=== PATIENT | male | born 1945 | race Two or more races ===

== ENCOUNTER 2016-08-27 08:35 | Observation (INO) | payer MEDICARE, MEDICAID ==
[~2016-08-27] VITALS: Ht 167.6 cm; Wt 93.4 kg
[~2016-08-27 08:35] MED LIST: ASPI1TAB PO; BACT800T5 PO; CALC25TA PO; CALCTAB7 PO; COLA100C PO; CRAN500C2 PO; DIPH25CA PO; DULC10SU2 PR; FERR325T3 PO; FOSA70TA PO; HCTZ PO; LIPI20TA PO; MIRA3350 PO; MOM30SS PO; PREPOI PR; PREPOI TOP; PROT1TAB2 PO; SUCR1TA PO; TRIA1CR EXT; TYLE325T5 PO; VITATAB54 PO; ZEST1TAB PO; ZEST1TAB6 PO; ZINC60OI TOP; dulcolax PR; zinc TOP
[2016-08-27] MEDS: ZINC OXIDE TOP SCH ×2 (09:00→21:39)
[2016-08-27 09:44] LABS: BASO # 0.1 K/mm3 (0.0-0.2); BASO % 0.9 % (0.0-1.0); EOS # 0.4 K/mm3 (0.0-0.50); EOS % 4.9 % (0.0-3.0); LARGE UNSTAINED CELL # 0.2 K/mm3 (0.0-0.4); LARGE UNSTAINED CELL % 2.7 % (0.0-4.0); LYMPH # 1.4 K/mm3 (1.5-4.5); LYMPH % 19.3 % (24.0-44.0); MEAN CORPUSCULAR HEMOGLOBIN 30.7 pg (27.0-33.0); MEAN CORPUSCULAR VOLUME 90.1 fl (80.0-96.0); MONO # 0.5 K/mm3 (0.0-0.8); MONO % 6.6 % (0.0-5.0); NEUTROPHILS # 4.7 K/mm3 (1.8-7.7); NEUTROPHILS % 65.5 % (36.0-66.0); PLATELET COUNT, AUTOMATED 201 k/mm3 (150-450); RED CELL DISTRIBUTION WIDTH 12.6 % (11.5-14.5); WHITE BLOOD COUNT 7.1 K/mm3 (4.0-10.0)
[2016-08-27 10:07] LABS: ANION GAP 7 MEQ/L (8-16); BLOOD UREA NITROGEN 12 MG/DL (7-18); CALCIUM LEVEL 8.5 MG/DL (8.8-10.2); CARBON DIOXIDE LEVEL 28 MEQ/L (21-32); CHLORIDE LEVEL 101 MEQ/L (98-107); CREATININE FOR GFR 0.74 MG/DL (0.70-1.30); GLOMERULAR FILTRATION RATE > 60.0 (>42); GLUCOSE, FASTING 124 MG/DL (83-110); POTASSIUM SERUM 4.6 MEQ/L (3.5-5.1); SODIUM LEVEL 136 MEQ/L (136-145)
[2016-08-27] MEDS ORDERED: ATOR40TA PO (11:20)
[2016-08-27] MEDS ORDERED: MELA5TAB14 PO (11:25)
[2016-08-27] MEDS ORDERED: CALCTAB75 PO (11:25)
[2016-08-27] MEDS ORDERED: hydroCHLOROthiazide 12.5 MG CAPSULE PO ONE (11:45)
[2016-08-27] MEDS ORDERED: BISACODYL 10 MG SUPP PR PRN (11:45)
[2016-08-27] MEDS ORDERED: TRIAMCINOLONE ACET 0.1% CREAM 15 GM EXT PRN (11:45)
[2016-08-27] MEDS ORDERED: MOM 30ML SUSPENSION UDC PO PRN (11:45)
[2016-08-27] MEDS ORDERED: LISINOPRIL 10 MG TAB PO ONE (11:45)
[2016-08-27] MEDS ORDERED: SUCRALFATE 1 GM TAB As Ordered ONE (12:57)
[2016-08-27] MEDS: SUCRALFATE 1 GM TAB PO SCH ×3 (13:00→21:39)
--- NOTE | 2016-08-27 13:25 | EDDOCDS ---
Physician Documentation [facility] Name: Calvin Joaquin Age: 71 yrs Sex: Male : 1945 Arrival Date: 08/27/2016 Time: 08:35 Bed 14 Private MD: Aldo Modi D Disposition: 08/27/16 11:02 Hospitalization ordered by Aldo Modi for Inpatient Admission. Preliminary diagnosis is Open wound of scrotum and testes. - Bed requested for 5 Qu[place]ñone[place]. - Status is Inpatient Admission. hs1 - Condition is Stable. - Problem is an ongoing problem. - Symptoms have worsened. Historical: - Allergies: Codeine Sulfate; - Home Meds: 1. Carafate 1 gram Oral tab 1 tab 4 times per day (Last dose: 08/27/2016) 2. Protonix 40 mg Oral TbEC 1 tab 2 times per day (Last dose: 08/27/2016) 3. Miralax 17 gram Oral pwpk 1 packet once daily (Last dose: 08/27/2016) 4. zinc oxide Topical crea twice a day (Last dose: 08/27/2016) 5. Calcium + Vitamin D sumanth 600 mg/ Vit D 400 iu Oral tab daily 6. Colace 100 mg oral cap 1 cap 2 times per day 7. ferrous sulfate 325 mg (65 mg iron) Oral tab twice a day 8. cranberry 500 mg oral cap twice a day 9. Zestoretic 10-12.5 mg Oral tab 1 tab once daily 10. Lipitor 40 mg Oral tab 1 tab once daily 11. melatonin 5 mg Oral tab daily - PMHx: borderline intellectual functioning; neuropathy; Cerebral Palsy; - PSHx: Knee surgery; Colonoscopy (2002); - Social history: Smoking status: Patient states was never smoker of tobacco. No barriers to communication noted, The patient speaks fluent Yi. - Family history: Not pertinent. - : The pt / caregiver states he / she is not on anticoagulants. Home medication list is obtained from the facility AUG. - Exposure Risk Screening:: None identified. Vital Signs: 08/27 08:37 BP 111 / 66; Pulse 69; Resp 18; Temp 97.4(O); Pulse Ox 99% ; Weight 93.44 kg / 206 lbs; cmb Height 5 ft. 6 in. (167.64 cm); Pain 0/10; 12:36 BP 135 / 73; Pulse 66; Resp 18; Temp 97.6; Pulse Ox 98% ; Pain 0/10; hs1 13:22 BP 125 / 69; Pulse 59; Resp 18; Temp 97.8(TE); Pulse Ox 98% on R/A; Pain 0/10; rn1 08:37 Body Mass Index 33.25 (93.44 kg, 167.64 cm) cmb MDM: 09:24 IV Saline Lock ordered. br1 09:25 CBC with Diff Ordered. EDMS 09:25 BMP Ordered. EDMS 09:25 Wound Culture & GS - All Other Sources Ordered. EDMS 09:47 CBC with Diff Reviewed. br1 10:19 Financial registration complete. mm15 10:20 [facility] Payment Agreement was scanned into [employer] and attached to record. mm15 10:42 BMP Reviewed. br1 11:01 BED REQUEST+ADM ordered. EDMS 11:49 Admission / Observation Status ordered. EDMS 12:56 Sucralfate 1 grams PO once ordered. jjr Administered Medications: 13:00 Drug: Sucralfate 1 grams [sucralfate 1 gram tablet (1 tabs)] Route: PO; jjr Signatures: Dispatcher [employer] EDMS Esmer Jaquez, Assistant Director Unit deg Robbi Cox RN RN mlb1 Ronan Merino MD MD br1 Donita Wolf RN RN jjr Angeli Dubon RN RN hs1 Jass Garcia mm15 The chart was reviewed and I authenticate all verbal orders and agree with the evaluation and treatment provided.Attachments: 10:20 [facility] Payment Agreement mm15 MTDD
--- NOTE | 2016-08-27 13:26 | EDDOCDS ---
Nurse's Notes [facility] Name: Calvin Joaquin Age: 71 yrs Sex: Male : 1945 Arrival Date: 08/27/2016 Time: 08:35 Bed 14 Private MD: Aldo Modi D Diagnosis: Open wound of scrotum and testes Presentation: 08/27 08:40 Presenting complaint: Open wound to scrotum not healing now with drainage began two mlb1 months ago. Adult Sepsis Screening: The patient does not have new or worsening altered mentation. Patient's respiratory rate is less than 22. Systolic blood pressure is greater than 100. Patient has a qSOFA score of 0- Negative Sepsis Screen. Suicide/Homicide risk assessment- the patient denies having any suicidal and/or homicidal ideations and does not present with any other emotional, behavioral or mental health complaints. 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 Transition of care: patient was received from [facility]. 08:40 Acuity: ALON Level 3 mlb1 08:40 Method Of Arrival: Wheelchair mlb1 Triage Assessment: 08:49 General: Appears in no apparent distress, Behavior is appropriate for age, cooperative. mlb1 Pain: Denies pain. Historical: - Allergies: Codeine Sulfate; - Home Meds: 1. Carafate 1 gram Oral tab 1 tab 4 times per day (Last dose: 08/27/2016) 2. Protonix 40 mg Oral TbEC 1 tab 2 times per day (Last dose: 08/27/2016) 3. Miralax 17 gram Oral pwpk 1 packet once daily (Last dose: 08/27/2016) 4. zinc oxide Topical crea twice a day (Last dose: 08/27/2016) 5. Calcium + Vitamin D sumanth 600 mg/ Vit D 400 iu Oral tab daily 6. Colace 100 mg oral cap 1 cap 2 times per day 7. ferrous sulfate 325 mg (65 mg iron) Oral tab twice a day 8. cranberry 500 mg oral cap twice a day 9. Zestoretic 10-12.5 mg Oral tab 1 tab once daily 10. Lipitor 40 mg Oral tab 1 tab once daily 11. melatonin 5 mg Oral tab daily - PMHx: borderline intellectual functioning; neuropathy; Cerebral Palsy; - PSHx: Knee surgery; Colonoscopy (2002); - Social history: Smoking status: Patient states was never smoker of tobacco. No barriers to communication noted, The patient speaks fluent Lithuanian. - Family history: Not pertinent. - : The pt / caregiver states he / she is not on anticoagulants. Home medication list is obtained from the facility AUG. - Exposure Risk Screening:: None identified. Screenin:48 Advance Directives: Currently, there is a health care proxy, Kamila Joaquin. mlb1 12:45 Screening information is obtained from the caregiver. Fall risk: At risk due to gait hs1 disturbance, immobility, The following interventions are performed due to a positive Fall Risk Screen: Fall Risk is added to Special Handling on the patient Summary Screen. A Fall Risk Bracelet was applied to the patient. Side Rails are placed in the up position. A Call Zamarripa is given with instruction to call for help when getting out of bed. Fall Alert bracelet is placed on the patient. Assistance ADL's: Requires assistance with meal preparation, this assistance is provided by Home Health Aides, bathing, assistance is provided by Home Health Aides, dressing, assistance is provided by Home Health Aides, toileting, assistance is provided by Home Health Aides, ambulation, assistance is provided by Home Health Aides. Abuse/DV Screen: The patient / caregiver reports he/she is: not in a situation that causes fear, pain or injury. Nutritional screening: On thickened liquids. home support is adequate. Assessment: 09:48 General: Appears in no apparent distress, comfortable, Behavior is appropriate for age, hs1 cooperative. Pain: Denies pain. Derm: Skin is pink, warm & dry. 10:35 General: Appears in no apparent distress, comfortable, Behavior is appropriate for age, hs1 cooperative. : excoriated area between right thigh and perineum. Blisters broken skin and white area noted. Caregiver states has been using zinc creams and antibacterial ointment. 11:25 General: Appears in no apparent distress, comfortable, Behavior is appropriate for age, hs1 cooperative, Patient and palliative care physician aware of admission. No needs noted. Attending MD in to see excoriated areas. Dressing plan discussed and patient aware of needing dressings. . 12:38 General: Appears in no apparent distress, comfortable, Behavior is appropriate for age, hs1 cooperative, caregiver asking for Carafate for patient to have before lunch. Aware of admission to floor. No other needs known. . Vital Signs: 08:37 BP 111 / 66; Pulse 69; Resp 18; Temp 97.4(O); Pulse Ox 99% ; Weight 93.44 kg; Height 5 cmb ft. 6 in. (167.64 cm); Pain 0/10; 12:36 BP 135 / 73; Pulse 66; Resp 18; Temp 97.6; Pulse Ox 98% ; Pain 0/10; hs1 13:22 BP 125 / 69; Pulse 59; Resp 18; Temp 97.8(TE); Pulse Ox 98% on R/A; Pain 0/10; rn1 08:37 Body Mass Index 33.25 (93.44 kg, 167.64 cm) cmb Vitals: 08:37 Log In Time: August 27, 2016 at 08:35. cmb ED Course: 08:37 Patient visited by Cindy Rosales. cmb 08:37 Aldo Modi is Private Physician. cmb 08:37 Patient moved to Waiting cmb 08:39 Patient moved to Pre RCE cmb 08:40 Patient visited by Robbi Cox RN. mlb1 08:41 Triage Initiated mlb1 08:49 Patient visited by Robbi Cox, JV. mlb1 08:49 Patient moved to Triage 1 mlb1 09:08 Patient moved to 14 dls 09:09 Ronan Merino MD is Attending Physician. br1 09:23 Patient visited by Ronan Merino MD. br1 09:44 Wound Culture & GS - All Other Sources Sent. hs1 10:04 Patient visited by Angeli Dubon RN. hs1 10:20 [facility] Payment Agreement was scanned into [employer] and attached to record. mm15 10:48 Patient visited by Angeli Dubon RN. hs1 11:01 Aldo Modi is Hospitalizing Provider. br1 12:36 Inserted saline lock: 22 gauge in right hand The patient tolerated the procedure well. hs1 12:38 Wound care located on perineum and scrotum was dressed with ABD pads, barrier ointment, hs1 mesh underwear to secure dressing in place without using tape Patient tolerated well. 12:46 The patient / caregiver is instructed regarding the plan of care and ED course. hs1 13:20 No procedures done that require assistance. hs1 Administered Medications: 13:00 Drug: Sucralfate 1 grams [sucralfate 1 gram tablet (1 tabs)] Route: PO; jjr Order Results: Lab Order: CBC with Diff; SPEC'M 08/27/16 09:30 Test: WHITE BLOOD COUNT; Value: 7.1; Range: 4.0-10.0; Units: K/mm3; Status: F Test: RED BLOOD COUNT; Value: 4.84; Range: 4.30-6.10; Units: M/mm3; Status: F Test: HEMOGLOBIN; Value: 14.8; Range: 14.0-18.0; Units: g/dl; Status: F Test: HEMATOCRIT; Value: 43.6; Range: 42.0-52.0; Units: %; Status: F Test: MEAN CORPUSCULAR VOLUME; Value: 90.1; Range: 80.0-96.0; Units: fl; Status: F Test: MEAN CORPUSCULAR HEMOGLOBIN; Value: 30.7; Range: 27.0-33.0; Units: pg; Status: F Test: MEAN CORPUSCULAR HGB CONC; Value: 34.0; Range: 32.0-36.5; Units: g/dl; Status: F Test: RED CELL DISTRIBUTION WIDTH; Value: 12.6; Range: 11.5-14.5; Units: %; Status: F Test: PLATELET COUNT, AUTOMATED; Value: 201; Range: 150-450; Units: k/mm3; Status: F Test: NEUTROPHILS %; Value: 65.5; Range: 36.0-66.0; Units: %; Status: F Test: LYMPH %; Value: 19.3; Range: 24.0-44.0; Abnormal: Below low normal; Units: %; Status: F Test: MONO %; Value: 6.6; Range: 0.0-5.0; Abnormal: Above high normal; Units: %; Status: F Test: EOS %; Value: 4.9; Range: 0.0-3.0; Abnormal: Above high normal; Units: %; Status: F Test: BASO %; Value: 0.9; Range: 0.0-1.0; Units: %; Status: F Test: LARGE UNSTAINED CELL %; Value: 2.7; Range: 0.0-4.0; Units: %; Status: F Test: NEUTROPHILS #; Value: 4.7; Range: 1.8-7.7; Units: K/mm3; Status: F Test: LYMPH #; Value: 1.4; Range: 1.5-4.5; Abnormal: Below low normal; Units: K/mm3; Status: F Test: MONO #; Value: 0.5; Range: 0.0-0.8; Units: K/mm3; Status: F Test: EOS #; Value: 0.4; Range: 0.0-0.50; Units: K/mm3; Status: F Test: BASO #; Value: 0.1; Range: 0.0-0.2; Units: K/mm3; Status: F Test: LARGE UNSTAINED CELL #; Value: 0.2; Range: 0.0-0.4; Units: K/mm3; Status: F Lab Order: [facility] 08/27/16 09:30 Test: GLUCOSE, FASTING; Value: 124; Range: 83-110; Abnormal: Above high normal; Units: MG/DL; Status: F Test: BLOOD UREA NITROGEN; Value: 12; Range: 7-18; Units: MG/DL; Status: F Test: CREATININE FOR GFR; Value: 0.74; Range: 0.70-1.30; Units: MG/DL; Status: F Test: GLOMERULAR FILTRATION RATE; Value: > 60.0; Range: >42; Status: F Test: SODIUM LEVEL; Value: 136; Range: 136-145; Units: MEQ/L; Status: F Test: POTASSIUM SERUM; Value: 4.6; Range: 3.5-5.1; Units: MEQ/L; Status: F Test: CHLORIDE LEVEL; Value: 101; Range: 98-107; Units: MEQ/L; Status: F Test: CARBON DIOXIDE LEVEL; Value: 28; Range: 21-32; Units: MEQ/L; Status: F Test: ANION GAP; Value: 7; Range: 8-16; Abnormal: Below low normal; Units: MEQ/L; Status: F Test: CALCIUM LEVEL; Value: 8.5; Range: 8.8-10.2; Abnormal: Below low normal; Units: MG/DL; Status: F Test Note: ; Units are mL/min/1.73 m2 Chronic Kidney Disease Staging per NKF: Stage I & II GFR >=60 Normal to Mildly Decreased Stage III GFR 30-59 Moderately Decreased Stage IV GFR 15-29 Severely Decreased Stage V GFR <15 Very Little GFR Left ESRD GFR <15 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 br1 13:20 Condition: stable. No special radiology studies were completed. Admission hand-off: [facility] Report called to 5 Khang CARIAS. Property :Personal belongings accompany Pt. 13:21 Discharge Assessment: Patient awake, alert and oriented x 3. No cognitive and/or hs1 functional deficits noted. Patient verbalized understanding of disposition instructions. patient administered narcotics - no. The following High Risk Discharge criteria are identified: None. Admitted to Med/Surg accompanied by nurse, accompanied by tech, via stretcher, on monitor. 13:25 Patient left the ED. [facility] Signatures: Shea Evans RN RN Robbi Yoon RN RN mlb1 Ronan Merino MD MD br1 Donita Wolf RN RN Angeli Yepez RN RN hs1 Cindy Rosales cmb Jass Garcia mm15 Paul Owusu rn1 Corrections: (The following items were deleted from the chart) 12:37 09:48 Pain: Location: pelvis Pain currently is 5 out of 10 on a pain scale. [place] [id number] 13:22 13:20 Discharge Assessment: Patient awake, alert and oriented x 3. No cognitive and/or 1 functional deficits noted. Patient verbalized understanding of disposition instructions. patient administered narcotics - no [facility] 13:22 13:20 The following High Risk Discharge criteria are identified: None. Discharged to 1 home ambulatory, [facility] MTDD
[2016-08-27 13:45] VITALS: BP 150/85
[2016-08-27] MEDS: MIRALAX *UNIT DOSE* 17GM PACKET PO SCH (15:46)
[2016-08-27 15:47] VITALS: BP 150/85
[2016-08-27] MEDS ORDERED: CRANBERRY EXTRACT PO SCH (21:00)
[2016-08-27] MEDS ORDERED: MELATONIN 5mg (PATIENT'S OWN MED) PO SCH (21:00)
[2016-08-27] MEDS: PANTOPRAZOLE 40MG TAB (PROTONIX) PO SCH (21:39)
[2016-08-27] MEDS: DOCUSATE SODIUM 100 MG CAP PO SCH (21:39)
[2016-08-27] MEDS: FERROUS SULFATE 325MG TAB PO SCH (21:39)
[2016-08-27] MEDS: ATORVASTATIN 20 MG TAB PO SCH (21:39)
[2016-08-27 22:00] VITALS: BP 129/67
[2016-08-28 05:53] LABS: BASO % 0.7 % (0.0-1.0); EOS # 0.5 K/mm3 (0.0-0.50); EOS % 6.5 % (0.0-3.0); LARGE UNSTAINED CELL # 0.2 K/mm3 (0.0-0.4); LARGE UNSTAINED CELL % 2.6 % (0.0-4.0); LYMPH # 1.7 K/mm3 (1.5-4.5); LYMPH % 18.7 % (24.0-44.0); MEAN CORPUSCULAR HEMOGLOBIN 30.5 pg (27.0-33.0); MEAN CORPUSCULAR HGB CONC 33.9 g/dl (32.0-36.5); MEAN CORPUSCULAR VOLUME 89.9 fl (80.0-96.0); MONO # 0.8 K/mm3 (0.0-0.8); MONO % 9.8 % (0.0-5.0); NEUTROPHILS # 4.8 K/mm3 (1.8-7.7); NEUTROPHILS % 61.8 % (36.0-66.0); PLATELET COUNT, AUTOMATED 213 k/mm3 (150-450); RED CELL DISTRIBUTION WIDTH 12.8 % (11.5-14.5); WHITE BLOOD COUNT 7.8 K/mm3 (4.0-10.0)
[2016-08-28 05:55] LABS: ANION GAP 8 MEQ/L (8-16); BLOOD UREA NITROGEN 11 MG/DL (7-18); CALCIUM LEVEL 8.6 MG/DL (8.8-10.2); CARBON DIOXIDE LEVEL 30 MEQ/L (21-32); CHLORIDE LEVEL 101 MEQ/L (98-107); CREATININE FOR GFR 0.72 MG/DL (0.70-1.30); GLOMERULAR FILTRATION RATE > 60.0 (>42); GLUCOSE, FASTING 116 MG/DL (83-110); POTASSIUM SERUM 3.9 MEQ/L (3.5-5.1); SODIUM LEVEL 139 MEQ/L (136-145)
[2016-08-28 06:00] VITALS: BP 130/67
[2016-08-28] MEDS: MIRALAX *UNIT DOSE* 17GM PACKET PO SCH (09:15)
[2016-08-28] MEDS: FERROUS SULFATE 325MG TAB PO SCH ×2 (09:16→20:36)
[2016-08-28] MEDS: DOCUSATE SODIUM 100 MG CAP PO SCH ×2 (09:16→20:36)
[2016-08-28] MEDS: ZINC OXIDE TOP SCH ×2 (09:16→20:37)
[2016-08-28] MEDS: PANTOPRAZOLE 40MG TAB (PROTONIX) PO SCH ×2 (09:16→20:36)
[2016-08-28] MEDS: SUCRALFATE 1 GM TAB PO SCH ×4 (09:16→20:36)
--- NOTE | 2016-08-28 09:28 | HPE ---
DATE OF ADMISSION: 08/27/2016 CHIEF COMPLAINT: Perineal redness and drainage. HISTORY OF PRESENT ILLNESS: Calvin is a 71-year-old [facility] ([facility]) patient with a history of cerebral palsy, incomplete sensory at the level of T10, as well as a 5-6-month history of perineal erythema and recurrent pressure ulcerations, who presents today for evaluation of draining perineal wounds first noticed on the night prior to admission. The history has been obtained from his [facility] advocate. As previously noted, he has been having chronic issues with recurrent pressure ulcerations in his perineum for the past 1/2 year or so, but they have been most severe over the past 4-6 weeks. He has chronic erythema of his perineum and scrotal area, and on the night prior to admission, he was noted to have an open wound draining clear to bloody fluid. No pus was reported. He has had no fevers, and has been at his baseline functioning. No other associated wounds are reported. Family medicine service was consulted for further workup and evaluation in the emergency department. PAST MEDICAL HISTORY: 1. Cerebral palsy with spastic quadriplegia. 2. Macular degeneration with legal blindness. 3. Hypertension. 4. Hyperlipidemia. 5. 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 6. Raynaud's phenomenon. 7. Nummular eczema. 8. Osteoporosis. 9. Hemorrhoids. 10. Hiatal hernia. 11. Incontinence status post suprapubic catheter. 12. Esophagitis. 13. Iron deficiency. PAST SURGICAL HISTORY: 1. Suprapubic catheter placement 1984. 2. Left patella repair age 17. 3. Tooth extractions 2006, 2011. 4. Cystoscopy 2012. 5. Esophagogastroduodenoscopy (EGD). FAMILY HISTORY: Noncontributory. SOCIAL HISTORY: He is a nonsmoker, [facility] resident, does not consume alcohol. He is unemployed. ALLERGIES: No dietary allergies noted; however, CODEINE has been reported to result in altered mental status. HOME MEDICATION: - Colace 100 mg one capsule orally twice a day - milk of magnesia 30 mg orally on days three and four without bowel movement - Dulcolax 10 mg suppository one suppository as needed for constipation RI - calcium with vitamin D 600-400 mg - Melatonin 5 mg at bedtime - cranberry 500 mg twice a day - zinc oxide 25% ointment to the affected scrotal and perineal area every day - Carafate one gram on empty stomach before meals and bedtime - MiraLax one packet daily orally - Zestoretic 10-12.5 orally once a day - ferrous sulfate 325 one tablet orally twice a day - Lipitor over 40 mg at bedtime - Protonix 40 mg twice daily REVIEW OF SYSTEMS: Unobtainable. PHYSICAL EXAMINATION: He is lying comfortably in the ER bed. He is alert, responsive and cooperative, in no acute distress. HEENT: Normocephalic, atraumatic. Pupils equal, round and react to light accommodation. Mucous membranes are moist. Poor dentition noted. NECK: No masses or adenopathy. CARDIOVASCULAR SYSTEM: Regular rate and rhythm. No rubs, murmurs, or gallops. LUNGS: Clear bilaterally. ABDOMEN: Soft. He does not appear to have tenderness, nondistended. No hepatosplenomegaly. Bowel sounds are normoactive. There is a suprapubic catheter in place with no surrounding erythema. EXTREMITIES: No notable edema. SKIN: Chronic erythematous changes of the perineal and scrotal area with a 2 cm non-draining, stage II ulceration of the perineum just posterior to the scrotum. LABORATORY FINDINGS: CBC white blood cell count 7.1, hemoglobin 14.8, hematocrit 43.6, platelets 201, 4.7 neutrophils and 1.14 lymphocytes. Basic metabolic profile: Sodium 136, potassium 4.6, chloride 101, bicarb 24, BUN 12, creatinine 0.74, glucose 124, calcium 8.6. Gram stain and wound culture are pending. No imaging studies to report. ASSESSMENT: Calvin is a 71-year-old gentleman with a history of cerebral palsy, spastic quadriplegia and recurrent pressure ulcerations with chronic stasis changes secondary to immobility who presents today with a 1-day history of an apparent draining ulcer. However, on exam he is does not appear to be infectious, which is supported by his laboratory findings. He is hemodynamically stable. PLAN: 1. General. He will be admitted to the medical-surgical floor under Dr. Modi as the attending. Vitals per floor protocol. Will remain on bedrest. He is being admitted for observation. 2. Skin breakdown and draining ulcer, perennial. This does not appear to be infectious as he has been having significant problems with this over the past 4- 6 weeks. Most likely etiology is immobility and chronic pressure and skin breakdown. For this reason, therefore, we will be administering every 2 hours position changes as well as daily and as needed dressing changes with zinc oxide and cloth barrier. He will also need to be under a wedge to offload pressure from this area. Ultimately, the treatment for this condition is offloading of pressure from this particular area. Gram stain and culture were obtained in the emergency department and will be followed. Should anything suspicious for infection appear on results, antibiotics will be initiated. However, for now we will hold off. I have also ordered serial CRPs to evaluate his current inflammatory status. 3. Hypertension. Blood pressures are acceptable in the emergency department. Zestoretic is not formulary, therefore, lisinopril and hydrochlorothiazide have been ordered separately. He will be placed on a low sodium diet. 4. Cerebral palsy and spastic quadriplegia. This is complicating the care of his current acute problem. He does have a suprapubic catheter that does have some surrounding drainage, but there is no genitalia drainage making that an unlikely etiology for skin breakdown. 5. Osteoporosis. He is taking a vitamin D and calcium supplement. 6. Hemorrhoids. Bowel regimen has been continued here. 7. Hyperlipidemia. His home statin has been continued. 8. Esophagitis and esophageal ulcerations. His home GI medications have been continued. CODE STATUS: He is full code. My preceptor for this patient encounter was Dr. Aldo Modi. The preceptor was physically present in the building during the encounter and was fully available as needed. All aspects of the patient interview, examination, medical decision making process, and medical care plan development were reviewed and approved by the preceptor. The preceptor is aware and concurs with the plan as stated in the body of this note and will attest to such by his co-signature. JES
--- NOTE | 2016-08-28 13:27 | IPNPDOC ---
Subjective Date Seen The patient was seen on 08/28/16. Subjective Chief Complaint/HPI Pt in bed, [facility] staff at bedside. No new concerns. Pt is discouraged that he cant get up into his WC. ENT: Denies: Head Aches Pulmonary: Denies: Cough, Dyspnea Gastrointestinal: Denies: Diarrhea, Nausea, Vomiting Objective Physical Examination General Exam: Positive: Alert, No Acute Distress ENT Exam: Positive: Mucous membr. moist/pink Chest Exam: Positive: Clear to auscultation, Normal air movement Heart Exam: Positive: Normal S1, Normal S2, Rate Normal Abdomen Exam: Positive: Normal bowel sounds, Soft, Negative: Tenderness Extremity Exam: Negative: Edema Assessment /Plan Assessment Family Medicine Attending Note: I saw and examined Mr. Joaquin, discussed with OMAR Etienne. Agree with their note as documented. Was seems to be doing fine today. He would like to get up to his wheelchair, but seems reasonably understanding that he needs to heal. I did start him on low-dose fluconazole because his least yeastlike organism that grew from the skin culture done in the ER. We'll monitor. 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 He may need a different seat in his W/C. He may also benefit from a hospital bed at his residence. The culture did show yeast-like organisms on his skin. I will start him on low- dose fluconazole for 5 days. This is very likely a colonization, but is difficult to tell due to the circumstances and I would rather treat him then let fungal infection get worse at this time. 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 Really the only way to do this is to keep him in bed for a few days with frequent position changes. (2) CP (cerebral palsy), spastic Status: Chronic Response to Treatment: Stable Problem Specific Plan: Monitor Clinically Problem Text: He lives at and is cared for by [facility] staff. Plan/VTE VTE Prophylaxis Ordered?: No (activity close to baseline, he is W/C bound) VS, I&O, 24H, Fishbone Vital Signs/I&O Vital Signs Date Time Temp Pulse Resp B/P Pulse Ox O2 Delivery O2 Flow Rate FiO2 08/28/16 06:00 96.7 72 20 130/67 94 Room Air I&O- Last 24 Hours up to 6 AM 08/28/16 06:00 Intake Total 540 ml Output Total 1750 ml Balance -1210 ml Laboratory Data 24H LABS Laboratory Tests 2 08/28/16 05:16: Anion Gap 8, White Blood Count 7.8, Red Blood Count 4.84, Hemoglobin 14.8, Hematocrit 43.5, Mean Corpuscular Volume 89.9, Mean Corpuscular Hemoglobin 30.5 , Mean Corpuscular Hemoglobin Concent 33.9, Red Cell Distribution Width 12.8, Platelet Count 213, Neutrophils (%) (Auto) 61.8, Lymphocytes (%) (Auto) 18.7L, Monocytes (%) (Auto) 9.8H, Eosinophils (%) (Auto) 6.5H, Basophils (%) (Auto) 0.7 , Neutrophils # (Auto) 4.8, Lymphocytes # (Auto) 1.7, Monocytes # (Auto) 0.8, Eosinophils # (Auto) 0.5, Basophils # (Auto) 0.0, C-Reactive Protein, Quantitative 0.85H, Blood Urea Nitrogen 11, Creatinine 0.72, Sodium Level 139, Potassium Level 3.9, Chloride Level 101, Carbon Dioxide Level 30, Calcium Level 8.6L, Glomerular Filtration Rate > 60.0, Large Unclassified Cells # 0.2, Large Unclassified Cells % 2.6 CBC/BMP Laboratory Tests 08/28/16 05:16 Calcium Level 8.6 L, Red Blood Count 4.84, Mean Corpuscular Volume 89.9, Mean Corpuscular Hemoglobin 30.5, Mean Corpuscular Hemoglobin Concent 33.9, Red Cell Distribution Width 12.8, Neutrophils (%) (Auto) 61.8, Lymphocytes (%) (Auto) 18.7 L, Monocytes (%) (Auto) 9.8 H, Eosinophils (%) (Auto) 6.5 H, Basophils (%) (Auto) 0.7, Neutrophils # (Auto) 4.8, Lymphocytes # (Auto) 1.7, Monocytes # ( Auto) 0.8, Eosinophils # (Auto) 0.5, Basophils # (Auto) 0.0 Microbiology Microbiology 08/27/16 Gram Stain - Final, Resulted 08/27/16 Wound Culture - Preliminary, Resulted Yeast Like Organism ETHAN ARROYO PA-C Aug 28, 2016 13:27 Aldo Modi MD Aug 28, 2016 20:44
[2016-08-28 14:00] VITALS: BP 151/61
[2016-08-28] MEDS: FLUCONAZOLE 50MG TABLET PO SCH (20:35)
[2016-08-28] MEDS: ATORVASTATIN 20 MG TAB PO SCH (20:36)
[2016-08-29 06:00] VITALS: BP 177/86
[2016-08-29 06:58] LABS: BASO % 0.6 % (0.0-1.0); EOS # 0.5 K/mm3 (0.0-0.50); EOS % 5.3 % (0.0-3.0); LARGE UNSTAINED CELL # 0.1 K/mm3 (0.0-0.4); LARGE UNSTAINED CELL % 1.2 % (0.0-4.0); LYMPH # 1.4 K/mm3 (1.5-4.5); LYMPH % 13.4 % (24.0-44.0); MEAN CORPUSCULAR HEMOGLOBIN 30.3 pg (27.0-33.0); MEAN CORPUSCULAR HGB CONC 33.6 g/dl (32.0-36.5); MEAN CORPUSCULAR VOLUME 90.1 fl (80.0-96.0); MONO # 0.7 K/mm3 (0.0-0.8); MONO % 7.6 % (0.0-5.0); NEUTROPHILS # 6.7 K/mm3 (1.8-7.7); PLATELET COUNT, AUTOMATED 190 k/mm3 (150-450); RED CELL DISTRIBUTION WIDTH 12.8 % (11.5-14.5); WHITE BLOOD COUNT 9.3 K/mm3 (4.0-10.0)
[2016-08-29 07:13] LABS: ANION GAP 8 MEQ/L (8-16); BLOOD UREA NITROGEN 14 MG/DL (7-18); CALCIUM LEVEL 8.6 MG/DL (8.8-10.2); CARBON DIOXIDE LEVEL 28 MEQ/L (21-32); CHLORIDE LEVEL 101 MEQ/L (98-107); CREATININE FOR GFR 0.71 MG/DL (0.70-1.30); GLOMERULAR FILTRATION RATE > 60.0 (>42); GLUCOSE, FASTING 107 MG/DL (83-110); POTASSIUM SERUM 3.7 MEQ/L (3.5-5.1); SODIUM LEVEL 137 MEQ/L (136-145)
[2016-08-29] MEDS ORDERED: NYSTATIN 100,000 UNITS/GM TOPICAL PWD 15 GM TOP SCH (09:00)
[2016-08-29] MEDS: MIRALAX *UNIT DOSE* 17GM PACKET PO SCH (09:09)
[2016-08-29] MEDS: FLUCONAZOLE 50MG TABLET PO SCH (09:09)
[2016-08-29] MEDS: DOCUSATE SODIUM 100 MG CAP PO SCH (09:10)
[2016-08-29] MEDS: FERROUS SULFATE 325MG TAB PO SCH (09:10)
[2016-08-29] MEDS: PANTOPRAZOLE 40MG TAB (PROTONIX) PO SCH (09:10)
[2016-08-29] MEDS: SUCRALFATE 1 GM TAB PO SCH ×3 (09:11→16:54)
[2016-08-29] MEDS: ZINC OXIDE TOP SCH (09:12)
[2016-08-29 14:00] VITALS: BP 134/64
--- NOTE | 2016-08-29 14:25 | EDDOCDS ---
Physician Documentation [facility] Name: Calvin Joaquin Age: 71 yrs Sex: Male : 1945 Arrival Date: 08/27/2016 Time: 08:35 Bed 14 Private MD: Aldo Modi D Disposition: 08/27/16 11:02 Hospitalization ordered by Aldo Modi for Inpatient Admission. Preliminary diagnosis is Open wound of scrotum and testes. - Bed requested for 5 Quiñonez. - Status is Inpatient Admission. hs1 - Condition is Stable. - Problem is an ongoing problem. - Symptoms have worsened. Historical: - Allergies: Codeine Sulfate; - Home Meds: 1. Carafate 1 gram Oral tab 1 tab 4 times per day (Last dose: 08/27/2016) 2. Protonix 40 mg Oral TbEC 1 tab 2 times per day (Last dose: 08/27/2016) 3. Miralax 17 gram Oral pwpk 1 packet once daily (Last dose: 08/27/2016) 4. zinc oxide Topical crea twice a day (Last dose: 08/27/2016) 5. Calcium + Vitamin D sumanth 600 mg/ Vit D 400 iu Oral tab daily 6. Colace 100 mg oral cap 1 cap 2 times per day 7. ferrous sulfate 325 mg (65 mg iron) Oral tab twice a day 8. cranberry 500 mg oral cap twice a day 9. Zestoretic 10-12.5 mg Oral tab 1 tab once daily 10. Lipitor 40 mg Oral tab 1 tab once daily 11. melatonin 5 mg Oral tab daily - PMHx: borderline intellectual functioning; neuropathy; Cerebral Palsy; - PSHx: Knee surgery; Colonoscopy (2002); - Social history: Smoking status: Patient states was never smoker of tobacco. No barriers to communication noted, The patient speaks fluent Kiswahili. - Family history: Not pertinent. - : The pt / caregiver states he / she is not on anticoagulants. Home medication list is obtained from the facility AUG. - Exposure Risk Screening:: None identified. Vital Signs: 08/27 08:37 BP 111 / 66; Pulse 69; Resp 18; Temp 97.4(O); Pulse Ox 99% ; Weight 93.44 kg / 206 lbs; cmb Height 5 ft. 6 in. (167.64 cm); Pain 0/10; 12:36 BP 135 / 73; Pulse 66; Resp 18; Temp 97.6; Pulse Ox 98% ; Pain 0/10; hs1 13:22 BP 125 / 69; Pulse 59; Resp 18; Temp 97.8(TE); Pulse Ox 98% on R/A; Pain 0/10; rn1 08:37 Body Mass Index 33.25 (93.44 kg, 167.64 cm) cmb MDM: 09:24 IV Saline Lock ordered. br1 09:25 CBC with Diff Ordered. EDMS 09:25 BMP Ordered. EDMS 09:25 Wound Culture & GS - All Other Sources Ordered. EDMS 09:47 CBC with Diff Reviewed. br1 10:19 Financial registration complete. mm15 10:20 [facility] Payment Agreement was scanned into [employer] and attached to record. mm15 10:42 BMP Reviewed. br1 11:01 BED REQUEST+ADM ordered. EDMS 11:49 Admission / Observation Status ordered. EDMS 12:56 Sucralfate 1 grams PO once ordered. jjr 16:55 T-Sheet-- Draft Copy was scanned into [employer] and attached to record. klr Administered Medications: 13:00 Drug: Sucralfate 1 grams [sucralfate 1 gram tablet (1 tabs)] Route: PO; jjr Signatures: Dispatcher [employer] EDMS Esmer Jaquez, Dye Reel Operator Helper Unit deg Robbi Cox RN RN mlb1 Ronan Merino MD MD br1 Donita Wolf RN RN jjr Angeli Dubon RN RN hs1 Jass Garcia mm15 Mariaa Batista klr The chart was reviewed and I authenticate all verbal orders and agree with the evaluation and treatment provided.Attachments: 10:20 [facility] Payment Agreement mm15 16:55 T-Sheet-- Draft Copy klr Chart Complete MTDD
--- NOTE | 2016-08-29 14:25 | EDDOCDS ---
Nurse's Notes [facility] Name: Calvin Joaquin Age: 71 yrs Sex: Male : 1945 Arrival Date: 08/27/2016 Time: 08:35 Bed 14 Private MD: Aldo Modi D Diagnosis: Open wound of scrotum and testes Presentation: 08/27 08:40 Presenting complaint: Open wound to scrotum not healing now with drainage began two mlb1 months ago. Adult Sepsis Screening: The patient does not have new or worsening altered mentation. Patient's respiratory rate is less than 22. Systolic blood pressure is greater than 100. Patient has a qSOFA score of 0- Negative Sepsis Screen. Suicide/Homicide risk assessment- the patient denies having any suicidal and/or homicidal ideations and does not present with any other emotional, behavioral or mental health complaints. Status: Patient is not a mobile home servicer or dependent. Transition of care: patient was received from [facility]. 08:40 Acuity: ALON Level 3 mlb1 08:40 Method Of Arrival: Wheelchair mlb1 Triage Assessment: 08:49 General: Appears in no apparent distress, Behavior is appropriate for age, cooperative. mlb1 Pain: Denies pain. Historical: - Allergies: Codeine Sulfate; - Home Meds: 1. Carafate 1 gram Oral tab 1 tab 4 times per day (Last dose: 08/27/2016) 2. Protonix 40 mg Oral TbEC 1 tab 2 times per day (Last dose: 08/27/2016) 3. Miralax 17 gram Oral pwpk 1 packet once daily (Last dose: 08/27/2016) 4. zinc oxide Topical crea twice a day (Last dose: 08/27/2016) 5. Calcium + Vitamin D sumanth 600 mg/ Vit D 400 iu Oral tab daily 6. Colace 100 mg oral cap 1 cap 2 times per day 7. ferrous sulfate 325 mg (65 mg iron) Oral tab twice a day 8. cranberry 500 mg oral cap twice a day 9. Zestoretic 10-12.5 mg Oral tab 1 tab once daily 10. Lipitor 40 mg Oral tab 1 tab once daily 11. melatonin 5 mg Oral tab daily - PMHx: borderline intellectual functioning; neuropathy; Cerebral Palsy; - PSHx: Knee surgery; Colonoscopy (2002); - Social history: Smoking status: Patient states was never smoker of tobacco. No barriers to communication noted, The patient speaks fluent Cypriot. - Family history: Not pertinent. - : The pt / caregiver states he / she is not on anticoagulants. Home medication list is obtained from the facility AUG. - Exposure Risk Screening:: None identified. Screenin:48 Advance Directives: Currently, there is a health care proxy, Kamila Joaquin. mlb1 12:45 Screening information is obtained from the caregiver. Fall risk: At risk due to gait hs1 disturbance, immobility, The following interventions are performed due to a positive Fall Risk Screen: Fall Risk is added to Special Handling on the patient Summary Screen. A Fall Risk Bracelet was applied to the patient. Side Rails are placed in the up position. A Call Zamarripa is given with instruction to call for help when getting out of bed. Fall Alert bracelet is placed on the patient. Assistance ADL's: Requires assistance with meal preparation, this assistance is provided by Home Health Aides, bathing, assistance is provided by Home Health Aides, dressing, assistance is provided by Home Health Aides, toileting, assistance is provided by Home Health Aides, ambulation, assistance is provided by Home Health Aides. Abuse/DV Screen: The patient / caregiver reports he/she is: not in a situation that causes fear, pain or injury. Nutritional screening: On thickened liquids. home support is adequate. Assessment: 09:48 General: Appears in no apparent distress, comfortable, Behavior is appropriate for age, hs1 cooperative. Pain: Denies pain. Derm: Skin is pink, warm & dry. 10:35 General: Appears in no apparent distress, comfortable, Behavior is appropriate for age, hs1 cooperative. : excoriated area between right thigh and perineum. Blisters broken skin and white area noted. Caregiver states has been using zinc creams and antibacterial ointment. 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 No needs noted. Attending MD in to see excoriated areas. Dressing plan discussed and patient aware of needing dressings. . 12:38 General: Appears in no apparent distress, comfortable, Behavior is appropriate for age, hs1 cooperative, caregiver asking for Carafate for patient to have before lunch. Aware of admission to floor. No other needs known. . Vital Signs: 08:37 BP 111 / 66; Pulse 69; Resp 18; Temp 97.4(O); Pulse Ox 99% ; Weight 93.44 kg; Height 5 cmb ft. 6 in. (167.64 cm); Pain 0/10; 12:36 BP 135 / 73; Pulse 66; Resp 18; Temp 97.6; Pulse Ox 98% ; Pain 0/10; hs1 13:22 BP 125 / 69; Pulse 59; Resp 18; Temp 97.8(TE); Pulse Ox 98% on R/A; Pain 0/10; rn1 08:37 Body Mass Index 33.25 (93.44 kg, 167.64 cm) cmb Vitals: 08:37 Log In Time: August 27, 2016 at 08:35. cmb ED Course: 08:37 Patient visited by Cindy Rosales. cmb 08:37 Aldo Modi is Private Physician. cmb 08:37 Patient moved to Waiting cmb 08:39 Patient moved to Pre RCE cmb 08:40 Patient visited by Robbi Cox RN. mlb1 08:41 Triage Initiated mlb1 08:49 Patient visited by Robbi Cox, JV. mlb1 08:49 Patient moved to Triage 1 mlb1 09:08 Patient moved to 14 dls 09:09 Ronan Merino MD is Attending Physician. br1 09:23 Patient visited by Ronan Merino MD. br1 09:44 Wound Culture & GS - All Other Sources Sent. hs1 10:04 Patient visited by Angeli Dubon RN. hs1 10:20 [facility] Payment Agreement was scanned into [employer] and attached to record. mm15 10:48 Patient visited by Angeli Dubon RN. hs1 11:01 Adlo Modi is Hospitalizing Provider. br1 12:36 Inserted saline lock: 22 gauge in right hand The patient tolerated the procedure well. hs1 12:38 Wound care located on perineum and scrotum was dressed with ABD pads, barrier ointment, hs1 mesh underwear to secure dressing in place without using tape Patient tolerated well. 12:46 The patient / caregiver is instructed regarding the plan of care and ED course. hs1 13:20 No procedures done that require assistance. hs1 16:55 T-Sheet-- Draft Copy was scanned into [employer] and attached to record. klr Administered Medications: 13:00 Drug: Sucralfate 1 grams [sucralfate 1 gram tablet (1 tabs)] Route: PO; jjr Order Results: Lab Order: CBC with Diff; SPEC'M 08/27/16 09:30 Test: WHITE BLOOD COUNT; Value: 7.1; Range: 4.0-10.0; Units: K/mm3; Status: F Test: RED BLOOD COUNT; Value: 4.84; Range: 4.30-6.10; Units: M/mm3; Status: F Test: HEMOGLOBIN; Value: 14.8; Range: 14.0-18.0; Units: g/dl; Status: F Test: HEMATOCRIT; Value: 43.6; Range: 42.0-52.0; Units: %; Status: F Test: MEAN CORPUSCULAR VOLUME; Value: 90.1; Range: 80.0-96.0; Units: fl; Status: F Test: MEAN CORPUSCULAR HEMOGLOBIN; Value: 30.7; Range: 27.0-33.0; Units: pg; Status: F Test: MEAN CORPUSCULAR HGB CONC; Value: 34.0; Range: 32.0-36.5; Units: g/dl; Status: F Test: RED CELL DISTRIBUTION WIDTH; Value: 12.6; Range: 11.5-14.5; Units: %; Status: F Test: PLATELET COUNT, AUTOMATED; Value: 201; Range: 150-450; Units: k/mm3; Status: F Test: NEUTROPHILS %; Value: 65.5; Range: 36.0-66.0; Units: %; Status: F Test: LYMPH %; Value: 19.3; Range: 24.0-44.0; Abnormal: Below low normal; Units: %; Status: F Test: MONO %; Value: 6.6; Range: 0.0-5.0; Abnormal: Above high normal; Units: %; Status: F Test: EOS %; Value: 4.9; Range: 0.0-3.0; Abnormal: Above high normal; Units: %; Status: F Test: BASO %; Value: 0.9; Range: 0.0-1.0; Units: %; Status: F Test: LARGE UNSTAINED CELL %; Value: 2.7; Range: 0.0-4.0; Units: %; Status: F Test: NEUTROPHILS #; Value: 4.7; Range: 1.8-7.7; Units: K/mm3; Status: F Test: LYMPH #; Value: 1.4; Range: 1.5-4.5; Abnormal: Below low normal; Units: K/mm3; Status: F Test: MONO #; Value: 0.5; Range: 0.0-0.8; Units: K/mm3; Status: F Test: EOS #; Value: 0.4; Range: 0.0-0.50; Units: K/mm3; Status: F Test: BASO #; Value: 0.1; Range: 0.0-0.2; Units: K/mm3; Status: F Test: LARGE UNSTAINED CELL #; Value: 0.2; Range: 0.0-0.4; Units: K/mm3; Status: F [facility]: [facility] 08/27/16 09:30 Test: GLUCOSE, FASTING; Value: 124; Range: 83-110; Abnormal: Above high normal; Units: MG/DL; Status: F Test: BLOOD UREA NITROGEN; Value: 12; Range: 7-18; Units: MG/DL; Status: F Test: CREATININE FOR GFR; Value: 0.74; Range: 0.70-1.30; Units: MG/DL; Status: F Test: GLOMERULAR FILTRATION RATE; Value: > 60.0; Range: >42; Status: F Test: SODIUM LEVEL; Value: 136; Range: 136-145; Units: MEQ/L; Status: F Test: POTASSIUM SERUM; Value: 4.6; Range: 3.5-5.1; Units: MEQ/L; Status: F Test: CHLORIDE LEVEL; Value: 101; Range: 98-107; Units: MEQ/L; Status: F Test: CARBON DIOXIDE LEVEL; Value: 28; Range: 21-32; Units: MEQ/L; Status: F Test: ANION GAP; Value: 7; Range: 8-16; Abnormal: Below low normal; Units: MEQ/L; Status: F Test: CALCIUM LEVEL; Value: 8.5; Range: 8.8-10.2; Abnormal: Below low normal; Units: MG/DL; Status: F Test Note: ; Units are mL/min/1.73 m2 Chronic Kidney Disease Staging per NKF: Stage I & II GFR >=60 Normal to Mildly Decreased Stage III GFR 30-59 Moderately Decreased Stage IV GFR 15-29 Severely Decreased Stage V GFR <15 Very Little GFR Left ESRD GFR <15 on ROUSTABOUT CREW PUSHER Outcome: 11:02 Decision to Hospitalize by Provider. [facility] 13:20 Condition: stable. No special radiology studies were completed. Admission hand-off: [facility] Report called to 5 Khang CARIAS. Property :Personal belongings accompany Pt. 13:21 Discharge Assessment: Patient awake, alert and oriented x 3. No cognitive and/or hs1 functional deficits noted. Patient verbalized understanding of disposition instructions. patient administered narcotics - no. The following High Risk Discharge criteria are identified: None. Admitted to Med/Surg accompanied by nurse, accompanied by tech, via stretcher, on monitor. 13:25 Patient left the ED. [facility] Signatures: Shea Evans, RN RN dls Robbi Cox RN RN mlb1 Ronan Merino MD MD br1 Donita Wolf RN RN Angeli Yepez RN RN hs1 Cindy Rosales Marlynn mm15 Paul Owusu rn1 Mariaa Batista Corrections: (The following items were deleted from the chart) 12:37 09:48 Pain: Location: pelvis Pain currently is 5 out of 10 on a pain scale. [place] [id number] 13:22 13:20 Discharge Assessment: Patient awake, alert and oriented x 3. No cognitive and/or hs1 functional deficits noted. Patient verbalized understanding of disposition instructions. patient administered narcotics - no [facility] 13:22 13:20 The following High Risk Discharge criteria are identified: None. Discharged to [facility] home ambulatory, [facility] Chart Complete MTDD
--- NOTE | 2016-08-29 14:25 | EDDOCDS ---
Physician Documentation [facility] Name: Calvin Joaquin Age: 71 yrs Sex: Male : 1945 Arrival Date: 08/27/2016 Time: 08:35 Bed 14 Private MD: Aldo Modi D Disposition: 08/27/16 11:02 Hospitalization ordered by Aldo Modi for Inpatient Admission. Preliminary diagnosis is Open wound of scrotum and testes. - Bed requested for 5 Quiñonez. - Status is Inpatient Admission. hs1 - Condition is Stable. - Problem is an ongoing problem. - Symptoms have worsened. Historical: - Allergies: Codeine Sulfate; - Home Meds: 1. Carafate 1 gram Oral tab 1 tab 4 times per day (Last dose: 08/27/2016) 2. Protonix 40 mg Oral TbEC 1 tab 2 times per day (Last dose: 08/27/2016) 3. Miralax 17 gram Oral pwpk 1 packet once daily (Last dose: 08/27/2016) 4. zinc oxide Topical crea twice a day (Last dose: 08/27/2016) 5. Calcium + Vitamin D sumanth 600 mg/ Vit D 400 iu Oral tab daily 6. Colace 100 mg oral cap 1 cap 2 times per day 7. ferrous sulfate 325 mg (65 mg iron) Oral tab twice a day 8. cranberry 500 mg oral cap twice a day 9. Zestoretic 10-12.5 mg Oral tab 1 tab once daily 10. Lipitor 40 mg Oral tab 1 tab once daily 11. melatonin 5 mg Oral tab daily - PMHx: borderline intellectual functioning; neuropathy; Cerebral Palsy; - PSHx: Knee surgery; Colonoscopy (2002); - Social history: Smoking status: Patient states was never smoker of tobacco. No barriers to communication noted, The patient speaks fluent Yi. - Family history: Not pertinent. - : The pt / caregiver states he / she is not on anticoagulants. Home medication list is obtained from the facility AUG. - Exposure Risk Screening:: None identified. Vital Signs: 08/27 08:37 BP 111 / 66; Pulse 69; Resp 18; Temp 97.4(O); Pulse Ox 99% ; Weight 93.44 kg / 206 lbs; cmb Height 5 ft. 6 in. (167.64 cm); Pain 0/10; 12:36 BP 135 / 73; Pulse 66; Resp 18; Temp 97.6; Pulse Ox 98% ; Pain 0/10; hs1 13:22 BP 125 / 69; Pulse 59; Resp 18; Temp 97.8(TE); Pulse Ox 98% on R/A; Pain 0/10; rn1 08:37 Body Mass Index 33.25 (93.44 kg, 167.64 cm) cmb MDM: 09:24 IV Saline Lock ordered. br1 09:25 CBC with Diff Ordered. EDMS 09:25 BMP Ordered. EDMS 09:25 Wound Culture & GS - All Other Sources Ordered. EDMS 09:47 CBC with Diff Reviewed. br1 10:19 Financial registration complete. mm15 10:20 [facility] Payment Agreement was scanned into [employer] and attached to record. mm15 10:42 BMP Reviewed. br1 11:01 BED REQUEST+ADM ordered. EDMS 11:49 Admission / Observation Status ordered. EDMS 12:56 Sucralfate 1 grams PO once ordered. jjr 16:55 T-Sheet-- Draft Copy was scanned into [employer] and attached to record. klr Administered Medications: 13:00 Drug: Sucralfate 1 grams [sucralfate 1 gram tablet (1 tabs)] Route: PO; jjr Signatures: Dispatcher [employer] EDMS Esmer Jaquez, Licensed Staff Mft Unit deg Robbi Cox RN RN mlb1 Ronan Merino MD MD br1 Donita Wolf RN RN jjr Angeli Dubon RN RN hs1 Jass Garcia mm15 Mariaa Batista klr The chart was reviewed and I authenticate all verbal orders and agree with the evaluation and treatment provided.Attachments: 10:20 [facility] Payment Agreement mm15 16:55 T-Sheet-- Draft Copy klr Chart Complete MTDD
[2016-08-29] MEDS ORDERED: NYST100024 TOP (14:47)
--- NOTE | 2016-08-29 14:51 | DS.PDOC ---
Discharge Summary General Date of Admission Aug 27, 2016 at 11:37 Date of Discharge 08/29/16 Primary Care Physician: Aldo Modi MD Attending Physician: AYAAN EDWARDS MD Discharge Summary PROCEDURES PERFORMED DURING STAY: None. COMPLICATIONS/CHIEF COMPLAINT: Cerebral Palsy Spastic Hemorrhoids Hyperlipidemia DISCHARGE DIAGNOSES: 1. Stage II pressure ulcer on coccyx 2. intertriginous candidiasis 3. Varicoceles COOKIE scrotum HISTORY OF PRESENT ILLNESS/HOSPITAL COURSE: Patient is 71-year-old male with a history of cerebral palsy, lower extremity numbness, and severely decreased mobility, who presented every 2016 for decubitus ulcer and scrotal rash. He was admitted for evaluation and wound care. Physical therapy evaluated the patient, and felt that his wound was a stage III pressure ulcer on the coccyx. However, on my evaluation of the wound, it does not appear to be in the subcuticular fat, and this would be a stage II pressure ulcer. His scrotal rash appears to be intertriginous candidiasis, and is likely exacerbated by the fact that his suprapubic catheter is leaking urine. At the time of discharge, the patient denied any symptoms such as pain, fever, chills, or sweats. [facility] staff felt comfortable except in the patient back for wound care. I recommended that they used an ABD pad around his suprapubic catheter to catch leakage. Additionally, he was discharged with nystatin powder to be applied to the perineum twice daily for 1 week. He was also instructed to wear supportive briefs, as he has bilateral variceals, which contributed to scrotal fullness and accidentally sitting on the scrotum. It was recommended that they stop treatment with his previous antibiotic, and skin creams. It was recommended that he follow up Dr. Modi in 1-2 days. DISCHARGE MEDICATIONS: Please see below. ALLERGIES: Please see below. PHYSICAL EXAMINATION ON DISCHARGE: VITAL SIGNS: Please see below. GENERAL: Lying comfortably in bed, no acute distress HEENT: Sclerae clear, moist mucous membranes NECK: Supple, no thyromegaly CARDIOVASCULAR EXAMINATION: Regular rate and rhythm, S1, S2, no murmurs, no rubs , no gallops, no heave RESPIRATORY EXAMINATION: Clear bilaterally to auscultation, no wheezes, no rales , rhonchi, normal work of breathing ABDOMINAL EXAMINATION: Soft, nontender, nondistended, suprapubic catheter leaking some urine EXTREMITIES: No edema SKIN: Beefy red rash on scrotum and perineum NEUROLOGICAL EXAMINATION: Alert and oriented 3 PSYCHIATRIC EXAMINATION: Normal mood and affect LABORATORY DATA: Please see below. IMAGING: None VTE Prophylaxis ordered?: No, unclear why this was not started on admission DISCHARGE CONDITION: Stable. DISPOSITION: Discharged to [facility] ACTIVITY: As tolerated, although recommended staff be a mindful of placing him on his coccyx for any length of time. DIET: Regular. ITEMS TO FOLLOWUP ON OUTPATIENT: 1. Wound care: leaking suprapubic cath 2. compression for varicoceles - ensure pt has supportive briefs 3. Decubitus ulcer: Patient may need wound care consult; may need to ensure that he has proper gel fixtures on his wheelchair DISCHARGE PLAN AND INSTRUCTIONS: 1. Discharge to [facility] staff with instructions on perineal nystatin powder, discontinuation of zinc oxide cream, and antibiotic cream 2. Recommended staying off of coccyx 3. Recommended briefs for support of his variceals and enlarged scrotum TIME SPENT ON DISCHARGE: Greater than 30 minutes. Ayaan Edwards MD Vital Signs/I&Os Vital Signs Date Time Temp Pulse Resp B/P Pulse Ox O2 Delivery O2 Flow Rate FiO2 08/29/16 06:00 97.4 65 20 177/86 93 Room Air I&O- Last 24 Hours up to 6 AM 08/29/16 06:00 Intake Total 1200 ml Output Total 850 ml Balance 350 ml Laboratory Data Labs 24H Laboratory Tests 2 08/29/16 06:25: Anion Gap 8, White Blood Count 9.3, Red Blood Count 5.10, Hemoglobin 15.4, Hematocrit 45.9, Mean Corpuscular Volume 90.1, Mean Corpuscular Hemoglobin 30.3 , Mean Corpuscular Hemoglobin Concent 33.6, Red Cell Distribution Width 12.8, Platelet Count 190, Neutrophils (%) (Auto) 72.0H, Lymphocytes (%) (Auto) 13.4L, Monocytes (%) (Auto) 7.6H, Eosinophils (%) (Auto) 5.3H, Basophils (%) (Auto) 0.6 , Neutrophils # (Auto) 6.7, Lymphocytes # (Auto) 1.4L, Monocytes # (Auto) 0.7, Eosinophils # (Auto) 0.5, Basophils # (Auto) 0.0, C-Reactive Protein, Quantitative 0.99H, Blood Urea Nitrogen 14, Creatinine 0.71, Sodium Level 137, Potassium Level 3.7, Chloride Level 101, Carbon Dioxide Level 28, Calcium Level 8.6L, Glomerular Filtration Rate > 60.0, Large Unclassified Cells # 0.1, Large Unclassified Cells % 1.2 CBC/BMP Laboratory Tests 08/29/16 06:25 Calcium Level 8.6 L, Red Blood Count 5.10, Mean Corpuscular Volume 90.1, Mean Corpuscular Hemoglobin 30.3, Mean Corpuscular Hemoglobin Concent 33.6, Red Cell Distribution Width 12.8, Neutrophils (%) (Auto) 72.0 H, Lymphocytes (%) (Auto) 13.4 L, Monocytes (%) (Auto) 7.6 H, Eosinophils (%) (Auto) 5.3 H, Basophils (%) (Auto) 0.6, Neutrophils # (Auto) 6.7, Lymphocytes # (Auto) 1.4 L, Monocytes # ( Auto) 0.7, Eosinophils # (Auto) 0.5, Basophils # (Auto) 0.0 Microbiology Microbiology 08/27/16 Gram Stain - Final, Resulted 08/27/16 Wound Culture - Preliminary, Resulted Yeast Like Organism Medications Scheduled (Zestoretic 10-12.5 mg) 1 Tab Tab 1 TAB PO QHS (Reported) Atorvastatin Calcium (Atorvastatin Calcium) 40 Mg Tab 40 MG PO QHS (Reported) Calcium/Vitamin D (Calcium 500 +D 500-400 mg-Unit) 1 Tab Tab 1 TAB PO DAILY ( Reported) Cranberry Extract (Cranberry) 500 Mg Cap 500 MG PO BID (Reported) Docusate Sodium (Colace) 100 Mg Cap 100 MG PO BID (Reported) Ferrous Sulfate (Ferrous Sulfate) 325 Mg Tab 325 MG PO BID (Reported) Melatonin (Melatonin) 5 Mg Tab 5 MG PO QHS (Reported) Nystatin (Nystatin Powder) 100,000 Unit/Gm Pow 5 GM TOP BID RASH Pantoprazole Sodium Sesquihydr (Protonix) 40 Mg Tab 40 MG PO BID (Reported) Polyethylene Glycol (Miralax) 1 Pow Pow 17 GM PO DAILY (Reported) Sucralfate (Carafate) 1 Gm Tab 1 GM PO QID (Reported) Scheduled PRN Bisacodyl (Dulcolax) 10 Mg Sup 10 MG VA PRN PRN PRN BOWEL CARE (Reported) TO BE USED ON DAY 5 WITHOUT A BM Milk Of Magnesia (Milk of Magnesia Concentr) 30 Ml Conc 30 ML PO PRN PRN PRN BOWEL CARE/CONSTIPATION (Reported) DAYS 3 AND 4 OF NO BM Allergies Coded Allergies: Codeine (Unverified Allergy, Unknown, 08/27/16) [facility] AYAAN EDWARDS MD Aug 29, 2016 14:51
[2016-08-31] MEDS ORDERED: TRIA25CR TOP (13:11)
[2016-08-31] MEDS ORDERED: PREPPAD EX (13:11)
== END 2016-08-29 17:10 | disposition home or self-care (01) ==
LOC: M ED 08:35 → M ED INP 11:37 → M MS5PR 13:33
PROVIDERS: ADMIT Family Medicine; ATTEND Family Medicine
DX: L89.152 Pressure ulcer of sacral region, stage 2 (principal); B37.2 Candidiasis of skin and nail; G80.0 Spastic quadriplegic cerebral palsy; I86.1 Scrotal varices; I10 Essential (primary) hypertension; E78.5 Hyperlipidemia, unspecified; Z79.899 Other long term (current) drug therapy
CPT/HCPCS: 36415; 80048; 85025; 86140; 87070; 87077; 87186; 87205; 97162; 99285; G0378; G8990; G8991; G8992

== ENCOUNTER → 2016-09-07 | Day surgery (SDC) | payer MEDICARE, MEDICAID ==
[~2016-09-07] VITALS: Ht 167.6 cm; Wt 93.4 kg
[~2016-09-07] MED LIST changes: +ATOR40TA PO; +CALCTAB75 PO; +LIDOCAINE 2% INJ 100 MG/5 ML SDV (FOR ANES.) As Ordered ONE; +LIDOCAINE 2% W/ EPINEPHRINE 1.7 ML DENTAL INJ As Ordered ONE; +LR 1,000 ML IV SCH; +MELA5TAB14 PO; +METOCLOPRAMIDE INJ 10MG/2ML VIAL (J2765) As Ordered ONE; +MIDAZOLAM INJ 2 MG/2 ML VIAL (J2250) As Ordered ONE; +NYST100024 TOP; +ONDANSETRON 4MG/2ML VIAL (J2405) IV PRN; +PREPPAD EX; +PROPOFOL 200 MG/20 ML VIAL As Ordered ONE; +ROCURONIUM BROMIDE 50 MG/5 ML VIAL As Ordered ONE; +TRIA25CR TOP; +dexameTHASONE 4 MG/ML 1ML VIAL (J1100) As Ordered ONE; +fentaNYL 100 MCG/2 ML INJECTION (J3010) IV PRN; +fentaNYL 250 MCG/5 ML INJECTION (J3010) As Ordered ONE
[2016-09-07 15:40] VITALS: BP 137/83
--- NOTE | 2016-09-08 11:41 | RO ---
DATE OF SURGERY: 09/07/2016 PREOPERATIVE DIAGNOSIS: Periodontitis. POSTOPERATIVE DIAGNOSIS: PROCEDURE: SURGEON: Cooper Ernandez DDS RANCH RIDER: ANESTHESIA: DESCRIPTION OF PROCEDURE: The patient, Calvin Joaquin, was brought to the operating room and placed onto the operating table in the supine position. After all monitoring equipment was attached to the patient, vital signs were checked, and general anesthetic medicaments were delivered via inhalation. Nasal intubation proceeded, and tube extension was secured into position after breathing was monitored. The patient was then prepped and draped for dental surgical procedures. The intraoral cavity was inspected and suctioned free of gross secretions. One large moist throat pack was placed. Mouth prop was placed. Comprehensive examination completed. Eight periapical radiographs taken. Full debridement of dentition completed. Three carpules of 2% lidocaine with 1:100,000 epinephrine was administered via infiltration. Extraction of teeth 5, 16, and 17 was completed with a straight elevator and both #150 and #151 forceps. Gelfoam and 3.0 chromic gut sutures applied to newly-edentulous areas. Hemostasis obtained prior to dismissal. Fluoride application completed on remaining dentition. Final removal of all gross fluids from intraoral and extraoral structures. Bite block removed. The patient then left by dental team in the care of presiding anesthesiologist. Note, there was continuous removal of all gross fluids throughout the duration of all performed dental procedures.
== END | disposition home or self-care (01) ==
LOC: M SDC 08:17
PROVIDERS: ATTEND Dentist General Practice
DX: K05.30 Chronic periodontitis, unspecified (principal); K02.9 Dental caries, unspecified; I10 Essential (primary) hypertension; E78.5 Hyperlipidemia, unspecified; G80.0 Spastic quadriplegic cerebral palsy; L40.8 Other psoriasis; Z79.899 Other long term (current) drug therapy
CPT/HCPCS: 41899; 70310; 88300; J1100; J2250; J2765; J3010

== ENCOUNTER → 2017-01-28 | Outpatient (CLI) | payer MEDICARE, MEDICAID ==
[~2017-01-28] MED LIST changes: -ATOR40TA PO; +ATOR40TA75 PO; -COLA100C PO; +COLA100C5 PO; -LIDOCAINE 2% INJ 100 MG/5 ML SDV (FOR ANES.) As Ordered ONE; -LIDOCAINE 2% W/ EPINEPHRINE 1.7 ML DENTAL INJ As Ordered ONE; -LR 1,000 ML IV SCH; -MELA5TAB14 PO; +MELA5TAB17 PO; -METOCLOPRAMIDE INJ 10MG/2ML VIAL (J2765) As Ordered ONE; -MIDAZOLAM INJ 2 MG/2 ML VIAL (J2250) As Ordered ONE; -NYST100024 TOP; +NYST1POW9 TOP; -ONDANSETRON 4MG/2ML VIAL (J2405) IV PRN; -PROPOFOL 200 MG/20 ML VIAL As Ordered ONE; -ROCURONIUM BROMIDE 50 MG/5 ML VIAL As Ordered ONE; -dexameTHASONE 4 MG/ML 1ML VIAL (J1100) As Ordered ONE; -fentaNYL 100 MCG/2 ML INJECTION (J3010) IV PRN; -fentaNYL 250 MCG/5 ML INJECTION (J3010) As Ordered ONE
[2017-01-28 17:49] LABS: ALBUMIN 3.1 GM/DL (3.2-5.2); ALBUMIN/GLOBULIN RATIO 0.97 (1.00-1.93); ALKALINE PHOSPHATASE 109 U/L (45-117); ALT/SGPT 22 U/L (12-78); ANION GAP 9 MEQ/L (8-16); AST/SGOT 14 U/L (15-37); BILIRUBIN,TOTAL 0.4 MG/DL (0.2-1.0); BLOOD UREA NITROGEN 11 MG/DL (7-18); CALCIUM LEVEL 9.2 MG/DL (8.8-10.2); CARBON DIOXIDE LEVEL 27 MEQ/L (21-32); CHLORIDE LEVEL 103 MEQ/L (98-107); CHOLESTEROL LEVEL 73 MG/DL (<200); CREATININE FOR GFR 0.72 MG/DL (0.70-1.30); GLOMERULAR FILTRATION RATE > 60.0 (>42); GLUCOSE, FASTING 96 MG/DL (83-110); POTASSIUM SERUM 4.5 MEQ/L (3.5-5.1); SODIUM LEVEL 139 MEQ/L (136-145); TOTAL PROTEIN 6.3 GM/DL (6.4-8.2); TRIGLYCERIDES LEVEL 116 MG/DL (<150)
[2017-01-28 17:52] LABS: BASO # 0.1 K/mm3 (0.0-0.2); BASO % 0.7 % (0.0-1.0); EOS # 0.4 K/mm3 (0.0-0.50); EOS % 4.7 % (0.0-3.0); LARGE UNSTAINED CELL # 0.2 K/mm3 (0.0-0.4); LARGE UNSTAINED CELL % 2.2 % (0.0-4.0); LYMPH # 1.3 K/mm3 (1.5-4.5); LYMPH % 15.5 % (24.0-44.0); MEAN CORPUSCULAR HEMOGLOBIN 30.7 pg (27.0-33.0); MEAN CORPUSCULAR HGB CONC 33.6 g/dl (32.0-36.5); MEAN CORPUSCULAR VOLUME 91.1 fl (80.0-96.0); MONO # 0.7 K/mm3 (0.0-0.8); MONO % 8.4 % (0.0-5.0); NEUTROPHILS # 5.9 K/mm3 (1.8-7.7); NEUTROPHILS % 68.5 % (36.0-66.0); PLATELET COUNT, AUTOMATED 199 k/mm3 (150-450); RED CELL DISTRIBUTION WIDTH 13.3 % (11.5-14.5); WHITE BLOOD COUNT 8.5 K/mm3 (4.0-10.0)
== END ==
LOC: M WUC 08:53
PROVIDERS: ATTEND Nurse Practitioner Family
DX: Z13.1 Encounter for screening for diabetes mellitus (principal); L89.892 Pressure ulcer of other site, stage 2; I10 Essential (primary) hypertension

== ENCOUNTER → 2017-02-08 | Outpatient (REF) | payer MEDICARE, MEDICAID | LOC: M LAB REF 19:50 | PROVIDERS: ATTEND Nurse Practitioner Family | DX: I10 Essential (primary) hypertension (principal) ==

== ENCOUNTER → 2017-02-27 | Outpatient (REF) | payer MEDICARE, MEDICAID | LOC: M LAB REF 09:41 | PROVIDERS: ATTEND Internal Medicine Nephrology | DX: R80.9 Proteinuria, unspecified (principal) ==

== ENCOUNTER 2017-09-14 09:09 | Outpatient (CLI) | payer MEDICARE, MEDICAID ==
[2017-09-14] MEDS: ZOLEDRONIC ACID 5 MG in APPROPRIATE DILUENT 1 EA IV (09:34)
== END 2017-09-14 10:20 | disposition home or self-care (01) ==
LOC: M INFU 09:09
DX: M81.0 Age-related osteoporosis without current pathological fracture (principal); M12.9 Arthropathy, unspecified; Z79.899 Other long term (current) drug therapy; Z88.8 Allergy status to other drugs, medicaments and biological substances
CPT/HCPCS: J3489

== ENCOUNTER → 2017-09-20 | Outpatient (CLI) | payer MEDICARE, MEDICAID ==
[2017-09-20 11:45] LABS: BASO % 0.2 % (0.0-1.0); EOS % 0.4 % (0.0-3.0); HEMATOCRIT 39.8 % (42.0-52.0); HEMOGLOBIN 13.4 g/dl (14.0-18.0); IMMATURE GRANULOCYTE % 0.2 % (0-3.0); LYMPH # 0.9 10^3/uL (1.5-4.5); LYMPH % 20.6 % (24.0-44.0); MEAN CORPUSCULAR HGB CONC 33.7 g/dl (32.0-36.5); MONO # 0.4 10^3/uL (0.0-0.8); MONO % 9.7 % (0.0-5.0); NEUTROPHILS # 3.1 10^3/uL (1.8-7.7); NEUTROPHILS % 68.9 % (36.0-66.0); PLATELET COUNT, AUTOMATED 112 10^3/uL (150-450); RED BLOOD COUNT 4.47 10^6/uL (4.30-6.10); RED CELL DISTRIBUTION WIDTH 13.6 % (11.5-14.5); WHITE BLOOD COUNT 4.5 10^3/uL (4.0-10.0)
== END ==
LOC: M WUC 09:55
DX: J20.9 Acute bronchitis, unspecified (principal)
CPT/HCPCS: 85025

== ENCOUNTER → 2017-10-02 | Outpatient (REF) | payer MEDICARE, MEDICAID ==
[2017-10-02 15:58] LABS: LACTIC ACID SEPSIS PROTOCOL 1.8 MMOL/L (0.4-2.0)
[2017-10-02 15:59] LABS: ALBUMIN 2.6 GM/DL (3.2-5.2); ALBUMIN/GLOBULIN RATIO 0.76 (1.00-1.93); ALKALINE PHOSPHATASE 95 U/L (45-117); ALT/SGPT 21 U/L (12-78); ANION GAP 6 MEQ/L (8-16); AST/SGOT 12 U/L (7-37); BILIRUBIN,TOTAL 0.3 MG/DL (0.2-1.0); BLOOD UREA NITROGEN 11 MG/DL (7-18); C REACTIVE PROTEIN QUANTITATIV 0.65 MG/DL (0.00-0.30); CALCIUM LEVEL 8.1 MG/DL (8.8-10.2); CARBON DIOXIDE LEVEL 29 MEQ/L (21-32); CHLORIDE LEVEL 103 MEQ/L (98-107); CREATININE FOR GFR 0.75 MG/DL (0.70-1.30); GLOMERULAR FILTRATION RATE > 60.0 (>42); GLUCOSE, FASTING 114 MG/DL (70-100); POTASSIUM SERUM 4.2 MEQ/L (3.5-5.1); SODIUM LEVEL 138 MEQ/L (136-145)
[2017-10-02 16:08] LABS: BASO % 0.4 % (0.0-1.0); EOS # 0.2 10^3/uL (0.0-0.50); EOS % 2.3 % (0.0-3.0); HEMOGLOBIN 14.7 g/dl (13.5-17.5); IMMATURE GRANULOCYTE % 0.8 % (0-3.0); LYMPH # 1.7 10^3/uL (1.5-4.5); LYMPH % 17.1 % (24.0-44.0); MEAN CORPUSCULAR HEMOGLOBIN 29.5 pg (27.0-33.0); MEAN CORPUSCULAR HGB CONC 32.7 g/dl (32.0-36.5); MEAN CORPUSCULAR VOLUME 90.4 fl (80.0-96.0); MONO # 1.4 10^3/uL (0.0-0.8); MONO % 13.9 % (0.0-5.0); NEUTROPHILS # 6.4 10^3/uL (1.8-7.7); NEUTROPHILS % 65.5 % (36.0-66.0); PLATELET COUNT, AUTOMATED 275 10^3/uL (150-450); RED BLOOD COUNT 4.98 10^6/uL (4.30-6.10); RED CELL DISTRIBUTION WIDTH 13.6 % (11.5-14.5); WHITE BLOOD COUNT 9.8 10^3/uL (4.0-10.0)
[2017-10-02 17:09] LABS: APPEARANCE, URINE CLOUDY (CLEAR); BACTERIA, URINE AUTO 3+ (NEGATIVE); BILIRUBIN, URINE AUTO NEGATIVE (NEGATIVE); BLOOD, URINE BLOOD 1+ (NEGATIVE); COLOR, URINE YELLOW (YELLOW); GLUCOSE, URINE (UA) AUTO NEGATIVE (NEGATIVE); KETONE, URINE AUTO NEGATIVE (NEGATIVE); LEUKOCYTE ESTERASE, URINE AUTO 3+ (NEGATIVE); MUCUS, URINE SMALL (NEGATIVE); NITRITE, URINE AUTO NEGATIVE (NEGATIVE); PROTEIN, URINE AUTO NEGATIVE (NEGATIVE); RBC, URINE AUTO 29 /HPF (0-3); SPECIFIC GRAVITY URINE AUTO 1.016 (1.002-1.035); SQUAMOUS EPITHELIAL CELL UR AU 0 /HPF (0-6); WBC, URINE AUTO TNTC /HPF (0-3)
== END ==
LOC: M SFHCPLAZ 13:55
DX: R53.83 Other fatigue (principal); R41.0 Disorientation, unspecified
CPT/HCPCS: 80053

== ENCOUNTER → 2017-10-02 | Outpatient (CLI) | payer MEDICARE, MEDICAID | LOC: M WUC 14:40 | DX: R53.83 Other fatigue (principal) | CPT/HCPCS: 71045; 80053 ==

== ENCOUNTER → 2017-11-09 | Outpatient (CLI) | payer MEDICARE, MEDICAID | LOC: M WHC 12:49 | DX: M81.8 Other osteoporosis without current pathological fracture (principal) | CPT/HCPCS: 77080 ==

== ENCOUNTER 2017-11-22 09:20 | Inpatient (IN) | payer MEDICARE, MEDICAID ==
[2017-11-22] MEDS: LISINOPRIL 10 MG TAB PO (09:00)
[2017-11-22 10:49] LABS: BASO % 0.5 % (0.0-1.0); EOS # 0.3 10^3/uL (0.0-0.50); EOS % 4.3 % (0.0-3.0); HEMATOCRIT 41.5 % (42.0-52.0); HEMOGLOBIN 13.7 g/dl (13.5-17.5); IMMATURE GRANULOCYTE % 0.5 % (0-3.0); LYMPH # 1.1 10^3/uL (1.5-4.5); MEAN CORPUSCULAR HEMOGLOBIN 29.9 pg (27.0-33.0); MEAN CORPUSCULAR VOLUME 90.6 fl (80.0-96.0); MONO # 1.1 10^3/uL (0.0-0.8); MONO % 14.1 % (0.0-5.0); NEUTROPHILS % 66.6 % (36.0-66.0); PLATELET COUNT, AUTOMATED 229 10^3/uL (150-450); RED BLOOD COUNT 4.58 10^6/uL (4.30-6.10); RED CELL DISTRIBUTION WIDTH 18.1 % (11.5-14.5); WHITE BLOOD COUNT 7.5 10^3/uL (4.0-10.0)
[2017-11-22 11:07] LABS: AMMONIA < 10 uMOL/L (<32)
[2017-11-22 11:11] LABS: ALBUMIN 2.5 GM/DL (3.2-5.2); ALBUMIN/GLOBULIN RATIO 0.68 (1.00-1.93); ALKALINE PHOSPHATASE 454 U/L (45-117); ALT/SGPT 94 U/L (12-78); AMYLASE 44 U/L (25-115); ANION GAP 4 MEQ/L (8-16); AST/SGOT 61 U/L (7-37); BILIRUBIN,DIRECT 6.8 MG/DL (0.0-0.2); BILIRUBIN,TOTAL 7.8 MG/DL (0.2-1.0); BLOOD UREA NITROGEN 9 MG/DL (7-18); CALCIUM LEVEL 7.9 MG/DL (8.8-10.2); CARBON DIOXIDE LEVEL 30 MEQ/L (21-32); CHLORIDE LEVEL 101 MEQ/L (98-107); CREATININE FOR GFR 0.71 MG/DL (0.70-1.30); GLOMERULAR FILTRATION RATE > 60.0 (>42); GLUCOSE, FASTING 130 MG/DL (70-100); LIPASE 177 U/L (73-393); POTASSIUM SERUM 3.7 MEQ/L (3.5-5.1); SODIUM LEVEL 135 MEQ/L (136-145); TOTAL PROTEIN 6.2 GM/DL (6.4-8.2)
[2017-11-22 11:57] LABS: INR 1.26
[2017-11-22 11:58] LABS: PARTIAL THROMBOPLASTIN TIME 32.6 SECONDS (26.8-37.9)
[2017-11-22] MEDS: NS 1,000 ML IV (12:13)
[2017-11-22] MEDS ORDERED: ISOVUE-370 76% 100ML VIAL (Q9967) As Ordered (14:21)
[2017-11-22 15:18] LABS: APPEARANCE, URINE CLEAR (CLEAR); BACTERIA, URINE AUTO 1+ (NEGATIVE); BILIRUBIN, URINE AUTO NEGATIVE (NEGATIVE); BLOOD, URINE BLOOD NEGATIVE (NEGATIVE); COLOR, URINE YELLOW (YELLOW); GLUCOSE, URINE (UA) AUTO NEGATIVE (NEGATIVE); KETONE, URINE AUTO NEGATIVE (NEGATIVE); LEUKOCYTE ESTERASE, URINE AUTO 1+ (NEGATIVE); MUCUS, URINE SMALL (NEGATIVE); NITRITE, URINE AUTO NEGATIVE (NEGATIVE); PROTEIN, URINE AUTO NEGATIVE (NEGATIVE); RBC, URINE AUTO 3 /HPF (0-3); SPECIFIC GRAVITY URINE AUTO 1.026 (1.002-1.035); SQUAMOUS EPITHELIAL CELL UR AU 0 /HPF (0-6); UROBILINOGEN, URINE AUTO 0.2 mg/dL (0.0-2.0); WBC, URINE AUTO 7 /HPF (0-3)
[2017-11-22] MEDS ORDERED: SUCRALFATE SUSP 1GM/10ML UD PO (17:15)
[2017-11-22] MEDS ORDERED: TRIAMCINOLONE ACETONIDE 0.025 % 80 GM CREAM TOP (17:30)
[2017-11-22] MEDS ORDERED: MORPHINE 4 MG/ML 1ML VIAL/SYRINGE (J2270) IV (17:30)
[2017-11-22] MEDS ORDERED: ONDANSETRON 4MG/2ML VIAL (J2405) IV (17:30)
[2017-11-22] MEDS: KCL 20MEQ in NS 1000ML 1,000 ML IV (17:47)
[2017-11-22] MEDS: IMIPENEM/CILASTATIN 250 MG in D5W MINI-BAG PLUS 100 ML IV (20:00)
[2017-11-22] MEDS: SUCRALFATE 1 GM TAB PO (21:00)
[2017-11-22] MEDS: oxyBUTYnin *DITROPAN XL* 5 MG TABCR PO (21:00)
[2017-11-22] MEDS: DOCUSATE SODIUM 100 MG CAP PO (21:00)
[2017-11-22] MEDS: PANTOPRAZOLE 40MG INJ (PROTONIX) (C9113) IV (22:12)
[2017-11-23] MEDS: KCL 20MEQ in NS 1000ML 1,000 ML IV ×4 (01:45→22:26)
[2017-11-23] MEDS: IMIPENEM/CILASTATIN 250 MG in D5W MINI-BAG PLUS 100 ML IV ×5 (06:09→23:57)
[2017-11-23 07:31] LABS: HEMOGLOBIN 13.4 g/dl (13.5-17.5); MEAN CORPUSCULAR HEMOGLOBIN 30.1 pg (27.0-33.0); MEAN CORPUSCULAR HGB CONC 33.5 g/dl (32.0-36.5); MEAN CORPUSCULAR VOLUME 89.9 fl (80.0-96.0); PLATELET COUNT, AUTOMATED 202 10^3/uL (150-450); RED BLOOD COUNT 4.45 10^6/uL (4.30-6.10); RED CELL DISTRIBUTION WIDTH 18.2 % (11.5-14.5); WHITE BLOOD COUNT 6.3 10^3/uL (4.0-10.0)
[2017-11-23 07:47] LABS: INR 1.33; PROTHROMBIN TIME 16.8 SECONDS (12.4-14.5)
[2017-11-23 08:02] LABS: ALBUMIN 2.3 GM/DL (3.2-5.2); ALBUMIN/GLOBULIN RATIO 0.68 (1.00-1.93); ALKALINE PHOSPHATASE 401 U/L (45-117); ALT/SGPT 80 U/L (12-78); ANION GAP 6 MEQ/L (8-16); AST/SGOT 54 U/L (7-37); BILIRUBIN,TOTAL 6.9 MG/DL (0.2-1.0); BLOOD UREA NITROGEN 8 MG/DL (7-18); CALCIUM LEVEL 7.9 MG/DL (8.8-10.2); CARBON DIOXIDE LEVEL 24 MEQ/L (21-32); CHLORIDE LEVEL 109 MEQ/L (98-107); CREATININE FOR GFR 0.56 MG/DL (0.70-1.30); GLOMERULAR FILTRATION RATE > 60.0 (>42); GLUCOSE, FASTING 112 MG/DL (70-100); POTASSIUM SERUM 3.9 MEQ/L (3.5-5.1); SODIUM LEVEL 139 MEQ/L (136-145); TOTAL PROTEIN 5.7 GM/DL (6.4-8.2)
[2017-11-23] MEDS: SUCRALFATE 1 GM TAB PO ×4 (10:21→23:57)
[2017-11-23] MEDS: oxyBUTYnin *DITROPAN XL* 5 MG TABCR PO ×2 (10:22→22:26)
[2017-11-23] MEDS: DOCUSATE SODIUM 100 MG CAP PO ×2 (10:22→22:26)
[2017-11-23] MEDS: LISINOPRIL 10 MG TAB PO (10:22)
[2017-11-23] MEDS: MIRALAX *UNIT DOSE* 17GM PACKET PO (10:27)
[2017-11-23] MEDS: PANTOPRAZOLE 40MG INJ (PROTONIX) (C9113) IV ×2 (10:27→22:25)
[2017-11-23] MEDS ORDERED: dexameTHASONE 4 MG/ML 1ML VIAL (J1100) As Ordered (19:06)
[2017-11-23] MEDS ORDERED: NEOSTIGMINE 10 MG/10 ML VIAL (J2710) As Ordered (19:06)
[2017-11-23] MEDS ORDERED: LIDOCAINE 2% INJ 100 MG/5 ML SDV (FOR ANES.) As Ordered (19:06)
[2017-11-23] MEDS ORDERED: fentaNYL 100 MCG/2 ML INJECTION (J3010) As Ordered (19:06)
[2017-11-23] MEDS ORDERED: ONDANSETRON 4MG/2ML VIAL (J2405) As Ordered (19:06)
[2017-11-23] MEDS ORDERED: GLYCOPYRROLATE INJ 0.2 MG/ML 2 ML VIAL As Ordered (19:06)
[2017-11-23] MEDS ORDERED: ROCURONIUM BROMIDE 50 MG/5 ML VIAL As Ordered (19:06)
[2017-11-23] MEDS ORDERED: PROPOFOL 200 MG/20 ML VIAL As Ordered (19:06)
[2017-11-23] MEDS: ISOVUE-300 61% 50ML VIAL (Q9967) As Ordered (19:30)
[2017-11-23] MEDS ORDERED: ONDANSETRON 4MG/2ML VIAL (J2405) IV (20:45)
[2017-11-23] MEDS: LR 1,000 ML IV (20:45)
[2017-11-24 05:57] LABS: HEMATOCRIT 40.9 % (42.0-52.0); HEMOGLOBIN 13.6 g/dl (13.5-17.5); MEAN CORPUSCULAR HEMOGLOBIN 29.8 pg (27.0-33.0); MEAN CORPUSCULAR HGB CONC 33.3 g/dl (32.0-36.5); MEAN CORPUSCULAR VOLUME 89.7 fl (80.0-96.0); PLATELET COUNT, AUTOMATED 203 10^3/uL (150-450); RED BLOOD COUNT 4.56 10^6/uL (4.30-6.10); RED CELL DISTRIBUTION WIDTH 18.9 % (11.5-14.5); WHITE BLOOD COUNT 6.3 10^3/uL (4.0-10.0)
[2017-11-24 06:21] LABS: ALBUMIN 2.3 GM/DL (3.2-5.2); ALBUMIN/GLOBULIN RATIO 0.66 (1.00-1.93); ALKALINE PHOSPHATASE 398 U/L (45-117); ALT/SGPT 77 U/L (12-78); ANION GAP 7 MEQ/L (8-16); AST/SGOT 52 U/L (7-37); BILIRUBIN,TOTAL 6.8 MG/DL (0.2-1.0); BLOOD UREA NITROGEN 10 MG/DL (7-18); CALCIUM LEVEL 7.7 MG/DL (8.8-10.2); CARBON DIOXIDE LEVEL 22 MEQ/L (21-32); CHLORIDE LEVEL 110 MEQ/L (98-107); CREATININE FOR GFR 0.59 MG/DL (0.70-1.30); GLOMERULAR FILTRATION RATE > 60.0 (>42); GLUCOSE, FASTING 176 MG/DL (70-100); POTASSIUM SERUM 4.4 MEQ/L (3.5-5.1); SODIUM LEVEL 139 MEQ/L (136-145); TOTAL PROTEIN 5.8 GM/DL (6.4-8.2)
[2017-11-24] MEDS: IMIPENEM/CILASTATIN 250 MG in D5W MINI-BAG PLUS 100 ML IV (06:37)
[2017-11-24] MEDS: DOCUSATE SODIUM 100 MG CAP PO ×2 (08:50→20:26)
[2017-11-24] MEDS: oxyBUTYnin *DITROPAN XL* 5 MG TABCR PO ×2 (08:50→20:26)
[2017-11-24] MEDS: SUCRALFATE 1 GM TAB PO ×4 (08:51→20:26)
[2017-11-24] MEDS: PANTOPRAZOLE 40MG INJ (PROTONIX) (C9113) IV ×2 (08:51→20:26)
[2017-11-24] MEDS: LISINOPRIL 10 MG TAB PO (08:51)
[2017-11-24] MEDS: MIRALAX *UNIT DOSE* 17GM PACKET PO (08:51)
[2017-11-24] MEDS: KCL 20MEQ in NS 1000ML 1,000 ML IV (09:15)
[2017-11-24 10:04] LABS: ALPHA FETOPROTEIN TUMOR QUANT 3.7 NG/ML (<8.1); CARCINOEMBRYONIC ANTIGEN 3.1 NG/ML (<2.5)
[2017-11-24 10:33] LABS: CA19-9 TUMOR MARKER,CARBOHYDRA 224.9 U/ML (<35.0)
[2017-11-25 06:14] LABS: HEMATOCRIT 38.2 % (42.0-52.0); HEMOGLOBIN 12.7 g/dl (13.5-17.5); MEAN CORPUSCULAR HGB CONC 33.2 g/dl (32.0-36.5); MEAN CORPUSCULAR VOLUME 90.1 fl (80.0-96.0); PLATELET COUNT, AUTOMATED 188 10^3/uL (150-450); RED BLOOD COUNT 4.24 10^6/uL (4.30-6.10); RED CELL DISTRIBUTION WIDTH 18.5 % (11.5-14.5); WHITE BLOOD COUNT 10.2 10^3/uL (4.0-10.0)
[2017-11-25 06:30] LABS: ALBUMIN 2.2 GM/DL (3.2-5.2); ALBUMIN/GLOBULIN RATIO 0.69 (1.00-1.93); ALKALINE PHOSPHATASE 327 U/L (45-117); ALT/SGPT 58 U/L (12-78); ANION GAP 7 MEQ/L (8-16); AST/SGOT 44 U/L (7-37); BILIRUBIN,TOTAL 5.3 MG/DL (0.2-1.0); BLOOD UREA NITROGEN 13 MG/DL (7-18); CALCIUM LEVEL 7.6 MG/DL (8.8-10.2); CARBON DIOXIDE LEVEL 23 MEQ/L (21-32); CHLORIDE LEVEL 110 MEQ/L (98-107); CREATININE FOR GFR 0.53 MG/DL (0.70-1.30); GLOMERULAR FILTRATION RATE > 60.0 (>42); GLUCOSE, FASTING 102 MG/DL (70-100); POTASSIUM SERUM 3.9 MEQ/L (3.5-5.1); SODIUM LEVEL 140 MEQ/L (136-145); TOTAL PROTEIN 5.4 GM/DL (6.4-8.2)
[2017-11-25] MEDS: MIRALAX *UNIT DOSE* 17GM PACKET PO (08:58)
[2017-11-25] MEDS: SUCRALFATE 1 GM TAB PO ×4 (08:59→20:41)
[2017-11-25] MEDS: PANTOPRAZOLE 40MG INJ (PROTONIX) (C9113) IV ×2 (08:59→20:41)
[2017-11-25] MEDS: DOCUSATE SODIUM 100 MG CAP PO ×2 (08:59→20:41)
[2017-11-25] MEDS: LISINOPRIL 10 MG TAB PO (08:59)
[2017-11-25] MEDS: oxyBUTYnin *DITROPAN XL* 5 MG TABCR PO ×2 (08:59→20:41)
[2017-11-26 06:40] LABS: HEMATOCRIT 36.6 % (42.0-52.0); HEMOGLOBIN 12.3 g/dl (13.5-17.5); MEAN CORPUSCULAR HEMOGLOBIN 30.4 pg (27.0-33.0); MEAN CORPUSCULAR HGB CONC 33.6 g/dl (32.0-36.5); MEAN CORPUSCULAR VOLUME 90.6 fl (80.0-96.0); PLATELET COUNT, AUTOMATED 178 10^3/uL (150-450); RED BLOOD COUNT 4.04 10^6/uL (4.30-6.10); RED CELL DISTRIBUTION WIDTH 18.4 % (11.5-14.5); WHITE BLOOD COUNT 11.5 10^3/uL (4.0-10.0)
[2017-11-26 07:04] LABS: ALBUMIN/GLOBULIN RATIO 0.61 (1.00-1.93); ALKALINE PHOSPHATASE 274 U/L (45-117); ALT/SGPT 48 U/L (12-78); ANION GAP 8 MEQ/L (8-16); AST/SGOT 37 U/L (7-37); BILIRUBIN,TOTAL 4.9 MG/DL (0.2-1.0); BLOOD UREA NITROGEN 13 MG/DL (7-18); CALCIUM LEVEL 7.5 MG/DL (8.8-10.2); CARBON DIOXIDE LEVEL 21 MEQ/L (21-32); CHLORIDE LEVEL 109 MEQ/L (98-107); CREATININE FOR GFR 0.52 MG/DL (0.70-1.30); GLOMERULAR FILTRATION RATE > 60.0 (>42); GLUCOSE, FASTING 103 MG/DL (70-100); POTASSIUM SERUM 3.7 MEQ/L (3.5-5.1); SODIUM LEVEL 138 MEQ/L (136-145); TOTAL PROTEIN 5.3 GM/DL (6.4-8.2)
[2017-11-26] MEDS: LISINOPRIL 10 MG TAB PO (09:01)
[2017-11-26] MEDS: PANTOPRAZOLE 40MG INJ (PROTONIX) (C9113) IV ×2 (09:01→20:53)
[2017-11-26] MEDS: MIRALAX *UNIT DOSE* 17GM PACKET PO (09:01)
[2017-11-26] MEDS: SUCRALFATE 1 GM TAB PO ×4 (09:01→20:53)
[2017-11-26] MEDS: DOCUSATE SODIUM 100 MG CAP PO ×2 (09:01→20:53)
[2017-11-26] MEDS: oxyBUTYnin *DITROPAN XL* 5 MG TABCR PO ×2 (09:01→20:53)
[2017-11-27 06:23] LABS: HEMATOCRIT 35.5 % (42.0-52.0); HEMOGLOBIN 12.1 g/dl (13.5-17.5); MEAN CORPUSCULAR HEMOGLOBIN 30.7 pg (27.0-33.0); MEAN CORPUSCULAR HGB CONC 34.1 g/dl (32.0-36.5); MEAN CORPUSCULAR VOLUME 90.1 fl (80.0-96.0); PLATELET COUNT, AUTOMATED 173 10^3/uL (150-450); RED BLOOD COUNT 3.94 10^6/uL (4.30-6.10); WHITE BLOOD COUNT 11.1 10^3/uL (4.0-10.0)
[2017-11-27 06:56] LABS: ALBUMIN/GLOBULIN RATIO 0.57 (1.00-1.93); ALKALINE PHOSPHATASE 235 U/L (45-117); ALT/SGPT 48 U/L (12-78); ANION GAP 6 MEQ/L (8-16); AST/SGOT 34 U/L (7-37); BILIRUBIN,TOTAL 4.7 MG/DL (0.2-1.0); BLOOD UREA NITROGEN 11 MG/DL (7-18); CALCIUM LEVEL 7.1 MG/DL (8.8-10.2); CARBON DIOXIDE LEVEL 23 MEQ/L (21-32); CHLORIDE LEVEL 109 MEQ/L (98-107); CREATININE FOR GFR 0.53 MG/DL (0.70-1.30); GLOMERULAR FILTRATION RATE > 60.0 (>42); GLUCOSE, FASTING 108 MG/DL (70-100); POTASSIUM SERUM 3.6 MEQ/L (3.5-5.1); SODIUM LEVEL 138 MEQ/L (136-145); TOTAL PROTEIN 5.5 GM/DL (6.4-8.2)
[2017-11-27] MEDS: DOCUSATE SODIUM 100 MG CAP PO (09:40)
[2017-11-27] MEDS: MIRALAX *UNIT DOSE* 17GM PACKET PO (09:40)
[2017-11-27] MEDS: SUCRALFATE 1 GM TAB PO ×2 (09:40→12:00)
[2017-11-27] MEDS: PANTOPRAZOLE 40MG INJ (PROTONIX) (C9113) IV (09:40)
[2017-11-27] MEDS: LISINOPRIL 10 MG TAB PO (09:40)
[2017-11-27] MEDS: oxyBUTYnin *DITROPAN XL* 5 MG TABCR PO (09:42)
== END 2017-11-27 14:50 | disposition home or self-care (01) | DRG 444 ==
LOC: M MSPAV 11-24 13:35 → M ED 09:20 → M PCU 11-23 21:37 → M ED INP 17:20
PROC: 0F798DZ Dilation of Common Bile Duct with Intraluminal Device, Via Natural or Artificial Opening Endoscopic (ICD-10-PCS; principal; 2017-11-23 16:00)
DX: K83.1 Obstruction of bile duct (principal); G80.0 Spastic quadriplegic cerebral palsy; K82.8 Other specified diseases of gallbladder; H54.8 Legal blindness, as defined in USA; R33.9 Retention of urine, unspecified; I10 Essential (primary) hypertension; G62.9 Polyneuropathy, unspecified; K44.9 Diaphragmatic hernia without obstruction or gangrene; Z88.5 Allergy status to narcotic agent; Z91.040 Latex allergy status; K20.9 Esophagitis, unspecified; Z79.899 Other long term (current) drug therapy; K59.00 Constipation, unspecified; E78.5 Hyperlipidemia, unspecified

== ENCOUNTER → 2017-12-02 | Outpatient (CLI) | payer MEDICARE, MEDICAID ==
[2017-12-02 17:18] LABS: BASO % 0.7 % (0.0-1.0); EOS # 0.4 10^3/uL (0.0-0.50); EOS % 6.3 % (0.0-3.0); HEMATOCRIT 39.9 % (42.0-52.0); HEMOGLOBIN 12.7 g/dl (13.5-17.5); IMMATURE GRANULOCYTE % 0.8 % (0-3.0); LYMPH # 1.1 10^3/uL (1.5-4.5); LYMPH % 18.5 % (24.0-44.0); MEAN CORPUSCULAR HEMOGLOBIN 30.1 pg (27.0-33.0); MEAN CORPUSCULAR HGB CONC 31.8 g/dl (32.0-36.5); MEAN CORPUSCULAR VOLUME 94.5 fl (80.0-96.0); MONO # 0.8 10^3/uL (0.0-0.8); MONO % 13.2 % (0.0-5.0); NEUTROPHILS # 3.7 10^3/uL (1.8-7.7); NEUTROPHILS % 60.5 % (36.0-66.0); PLATELET COUNT, AUTOMATED 265 10^3/uL (150-450); RED BLOOD COUNT 4.22 10^6/uL (4.30-6.10); WHITE BLOOD COUNT 6.1 10^3/uL (4.0-10.0)
[2017-12-02 17:55] LABS: ALBUMIN 2.3 GM/DL (3.2-5.2); ALKALINE PHOSPHATASE 201 U/L (45-117); ALT/SGPT 59 U/L (12-78); ANION GAP 8 MEQ/L (8-16); AST/SGOT 29 U/L (7-37); BILIRUBIN,DIRECT 1.4 MG/DL (0.0-0.2); BILIRUBIN,TOTAL 1.6 MG/DL (0.2-1.0); BLOOD UREA NITROGEN 7 MG/DL (7-18); CALCIUM LEVEL 8.1 MG/DL (8.8-10.2); CARBON DIOXIDE LEVEL 26 MEQ/L (21-32); CHLORIDE LEVEL 109 MEQ/L (98-107); CREATININE FOR GFR 0.52 MG/DL (0.70-1.30); GLOMERULAR FILTRATION RATE > 60.0 (>42); GLUCOSE, FASTING 131 MG/DL (70-100); POTASSIUM SERUM 4.3 MEQ/L (3.5-5.1); SODIUM LEVEL 143 MEQ/L (136-145); TOTAL PROTEIN 5.6 GM/DL (6.4-8.2)
== END ==
LOC: M WUC 12:37
DX: K83.1 Obstruction of bile duct (principal)
CPT/HCPCS: 82248

== ENCOUNTER → 2018-02-01 | Outpatient (CLI) | payer MEDICARE, MEDICAID ==
[2018-02-01 08:43] LABS: BASO % 0.5 % (0.0-1.0); EOS # 0.3 10^3/uL (0.0-0.50); EOS % 5.3 % (0.0-3.0); HEMATOCRIT 45.7 % (42.0-52.0); HEMOGLOBIN 15.5 g/dl (13.5-17.5); IMMATURE GRANULOCYTE % 0.3 % (0-3.0); LYMPH # 1.5 10^3/uL (1.5-4.5); LYMPH % 23.7 % (24.0-44.0); MEAN CORPUSCULAR HEMOGLOBIN 30.3 pg (27.0-33.0); MEAN CORPUSCULAR HGB CONC 33.9 g/dl (32.0-36.5); MEAN CORPUSCULAR VOLUME 89.4 fl (80.0-96.0); MONO # 0.8 10^3/uL (0.0-0.8); MONO % 12.7 % (0.0-5.0); NEUTROPHILS # 3.6 10^3/uL (1.8-7.7); NEUTROPHILS % 57.5 % (36.0-66.0); PLATELET COUNT, AUTOMATED 206 10^3/uL (150-450); RED BLOOD COUNT 5.11 10^6/uL (4.30-6.10); RED CELL DISTRIBUTION WIDTH 13.1 % (11.5-14.5); WHITE BLOOD COUNT 6.2 10^3/uL (4.0-10.0)
[2018-02-01 09:12] LABS: CHOLESTEROL LEVEL 103 MG/DL (<200); CHOLESTEROL RISK RATIO 2.288 (<5); HDL CHOLESTEROL 45 MG/DL (>40); LDL CHOLESTEROL 29.2 MG/DL (<100); NON-HDL-C 58 MG/DL; TRIGLYCERIDES LEVEL 144 MG/DL (<150)
[2018-02-02 08:29] LABS: CARCINOEMBRYONIC ANTIGEN 0.8 NG/ML (<2.5)
[2018-02-02 08:58] LABS: CA 125 18.1 U/ML (<30.2)
== END ==
LOC: M WUC 08:10
DX: K83.1 Obstruction of bile duct (principal)
CPT/HCPCS: 82378

== ENCOUNTER → 2018-02-22 | Outpatient (REF) | payer MEDICARE, MEDICAID ==
[2018-02-22 14:31] LABS: TOTAL PROTEIN,RANDOM URINE 56.3 MG/DL (0.0-12.0)
== END ==
LOC: M LAB REF 13:18
DX: R80.9 Proteinuria, unspecified (principal)
CPT/HCPCS: 84156

== ENCOUNTER → 2018-04-02 | Outpatient (CLI) | payer MEDICARE, MEDICAID ==
[2018-04-02 19:36] LABS: ALBUMIN/GLOBULIN RATIO 0.94 (1.00-1.93); ALKALINE PHOSPHATASE 129 U/L (45-117); ALT/SGPT 48 U/L (12-78); AST/SGOT 22 U/L (7-37); BILIRUBIN,DIRECT 0.1 MG/DL (0.0-0.2); BILIRUBIN,TOTAL 0.3 MG/DL (0.2-1.0); TOTAL PROTEIN 6.2 GM/DL (6.4-8.2)
== END ==
LOC: M WUC 16:04
DX: K83.1 Obstruction of bile duct (principal)
CPT/HCPCS: 80076

== ENCOUNTER → 2018-08-01 | Outpatient (REF) | payer MEDICARE, MEDICAID ==
[~2018-08-01] MED LIST changes: +CALC1TAB64 PO; +DESI40PS2 TOP; +DITR5TAB PO; +LISI10TA2 PO; +LISI10TA4 PO; +OXYB5TAB10
[2018-08-01 12:30] LABS: APPEARANCE, URINE MANUAL TURBID (CLEAR); COLOR, URINE MANUAL LT YELLOW (YELLOW)
[2018-08-01 12:31] LABS: BILIRUBIN, URINE MANUAL NEGATIVE (NEGATIVE); BLOOD URINE MANUAL POSITIVE (NEGATIVE); GLUCOSE, URINE (UA) MANUAL NEGATIVE (NEGATIVE); KETONE, URINE MANUAL NEGATIVE (NEGATIVE); LEUKOCYTE ESTERASE, URINE MAN POSITIVE (NEGATIVE); NITRITE, URINE MANUAL TRACE (NEGATIVE); PROTEIN, URINE MANUAL NEGATIVE (NEGATIVE); UROBILINOGEN, URINE MANUAL NORMAL (NORMAL); WBC, URINE 30-40 /hpf (0-3)
[2018-08-01 12:32] LABS: AMORPHOUS SEDIMENT, URINE MOD AMOUNT (NEGATIVE); BACTERIA, URINE LARGE AMOUNT; HYALINE CAST, URINE NONE SEEN /lpf (0-1); SQUAMOUS EPITHELIAL CELL URINE NONE SEEN /hpf (SMALL AMT)
== END ==
LOC: M SMT 12:13
PROVIDERS: ATTEND Nurse Practitioner Family
DX: R82.998 Other abnormal findings in urine (principal)

== ENCOUNTER → 2018-08-06 | Outpatient (CLI) | payer MEDICARE, MEDICAID ==
[2018-08-06 10:10] LABS: HEMOGLOBIN 14.1 g/dl (13.5-17.5); MEAN CORPUSCULAR HEMOGLOBIN 29.8 pg (27.0-33.0); MEAN CORPUSCULAR HGB CONC 32.8 g/dl (32.0-36.5); MEAN CORPUSCULAR VOLUME 90.9 fl (80.0-96.0); PLATELET COUNT, AUTOMATED 167 10^3/uL (150-450); RED BLOOD COUNT 4.73 10^6/uL (4.30-6.10); WHITE BLOOD COUNT 8.3 10^3/uL (4.0-10.0)
[2018-08-06 10:33] LABS: ALBUMIN 2.9 GM/DL (3.2-5.2); ALT/SGPT 16 U/L (12-78); BILIRUBIN,TOTAL 0.3 MG/DL (0.2-1.0); BLOOD UREA NITROGEN 15 MG/DL (7-18); CALCIUM LEVEL 8.7 MG/DL (8.8-10.2); CARBON DIOXIDE LEVEL 26 MEQ/L (21-32); CHLORIDE LEVEL 103 MEQ/L (98-107); CREATININE FOR GFR 0.89 MG/DL (0.70-1.30); GLOMERULAR FILTRATION RATE > 60.0 (>42); GLUCOSE, FASTING 98 MG/DL (70-100); POTASSIUM SERUM 4.7 MEQ/L (3.5-5.1); SODIUM LEVEL 137 MEQ/L (136-145); TOTAL PROTEIN 6.1 GM/DL (6.4-8.2)
== END ==
LOC: M WUC 08:26
PROVIDERS: ATTEND Family Medicine
DX: K83.1 Obstruction of bile duct (principal)

== ENCOUNTER 2018-08-10 16:22 | Emergency (ER) | payer MEDICARE, MEDICAID ==
[~2018-08-10] VITALS: Ht 167.6 cm; Wt 90.9 kg
[2018-08-10 18:45] LABS: HEMATOCRIT 43.1 % (42.0-52.0); HEMOGLOBIN 14.5 g/dl (13.5-17.5); MEAN CORPUSCULAR HEMOGLOBIN 30.2 pg (27.0-33.0); MEAN CORPUSCULAR HGB CONC 33.6 g/dl (32.0-36.5); MEAN CORPUSCULAR VOLUME 89.8 fl (80.0-96.0); PLATELET COUNT, AUTOMATED 225 10^3/uL (150-450); WHITE BLOOD COUNT 11.1 10^3/uL (4.0-10.0)
[2018-08-10 18:59] LABS: INR 1.12; PROTHROMBIN TIME 14.6 SECONDS (12.1-14.4)
[2018-08-10 19:00] LABS: PARTIAL THROMBOPLASTIN TIME 33.8 SECONDS (25.4-37.6)
[2018-08-10 19:11] VITALS: BP 131/77
[2018-08-10 19:12] LABS: BLOOD UREA NITROGEN 14 MG/DL (7-18); CALCIUM LEVEL 8.2 MG/DL (8.8-10.2); CARBON DIOXIDE LEVEL 26 MEQ/L (21-32); CHLORIDE LEVEL 101 MEQ/L (98-107); CREATININE FOR GFR 0.76 MG/DL (0.70-1.30); GLOMERULAR FILTRATION RATE > 60.0 (>42); GLUCOSE, FASTING 122 MG/DL (70-100); POTASSIUM SERUM 4.2 MEQ/L (3.5-5.1); SODIUM LEVEL 133 MEQ/L (136-145)
[2018-08-10] MEDS ORDERED: LIDOCAINE 2% 5ML JELLY UROJET TOP ONE (19:30)
--- NOTE | 2018-08-10 19:35 | REPVR ---
EXAM: CT Abdomen and Pelvis Without Contrast EXAM DATE/TIME: 08/10/2018 6:22 PM CLINICAL HISTORY: 73 years old, male; Signs and symptoms; Other: Bladder issue; Additional info: Bladder problem TECHNIQUE: Axial computed tomography images of the abdomen and pelvis without contrast. All CT scans at this facility use at least one of these dose optimization techniques: automated exposure control; mA and/or kV adjustment per patient size (includes targeted exams where dose is matched to clinical indication); or iterative reconstruction. Coronal and sagittal reformatted images were created and reviewed. COMPARISON: CT ABD/PEL W/IV CONTRAST ONLY 11/22/2017 2:29 PM FINDINGS: Lower thorax: Atelectasis left lower lobe. Thickened myers lower lobe airways may represent focal bronchitis. ABDOMEN: Liver: Normal. No mass. Gallbladder and bile ducts: Cholelithiasis. Pneumobilia which may be related to prior sphincterotomy. Clinical correlation to exclude infection suggested. Pancreas: Normal. No ductal dilation. Spleen: Normal. No splenomegaly. Adrenals: Normal. No mass. Kidneys and ureters: Moderate to severe left hydroureteronephrosis. No obstructing mass or calculus demonstrated. Findings may be related to recent passage of a calculus. Clinical correlation to exclude bladder neoplasm suggested. Stomach and bowel: There is increased feces throughout the colon consistent with constipation. Diffuse colonic dilatation marked dilatation of the rectosigmoid containing feces likely impacted, which may be resulting in distal colonic obstruction. Appendix: No evidence of appendicitis. PELVIS: Bladder: Diffuse thickening of the bladder wall not well evaluated as the bladder is contracted. Neoplasm not excluded. Reproductive: Unremarkable as visualized. ABDOMEN and PELVIS: Intraperitoneal space: Normal. No free air. No significant fluid collection. Bones/joints: The spine demonstrates mild degenerative changes. Levoconvex scoliosis. Sclerotic focus, likely benign, in the left sixth rib. Soft tissues: Unremarkable. Vasculature: Normal. No abdominal aortic aneurysm. Lymph nodes: Normal. No enlarged lymph nodes. IMPRESSION: 1. Cholelithiasis. 2. Pneumobilia which may be related to prior sphincterotomy. Clinical correlation to exclude infection suggested. 3. Moderate to severe left hydroureteronephrosis. No obstructing mass or calculus demonstrated. Findings may be related to recent passage of a calculus. Clinical correlation to exclude bladder neoplasm suggested. 4. Diffuse thickening of the bladder wall not well evaluated as the bladder is contracted. Neoplasm not excluded. 5. There is increased feces throughout the colon consistent with constipation. Diffuse colonic dilatation marked dilatation of the rectosigmoid containing feces likely impacted, which may be resulting in distal colonic obstruction. Electronically signed by: Mike Pinon On 08/10/2018 19:35:09 PM
[2018-08-11] MEDS ORDERED: CIPR500T39 PO (09:16)
[2018-08-11] MEDS ORDERED: BENEPOW7 PO (09:16)
[2018-08-11] MEDS ORDERED: AMMO12CR4 TOP (09:16)
[2018-08-11] MEDS ORDERED: AMMO12LO TOP (11:08)
[2018-08-11] MEDS ORDERED: LISI10TA4 PO (11:08)
[2018-08-11] MEDS ORDERED: MILK120011 PO (11:10)
[2018-08-11] MEDS ORDERED: IBUPOTC PO (11:10)
[2018-08-11] MEDS ORDERED: TYLE500T78 PO (12:53)
== END 2018-08-10 21:55 | disposition home or self-care (01) ==
LOC: EDBD 16:22 → M ED 16:22
DX: T83.098A Other mechanical complication of other urinary catheter, initial encounter (principal); Y92.9 Unspecified place or not applicable; Y93.9 Activity, unspecified; I10 Essential (primary) hypertension; G80.9 Cerebral palsy, unspecified; G62.9 Polyneuropathy, unspecified; I73.00 Raynaud's syndrome without gangrene; K44.9 Diaphragmatic hernia without obstruction or gangrene; G82.50 Quadriplegia, unspecified; K80.20 Calculus of gallbladder without cholecystitis without obstruction; N13.30 Unspecified hydronephrosis; Z79.899 Other long term (current) drug therapy; Z88.5 Allergy status to narcotic agent

== ENCOUNTER 2018-08-11 08:57 | Day surgery (SDC) | payer MEDICARE, MEDICAID ==
[~2018-08-11] VITALS: Ht 167.6 cm; Wt 88.6 kg
[2018-08-11] MEDS ORDERED: AMMO12CR4 TOP (09:16)
[2018-08-11] MEDS ORDERED: CIPR500T39 PO (09:16)
[2018-08-11] MEDS ORDERED: BENEPOW7 PO (09:16)
[2018-08-11] MEDS ORDERED: PROPOFOL 200 MG/20 ML VIAL As Ordered ONE (09:57)
[2018-08-11] MEDS ORDERED: MIDAZOLAM INJ 2 MG/2 ML VIAL (J2250) As Ordered ONE (09:57)
[2018-08-11] MEDS ORDERED: LIDOCAINE 2% INJ 100 MG/5 ML SDV (FOR ANES.) As Ordered ONE (09:57)
[2018-08-11] MEDS ORDERED: fentaNYL 100 MCG/2 ML INJECTION (J3010) As Ordered ONE (09:58)
[2018-08-11] MEDS ORDERED: LIDOCAINE 2% 5ML JELLY UROJET As Ordered ONE (10:20)
[2018-08-11] MEDS ORDERED: CONRAY-60 60% 50ML VIAL (Q9961) As Ordered ONE ×2 (10:20→11:40)
[2018-08-11] MEDS ORDERED: ZOSYN 3.375 GM VIAL (J2543) As Ordered ONE (11:04)
[2018-08-11] MEDS ORDERED: LISI10TA4 PO (11:08)
[2018-08-11] MEDS ORDERED: AMMO12LO TOP (11:08)
[2018-08-11] MEDS ORDERED: MILK120011 PO (11:10)
[2018-08-11] MEDS ORDERED: IBUPOTC PO (11:10)
[2018-08-11] MEDS ORDERED: METHYLENE BLUE 0.5% (5MG/ML) 10 ML AMP (PROVAYBLUE)(Q9968 PER 1MG) As Ordered ONE (11:40)
[2018-08-11] MEDS ORDERED: CYSTO-CONRAY II 17.2% 250ML VIAL (Q9958) As Ordered ONE (11:43)
[2018-08-11] MEDS ORDERED: fentaNYL 100 MCG/2 ML INJECTION (J3010) IV PRN (12:45)
[2018-08-11] MEDS ORDERED: ONDANSETRON 4MG/2ML VIAL (J2405) IV PRN (12:45)
[2018-08-11] MEDS ORDERED: LR 1,000 ML IV SCH (12:45)
[2018-08-11 12:50] VITALS: BP 109/57
[2018-08-11] MEDS ORDERED: TYLE500T78 PO (12:53)
--- NOTE | 2018-08-11 12:57 | ROOPDOC ---
[facility] Report Of Operation Report of Operation DATE OF PROCEDURE: 08/11/18 PREPROCEDURE DIAGNOSES: DISLODGED SUPRAPUBIC TUBE. POSTPROCEDURE DIAGNOSES: SAME. PROCEDURE: SUPRAPUBIC TUBE PLACEMENT; CYSTOURETHROSCOPY; CYSTOGRAM. SURGEON: GABRIELLA DIAZ MD [facility] ANESTHESIA: SEDATION. ESTIMATED BLOOD LOSS: Approximately , <5 mL. COMPLICATIONS: NONE. REMARKS/FINDINGS: ENLARGED PROSTATE;EXTREME ANGLE FOR THE BLADDER ENTRY; INCONTINENT OF URINE; WIDE MOUTH BLADDER NECK; TRABECULATED BLADDER; URETERAL ORIFICES WERE NOT VISUALIZED. DESCRIPTION OF PROCEDURE: AFTER INFORMED CONSENT WITH HIS SISTER, PT WAS TAKEN TO THE OPERATING ROOM PLACED IN A SUPINE POSITION ON THE TABLE AND ROUTINE TIME OUT WAS CONDUCTED WITH ALL STAKEHOLDERS. THE 21F CYSTOSCOPE WAS INTRODUCED INTO THE BLADDER AFTER REMOVING HIS PATRICK. URETHRA, PROSTATE FOSSA AND BLADDER WERE OBSERVED. THERE WAS AN EXTREME ANGLE TO THE ENTRY INTO THE BLADDER. BLUE DILATORS WERE PLACED INTO THE BLADDER THROUGH THE EXISTING SP SITE, OVER A MOTION HYBRID WIRE (0.035) AND DILATED TO 28F. A 24 F CATHETER WAS MADE INTO A KOI CATHETER AND PLACED OVER THE WIRE AND BALLOON WAS DILATED UNDER DIRECT VISUALIZATION TO 10ML. A CYSTOGRAM WAS PERFORMED USING CONRAY 250ML BOTTLE. PT BEGAN LEAKING WITH ABOUT 150ML IN THE BLADDER. CYSTOGRAM REVEALED OPEN BLADDER NECK. WHEN SPT WAS TO DRAINAGE THE LEAKAGE STOPPED. THE PATIENT WAS NOTED AFTER CLEANING AND DRESSING THE SP TUBE SITE WITH DUODERM TO HAVE EXCORIATION AT SCROTUM (NOTED BY STAFF PRIOR TO SURGERY) AND STOOL AT HIS ANUS, WHICH WAS CLEANED (GREEN AND SOFTLY EMANATING). Gabriella Diaz MD Aug 11, 2018 12:46
[2018-08-11] MEDS ORDERED: PIPERACILLIN/TAZOBACTAM SOD 3.375 GM in D5W MINI-BAG PLUS 50 ML IV ONE (13:00)
--- NOTE | 2018-08-11 13:36 | REP ---
URINARY BLADDER ULTRASOUND: Urinary bladder ultrasound attempted. Bladder is not well distended and not well visualized. There is a tract from a suprapubic catheter communicating with the skin surface. A Wright balloon is seen in the region of the bladder. However, its exact position cannot be confirmed due to nondistended bladder and body habitus. Electronically Signed by Dewayne Zambrano MD 08/11/2018 07:31 P
--- NOTE | 2018-08-11 14:50 | REP ---
C-ARM VIEWS OF PELVIS: Three C-arm views of the pelvis are performed. There is contrast in a round structure in the pelvis presumably the bladder. 5 seconds of fluoroscopy time utilized. Electronically Signed by Dewayne Zambrano MD 08/11/2018 07:36 P
== END 2018-08-11 15:40 | disposition other institution (70) ==
LOC: EDBD 08:57 → M ED 08:57 → M SDC 09:56 → M ED 10:47 → M MS5PR 13:15 → M SDC 15:40
PROVIDERS: ATTEND Urology Pediatric Urology
DX: T83.028A Displacement of other urinary catheter, initial encounter (principal); N40.0 Benign prostatic hyperplasia without lower urinary tract symptoms; I10 Essential (primary) hypertension; G47.30 Sleep apnea, unspecified; Z91.040 Latex allergy status; Z79.899 Other long term (current) drug therapy
CPT/HCPCS: 51040; 74430; 76857; 87088; 87186; 88108; 99284; C1769; G0378; J2250; J2543; J3010; Q9958; Q9961; Q9968

== ENCOUNTER 2018-08-15 14:51 | Inpatient (IN) | payer MEDICARE, MEDICAID ==
[~2018-08-15] VITALS: Ht 167.6 cm; Wt 91.7 kg
[~2018-08-15 14:51] MED LIST changes: +AMMO12CR4 TOP; +AMMO12LO TOP; +BENEPOW7 PO; +CIPR500T39 PO; +IBUPOTC PO; +MILK120011 PO; +TYLE500T78 PO
[2018-08-15 16:41] LABS: BASO % 0.2 % (0.0-1.0); EOS # 0.1 10^3/uL (0.0-0.50); EOS % 0.6 % (0.0-3.0); HEMATOCRIT 41.6 % (42.0-52.0); HEMOGLOBIN 13.7 g/dl (13.5-17.5); LYMPH # 1.6 10^3/uL (1.5-4.5); LYMPH % 12.5 % (24.0-44.0); MEAN CORPUSCULAR HEMOGLOBIN 30.1 pg (27.0-33.0); MEAN CORPUSCULAR HGB CONC 32.9 g/dl (32.0-36.5); MEAN CORPUSCULAR VOLUME 91.4 fl (80.0-96.0); MONO % 8.1 % (0.0-5.0); NEUTROPHILS # 9.9 10^3/uL (1.8-7.7); PLATELET COUNT, AUTOMATED 234 10^3/uL (150-450); RED BLOOD COUNT 4.55 10^6/uL (4.30-6.10); WHITE BLOOD COUNT 12.6 10^3/uL (4.0-10.0)
[2018-08-15 16:57] LABS: INR 1.21; PROTHROMBIN TIME 15.5 SECONDS (12.1-14.4)
[2018-08-15 17:08] LABS: ALBUMIN 2.8 GM/DL (3.2-5.2); ALT/SGPT 18 U/L (12-78); BILIRUBIN,DIRECT 0.1 MG/DL (0.0-0.2); BILIRUBIN,TOTAL 0.3 MG/DL (0.2-1.0); BLOOD UREA NITROGEN 10 MG/DL (7-18); CALCIUM LEVEL 8.6 MG/DL (8.8-10.2); CARBON DIOXIDE LEVEL 28 MEQ/L (21-32); CHLORIDE LEVEL 103 MEQ/L (98-107); CREATININE FOR GFR 0.78 MG/DL (0.70-1.30); GLOMERULAR FILTRATION RATE > 60.0 (>42); GLUCOSE, FASTING 124 MG/DL (70-100); LIPASE 34 U/L (73-393); POTASSIUM SERUM 4.1 MEQ/L (3.5-5.1); SODIUM LEVEL 139 MEQ/L (136-145); TOTAL PROTEIN 5.9 GM/DL (6.4-8.2)
[2018-08-15] MEDS ORDERED: ISOVUE-370 76% 100ML VIAL (Q9967) As Ordered ONE (17:42)
[2018-08-15] MEDS ORDERED: TYLE325T5 PO (18:37)
[2018-08-15] MEDS ORDERED: MACR100C43 PO (18:37)
[2018-08-15] MEDS ORDERED: DESI40PS2 TOP (18:37)
--- NOTE | 2018-08-15 18:52 | REPVR ---
EXAM: CT Abdomen and Pelvis With Contrast EXAM DATE/TIME: 08/15/2018 6:01 PM CLINICAL HISTORY: 73 years old, male; Pain; Abdominal pain; Prior surgery; Additional info: Distention/vomiting TECHNIQUE: Axial computed tomography images of the abdomen and pelvis with intravenous contrast. All CT scans at this facility use at least one of these dose optimization techniques: automated exposure control; mA and/or kV adjustment per patient size (includes targeted exams where dose is matched to clinical indication); or iterative reconstruction. Coronal and sagittal reformatted images were created and reviewed. CONTRAST: 100 ml of ISOVUE 370 administered intravenously. COMPARISON: CT ABD PELVIS W/O CONTRAST 08/10/2018 6:34 PM FINDINGS: Tubes, catheters and devices: There is a suprapubic catheter within the bladder which was not present on the prior scan. The bladder is contracted and cannot be further evaluated. Lower thorax: There is increased airspace disease at the left lung base compared to the prior scan. This could represent increased atelectasis or developing pneumonia. ABDOMEN: Liver: The liver is normal. Gallbladder and bile ducts: There are 2 large calcified gallstones within the gallbladder. This is unchanged from prior scan. There is pneumobilia present without dilation of the bile ducts. This was also present on the prior scan. Pancreas: The pancreas is normal. Spleen: The spleen is normal. Adrenals: The adrenal glands are normal. Kidneys and ureters: There is no renal lesion. There is persistent moderate to severe left hydronephrosis and hydroureter. No obstructing calculus or lesion is identified. There is no change from prior scan. There is no hydronephrosis on the right. Stomach and bowel: There is stool and gas throughout the colon which is distended. This includes the rectum. The sigmoid reaches 9.5 cm in diameter. The more proximal colon is more moderately distended. No obstructive mass or lesion is seen. The colon had a similar distended appearance on the prior scan. The appearance is has not significantly changed from prior scan. No wall thickening or adjacent inflammation. Small bowel is not distended. Appendix: The appendix is normal. PELVIS: Bladder: The bladder is contracted and cannot be further evaluated. Reproductive: Unremarkable as visualized. ABDOMEN and PELVIS: Intraperitoneal space: No free fluid or fluid collection. No free air.. Bones/joints: There is a lumbar scoliosis. No fracture. Soft tissues: Unremarkable. Vasculature: Normal. No abdominal aortic aneurysm. Lymph nodes: Normal. No enlarged lymph nodes. IMPRESSION: 1. Persistent fecal stasis with colonic distention up to 10 cm in diameter unchanged from prior scan. 2. Cholelithiasis with persistent pneumobilia. 3. Persistent left hydronephrosis and hydroureter without evidence of obstructive calculus or lesion unchanged from prior scan. A suprapubic catheter has been placed in the bladder since the previous scan. 4. No acute inflammatory findings in the abdomen or pelvis. 5. Increasing airspace disease at the left lung base could represent increasing atelectasis or developing pneumonia. Electronically signed by: Suhas Escalera On 08/15/2018 18:52:07 PM
--- NOTE | 2018-08-15 19:52 | REP ---
CHEST, TWO VIEWS: Two views of the chest are performed and compared to prior study of 10/02/2017. Left lower lobe atelectasis/infiltrate is present, new since prior study. Cardiac silhouette is magnified. Mediastinal silhouette appears grossly unremarkable. IMPRESSION: Patchy infiltrate/atelectasis left lower lobe. Electronically Signed by Dewayne Zambrano MD 08/16/2018 09:12 A
[2018-08-15] MEDS ORDERED: cefTRIAXone SOD 1 GM in D5W MINI-BAG PLUS 50 ML IV ONE (22:45)
[2018-08-16] MEDS: LACTIC ACID 12% LOTION 225 GM BTL TOP SCH ×2 (01:06→23:19)
[2018-08-16] MEDS: DOCUSATE SODIUM 100 MG CAP PO SCH ×3 (01:07→21:46)
[2018-08-16] MEDS: FERROUS SULFATE 325MG TAB PO SCH ×3 (01:07→21:46)
[2018-08-16] MEDS: oxyBUTYnin *DITROPAN XL* 5 MG TABCR PO SCH ×3 (01:08→21:45)
[2018-08-16] MEDS: PANTOPRAZOLE 40MG TAB (PROTONIX) PO SCH ×3 (01:08→21:45)
[2018-08-16] MEDS: LISINOPRIL 10 MG TAB PO SCH ×2 (01:08→21:46)
[2018-08-16] MEDS ORDERED: ONDANSETRON 4MG/2ML VIAL (J2405) IV PRN (01:15)
[2018-08-16] MEDS ORDERED: ACETAMINOPHEN TAB 650MG DOSE (2X325MG) PO PRN (01:15)
[2018-08-16] MEDS ORDERED: FLEET OIL RETENTION ENEMA PR PRN (01:15)
[2018-08-16] MEDS ORDERED: BISACODYL 10 MG SUPP PR PRN (01:15)
[2018-08-16] MEDS ORDERED: AZITHROMYCIN INJ 500 MG, VIAL MATE ADAPTER 1 EACH in D5W 250 ML IV SCH (02:00)
[2018-08-16] MEDS: HEPARIN SOD (PORCINE) 5000 UNITS/ML VIAL SC SCH ×3 (06:00→21:47)
[2018-08-16 08:00] VITALS: BP 142/67
[2018-08-16 09:31] LABS: BASO % 0.5 % (0.0-1.0); EOS # 0.2 10^3/uL (0.0-0.50); EOS % 2.6 % (0.0-3.0); HEMATOCRIT 39.4 % (42.0-52.0); HEMOGLOBIN 13.4 g/dl (13.5-17.5); LYMPH # 1.4 10^3/uL (1.5-4.5); MEAN CORPUSCULAR HEMOGLOBIN 30.7 pg (27.0-33.0); MEAN CORPUSCULAR VOLUME 90.4 fl (80.0-96.0); MONO # 0.7 10^3/uL (0.0-0.8); MONO % 8.7 % (0.0-5.0); NEUTROPHILS # 5.3 10^3/uL (1.8-7.7); NEUTROPHILS % 69.7 % (36.0-66.0); PLATELET COUNT, AUTOMATED 206 10^3/uL (150-450); RED BLOOD COUNT 4.36 10^6/uL (4.30-6.10); WHITE BLOOD COUNT 7.7 10^3/uL (4.0-10.0)
[2018-08-16 09:43] LABS: ALBUMIN 2.7 GM/DL (3.2-5.2); ALT/SGPT 19 U/L (12-78); BILIRUBIN,TOTAL 0.3 MG/DL (0.2-1.0); BLOOD UREA NITROGEN 10 MG/DL (7-18); CALCIUM LEVEL 8.4 MG/DL (8.8-10.2); CARBON DIOXIDE LEVEL 30 MEQ/L (21-32); CHLORIDE LEVEL 103 MEQ/L (98-107); CREATININE FOR GFR 0.65 MG/DL (0.70-1.30); GLOMERULAR FILTRATION RATE > 60.0 (>42); GLUCOSE, FASTING 103 MG/DL (70-100); POTASSIUM SERUM 3.6 MEQ/L (3.5-5.1); SODIUM LEVEL 138 MEQ/L (136-145)
--- NOTE | 2018-08-16 10:16 | IPNPDOC ---
Subjective Date Seen The patient was seen on 08/16/18. Subjective Chief Complaint/HPI Pt was seen in his room on Minor [facility]. His nurse was without concerns. He denies pain, shortness of breath, cough, fever, abdominal pain. General: Reports: ROS Unobtainable (see above.) Objective Physical Examination General Exam: Positive: Alert, Cooperative, No Acute Distress ENT Exam: Positive: Mucous membr. moist/pink Neck Exam: Positive: Supple Chest Exam: Positive: Clear to auscultation, Rales (L basilar rales) Heart Exam: Positive: Rate Normal, Normal S1, Normal S2 Abdomen Exam: Positive: Normal bowel sounds, Soft, Other (+ indwelling suprapubic catheter); Negative: Tenderness Extremity Exam: Negative: Edema Assessment /Plan Problems (1) UTI (urinary tract infection) due to urinary indwelling catheter Status: Acute Response to Treatment: Stable Problem Specific Plan: Monitor Clinically, Repeat Labs Problem Text: Pt with h/o recurrent UTI with E coli, Morganella and E Faecalis - Will cover with Ceftazidime 2 mg IV q8h, await repeat cultures. (2) Left lower lobe pneumonia Status: Acute Response to Treatment: Stable Problem Specific Plan: Monitor Clinically, Repeat Labs Problem Text: High risk patient, will adjust treatment to treat nosocomial infection, IV ceftazidime, IV linezolid. Monitor status clinically, unlikely to obtain sputum culture (3) Constipation Status: Chronic Response to Treatment: Stable Problem Specific Plan: Monitor Clinically Problem Text: Cont routine bowel care. (4) Congenital quadriplegia Status: Chronic Response to Treatment: Stable Problem Text: This complicates much of his care. (5) Hypertension Status: Chronic Problem Specific Plan: Monitor Clinically Problem Text: Pressures stable, cont lisinopril. (6) Macular degeneration Status: Chronic Problem Specific Plan: Monitor Clinically Problem Text: Legally blind. Plan/VTE VTE Prophylaxis Ordered?: Yes Plan Family Medicine Attending Note: I saw and examined Mr. Joaquin, discussed with OMAR Vilchis. Agree with her note as documented. Right now or waiting on culture results for Butch. We know that the organisms were resistant the Cipro he was prescribed empirically at the time of his suprapubic catheter change 5 days ago. I like to switch him back to MiraLAX as well, because is bowel regimented fairy well when he was on this for years. He's had increasing problems with constipation since he was changed from MiraLAX to Benefiber last month because of insurance considerations. 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) VS, I&O, 24H, [facility] Vital Signs/I&O Vital Signs Date Time Temp Pulse Resp B/P (MAP) Pulse Ox O2 Delivery O2 Flow Rate FiO2 08/16/18 02:12 96.2 58 18 117/61 (79) 96 Room Air Laboratory Data 24H LABS Laboratory Tests 2 08/15/18 16:25: Immature Granulocyte % (Auto) 0.6, White Blood Count 12.6H, Red Blood Count 4.55, Hemoglobin 13.7, Hematocrit 41.6L, Mean Corpuscular Volume 91.4, Mean Corpuscular Hemoglobin 30.1, Mean Corpuscular Hemoglobin Concent 32.9, Red Cell Distribution Width 13.3, Platelet Count 234, Neutrophils (%) (Auto) 78.0H, Lymphocytes (%) (Auto) 12.5L, Monocytes (%) (Auto) 8.1H, Eosinophils (%) (Auto) 0.6, Basophils (%) (Auto) 0.2, Neutrophils # (Auto) 9.9H, Lymphocytes # (Auto) 1.6, Monocytes # (Auto) 1.0H, Eosinophils # (Auto) 0.1, Basophils # (Auto) 0.0, Nucleated Red Blood Cells % (auto) 0.0, Prothrombin Time 15.5H, Prothromb Time International Ratio 1.21, Urine Color ANTONETTE, Urine Appearance CLOUDYH, Urine pH 5.0, Urine Specific Powell 1.027, Urine Protein 2+H, Urine Glucose (UA) NEGATIVE, Urine Ketones NEGATIVE, Urine Blood 1+H, Urine Nitrite NEGATIVE, Urine Bilirubin NEGATIVE, Urine Urobilinogen 0.2, Urine Leukocyte Esterase 3+H, Urine WBC (Auto) TNTCH, Urine RBC (Auto) 113H, Urine Hyaline Casts (Auto) 0, Urine Bacteria (Auto) 3+H, Urine Squamous Epithelial Cells 2, Urine Mucus (Auto) SMALL, Urine Sperm (Auto) , Anion Gap 8, Glomerular Filtration Rate > 60.0, Lactic Acid Level 1.8, Calcium Level 8.6L, Aspartate Amino Transf (AST/SGOT) 14, Alanine Aminotransferase (ALT/SGPT) 18, Alkaline Phosphatase 81, Total Bilirubin 0.3, Direct Bilirubin 0.1, Total Protein 5.9L, Albumin 2.8L, Albumin/Globulin Ratio 0.90L, Lipase 34L 08/16/18 09:03: Immature Granulocyte % (Auto) 0.5, White Blood Count 7.7, Red Blood Count 4.36, Hemoglobin 13.4L, Hematocrit 39.4L, Mean Corpuscular Volume 90.4, Mean Corpuscular Hemoglobin 30.7, Mean Corpuscular Hemoglobin Concent 34.0, Red Cell Distribution Width 13.2, Platelet Count 206, Neutrophils (%) (Auto) 69.7H, L ymphocytes (%) (Auto) 18.0L, Monocytes (%) (Auto) 8.7H, Eosinophils (%) (Auto) 2.6, Basophils (%) (Auto) 0.5, Neutrophils # (Auto) 5.3, Lymphocytes # (Auto) 1.4L, Monocytes # (Auto) 0.7, Eosinophils # (Auto) 0.2, Basophils # (Auto) 0.0, Nucleated Red Blood Cells % (auto) 0.0, Anion Gap 5L, Glomerular Filtration Rate > 60.0, Calcium Level 8.4L, Aspartate Amino Transf (AST/SGOT) 16, Alanine Aminotransferase (ALT/SGPT) 19, Alkaline Phosphatase 70, Total Bilirubin 0.3, Total Protein 6.0L, Albumin 2.7L, Albumin/Globulin Ratio 0.82L, Blood Urea Nitrogen 10, Creatinine 0.65L, Sodium Level 138, Potassium Level 3.6, Chloride Level 103, Carbon Dioxide Level 30 CBC/BMP Laboratory Tests 08/15/18 16:25 Red Blood Count 4.55, Mean Corpuscular Volume 91.4, Mean Corpuscular Hemoglobin 30.1, Mean Corpuscular Hemoglobin Concent 32.9, Red Cell Distribution Width 13.3, Neutrophils (%) (Auto) 78.0 H, Lymphocytes (%) (Auto) 12.5 L, Monocytes (%) (Auto) 8.1 H, Eosinophils (%) (Auto) 0.6, Basophils (%) (Auto) 0.2, Neutrophils # (Auto) 9.9 H, Lymphocytes # (Auto) 1.6, Monocytes # (Auto) 1.0 H, Eosinophils # (Auto) 0.1, Basophils # (Auto) 0.0 08/16/18 09:03 Red Blood Count 4.36, Mean Corpuscular Volume 90.4, Mean Corpuscular Hemoglobin 30.7, Mean Corpuscular Hemoglobin Concent 34.0, Red Cell Distribution Width 13.2, Neutrophils (%) (Auto) 69.7 H, Lymphocytes (%) (Auto) 18.0 L, Monocytes (%) (Auto) 8.7 H, Eosinophils (%) (Auto) 2.6, Basophils (%) (Auto) 0.5, Neutrophils # (Auto) 5.3, Lymphocytes # (Auto) 1.4 L, Monocytes # (Auto) 0.7, Eosinophils # (Auto) 0.2, Basophils # (Auto) 0.0, Calcium Level 8.4 L, Aspartate Amino Transf (AST/SGOT) 16, Alanine Aminotransferase (ALT/SGPT) 19, Alkaline Phosphatase 70, Total Bilirubin 0.3, Total Protein 6.0 L, Albumin 2.7 L Microbiology Microbiology 08/15/18 Blood Culture, Received Pending 08/15/18 Blood Culture, Received Pending 08/15/18 Urine Culture, Received Pending ETHAN ARROYO PA-C Aug 16, 2018 10:15 am Aldo Modi MD Aug 18, 2018 9:58 pm
--- NOTE | 2018-08-16 11:31 | HPE ---
DATE OF ADMISSION: 08/16/2018 CHIEF COMPLAINT: The patient was brought in from [facility] for nausea and vomiting and decreased drainage from suprapubic urinary catheter. HISTORY OF PRESENT ILLNESS: The patient is a 73-year-old male with cognitive impairment secondary to cerebral palsy. He has spastic quadriplegia, urinary retention with suprapubic catheter, legally blind, hypertension, Raynaud's phenomenon, esophagitis, history of gastroesophageal (GI) bleed. He was brought to the emergency room from the [facility] where he was noted to have episode of nausea, vomiting, non-bloody, non-bilious. He was also noted to have decreased drainage of his suprapubic catheter which was recently changed on 08/13/2018. His procedure actually done on 08/11/2018. A urinalysis which grew E. Coli but was not sensitive to fluoroquinolones but sensitive to Rocephin. He was discharged on Cipro. He was brought in because of decreased drainage of suprapubic catheter and nausea and vomiting. Upon admission to the emergency room with positive urinalysis, possible left lower lobe pneumonia and severe fecal stasis constipation. When I examined the patient at bedside, he was asleep, groggy provided very limited history . History was severely limited due to an underlying mentation as well, and no staff members available at the bedside. Most of the history was obtained from emergency room provider. PAST MEDICAL HISTORY: See history of present illness. PAST SURGICAL HISTORY: Suprapubic catheter. ALLERGIES: CODEINE and LATEX. HOME MEDICATIONS: - Cipro - Dulcolax - Colace - ferrous sulfate - lisinopril - oxybutynin - Protonix - Macrobid - melatonin - ibuprofen as needed SOCIAL HISTORY: He resides at the [facility]. FAMILY HISTORY: Unknown. REVIEW OF SYSTEMS: Unable to complete fully because of patient's underlying mentation. VITALS ON ADMISSION: Temperature 98, pulse 75, respiration 16, sating at 95% on room air. Blood pressure 127/61. PHYSICAL EXAMINATION: He appears in no apparent distress. Head is normocephalic, atraumatic. Extraocular movements appear intact. Lungs: Good air entry in the anterior chest. No crackles or wheezing. Abdomen is distended. Positive bowel sounds. No rebound. No guarding. Extremities: No edema. Multiple lacerations. No calf tenderness. Skin appears to be intact. Neurological: He is arousable. He is alert. No apparent focal deficits. LABORATORY AND IMAGING DONE IN THE EMERGENCY ROOM: White count of 12, hemoglobin and hematocrit of 13/41, platelet count of 234. Coags within normal limits. Chemistries: BUN and creatinine 10/0.78, lactate within normal limits. Urinalysis is positive with too numerous to count WBCs as well as RBCs. IMAGING: CT of the abdomen and pelvis shows persistent fecal stasis with colonic distention up to 10 cm unchanged from prior, cholelithiasis without persistent pneumobilia, persistent left hydronephrosis and hydroureter without evidence of obstructive calculus, suprapubic catheter has been placed into the bladder since the previous scan. Increased air space opacity in the left lung base. Chest x-ray shows patchy infiltrate, atelectasis left lower lobe. ASSESSMENT AND PLAN: Urinary stasis from severe constipation as well as possible urinary tract infection, it grew E. Coli which is not sensitive to Cipro, will change to ceftriaxone. Urinalysis sent. Urine cultures to follow. Tylenol as needed. Urology was spoken to. Suprapubic catheter is draining appropriately. If there are any issues with drainage, urology requests to be consulted. Fecal stasis constipation, received enema in the emergency room. Will continue bowel prep. Will repeat abdominal x-ray in the a.m. Enema as needed. Pneumonia. Ceftriaxone and azithromycin. The ceftriaxone also covers the urine. Oxygen as needed. Sputum culture if patient is able to give one. Cerebral palsy with spastic quadriplegia, this is stable. Assistance with activities of daily living (ADLs) per nursing staff. Hypertension, continue lisinopril. Esophagitis, continue PPI. Supportive deep venous thrombosis (DVT) prophylaxis, heparin subcutaneous. Gastrointestinal (GI) prophylaxis, on Protonix twice daily. Diet: Cardiac. MTDD
[2018-08-16] MEDS: LINEZOLID 600 MG in APPROPRIATE DILUENT 1 EA IV SCH ×2 (12:26→23:19)
[2018-08-16] MEDS: cefTAZidime 2 GM in D5W MINI-BAG PLUS 50 ML IV SCH ×2 (13:30→20:00)
--- NOTE | 2018-08-16 15:50 | REP ---
ABDOMINAL SERIES: Cross-stable lateral view of the abdomen demonstrates no evidence of free air. Supine film of the abdomen and pelvis is performed and compared to prior slate handler CT image 08/15/2018. There appears to be decreased in caliber of the distended colon compared to that prior study. Moderate fecal material is seen in the rectum. A small amount of air and fecal material is seen throughout the remainder of the colon. Air is seen throughout multiple small bowel loops throughout the abdomen, and the small bowel loops also appeared diminished in caliber. There are degenerative changes of the spine and hips. An accompanying view of the chest demonstrates mild patchy infiltrate or atelectasis in the left lung base. Electronically Signed by Dewayne Zambrano MD 08/17/2018 03:54 P
[2018-08-16 16:00] VITALS: BP 133/73
[2018-08-16 16:45] VITALS: BP 154/81
[2018-08-16] MEDS ORDERED: SENOKOT S TAB PO ONE (21:00)
[2018-08-16 22:00] VITALS: BP 148/82
[2018-08-16] MEDS ORDERED: cefTRIAXone SOD 1 GM in D5W MINI-BAG PLUS 50 ML IV SCH (22:00)
[2018-08-17] MEDS: cefTAZidime 2 GM in D5W MINI-BAG PLUS 50 ML IV SCH ×3 (04:17→21:40)
[2018-08-17 05:45] LABS: HEMATOCRIT 37.3 % (42.0-52.0); HEMOGLOBIN 12.4 g/dl (13.5-17.5); MEAN CORPUSCULAR HGB CONC 33.2 g/dl (32.0-36.5); MEAN CORPUSCULAR VOLUME 90.1 fl (80.0-96.0); PLATELET COUNT, AUTOMATED 208 10^3/uL (150-450); RED BLOOD COUNT 4.14 10^6/uL (4.30-6.10); WHITE BLOOD COUNT 5.8 10^3/uL (4.0-10.0)
[2018-08-17 06:00] VITALS: BP 146/84
[2018-08-17 06:00] LABS: BLOOD UREA NITROGEN 11 MG/DL (7-18); CALCIUM LEVEL 8.1 MG/DL (8.8-10.2); CARBON DIOXIDE LEVEL 28 MEQ/L (21-32); CHLORIDE LEVEL 104 MEQ/L (98-107); CREATININE FOR GFR 0.73 MG/DL (0.70-1.30); GLOMERULAR FILTRATION RATE > 60.0 (>42); GLUCOSE, FASTING 113 MG/DL (70-100); POTASSIUM SERUM 3.8 MEQ/L (3.5-5.1); SODIUM LEVEL 139 MEQ/L (136-145)
[2018-08-17] MEDS: HEPARIN SOD (PORCINE) 5000 UNITS/ML VIAL SC SCH ×3 (06:13→21:39)
[2018-08-17] MEDS: PANTOPRAZOLE 40MG TAB (PROTONIX) PO SCH ×2 (09:00→21:39)
[2018-08-17] MEDS: oxyBUTYnin *DITROPAN XL* 5 MG TABCR PO SCH ×2 (09:00→21:39)
[2018-08-17] MEDS: DOCUSATE SODIUM 100 MG CAP PO SCH ×2 (09:00→21:39)
[2018-08-17] MEDS: FERROUS SULFATE 325MG TAB PO SCH ×2 (09:00→21:39)
[2018-08-17] MEDS: MIRALAX *UNIT DOSE* 17GM PACKET PO SCH (09:00)
--- NOTE | 2018-08-17 09:12 | IPNPDOC ---
Subjective Date Seen The patient was seen on 08/17/18. Subjective Chief Complaint/HPI Pt this morning denies pain, belly pain. He states that is is not hard for him to breath and he has not been coughing. General: Reports: ROS Unobtainable (ROS limited d/t MRJakob) Objective Physical Examination General Exam: Positive: Alert, Cooperative, No Acute Distress ENT Exam: Positive: Mucous membr. moist/pink Neck Exam: Positive: Supple Chest Exam: Positive: Rales (L basilar rales) Heart Exam: Positive: Rate Normal, Normal S1, Normal S2 Abdomen Exam: Positive: Normal bowel sounds, Soft, Tenderness (pt groans when palpated, but cont to deniy discomfort), Other (+ indwelling suprapubic catheter) Extremity Exam: Negative: Edema Neuro Exam: Negative: Normal Tone Psych Exam: Negative: Mental status NL Assessment /Plan Problems (1) UTI (urinary tract infection) due to urinary indwelling catheter Status: Acute Response to Treatment: Stable Problem Specific Plan: Monitor Clinically, Repeat Labs Problem Text: 08/17 Urine culture + E coli, sensitive to Ceftazidime. (could be narrowed for UTI, but pt also with nosocomial PN) Pt also likely colonized. 08/16 Pt with h/o recurrent UTI with E coli, Morganella and E Faecalis - Will cover with Ceftazidime 2 mg IV q8h, await repeat cultures. (2) Left lower lobe pneumonia Status: Acute Response to Treatment: Stable Problem Specific Plan: Monitor Clinically, Repeat Labs Problem Text: 08/17 Resp status stable, afebrile, WBC has normalized. IV Ceftazidime, linezolid D2 08/16 High risk patient, will adjust treatment to treat nosocomial infection, IV ceftazidime, IV linezolid. Monitor status clinically, unlikely to obtain sputum culture (3) Constipation Status: Chronic Response to Treatment: Stable Problem Specific Plan: Monitor Clinically Problem Text: Abd films suggest small amount of fecal matter thru colon and in rectum, has colace, Dulcolax GA, and fleets ordered, will add Miralax as pt has responded well to this in the past. (4) Congenital quadriplegia Status: Chronic Response to Treatment: Stable Problem Text: This complicates many aspects of his treatment. (5) Hypertension Status: Chronic Problem Specific Plan: Monitor Clinically Problem Text: Pressures stable, cont lisinopril. (6) Macular degeneration Status: Chronic Problem Specific Plan: Monitor Clinically Problem Text: Legally blind. Plan/VTE VTE Prophylaxis Ordered?: Yes Plan Family Medicine Attending Note: I saw and examined Mr. Joaquin, discussed with OMAR Vilchis. Agree with her note as documented. By the time I saw him later in the day he had 3 large bowel movements. I think this will help clear out his colon and decrease pressure on both his urinary bladder and the base of his lungs. 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) VS, I&O, 24H, Fishbone Vital Signs/I&O Vital Signs Date Time Temp Pulse Resp B/P (MAP) Pulse Ox O2 Delivery O2 Flow Rate FiO2 08/17/18 06:00 97.7 52 19 146/84 (104) 95 08/16/18 14:42 Room Air I&O- Last 24 Hours up to 6 AM 08/17/18 06:00 Intake Total 1890 ml Output Total 1300 ml Balance 590 ml Laboratory Data 24H LABS Laboratory Tests 2 08/17/18 05:23: Nucleated Red Blood Cells % (auto) 0.0, Anion Gap 7L, Glomerular Filtration Rate > 60.0, Blood Urea Nitrogen 11, Creatinine 0.73, Sodium Level 139, Potassium Level 3.8, Chloride Level 104, Carbon Dioxide Level 28, Calcium Level 8.1L CBC/BMP Laboratory Tests 08/17/18 05:23 Red Blood Count 4.14 L, Mean Corpuscular Volume 90.1, Mean Corpuscular Hemoglobin 30.0, Mean Corpuscular Hemoglobin Concent 33.2, Red Cell Distribution Width 13.2, Calcium Level 8.1 L Microbiology Microbiology 08/15/18 Blood Culture - Preliminary, Resulted 08/15/18 Blood Culture - Preliminary, Resulted No growth after 24 hours . All specim... 08/15/18 Urine Culture - Final, Complete Escherichia Coli ETHAN ARROYO PA-C Aug 17, 2018 9:12 am Aldo Modi MD Aug 18, 2018 9:59 pm
[2018-08-17] MEDS: LINEZOLID 600 MG in APPROPRIATE DILUENT 1 EA IV SCH ×2 (11:25→23:20)
[2018-08-17 14:00] VITALS: BP 138/94
[2018-08-17 20:00] VITALS: BP 151/69
[2018-08-17] MEDS: LISINOPRIL 10 MG TAB PO SCH (21:39)
[2018-08-17] MEDS: LACTIC ACID 12% LOTION 225 GM BTL TOP SCH (21:41)
[2018-08-18] MEDS: HEPARIN SOD (PORCINE) 5000 UNITS/ML VIAL SC SCH ×3 (05:08→21:10)
[2018-08-18] MEDS: cefTAZidime 2 GM in D5W MINI-BAG PLUS 50 ML IV SCH ×3 (05:08→21:09)
[2018-08-18 06:00] VITALS: BP 126/71
[2018-08-18 06:26] LABS: HEMATOCRIT 38.9 % (42.0-52.0); HEMOGLOBIN 12.9 g/dl (13.5-17.5); MEAN CORPUSCULAR HEMOGLOBIN 30.3 pg (27.0-33.0); MEAN CORPUSCULAR HGB CONC 33.2 g/dl (32.0-36.5); MEAN CORPUSCULAR VOLUME 91.3 fl (80.0-96.0); PLATELET COUNT, AUTOMATED 222 10^3/uL (150-450); RED BLOOD COUNT 4.26 10^6/uL (4.30-6.10); WHITE BLOOD COUNT 5.7 10^3/uL (4.0-10.0)
[2018-08-18 06:48] LABS: BLOOD UREA NITROGEN 10 MG/DL (7-18); CALCIUM LEVEL 8.3 MG/DL (8.8-10.2); CARBON DIOXIDE LEVEL 28 MEQ/L (21-32); CHLORIDE LEVEL 105 MEQ/L (98-107); CREATININE FOR GFR 0.71 MG/DL (0.70-1.30); GLOMERULAR FILTRATION RATE > 60.0 (>42); GLUCOSE, FASTING 95 MG/DL (70-100); POTASSIUM SERUM 4.1 MEQ/L (3.5-5.1); SODIUM LEVEL 139 MEQ/L (136-145)
[2018-08-18] MEDS: PANTOPRAZOLE 40MG TAB (PROTONIX) PO SCH ×2 (09:05→21:09)
[2018-08-18] MEDS: oxyBUTYnin *DITROPAN XL* 5 MG TABCR PO SCH ×2 (09:05→21:24)
[2018-08-18] MEDS: DOCUSATE SODIUM 100 MG CAP PO SCH ×2 (09:05→21:09)
[2018-08-18] MEDS: MIRALAX *UNIT DOSE* 17GM PACKET PO SCH (09:05)
[2018-08-18] MEDS: FERROUS SULFATE 325MG TAB PO SCH ×2 (09:05→21:09)
[2018-08-18] MEDS: LINEZOLID 600 MG in APPROPRIATE DILUENT 1 EA IV SCH ×2 (11:28→23:26)
[2018-08-18 14:00] VITALS: BP 152/60
[2018-08-18] MEDS: LISINOPRIL 10 MG TAB PO SCH (21:09)
[2018-08-18] MEDS: LACTIC ACID 12% LOTION 225 GM BTL TOP SCH (21:10)
[2018-08-18 22:00] VITALS: BP 133/72
[2018-08-19] MEDS: HEPARIN SOD (PORCINE) 5000 UNITS/ML VIAL SC SCH ×3 (05:15→23:39)
[2018-08-19] MEDS: cefTAZidime 2 GM in D5W MINI-BAG PLUS 50 ML IV SCH ×2 (05:15→12:00)
[2018-08-19 06:00] VITALS: BP 129/65
[2018-08-19 06:56] LABS: HEMATOCRIT 38.7 % (42.0-52.0); HEMOGLOBIN 12.6 g/dl (13.5-17.5); MEAN CORPUSCULAR HGB CONC 32.6 g/dl (32.0-36.5); MEAN CORPUSCULAR VOLUME 92.1 fl (80.0-96.0); PLATELET COUNT, AUTOMATED 218 10^3/uL (150-450)
[2018-08-19 07:25] LABS: BLOOD UREA NITROGEN 9 MG/DL (7-18); CALCIUM LEVEL 7.9 MG/DL (8.8-10.2); CARBON DIOXIDE LEVEL 26 MEQ/L (21-32); CHLORIDE LEVEL 109 MEQ/L (98-107); CREATININE FOR GFR 0.84 MG/DL (0.70-1.30); GLOMERULAR FILTRATION RATE > 60.0 (>42); GLUCOSE, FASTING 114 MG/DL (70-100); POTASSIUM SERUM 4.2 MEQ/L (3.5-5.1); SODIUM LEVEL 141 MEQ/L (136-145)
--- NOTE | 2018-08-19 08:51 | IPN ---
DATE: 08/18/2018 Patient is seen today on [address] [facility]. He is a 73-year-old developmentally disabled and blind gentleman has been treated for a urinary tract infection (UTI) and pneumonia. There are some issues with his bowels, but he seems to be moving well with MiraLAX. He still on ceftazidime and Zyvox. He is getting p.o. iron, docusate, pantoprazole, oxybutynin and lisinopril. He has as needed medications for nausea and vomiting, for constipation, and for pain. He is getting subcu heparin. He has a Wright catheter in place. On examination his temperature is 98.5, blood pressure 152/60, pulse 62 and regular, respirations 17, oxygen saturation 96% on room air. He is alert and cooperative, not in any distress. No facial weakness. His lungs are clear. Heart has a regular rhythm without any murmur, click or gallop. Abdomen is soft and nontender without any masses or organomegaly. Bowel sounds are active. There is no edema or calf tenderness. He has a Wright catheter in place. Labs today show hemoglobin of 12.9, WBC is 5700, had been 12,600 earlier in the week. BUN is 10, creatinine 0.71, sodium 139, potassium 4.1. ASSESSMENT: 1. Urinary tract infection. He is still on antibiotics. 2. Left lower lobe pneumonia. Seems to be doing well. 3. History of congenital quadriplegia. 4. Constipation, improved on MiraLAX. 5. Hypertension stable. 6. Macular degeneration, stable. PLAN: The patient's urine grew E. Coli. His blood culture grew Staphylococcus capitis, although he had another culture done at the same time that was negative. I suspect that Staphylococcus capitis is a contaminant. Nonetheless, will keep him on both antibiotics for the next 24 hours and then reassess where we want to go with this. I suspect that what we will be doing is switching him over to oral antibiotics tomorrow, possible discharge following day, but that remains to be seen. JES
[2018-08-19] MEDS: oxyBUTYnin *DITROPAN XL* 5 MG TABCR PO SCH ×2 (10:00→21:04)
[2018-08-19] MEDS: PANTOPRAZOLE 40MG TAB (PROTONIX) PO SCH ×2 (10:00→21:04)
[2018-08-19] MEDS: FERROUS SULFATE 325MG TAB PO SCH ×2 (10:00→21:04)
[2018-08-19] MEDS: DOCUSATE SODIUM 100 MG CAP PO SCH ×2 (10:00→21:05)
[2018-08-19] MEDS: MIRALAX *UNIT DOSE* 17GM PACKET PO SCH (10:01)
[2018-08-19] MEDS: LINEZOLID 600 MG in APPROPRIATE DILUENT 1 EA IV SCH (10:01)
[2018-08-19 14:00] VITALS: BP 141/79
[2018-08-19] MEDS: CEFDINIR 300 MG CAP (OMNICEF) PO SCH (21:04)
[2018-08-19 21:05] VITALS: BP 121/61
[2018-08-19] MEDS: LISINOPRIL 10 MG TAB PO SCH (21:05)
[2018-08-19] MEDS: LACTIC ACID 12% LOTION 225 GM BTL TOP SCH (21:06)
[2018-08-19 22:00] VITALS: BP 120/65
[2018-08-20 06:00] VITALS: BP 131/60
[2018-08-20] MEDS: HEPARIN SOD (PORCINE) 5000 UNITS/ML VIAL SC SCH (06:13)
[2018-08-20 06:19] LABS: HEMATOCRIT 38.6 % (42.0-52.0); HEMOGLOBIN 12.8 g/dl (13.5-17.5); MEAN CORPUSCULAR HEMOGLOBIN 30.3 pg (27.0-33.0); MEAN CORPUSCULAR HGB CONC 33.2 g/dl (32.0-36.5); MEAN CORPUSCULAR VOLUME 91.3 fl (80.0-96.0); PLATELET COUNT, AUTOMATED 206 10^3/uL (150-450); RED BLOOD COUNT 4.23 10^6/uL (4.30-6.10); WHITE BLOOD COUNT 6.9 10^3/uL (4.0-10.0)
[2018-08-20 06:41] LABS: BLOOD UREA NITROGEN 8 MG/DL (7-18); CARBON DIOXIDE LEVEL 26 MEQ/L (21-32); CHLORIDE LEVEL 107 MEQ/L (98-107); CREATININE FOR GFR 0.74 MG/DL (0.70-1.30); GLOMERULAR FILTRATION RATE > 60.0 (>42); GLUCOSE, FASTING 101 MG/DL (70-100); POTASSIUM SERUM 3.9 MEQ/L (3.5-5.1); SODIUM LEVEL 139 MEQ/L (136-145)
[2018-08-20 06:42] LABS: CALCIUM LEVEL 8.1 MG/DL (8.8-10.2)
[2018-08-20] MEDS: FERROUS SULFATE 325MG TAB PO SCH (09:00)
[2018-08-20] MEDS: MIRALAX *UNIT DOSE* 17GM PACKET PO SCH (09:00)
[2018-08-20] MEDS: CEFDINIR 300 MG CAP (OMNICEF) PO SCH (09:00)
[2018-08-20] MEDS: DOCUSATE SODIUM 100 MG CAP PO SCH (09:00)
[2018-08-20] MEDS ORDERED: CEFD300CAP PO (10:04)
[2018-08-20] MEDS ORDERED: PEG1POW PO (10:04)
[2018-08-20] MEDS: oxyBUTYnin *DITROPAN XL* 5 MG TABCR PO SCH (10:34)
[2018-08-20] MEDS: PANTOPRAZOLE 40MG TAB (PROTONIX) PO SCH (10:35)
--- NOTE | 2018-08-20 21:29 | IPN ---
DATE: 08/19/2018 The patient has been here since 08/16/2017, is being treated for a urinary tract infection (UTI) with Escherichia (E) coli, possible pneumonia, and he did have one blood culture positive for Staphylococcus capitis, which I feel is a contaminant. He is still on ceftazidime and Zyvox. He and his family feel that he is back to his normal self there, and he himself says that he is anxious to be discharged. Offers no complaints of cough, shortness of breath, abdominal pain. Remains on MiraLAX, which is working well for his bowels, ceftazidime 2 grams every 8 hours, Zyvox 600 mg every 12 hours. He is on subcu heparin. He has as needed medications for nausea and vomiting. He is on lisinopril, Ditropan, which can certainly interfere with his bowel function, Protonix, Colace, iron, which can also make one constipated. On examination, his temperature is 97.4, pulse is 70, respirations 20, blood pressure 129/65, oxygen (O2) saturation 92% on room air. He is alert, pleasant, cooperative, dysarthric, not in any distress. He has spasticity in all his extremities. His lungs are clear. His heart has a regular rhythm without any murmur, click or gallop. Abdomen: Soft and nontender without any masses or organomegaly. Bowel sounds are active. There is no edema. Feet are warm. Labs today show a white count 6000, hemoglobin of 12.6, platelets of 218,000. His BUN is 9, creatinine 0.84. Sodium 141, potassium 4.2, glucose 114. Again, his E-coli was sensitive to gentamicin, tobramycin, ceftriaxone, ceftazidime, Zosyn, meropenem, cefepime; resistant to ampicillin and trimethoprim sulfa, as well as quinolones. The Staphylococcus capitis resistant to penicillin; sensitive to oxacillin, vancomycin, linezolid, tetracycline. ASSESSMENT: 1. Urinary tract infection. He remains on parenteral antibiotics. 2. Left lower lobe pneumonia. Seems to be doing well. 3. History of congenital quadriplegia. 4. Constipation, improved on MiraLAX. 5. Hypertension, stable. 6. Macular degeneration, stable. 7. Blood culture positive for Staphylococcus capitis; I think this is a contaminant. PLAN: The patient will continue on his IV ceftazidime. I am going to discontinue the linezolid. Continue his other medications. I think tomorrow, assuming that he is doing well, we could have the IV antibiotic for his urine and lungs discontinued and hopefully discharge the following day. .
--- NOTE | 2018-08-21 16:19 | DSES ---
DATE OF ADMISSION: 08/16/2018 DATE OF DISCHARGE: 08/20/2018 PRIMARY CARE PROVIDER: Dr. Aldo Modi ATTENDING PHYSICIAN: Dr. Sangeeta Lopez HISTORY: This is a 73-year-old male resident of [facility] ([facility]) who presented to [facility] Emergency Room with nausea, vomiting, and decreased urinary output from his suprapubic catheter. He was admitted to the hospital with urinary stasis from severe constipation as well as possible urinary tract infection and pneumonia. He was started on azithromycin and Rocephin. During his hospitalization, he has remained medically stable. Due to his high-risk living situation and the risk for a nosocomial infection, his IV antibiotics were adjusted to ceftazidime and Zyvox. His blood culture times one was negative, times one with Staphylococcus capitis which is suspected to be a contaminant. Urine culture grew out Escherichia (E) coli which was sensitive to ceftazidime. He was resumed on MiraLAX during his hospitalization which he had been on in the past, although recently discontinued secondary to changes with [facility]. His IV antibiotics have been changed to oral cefdinir. He seems to be tolerating this well. He has been moving his bowels daily. DISCHARGE DIAGNOSES: Include: 1. Urinary tract infection due to chronic indwelling urinary catheter secondary to Escherichia (E) coli. 2. Left lower lobe pneumonia. 3. Chronic constipation. 4. Congenital quadriplegia. 5. Hypertension. 6. Macular degeneration. DISCHARGE MEDICATIONS: Include: - cefdinir 300 mg pain twice a day - MiraLAX one packet daily - acetaminophen 650 mg by mouth twice daily as needed for pain - ammonium lactate topically before bed - Dulcolax 10 mg per rectum daily as needed for constipation - calcium with D 600/400 one tablet daily - cranberry 500 mg by mouth twice a day - Colace 100 mg by mouth twice a day - ferrous sulfate 325 mg by mouth twice a day - ibuprofen 400 mg four times daily as needed for pain - lisinopril 10 mg by mouth daily - melatonin 5 mg by mouth daily - milk of magnesia 30 mL by mouth daily as needed for constipation - Ditropan XL 5 mg by mouth twice a day - Protonix 40 mg by mouth twice a day - Benefiber by mouth at bedtime - zinc oxide topically at bedtime and as needed DISCHARGE PLAN: Will be to followup with Dr. Modi in five days. Activity should be as tolerated. Diet should be nectar thickened liquids with mechanical soft.
== END 2018-08-20 12:30 | disposition home or self-care (01) | DRG 698 ==
LOC: EDBD 14:51 → M ED 14:51 → M ED INP 08-16 01:03 → M MSPAV 08-16 16:43
PROVIDERS: ADMIT Internal Medicine; ATTEND Family Medicine
DX: T83.511A Infection and inflammatory reaction due to indwelling urethral catheter, initial encounter (principal); J18.9 Pneumonia, unspecified organism; G80.0 Spastic quadriplegic cerebral palsy; B96.29 Other Escherichia coli [E. coli] as the cause of diseases classified elsewhere; K59.00 Constipation, unspecified; I10 Essential (primary) hypertension; H35.30 Unspecified macular degeneration; Z79.899 Other long term (current) drug therapy; Z88.5 Allergy status to narcotic agent; Z91.040 Latex allergy status; H54.8 Legal blindness, as defined in USA; K20.9 Esophagitis, unspecified; Y84.6 Urinary catheterization as the cause of abnormal reaction of the patient, or of later complication, without mention of misadventure at the time of the procedure

== ENCOUNTER → 2018-10-10 | Outpatient (CLI) | payer MEDICARE, MEDICAID ==
[~2018-10-10] MED LIST changes: -AMMO12CR4 TOP; +AMMO12CR7 TOP; -ASPI1TAB PO; +ASPI81TA26 PO; -CALC1TAB64 PO; +CALC600T52 PO; +CEFD300CAP PO; +MACR100C43 PO; +PEG1POW PO; +TRIA0.1C60 EXT; -TRIA1CR EXT
--- NOTE | 2018-10-10 11:19 | REP ---
NUCLEAR RENAL SCINTIGRAPHY WITH A DIFFERENTIAL FLOW AND FUNCTION ANALYSIS INCLUDING GFR ASSESSMENT: HISTORY: Spastic quadriplegic cerebral palsy. Comparison CT study August 15, 2018. CT shows a suprapubic cystostomy tube. TECHNIQUE: 3.1 mCi technetium 99m DTPA is administered intravenously and sequential 15-second images are acquired. Time activity curves are plotted for GFR calculation. This is followed by a 0.4 mCi dose of technetium 99m Mag 3. Posterior flow and excretory phase images are acquired. Renal cortical regions of interest are drawn and time activity curves are plotted for renal function analysis. FINDINGS: The time-to-max renal parenchymal uptake on the DTPA portion of the study is 5.7 minutes on the left and 5.7 minutes on the right. The calculated GFR for the left kidney is 31.7 mL/m and for the right 25.9 mL/m. The overall calculated GFR is 57.6 cm/s which, normalized to patient body surface area is 49.8 cm/s. Posterior flow images show symmetric perfusion of the renal beds. Excretory phase images show symmetric excretion. No evidence of obstructive uropathy. Xooq-[id number] activity with the Mag 3 portion of the study is 3.0 minutes on the left and 2.0 minutes on the right. [id number]-[id number] max activity is delayed bilaterally, 28 minutes on the left and 19 minutes on the right. IMPRESSION: Somewhat impaired excretion bilaterally. Low calculated GFR. No evidence of obstructive uropathy. Symmetric perfusion. Electronically Signed by Shilo Sánchez MD 10/10/2018 01:20 P
== END ==
LOC: M RAD 08:16
PROVIDERS: ATTEND Specialist
DX: G80.0 Spastic quadriplegic cerebral palsy (principal)
CPT/HCPCS: 78707; A9539; A9562

== ENCOUNTER → 2018-12-04 | Outpatient (REF) | payer MEDICARE, MEDICAID | LOC: M SMT 19:28 | PROVIDERS: ATTEND Specialist | DX: N39.0 Urinary tract infection, site not specified (principal) ==

== ENCOUNTER 2018-12-14 10:13 | Emergency (ER) | payer MEDICARE, MEDICAID ==
[2018-12-14] MEDS ORDERED: NS 1,000 ML IV SCH (10:45)
[2018-12-14] MEDS ORDERED: METOCLOPRAMIDE INJ 10MG/2ML VIAL (J2765) IV ONE (10:45)
[2018-12-14] MEDS ORDERED: OXYB5TAB10 PO (11:09)
[2018-12-14] MEDS ORDERED: MACR100C43 PO (11:09)
[2018-12-14] MEDS ORDERED: MIRA1POW3 PO (11:09)
[2018-12-14] MEDS ORDERED: CVS500CA5 PO (11:09)
[2018-12-14] MEDS ORDERED: DESI13CR2 TOP ×2 (11:09)
[2018-12-14] MEDS ORDERED: NYST10CR TOP (11:09)
[2018-12-14] MEDS ORDERED: BACT800T5 PO (11:09)
[2018-12-14] MEDS ORDERED: MOM30SS2 PO (11:09)
[2018-12-14] MEDS ORDERED: ASPI81TA85 PO (11:09)
[2018-12-14 11:10] LABS: BASO # 0.1 10^3/uL (0.0-0.2); BASO % 0.5 % (0.0-1.0); EOS # 0.2 10^3/uL (0.0-0.50); EOS % 1.6 % (0.0-3.0); HEMATOCRIT 46.9 % (42.0-52.0); HEMOGLOBIN 15.4 g/dl (13.5-17.5); LYMPH % 10.4 % (24.0-44.0); MEAN CORPUSCULAR HEMOGLOBIN 31.2 pg (27.0-33.0); MEAN CORPUSCULAR HGB CONC 32.8 g/dl (32.0-36.5); MEAN CORPUSCULAR VOLUME 95.1 fl (80.0-96.0); MONO % 11.2 % (0.0-5.0); NEUTROPHILS # 6.9 10^3/uL (1.8-7.7); NEUTROPHILS % 75.9 % (36.0-66.0); PLATELET COUNT, AUTOMATED 197 10^3/uL (150-450); RED BLOOD COUNT 4.93 10^6/uL (4.30-6.10); WHITE BLOOD COUNT 9.2 10^3/uL (4.0-10.0)
[2018-12-14 11:40] LABS: BLOOD UREA NITROGEN 12 MG/DL (7-18); CALCIUM LEVEL 8.3 MG/DL (8.8-10.2); CARBON DIOXIDE LEVEL 25 MEQ/L (21-32); CHLORIDE LEVEL 104 MEQ/L (98-107); CREATININE FOR GFR 0.85 MG/DL (0.70-1.30); GLOMERULAR FILTRATION RATE > 60.0 (>42); GLUCOSE, FASTING 98 MG/DL (70-100); POTASSIUM SERUM 4.9 MEQ/L (3.5-5.1); SODIUM LEVEL 133 MEQ/L (136-145)
[2018-12-14] MEDS ORDERED: ISOVUE-370 76% 100ML VIAL (Q9967) As Ordered ONE (11:44)
--- NOTE | 2018-12-14 13:34 | REP ---
CT ABDOMEN/PELVIS WITH IV CONTRAST: TECHNIQUE: Axial contrast enhanced images from the lung bases to the pubic symphysis using 100 mL Isovue 370 intravenous contrast material with multiplanar reformations. Visualized lung bases demonstrate fibroatelectatic change. There is biliary air noted. This is seen on prior studies. There is a small cyst in the right lobe of the liver. There are two large gallstones in the gallbladder measuring up to 3 cm. Spleen, adrenals, pancreas, and kidneys are unremarkable and unchanged. There is mild to moderate left renal atrophy. There is no hydroureteronephrosis. There is no abdominal aortic aneurysm. There is no adenopathy. There is no free air or free fluid. There is diffuse dilatation of the colon, particularly of the rectosigmoid colon, as seen on prior study of 08/15/2018. There is no evidence of volvulus. Cystostomy catheter is again noted in a relatively collapsed urinary bladder. There are degenerative changes of the spine. There is a small hiatal hernia. IMPRESSION: Significant colonic distention which appears to be chronic and unchanged. In particular, there is severe distention of the rectosigmoid colon without evidence of volvulus. No evidence of bowel inflammation. Two large gallstones are seen in the gallbladder without gallbladder wall thickening. Biliary air is again noted, as seen on prior studies. There is a cystostomy tube again noted. No free air or free fluid or other acute finding. Electronically Signed by Dewayne Zambrano MD 12/14/2018 07:29 P
[2018-12-14 14:31] VITALS: BP 132/84
[2018-12-14] MEDS ORDERED: REGL10TA6 PO (15:00)
--- NOTE | 2018-12-17 12:42 | ED PDOC ---
Post-Departure Follow-Up dr bassett faxed formal report of ct abd/p for fu Keo Lopes MD Dec 17, 2018 12:42
== END 2018-12-14 16:30 | disposition home or self-care (01) ==
LOC: EDBD 10:13 → M ED 10:13
DX: K59.00 Constipation, unspecified (principal); T83.098A Other mechanical complication of other urinary catheter, initial encounter; E78.5 Hyperlipidemia, unspecified; I10 Essential (primary) hypertension; K44.9 Diaphragmatic hernia without obstruction or gangrene; K80.20 Calculus of gallbladder without cholecystitis without obstruction; F32.89 Other specified depressive episodes; Z79.82 Long term (current) use of aspirin; Z79.899 Other long term (current) drug therapy; Z88.5 Allergy status to narcotic agent; Z93.50 Unspecified cystostomy status
CPT/HCPCS: 74177; 80048; 85025; 96374; 99285; J2765; Q9967

== ENCOUNTER → 2019-01-10 | Outpatient (REF) | payer MEDICARE, MEDICAID ==
[~2019-01-10] MED LIST changes: +ASPI81TA85 PO; +CVS500CA5 PO; +DESI13CR2 TOP; -MELA5TAB17 PO; +MELA5TAB31 PO; +MIRA1POW3 PO; +MOM30SS2 PO; +NYST10CR TOP; +OXYB5TAB10 PO; +REGL10TA6 PO
== END ==
LOC: M SMT 12:59
PROVIDERS: ATTEND Urology
DX: N39.0 Urinary tract infection, site not specified (principal)

== ENCOUNTER → 2019-03-02 | Outpatient (REF) | payer MEDICARE, MEDICAID ==
[~2019-03-02] MED LIST changes: -DIPH25CA PO; +DIPH25CA32 PO; +LISI10TA15 PO; -LISI10TA2 PO
[2019-03-02 19:20] LABS: HEMATOCRIT 46.4 % (42.0-52.0); HEMOGLOBIN 15.4 g/dl (13.5-17.5); MEAN CORPUSCULAR HGB CONC 33.2 g/dl (32.0-36.5); MEAN CORPUSCULAR VOLUME 93.4 fl (80.0-96.0); PLATELET COUNT, AUTOMATED 230 10^3/uL (150-450); RED BLOOD COUNT 4.97 10^6/uL (4.30-6.10); WHITE BLOOD COUNT 8.1 10^3/uL (4.0-10.0)
[2019-03-02 19:43] LABS: ALBUMIN 3.5 GM/DL (3.2-5.2); ALT/SGPT 31 U/L (12-78); BILIRUBIN,TOTAL 0.7 MG/DL (0.2-1.0); BLOOD UREA NITROGEN 15 MG/DL (7-18); CALCIUM LEVEL 8.9 MG/DL (8.8-10.2); CARBON DIOXIDE LEVEL 31 MEQ/L (21-32); CHLORIDE LEVEL 102 MEQ/L (98-107); CHOLESTEROL LEVEL 120 MG/DL (<200); CHOLESTEROL RISK RATIO 2.727 (<5); CREATININE FOR GFR 0.78 MG/DL (0.70-1.30); GLOMERULAR FILTRATION RATE > 60.0 (>42); GLUCOSE, FASTING 103 MG/DL (70-100); HDL CHOLESTEROL 44 MG/DL (>40); LDL CHOLESTEROL 42 MG/DL (<100); NON-HDL-C 76 MG/DL; POTASSIUM SERUM 5.1 MEQ/L (3.5-5.1); SODIUM LEVEL 138 MEQ/L (136-145); TOTAL PROTEIN 6.7 GM/DL (6.4-8.2); TRIGLYCERIDES LEVEL 171 MG/DL (<150)
[2019-03-05 09:12] LABS: TOTAL 25(OH) VITAMIN D 23.4 NG/ML (30.0-100.0)
== END ==
LOC: M LABDRWAD 15:02
PROVIDERS: ATTEND Family Medicine
DX: D50.9 Iron deficiency anemia, unspecified (principal); K59.01 Slow transit constipation; I10 Essential (primary) hypertension; M81.8 Other osteoporosis without current pathological fracture; Z13.220 Encounter for screening for lipoid disorders

== ENCOUNTER 2019-07-10 12:53 | Inpatient (IN) | payer MEDICARE, MEDICAID ==
[~2019-07-10] VITALS: Ht 167.6 cm; Wt 94.6 kg
[~2019-07-10 12:53] MED LIST changes: -DOXY100C37 PO
[2019-07-10] MEDS ORDERED: IPRATROPIUM 0.5MG/ALBUTEROL 2.5MG INH SOL UD 3ML (DUONEB)(J7620) NEB ONE (14:00)
[2019-07-10 14:05] LABS: BASO # 0.1 10^3/uL (0.0-0.2); BASO % 0.4 % (0.0-1.0); EOS # 0.1 10^3/uL (0.0-0.5); EOS % 0.3 % (0.0-3.0); HEMATOCRIT 45.1 % (42.0-52.0); HEMOGLOBIN 14.4 g/dl (13.5-17.5); LYMPH # 0.8 10^3/uL (1.5-5.0); LYMPH % 4.5 % (24.0-44.0); MEAN CORPUSCULAR HEMOGLOBIN 29.9 pg (27.0-33.0); MEAN CORPUSCULAR HGB CONC 31.9 g/dl (32.0-36.5); MEAN CORPUSCULAR VOLUME 93.6 fl (80.0-96.0); MONO # 0.8 10^3/uL (0.0-0.8); MONO % 4.7 % (0.0-5.0); PLATELET COUNT, AUTOMATED 302 10^3/uL (150-450); RED BLOOD COUNT 4.82 10^6/uL (4.30-6.10); WHITE BLOOD COUNT 17.9 10^3/uL (4.0-10.0)
[2019-07-10 14:32] LABS: ALBUMIN 2.8 GM/DL (3.2-5.2); ALT/SGPT 29 U/L (12-78); BILIRUBIN,DIRECT 0.2 MG/DL (0.0-0.2); BILIRUBIN,TOTAL 0.4 MG/DL (0.2-1.0); BLOOD UREA NITROGEN 17 MG/DL (7-18); CALCIUM LEVEL 8.9 MG/DL (8.8-10.2); CARBON DIOXIDE LEVEL 26 MEQ/L (21-32); CHLORIDE LEVEL 105 MEQ/L (98-107); CK-MB VALUE MASS 2.9 NG/ML (<3.6); CPK CREATINE PHOSPHOKINASE 48 U/L (39-308); CREATININE FOR GFR 0.78 MG/DL (0.70-1.30); GLOMERULAR FILTRATION RATE > 60.0 (>42); GLUCOSE, FASTING 111 MG/DL (70-100); MB/CK RELATIVE INDEX 6.04 (< OR =4); NT-PRO BNP 434 PG/ML (<125); POTASSIUM SERUM 4.5 MEQ/L (3.5-5.1); SODIUM LEVEL 139 MEQ/L (136-145); TROPONIN I < 0.02 NG/ML (< 0.10)
[2019-07-10 14:39] LABS: INFLUENZA A AMPLIFICATION NEGATIVE (NEGATIVE); INFLUENZA B AMPLIFICATION NEGATIVE (NEGATIVE)
[2019-07-10] MEDS ORDERED: ISOVUE-370 76% 100ML VIAL (Q9967) As Ordered ONE (14:51)
[2019-07-10] MEDS ORDERED: DOXY100C37 PO (15:00)
--- NOTE | 2019-07-10 15:04 | REP ---
Chest x-ray: Two views. History: Fever. Shortness of breath. Comparison study: August 16, 2018. Findings: The lateral view is of extremely limited value due to the poor level of inspiration and the patient's arm overlying the chest. The frontal view shows low lung volumes. There are is a linear pattern of increased parenchymal density behind the heart consistent with linear fibrosis. This is visible on the August 16, 2018 study and is unchanged. There are some increased lung markings over the heart lateral to this band of increased density and I cannot exclude a new area of atelectasis or infiltrate in the left base. The right lung remains clear. Heart appears mildly enlarged. Impression: Less than optimal radiographs. Poor level of inspiration. There is old linear fibrosis behind the heart. Adjacent to this, there is a questionable new infiltrate in the left lower lobe. Electronically Signed by Shilo Sánchez MD 07/10/2019 04:43 P
--- NOTE | 2019-07-10 15:23 | REP ---
INDICATION: Stridor, fever, rule out deep abscess. PROCEDURE: CT neck without contrast COMPARISON STUDIES: No prior similar studies. FINDINGS: No significant lymphadenopathy, no evidence of abscess. Oropharynx, nasopharynx, hypopharynx and larynx appear unremarkable. There is advanced degenerative disc disease with cervical kyphosis. There is loss of disc height and disc degeneration at C4-5, C5-6 and C6-7 levels. The canal appears narrowed as a result of the kyphosis however no definitely limiting canal or foraminal stenosis. Paranasal sinuses and mastoid air cells are clear. Dentition is sparse but otherwise unremarkable. Visualized lung apices are clear. IMPRESSION: No evidence of abscess, or lymphadenopathy. Degenerative changes, otherwise unremarkable noncontrast CT neck. Electronically Signed by Marty Schwartz MD 07/10/2019 03:15 P
[2019-07-10] MEDS ORDERED: AZITHROMYCIN INJ 500 MG, VIAL MATE ADAPTER 1 EACH in D5W 250 ML IV ONE (15:45)
[2019-07-10] MEDS ORDERED: cefTRIAXone SOD 1 GM in D5W MINI-BAG PLUS 50 ML IV ONE (15:45)
[2019-07-10] MEDS ORDERED: MOM 30ML SUSPENSION UDC PO PRN (16:15)
[2019-07-10] MEDS ORDERED: ACETAMINOPHEN TAB 650MG DOSE (2X325MG) PO PRN (16:15)
[2019-07-10] MEDS ORDERED: IPRATROPIUM 0.5MG/ALBUTEROL 2.5MG INH SOL UD 3ML (DUONEB)(J7620) INH PRN (16:15)
[2019-07-10] MEDS ORDERED: MAALOX 30 ML SUSP *UDC PO PRN (16:15)
--- NOTE | 2019-07-10 16:28 | HPEPDOC ---
General Date of Admission 07/10/19 Date of Service: Jul 10, 2019 Chief Complaint The patient is a 74-year-old male admitted with a reason for visit of Resp. Distress. Source: [facility] Caregiver/Aid Exam Limitations: Other (cerebral palsy) Timing/Duration: Other (unknown) Severity: Other (, not applicable) Associated Symptoms: Other (not applicable) History of Present Illness This is 73 years old white male who was sent from his PCPs office with respiratory distress. Patient is a [facility]. Client and secondary to cerebral palsy is unable to communicate has the history was obtained from [facility] caregiver. No history of fever, nausea, vomiting, abdominal pain or chest pain was given to me by the [facility] caregiver. Patient was found to have a left lower lobe pneumonia on chest x-ray and hence was called by the ER physician for admission Home Medications Scheduled Ammonium Lactate (Ammonium Lactate) 12 % Lot, 1 APLCT TOP QHS, (Reported) APPLIES TO FEET Aspirin (Aspir 81) 81 Mg Tablet.dr, 81 MG PO QHS, (Reported) Calcium Carbonate/Vitamin D3 (Calcium 600-Vit D3 400 Tablet) 1 Tab Tab, 1 TAB PO DAILY, (Reported) Cranberry Fruit Extract (Cranberry) 500 Mg Capsule, 500 MG PO BID, (Reported) Docusate Sodium (Colace) 100 Mg Cap, 100 MG PO BID, (Reported) Doxycycline Monohydrate (Doxycycline Monohydrate) 100 Mg Capsule, 100 MG PO BID, (Reported) FOR 10 DAYS, STARTED 07/06/19 Lisinopril (Lisinopril) 10 Mg Tab, 10 MG PO QHS, (Reported) Melatonin (Melatonin) 5 Mg Tab, 5 MG PO QHS, (Reported) Oxybutynin Chloride (Oxybutynin Chloride) 5 Mg Tablet, 5 MG PO BID, (Reported) Pantoprazole Sodium (Protonix) 40 Mg Tab, 40 MG PO BID, (Reported) Polyethylene Glycol 3350 (Miralax) 17 Gm Powd.pack, 17 GM PO DAILY, (Reported) MIXES IN NECTAR THICK Zinc Oxide (Desitin) 454 Gm Cream..g., 1 APLCT TOP QHS, (Reported) APPLY TO AREAS OF RASH/ITCHING Scheduled PRN Bisacodyl (Dulcolax) 10 Mg Sup, 10 MG OH for CONSTIPATION, (Reported) TO BE USED ON DAY 5 WITHOUT A BM Magnesium Hydroxide (Milk of Magnesia) 400 Mg/5 Ml Oral.susp, 2,400 MG PO DAILY PRN for CONSTIPATION, (Reported) TAKES ON DAYS 3 AND 4 OF NO BM Nystatin (Nystatin) 15 Gm Cream..g., 1 APLCT TOP BID PRN for RASH/ITCHING, (Reported) APPLY TO GROIN/PUBIC CATH Zinc Oxide (Desitin) 454 Gm Cream..g., 1 APLCT TOP DAILY PRN for RASH/ITCHING, (Reported) Allergies Coded Allergies: codeine (Verified Allergy, Unknown, [facility], 12/14/18) Past Medical History Medical History Cognitive impairment secondary to cerebral palsy, quadriplegia, urinary retention with suprapubic catheter, legally blind, hypertension, Raynaud's phenomena, esophagitis, history of GI bleed Surgical History None available Family History Significant Family History: Unable to assess Social History * Smoker: other (. Unable to assess) Alcohol: other Drugs: other (unable to assess) A-FIB/CHADSVASC A-FIB History Current/History of A-Fib/PAF?: No Review of Systems Constitutional: Reports: Other (unable to obtained review of system) Physical Examination ENT Exam: Positive: Mucous membr. moist/pink Neck Exam: Positive: Supple Chest Exam: Positive: Other (stridor on and off audible. No wheezing, no rales, no rhonchi) Heart Exam: Positive: Rate Normal, Normal S1, Normal S2 Abdomen Exam: Positive: Normal bowel sounds, Soft Extremity Exam: Positive: Normal pulses Skin Exam: Positive: Nl turgor and temperature Neuro Exam: Positive: Strength at 5/5 X4 ext, Sensation Intact, Cranial Nerves 3-12 NL Vital Signs Vital Signs Date Time Temp Pulse Resp B/P (MAP) Pulse Ox O2 Delivery O2 Flow Rate FiO2 07/10/19 15:19 86 96 07/10/19 15:15 153/91 (111) 07/10/19 14:00 99.6 07/10/19 14:00 Nasal Cannula 2.0 07/10/19 12:53 18 Laboratory Data Labs 24H Laboratory Tests 2 07/10/19 13:49: Immature Granulocyte % (Auto) 1.1, Neutrophils (%) (Auto) 89.0H, Lymphocytes (%) (Auto) 4.5L, Monocytes (%) (Auto) 4.7, Eosinophils (%) (Auto) 0.3, Basophils (%) (Auto) 0.4, Neutrophils # (Auto) 16.0H, Lymphocytes # (Auto) 0.8L, Monocytes # (Auto) 0.8, Eosinophils # (Auto) 0.1, Basophils # (Auto) 0.1, Nucleated Red Blood Cells % (auto) 0.0, Anion Gap 8, Glomerular Filtration Rate > 60.0, Calcium Level 8.9, Total Bilirubin 0.4, Direct Bilirubin 0.2, Aspartate Amino Transf (AST/SGOT) 10, Alanine Aminotransferase (ALT/SGPT) 29, Alkaline Phosphatase 75, Total Creatine Kinase 48, Creatine Kinase MB 2.9, Creatine Kinase MB Relative Index 6.04H, Troponin I < 0.02, SS-Dpu-N-Type Natriuretic Peptide 434H, Total Protein 6.0L, Albumin 2.8L, Albumin/Globulin Ratio 0.88L 07/10/19 14:03: Influenza Type A (RT-PCR) NEGATIVE, Influenza Type B (RT-PCR) NEGATIVE 07/10/19 15:17: Urine Color YELLOW, Urine Appearance CLOUDYH, Urine pH 8.0, Urine Specific [place] 1.018, Urine Protein 2+H, Urine Glucose (UA) NEGATIVE, Urine Ketones NEGATIVE, Urine Blood 2+H, Urine Nitrite NEGATIVE, Urine Bilirubin NEGATIVE, Urine Urobilinogen 0.2, Urine Leukocyte Esterase 3+H, Urine WBC (Auto) TNTCH, Urine RBC (Auto) TNTCH, Urine Hyaline Casts (Auto) 0, Urine Bacteria (Auto) 1+H, Urine Squamous Epithelial Cells 0, Urine Triple Phosphate Cryst (Auto) LARGE, Urine Mucus (Auto) SMALL, Urine Sperm (Auto) CBC/BMP Laboratory Tests 07/10/19 13:49 Microbiology Microbiology 07/10/19 Blood Culture, Received Pending 07/10/19 Urine Culture, Received Pending 07/10/19 Group A Streptococcus Screen (LACHO), Received Pending 07/10/19 Blood Culture, Received Pending Problems (1) Left lower lobe pneumonia Status: Acute Problem Text: [facility] Patient received 1 dose of Rocephin and Zithromax in ED and will continue the same Patient's WBC count was 17.9, within normal. Hemoglobin and hematocrit and chest x-ray consistent with left lower lobe pneumonia Oxygen support DuoNeb every 4 hours and every [address] of the neck was obtained due to presence of stridor but is essentially negative. DVT prophylaxis with Lovenox Diet 2 g sodium Activity as per correction (2) Suprapubic catheter dysfunction Status: Acute Problem Text: Patient urine shows too numerous WBCs with positive leukocytes Will request urine cultures Patient is already on Rocephin (3) Congenital quadriplegia Status: Chronic Problem Text: Continue home meds (4) CP (cerebral palsy), spastic Status: Chronic Problem Text: Continue home meds Plan / VTE VTE Prophylaxis Ordered?: Yes ABE SHI MD Jul 10, 2019 16:28
--- NOTE | 2019-07-10 18:22 | ECGEPIP ---
[facility] - ED Test Date: 2019-07-10 Pat Name: KP WOOTEN Department: Room: - Gender: Male Rn Medical Surgical: elsie : 1945 Requested By: Loco Man Order Number: [id number] Reading MD: Dominga Davis Measurements Intervals [place] Rate: 84 P: 35 TX: 140 QRS: 15 QRSD: 81 T: 55 QT: 359 QTc: 426 Interpretive Statements SINUS RHYTHM LOW VOLTAGE LIMB NSTTW abnormalities INCREASED RATE 11/23/17 Electronically Signed on 07-10-2019 18:21:41 EST by Dominga Davis
[2019-07-10 18:30] VITALS: BP 116/73
[2019-07-10] MEDS: IPRATROPIUM 0.5MG/ALBUTEROL 2.5MG INH SOL UD 3ML (DUONEB)(J7620) INH SCH ×2 (18:38→23:38)
[2019-07-10] MEDS: DOCUSATE SODIUM 100 MG CAP PO SCH (20:29)
[2019-07-10 22:00] VITALS: BP 121/71
[2019-07-11] MEDS: IPRATROPIUM 0.5MG/ALBUTEROL 2.5MG INH SOL UD 3ML (DUONEB)(J7620) INH SCH ×5 (05:20→19:38)
[2019-07-11 06:00] VITALS: BP 132/61
[2019-07-11 06:52] LABS: HEMATOCRIT 40.4 % (42.0-52.0); HEMOGLOBIN 13.3 g/dl (13.5-17.5); MEAN CORPUSCULAR HEMOGLOBIN 30.6 pg (27.0-33.0); MEAN CORPUSCULAR HGB CONC 32.9 g/dl (32.0-36.5); MEAN CORPUSCULAR VOLUME 92.9 fl (80.0-96.0); PLATELET COUNT, AUTOMATED 281 10^3/uL (150-450); RED BLOOD COUNT 4.35 10^6/uL (4.30-6.10); WHITE BLOOD COUNT 12.5 10^3/uL (4.0-10.0)
[2019-07-11 07:19] LABS: ALBUMIN 2.6 GM/DL (3.2-5.2); ALT/SGPT 24 U/L (12-78); BILIRUBIN,TOTAL 0.5 MG/DL (0.2-1.0); BLOOD UREA NITROGEN 18 MG/DL (7-18); CALCIUM LEVEL 8.5 MG/DL (8.8-10.2); CARBON DIOXIDE LEVEL 24 MEQ/L (21-32); CHLORIDE LEVEL 106 MEQ/L (98-107); CREATININE FOR GFR 0.77 MG/DL (0.70-1.30); GLOMERULAR FILTRATION RATE > 60.0 (>42); GLUCOSE, FASTING 107 MG/DL (70-100); MAGNESIUM LEVEL 1.8 MG/DL (1.8-2.4); POTASSIUM SERUM 4.1 MEQ/L (3.5-5.1); SODIUM LEVEL 140 MEQ/L (136-145); TOTAL PROTEIN 6.2 GM/DL (6.4-8.2)
[2019-07-11] MEDS: ENOXAPARIN 40 MG/0.4 ML SYRINGE (J1650) SC SCH (08:03)
[2019-07-11] MEDS: DOCUSATE SODIUM 100 MG CAP PO SCH ×2 (08:03→20:58)
--- NOTE | 2019-07-11 11:44 | IPNPDOC ---
Text Note Date of Service The patient was seen on 07/11/19. NOTE SUBJECTIVE: Patient seen at bedside this morning in the presence of his brother who was able to add some additional history. Exam limited due to pt's baseline cerebral palsy. Pt's brother stated that pt is at his baseline mental status. Pt's nurse was also present. Pt is known to her per previous employment at [facility]. Pt's brother and nurse report that pt's swallow status is at baseline with his regular nectar-thick liquids and mechanical soft diet. Pt's nurse also reported that pt has baseline asymptomatic bacteriuria. Urinary symptoms have not been evident since pt's admission. Pt has no further complaints at this time. Pt's brother has no other concerns at this time. OBJECTIVE: VITALS: Please see below. GENERAL: Pt appears stated age and is lying in bed in no acute distress. HEENT: Normocephalic, atraumatic. CARDIOVASCULAR: Regular rate and rhythm with mild tachycardia. No murmurs, rubs, or gallops. PULMONARY: Pt has a wet-sounding cough and does not appear dyspneic. Left lower and middle lobe rhonchi appreciable. No rhonchi present in right lung. No wheezes or rales b/l. ABDOMEN: No rashes, bumps, or bruises. Suprapubic catheter present and site showed no redness, swelling, or purulence. EXTREMITIES: No peripheral edema. Pulses 2+ b/l in upper and lower extremities. PSYCHIATRIC: Pt is calm and cooperative. Affect baseline per brother. Pt unable to answer most questions. Pt able to answer some yes/no questions. IMAGIN. Chest x-rays, PA and lateral, per report: "Less than optimal radiographs. Poor level of inspiration. There is old linear fibrosis behind the heart. Adjacent to this, there is a questionable new infiltrate in the left lower lobe ." 2. Neck CT, per report: "No evidence of abscess, or lymphadenopathy. Degenerative changes, otherwise unremarkable noncontrast CT neck." ASSESSMENT: Pt is a 74-year-old male [facility] resident with a significant past medical history of cerebral palsy who presented to the [facility] emergency department per [facility] staff noticing apparent respiratory distress and has been admitted for evaluation and treatment of pneumonia. PLAN: 1. Left lower lobe pneumonia, community-acquired vs. aspiration - PA and lateral chest x-rays were of poor quality, but indicated possible new left lower lobe infiltrate. Pt's CBC showed leukocytosis at 17.9 on admission. Clinical findings correlate with left lower lobe pneumonia. Since starting azithromycin 500mg IV qd and ceftriaxone 1g IV qd yesterday, pt's white blood cell count has decreased to 12.5. - Influenzas A & B RT-PCR testing were both negative. - Sputum culture ordered - Ordered a swallow study to consider aspiration cause. Continue pt's soft mechanical diet with nectar-thick liquids. At this time, community-acquired pneumonia most likely. - Group a streptococcus throat culture screen from emergency department was negative. Blood and urine cultures pending. - Continue empiric treatment with azithromycin and ceftriaxone. Today is antib iotics day 08/07. - Continue to monitor for clinical improvement and resolution of leukocytosis. 2. Asymptomatic bacteriuria, UTI unlikely, suprapubic catheter dysfunction unlikely - Pt's urinalysis was positive for protein, blood, WBCs, bacteria, and leukocyte esterase on admission. Urinary symptoms have not been observed; physical exam was negative for UTI- or suprapubic catheter dysfunction-associated findings. UTI unlikely. Urine culture pending. - Continue to monitor pt in case of urinary symptoms. 3. Hypertension, chronic - Pt is normotensive this morning, but was hypertensive in the emergency department yesterday. Restart home lisinopril 10mg qhs with hold parameters for systolic BP <120. - Monitor telemetry. 4. Cerebral palsy, chronic - Continue home regimen of acetaminophen PRN, docusate BID, albuterol/ipratropium PRN, Milk of Magnesia PRN, and Mylanta PRN. 5. DVT prophylaxis: Subcutaneous enoxaparin. DISPOSITION: Discharge back to [facility] pending completion of workup and clinical improvement. VS,Fishbone, I+O VS, Fishbone, I+O Laboratory Tests 07/10/19 13:49 07/11/19 06:09 Vital Signs Date Time Temp Pulse Resp B/P (MAP) Pulse Ox O2 Delivery O2 Flow Rate FiO2 07/11/19 06:00 99.1 78 20 132/61 (84) 95 Nasal Cannula 2.0 I&O- Last 24 Hours up to 6 AM 07/11/19 06:00 Intake Total 180 ml Output Total 350 ml Balance -170 ml GME ATTESTATION GME ATTESTATION My faculty preceptor for this patient encounter was physically present during the encounter and was fully available. All aspects of the patient interview, examination, medical decision making process, and medical care plan development were reviewed and approved by the faculty preceptor. The faculty preceptor is aware and concurs with the plan as stated in the body of this note and will att est to such by his/her cosignature. ATTENDING NOTE I have independently interviewed and examined the patient at the bedside, and agree with the physical findings and management plan as documented above by my Resident Physician. All of the patient's questions and concerns have been addressed. ART MERCHANT OMS-III Jul 11, 2019 11:44 JESSICA BARTON MD Jul 11, 2019 11:49 ALFONSO RINALDI MD Jul 11, 2019 14:44
[2019-07-11 14:00] VITALS: BP 128/77
[2019-07-11] MEDS: cefTRIAXone SOD 1 GM in D5W MINI-BAG PLUS 50 ML IV SCH (16:28)
[2019-07-11] MEDS: AZITHROMYCIN INJ 500 MG, VIAL MATE ADAPTER 1 EACH in D5W 250 ML IV SCH (17:12)
[2019-07-11] MEDS: lisinopriL 10 MG TAB PO SCH (20:58)
[2019-07-11 22:00] VITALS: BP 129/79
[2019-07-12] MEDS: IPRATROPIUM 0.5MG/ALBUTEROL 2.5MG INH SOL UD 3ML (DUONEB)(J7620) INH SCH ×6 (00:17→20:16)
[2019-07-12 06:00] VITALS: BP 137/78
[2019-07-12 08:00] LABS: BASO # 0.1 10^3/uL (0.0-0.2); BASO % 0.6 % (0.0-1.0); EOS # 0.3 10^3/uL (0.0-0.5); EOS % 2.5 % (0.0-3.0); HEMATOCRIT 43.5 % (42.0-52.0); HEMOGLOBIN 13.7 g/dl (13.5-17.5); LYMPH # 1.2 10^3/uL (1.5-5.0); LYMPH % 10.6 % (24.0-44.0); MEAN CORPUSCULAR HGB CONC 31.5 g/dl (32.0-36.5); MEAN CORPUSCULAR VOLUME 95.2 fl (80.0-96.0); MONO # 0.7 10^3/uL (0.0-0.8); MONO % 6.4 % (0.0-5.0); NEUTROPHILS # 8.5 10^3/uL (1.5-8.5); PLATELET COUNT, AUTOMATED 259 10^3/uL (150-450); RED BLOOD COUNT 4.57 10^6/uL (4.30-6.10); WHITE BLOOD COUNT 10.9 10^3/uL (4.0-10.0)
[2019-07-12 08:22] LABS: ALBUMIN 2.8 GM/DL (3.2-5.2); ALT/SGPT 21 U/L (12-78); BILIRUBIN,TOTAL 0.4 MG/DL (0.2-1.0); BLOOD UREA NITROGEN 13 MG/DL (7-18); CALCIUM LEVEL 8.7 MG/DL (8.8-10.2); CARBON DIOXIDE LEVEL 23 MEQ/L (21-32); CHLORIDE LEVEL 107 MEQ/L (98-107); GLOMERULAR FILTRATION RATE > 60.0 (>42); GLUCOSE, FASTING 131 MG/DL (70-100); POTASSIUM SERUM 4.3 MEQ/L (3.5-5.1); SODIUM LEVEL 137 MEQ/L (136-145); TOTAL PROTEIN 6.5 GM/DL (6.4-8.2)
[2019-07-12] MEDS: DOCUSATE SODIUM 100 MG CAP PO SCH ×2 (09:59→20:42)
[2019-07-12] MEDS: ENOXAPARIN 40 MG/0.4 ML SYRINGE (J1650) SC SCH (09:59)
--- NOTE | 2019-07-12 10:25 | IPNPDOC ---
Text Note Date of Service The patient was seen on 07/12/19. NOTE SUBJECTIVE: Patient seen at bedside this morning in the presence of his brother. Exam limited due to pt's baseline cerebral palsy. Pt's brother stated that pt is at his baseline mental status. Urinary symptoms still not reported by anyone involved in care. Pt's brother states that pt was able to eat more yesterday, which is improved from the course of his present illness. Pt has no further complaints at this time. Pt's brother has no other concerns at this time. OBJECTIVE: VITALS: Please see below. GENERAL: Pt appears stated age and is lying in bed in no acute distress. HEENT: Normocephalic, atraumatic. CARDIOVASCULAR: Regular rate and rhythm with mild tachycardia. No murmurs, rubs, or gallops. PULMONARY: Pt is not coughing and does not appear dyspneic. Lower lobe rales appreciable b/l. No wheezes or rales b/l. EXTREMITIES: No peripheral edema. Pulses 2+ b/l in upper and lower extremities. PSYCHIATRIC: Pt is calm and cooperative. Affect baseline per brother. Pt unable to answer most questions. Pt able to answer some yes/no questions. Brother states that pt would not likely give accurate answers for these questions. ASSESSMENT: Pt is a 74-year-old male [facility] resident with a significant past medical history of cerebral palsy who presented to the [facility] emergency department per [facility] staff noticing apparent respiratory distress and has been admitted for evaluation and treatment of pneumonia. PLAN: 1. Left lower lobe pneumonia, community-acquired vs. aspiration - PA and lateral chest x-rays were of poor quality, but indicated possible new left lower lobe infiltrate. Pt's CBC showed leukocytosis at 17.9 on admission. Clinical findings correlate with left lower lobe pneumonia. Pt's white blood cell count continues to trend down (10.9 today), but is not yet within normal limits. - Sputum culture ordered - Swallow study showed excellent tolerance to pt's normal soft mechanical diet with nectar-thick liquids. Will continue. At this time, community-acquired pneumonia most likely. - Blood culture showed no growth after 24 hours. - Continue empiric treatment with IV azithromycin and ceftriaxone. Today is antibiotics day 3/5. Will transition to oral antibiotics tomorrow in preparation for discharge. - Continue to monitor for clinical improvement and resolution of leukocytosis. 2. Asymptomatic bacteriuria, colonization: - Pt's urinalysis was positive for protein, blood, WBCs, bacteria, and leukocyte esterase on admission. Urinary signs and symptoms have not been observed. UTI unlikely. Urine culture grew proteus mirabilis, likely due to chronic colonization. Will not treat at this time. - Continue to monitor pt in case of urinary symptoms. 3. Hypertension, chronic - Pt is normotensive today. Continue home lisinopril 10mg qhs with hold parameters for systolic BP <120. - Monitor telemetry. 4. Cerebral palsy with spastic quadriplegia, chronic - Continue home regimen of acetaminophen PRN, docusate BID, albuterol/iprat ropium PRN, Milk of Magnesia PRN, and Mylanta PRN. 5. DVT prophylaxis: Subcutaneous enoxaparin. DISPOSITION: Discharge back to [facility] pending completion of workup and clinical improvement. Likely discharge in 1-2 days. VS,Fishbone, I+O VS, Fishbone, I+O Laboratory Tests 07/12/19 07:42 Vital Signs Date Time Temp Pulse Resp B/P (MAP) Pulse Ox O2 Delivery O2 Flow Rate FiO2 07/12/19 06:00 97.4 80 19 137/78 (97) 92 Nasal Cannula 2.0 I&O- Last 24 Hours up to 6 AM 07/12/19 06:00 Intake Total 770 ml Output Total 925 ml Balance -155 ml GME ATTESTATION GME ATTESTATION My faculty preceptor for this patient encounter was physically present during the encounter and was fully available. All aspects of the patient interview, examination, medical decision making process, and medical care plan development were reviewed and approved by the faculty preceptor. The faculty preceptor is aware and concurs with the plan as stated in the body of this note and will attest to such by his/her cosignature. ATTENDING NOTE I have independently interviewed and examined the patient, and agree with the physical findings and management plan as documented above by my resident physicians. All of the patient's questions and concerns have been addressed. ART MERCHANT OMS-III Jul 12, 2019 10:25 JESSICA BARTON MD Jul 12, 2019 11:20 ALFONSO RINALDI MD Jul 12, 2019 11:35
[2019-07-12 14:00] VITALS: BP 124/77
[2019-07-12] MEDS: cefTRIAXone SOD 1 GM in D5W MINI-BAG PLUS 50 ML IV SCH (16:24)
[2019-07-12] MEDS: AZITHROMYCIN INJ 500 MG, VIAL MATE ADAPTER 1 EACH in D5W 250 ML IV SCH (17:38)
[2019-07-12 20:42] VITALS: BP 104/45
[2019-07-12] MEDS: lisinopriL 10 MG TAB PO SCH (20:42)
[2019-07-12 22:00] VITALS: BP 104/45
[2019-07-13] MEDS: IPRATROPIUM 0.5MG/ALBUTEROL 2.5MG INH SOL UD 3ML (DUONEB)(J7620) INH SCH ×3 (00:51→07:25)
[2019-07-13 06:00] VITALS: BP 141/77
[2019-07-13] MEDS ORDERED: CEFD300CAP PO (07:51)
[2019-07-13 08:04] LABS: BASO # 0.1 10^3/uL (0.0-0.2); BASO % 0.6 % (0.0-1.0); EOS # 0.2 10^3/uL (0.0-0.5); EOS % 2.8 % (0.0-3.0); HEMOGLOBIN 14.1 g/dl (13.5-17.5); LYMPH # 1.5 10^3/uL (1.5-5.0); LYMPH % 17.8 % (24.0-44.0); MEAN CORPUSCULAR HEMOGLOBIN 30.1 pg (27.0-33.0); MEAN CORPUSCULAR VOLUME 93.8 fl (80.0-96.0); MONO # 0.7 10^3/uL (0.0-0.8); NEUTROPHILS # 5.9 10^3/uL (1.5-8.5); NEUTROPHILS % 68.5 % (36.0-66.0); PLATELET COUNT, AUTOMATED 254 10^3/uL (150-450); RED BLOOD COUNT 4.69 10^6/uL (4.30-6.10); WHITE BLOOD COUNT 8.6 10^3/uL (4.0-10.0)
[2019-07-13 08:21] LABS: BLOOD UREA NITROGEN 13 MG/DL (7-18); CALCIUM LEVEL 8.7 MG/DL (8.8-10.2); CARBON DIOXIDE LEVEL 23 MEQ/L (21-32); CHLORIDE LEVEL 103 MEQ/L (98-107); GLOMERULAR FILTRATION RATE > 60.0 (>42); GLUCOSE, FASTING 113 MG/DL (70-100); POTASSIUM SERUM 4.3 MEQ/L (3.5-5.1); SODIUM LEVEL 135 MEQ/L (136-145)
[2019-07-13] MEDS: ENOXAPARIN 40 MG/0.4 ML SYRINGE (J1650) SC SCH (08:44)
[2019-07-13] MEDS: DOCUSATE SODIUM 100 MG CAP PO SCH (08:44)
[2019-07-13] MEDS ORDERED: CEFDINIR 300 MG CAP (OMNICEF) PO SCH (09:00)
--- NOTE | 2019-07-13 10:35 | DS.PDOC ---
Discharge Summary General Date of Admission Jul 10, 2019 at 16:11 Date of Discharge July 13, 2019 Primary Care Physician: Aldo Modi MD Attending Physician: ALFONSO RINALDI MD Discharge Summary PROCEDURES PERFORMED DURING STAY: [None]. ADMITTING DIAGNOSES: 1. left lower lobe PNA DISCHARGE DIAGNOSES: 1. left lower lobe PNA COMPLICATIONS/CHIEF COMPLAINT: Left Lower Lobe Pneumonia. HISTORY OF PRESENT ILLNESS: This is 73 years old white male who was sent from his PCPs office with respiratory distress. Patient is a [facility]. Client and secondary to cerebral palsy is unable to communicate has the history was obtained from [facility] caregiver. No history of fever, nausea, vomiting, abdominal pain or chest pain was given to me by the [facility] caregiver. Patient was found to have a left lower lobe pneumonia on chest x-ray and hence was called by the ER physician for admission HOSPITAL COURSE: Patient was admitted as imaging was concerning for left lower lobe pneumonia. He was started on IV azithromycin and ceftriaxone as well as inhaled steroids. The patient's white blood cell count trended down throughout his hospitalization and clinically he appeared to improve. Patient's family member was at the bedside and reported he was back to his normal state. Urine was tested for infection and did grow Proteus mirabilis, which is chronic colonization. He was discharged back to [facility] with plan to return to day rehabilitation and physical therapy. DISCHARGE MEDICATIONS: Please see below. ALLERGIES: Please see below. PHYSICAL EXAMINATION ON DISCHARGE: VITALS: Please see below. GENERAL: Pt appears stated age and is lying in bed in no acute distress. HEENT: Normocephalic, atraumatic. CARDIOVASCULAR: Regular rate and rhythm with mild tachycardia. No murmurs, rubs, or gallops. PULMONARY: Pt is not coughing and does not appear dyspneic. Lower lobe rales appreciable b/l. No wheezes or rales b/l. EXTREMITIES: No peripheral edema. Pulses 2+ b/l in upper and lower extremities. PSYCHIATRIC: Pt is calm and cooperative. Affect baseline per brother. Pt unable to answer most questions. Pt able to answer some yes/no questions. Brother states that pt would not likely give accurate answers for these questions. LABORATORY DATA: Please see below. IMAGING: CXR (07/10/2019): Findings: The lateral view is of extremely limited value due to the poor level of inspiration and the patient's arm overlying the chest. The frontal view shows low lung volumes. There are is a linear pattern of increased parenchymal density behind the heart consistent with linear fibrosis. This is visible on the August 16, 2018 study and is unchanged. There are some increased lung markings over the heart lateral to this band of increased density and I cannot exclude a new area of atelectasis or infiltrate in the left base. The right lung remains clear. Heart appears mildly enlarged. Impression: Less than optimal radiographs. Poor level of inspiration. There is old linear fibrosis behind the heart. Adjacent to this, there is a questionable new infiltrate in the left lower lobe. CT NECK (07/10/2019): FINDINGS: No significant lymphadenopathy, no evidence of abscess. Oropharynx, nasopharynx, hypopharynx and larynx appear unremarkable. There is advanced degenerative disc disease with cervical kyphosis. There is loss of disc height and disc degeneration at C4-5, C5-6 and C6-7 levels. The canal appears narrowed as a result of the kyphosis however no definitely limiting canal or foraminal stenosis. Paranasal sinuses and mastoid air cells are clear. Dentition is sparse but otherwise unremarkable. Visualized lung apices are clear. IMPRESSION: No evidence of abscess, or lymphadenopathy. Degenerative changes, otherwise unremarkable noncontrast CT neck. PROGNOSIS: fair ACTIVITY: [As tolerated]. DIET: Recommend continue level 3 mechanical soft (NDD) solids and nectar t hickened liquids. The patient should be positioned upright, OOB as tolerated, and requires assistance for feeding small bites and sips. F/u tolerance for level 3 solid & nectar liquid meal, and for carryover of safe feeding recommendations. DISCHARGE PLAN: Return to [facility] DISPOSITION: . DISCHARGE INSTRUCTIONS: 1. Return to [facility] and follow up with PCP within 7-14 days. May continue dayhab and PT ITEMS TO FOLLOWUP ON ON OUTPATIENT: 1. none DISCHARGE CONDITION: [Stable]. TIME SPENT ON DISCHARGE: Greater than 30 minutes. Vital Signs/I&Os Vital Signs Date Time Temp Pulse Resp B/P (MAP) Pulse Ox O2 Delivery O2 Flow Rate FiO2 07/13/19 06:00 97.4 93 21 141/77 (98) 92 Room Air 07/12/19 21:00 1.0 I&O- Last 24 Hours up to 6 AM 07/13/19 06:00 Intake Total 1225 ml Output Total 2125 ml Balance -900 ml Laboratory Data Labs 24H Laboratory Tests 2 07/13/19 07:50: Immature Granulocyte % (Auto) 2.3, Neutrophils (%) (Auto) 68.5H, Lymphocytes (%) (Auto) 17.8L, Monocytes (%) (Auto) 8.0H, Eosinophils (%) (Auto) 2.8, Basophils (%) (Auto) 0.6, Neutrophils # (Auto) 5.9, Lymphocytes # (Auto) 1.5, Monocytes # (Auto) 0.7, Eosinophils # (Auto) 0.2, Basophils # (Auto) 0.1, Nucleated Red Blood Cells % (auto) 0.0, Anion Gap 9, Glomerular Filtration Rate > 60.0, Calcium Level 8.7L CBC/BMP Laboratory Tests 07/13/19 07:50 Microbiology Microbiology 07/10/19 Blood Culture - Preliminary, Resulted No Growth after 48 hours. All Specime... 07/10/19 Urine Culture - Final, Complete Proteus Mirabilis 07/10/19 Group A Streptococcus Screen (LACHO) - Final, Complete 07/10/19 Blood Culture - Preliminary, Resulted No Growth after 48 hours. All Specime... Discharge Medications Scheduled Ammonium Lactate (Ammonium Lactate) 12 % Lot, 1 APLCT TOP QHS, (Reported) APPLIES TO FEET Aspirin (Aspir 81) 81 Mg Tablet.dr, 81 MG PO QHS, (Reported) Calcium Carbonate/Vitamin D3 (Calcium 600-Vit D3 400 Tablet) 1 Tab Tab, 1 TAB PO DAILY, (Reported) Cefdinir (Cefdinir) 300 Mg Capsule, 300 MG PO BID Cranberry Fruit Extract (Cranberry) 500 Mg Capsule, 500 MG PO BID, (Reported) Docusate Sodium (Colace) 100 Mg Cap, 100 MG PO BID, (Reported) Lisinopril (Lisinopril) 10 Mg Tab, 10 MG PO QHS, (Reported) Melatonin (Melatonin) 5 Mg Tab, 5 MG PO QHS, (Reported) Oxybutynin Chloride (Oxybutynin Chloride) 5 Mg Tablet, 5 MG PO BID, (Reported) Pantoprazole Sodium (Protonix) 40 Mg Tab, 40 MG PO BID, (Reported) Polyethylene Glycol 3350 (Miralax) 17 Gm Powd.pack, 17 GM PO DAILY, (Reported) MIXES IN NECTAR THICK Zinc Oxide (Desitin) 454 Gm Cream..g., 1 APLCT TOP QHS, (Reported) APPLY TO AREAS OF RASH/ITCHING Scheduled PRN Bisacodyl (Dulcolax) 10 Mg Sup, 10 MG RI for CONSTIPATION, (Reported) TO BE USED ON DAY 5 WITHOUT A BM Magnesium Hydroxide (Milk of Magnesia) 400 Mg/5 Ml Oral.susp, 2,400 MG PO DAILY PRN for CONSTIPATION, (Reported) TAKES ON DAYS 3 AND 4 OF NO BM Nystatin (Nystatin) 15 Gm Cream..g., 1 APLCT TOP BID PRN for RASH/ITCHING, (Reported) APPLY TO GROIN/PUBIC CATH Zinc Oxide (Desitin) 454 Gm Cream..g., 1 APLCT TOP DAILY PRN for RASH/ITCHING, (Reported) Allergies Coded Allergies: codeine (Verified Allergy, Unknown, [facility]S [facility]IOR, 12/14/18) GME ATTESTATION GME ATTESTATION My faculty preceptor for this patient encounter was physically present during the encounter and was fully available. All aspects of the patient interview, examination, medical decision making process, and medical care plan development were reviewed and approved by the faculty preceptor. The faculty preceptor is aware and concurs with the plan as stated in the body of this note and will attest to such by his/her cosignature. ATTENDING NOTE ATTENDING PHYSICIAN ADDENDUM: I have independently interviewed and examined this patient at the bedside , and agree with the physical findings and management plan as documented above by my resident physician. All of the patient's questions and concerns have been addressed. JESSICA BARTON MD Jul 13, 2019 10:35 ALFONSO RINALDI MD Jul 13, 2019 15:59
== END 2019-07-13 11:10 | disposition home or self-care (01) | DRG 193 ==
LOC: M ED 12:53 → M ED INP 16:11 → ENRESERV 16:32 → M MSPAV 18:10
PROVIDERS: ADMIT Internal Medicine; ATTEND General Practice
DX: J18.9 Pneumonia, unspecified organism (principal); G80.0 Spastic quadriplegic cerebral palsy; Z79.82 Long term (current) use of aspirin; Z79.899 Other long term (current) drug therapy; Z88.5 Allergy status to narcotic agent; R33.9 Retention of urine, unspecified; H54.8 Legal blindness, as defined in USA; I10 Essential (primary) hypertension; D72.829 Elevated white blood cell count, unspecified

== ENCOUNTER → 2019-07-10 | Outpatient (REF) | payer MEDICARE, MEDICAID ==
[~2019-07-10] MED LIST changes: +DOXY100C37 PO
== END ==
LOC: M SFHCPLAZ 15:37
PROVIDERS: ATTEND Physician Assistant Medical
DX: R50.9 Fever, unspecified (principal)

== ENCOUNTER 2019-08-05 10:09 | Emergency (ER) | payer MEDICARE, MEDICAID ==
[~2019-08-05] VITALS: Ht 167.6 cm; Wt 93.2 kg
[~2019-08-05 10:09] MED LIST changes: +DOXY100C37 PO
--- NOTE | 2019-08-05 11:10 | REP ---
All chest, single AP view with the patient sitting, 10:42 a.m.: Comparison is 07/10/2019. The study is underpenetrated. There is focal increased density inferiorly in the left lung, similar to the prior study. This could represent fibrosis or infiltrate. The cardiac size is normal. The shonda, mediastinum, skeletal structures are unremarkable for portable positioning and radiographic penetration. Impression: Increased density inferiorly in the left lung. Electronically Signed by Dewayne Castillo MD 08/05/2019 11:01 A
[2019-08-05 12:04] LABS: INFLUENZA A AMPLIFICATION NEGATIVE (NEGATIVE); INFLUENZA B AMPLIFICATION NEGATIVE (NEGATIVE)
[2019-08-05 12:45] LABS: BASO % 0.4 % (0.0-1.0); EOS # 0.3 10^3/uL (0.0-0.5); EOS % 3.6 % (0.0-3.0); HEMATOCRIT 44.2 % (42.0-52.0); LYMPH # 1.6 10^3/uL (1.5-5.0); LYMPH % 19.1 % (24.0-44.0); MEAN CORPUSCULAR HEMOGLOBIN 30.4 pg (27.0-33.0); MEAN CORPUSCULAR HGB CONC 31.7 g/dl (32.0-36.5); MEAN CORPUSCULAR VOLUME 95.9 fl (80.0-96.0); MONO # 0.8 10^3/uL (0.0-0.8); NEUTROPHILS # 5.4 10^3/uL (1.5-8.5); NEUTROPHILS % 66.2 % (36.0-66.0); PLATELET COUNT, AUTOMATED 185 10^3/uL (150-450); RED BLOOD COUNT 4.61 10^6/uL (4.30-6.10); WHITE BLOOD COUNT 8.1 10^3/uL (4.0-10.0)
[2019-08-05 14:51] VITALS: BP 124/86
== END 2019-08-05 14:54 | disposition home or self-care (01) ==
LOC: M ED 10:09
DX: J98.4 Other disorders of lung (principal); R05 Cough; I10 Essential (primary) hypertension; G80.0 Spastic quadriplegic cerebral palsy; N31.9 Neuromuscular dysfunction of bladder, unspecified; K44.9 Diaphragmatic hernia without obstruction or gangrene; G90.09 Other idiopathic peripheral autonomic neuropathy; I73.00 Raynaud's syndrome without gangrene; Z96.0 Presence of urogenital implants; Z79.82 Long term (current) use of aspirin; Z79.899 Other long term (current) drug therapy; Z88.5 Allergy status to narcotic agent

== ENCOUNTER 2019-08-10 19:41 | Emergency (ER) | payer MEDICARE, MEDICAID ==
[~2019-08-10] VITALS: Ht 172.7 cm; Wt 95.5 kg
[2019-08-10] MEDS ORDERED: LIDOCAINE 2% 5ML JELLY UROJET TOP ONE (20:15)
[2019-08-10 23:14] VITALS: BP 148/71
== END 2019-08-10 23:14 | disposition home or self-care (01) ==
LOC: M ED 19:41 → EDBD 19:41 → M ED 23:14
DX: T83.028A Displacement of other urinary catheter, initial encounter (principal); Y92.9 Unspecified place or not applicable; Y93.9 Activity, unspecified; I10 Essential (primary) hypertension; H54.8 Legal blindness, as defined in USA; G82.50 Quadriplegia, unspecified; Z79.82 Long term (current) use of aspirin; Z79.899 Other long term (current) drug therapy; Z88.5 Allergy status to narcotic agent

== ENCOUNTER → 2019-08-13 | Outpatient (CLI) | payer MEDICARE, MEDICAID ==
[~2019-08-13] MED LIST changes: +LEVA750T7 PO
[2019-08-13 13:33] LABS: ALBUMIN 3.2 GM/DL (3.2-5.2); ALT/SGPT 23 U/L (12-78); BILIRUBIN,TOTAL 0.4 MG/DL (0.2-1.0); BLOOD UREA NITROGEN 11 MG/DL (7-18); CARBON DIOXIDE LEVEL 31 MEQ/L (21-32); CHLORIDE LEVEL 103 MEQ/L (98-107); CREATININE FOR GFR 0.63 MG/DL (0.70-1.30); GLOMERULAR FILTRATION RATE > 60.0 (>42); GLUCOSE, FASTING 106 MG/DL (70-100); LDH LACTATE DEHYDROGENASE 176 U/L (87-241); POTASSIUM SERUM 4.8 MEQ/L (3.5-5.1); SODIUM LEVEL 137 MEQ/L (136-145); TOTAL PROTEIN 6.3 GM/DL (6.4-8.2)
[2019-08-13 13:34] LABS: BASO % 0.4 % (0.0-1.0); EOS # 0.2 10^3/uL (0.0-0.5); EOS % 2.8 % (0.0-3.0); HEMOGLOBIN 14.1 g/dl (13.5-17.5); LYMPH # 1.5 10^3/uL (1.5-5.0); LYMPH % 21.3 % (24.0-44.0); MEAN CORPUSCULAR HEMOGLOBIN 31.1 pg (27.0-33.0); MEAN CORPUSCULAR HGB CONC 32.8 g/dl (32.0-36.5); MEAN CORPUSCULAR VOLUME 94.9 fl (80.0-96.0); MONO # 0.7 10^3/uL (0.0-0.8); MONO % 10.3 % (0.0-5.0); NEUTROPHILS # 4.4 10^3/uL (1.5-8.5); NEUTROPHILS % 64.8 % (36.0-66.0); PLATELET COUNT, AUTOMATED 226 10^3/uL (150-450); RED BLOOD COUNT 4.53 10^6/uL (4.30-6.10); WHITE BLOOD COUNT 6.8 10^3/uL (4.0-10.0)
== END ==
LOC: M PLALAB 11:00
PROVIDERS: ATTEND Physician Assistant Medical
DX: J18.9 Pneumonia, unspecified organism (principal)
CPT/HCPCS: 36415; 80053; 83605; 83615; 85025; G0463

== ENCOUNTER 2019-08-27 14:33 | Emergency (ER) | payer MEDICARE, MEDICAID ==
[~2019-08-27] VITALS: Ht 167.6 cm; Wt 94.7 kg
[~2019-08-27 14:33] MED LIST changes: -LEVA750T7 PO
[2019-08-27] MEDS ORDERED: NYST1POW9 TOP (15:18)
--- NOTE | 2019-08-27 16:01 | REP ---
CHEST, SINGLE VIEW: Single view of the chest is performed and compared to a prior studies, most recently 08/05/2019. There is left retrocardiac opacity which is stable compared to prior exams. This could represent chronic fibroatelectasis versus stable infiltrate. Cardiac silhouette is prominent. Mediastinal silhouette is unchanged. Right lung remains clear. Electronically Signed by Dewayne Zambrano MD 08/27/2019 08:22 P
--- NOTE | 2019-08-27 16:36 | REP ---
CT of the chest without IV contrast: Comparisons are the portable chest performed earlier today and a prior chest CT dated 01/06/2014. There is an infiltrate in the lower lobe of the left lung. Additionally there is an infiltrate posteriorly in the lingular segment of the right upper lobe. The right lung is clear. There are no pleural effusions. There is no mediastinal or axillary adenopathy. The study is insensitive for hilar adenopathy in the absence of IV contrast. The unenhanced thoracic aorta is unremarkable. Cardiac size is normal. The upper abdomen I suspect pneumobilia within the liver. This is unchanged from an abdomen/pelvis CT dated 12/14/2018. Impression: Right lower lobe infiltrate. Infiltrate posteriorly in the lingula. Pneumobilia, unchanged from an abdomen CT of 12/14/2018. Electronically Signed by Dewayne Castillo MD 08/27/2019 04:27 P
[2019-08-27 17:01] VITALS: BP 129/69
[2019-08-27 17:30] LABS: BASO # 0.1 10^3/uL (0.0-0.2); BASO % 0.9 % (0.0-1.0); EOS # 0.3 10^3/uL (0.0-0.5); EOS % 3.9 % (0.0-3.0); HEMATOCRIT 41.4 % (42.0-52.0); HEMOGLOBIN 13.7 g/dl (13.5-17.5); LYMPH # 1.4 10^3/uL (1.5-5.0); LYMPH % 19.8 % (24.0-44.0); MEAN CORPUSCULAR HEMOGLOBIN 30.6 pg (27.0-33.0); MEAN CORPUSCULAR HGB CONC 33.1 g/dl (32.0-36.5); MEAN CORPUSCULAR VOLUME 92.6 fl (80.0-96.0); MONO # 0.9 10^3/uL (0.0-0.8); NEUTROPHILS # 4.3 10^3/uL (1.5-8.5); NEUTROPHILS % 62.1 % (36.0-66.0); PLATELET COUNT, AUTOMATED 180 10^3/uL (150-450); RED BLOOD COUNT 4.47 10^6/uL (4.30-6.10); WHITE BLOOD COUNT 6.9 10^3/uL (4.0-10.0)
[2019-08-27 17:51] LABS: BLOOD UREA NITROGEN 9 MG/DL (7-18); CARBON DIOXIDE LEVEL 31 MEQ/L (21-32); CHLORIDE LEVEL 101 MEQ/L (98-107); CREATININE FOR GFR 0.66 MG/DL (0.70-1.30); GLOMERULAR FILTRATION RATE > 60.0 (>42); GLUCOSE, FASTING 119 MG/DL (70-100); POTASSIUM SERUM 4.3 MEQ/L (3.5-5.1); SODIUM LEVEL 134 MEQ/L (136-145)
[2019-08-27] MEDS ORDERED: LEVA750T7 PO (18:08)
== END 2019-08-27 20:15 | disposition home or self-care (01) ==
LOC: M ED 14:33 → EDBD 14:33 → M ED 20:15
DX: J18.1 Lobar pneumonia, unspecified organism (principal); Z87.19 Personal history of other diseases of the digestive system; I10 Essential (primary) hypertension; G80.0 Spastic quadriplegic cerebral palsy; Z99.3 Dependence on wheelchair; Z79.82 Long term (current) use of aspirin; Z79.899 Other long term (current) drug therapy; Z88.5 Allergy status to narcotic agent

== ENCOUNTER 2019-09-28 19:53 | Inpatient (IN) | payer MEDICARE, MEDICAID ==
[~2019-09-28] VITALS: Ht 182.9 cm; Wt 93.9 kg
[~2019-09-28 19:53] MED LIST changes: +LEVA750T7 PO
[2019-09-28 20:41] LABS: ABG BASE EXCESS -1.9 (-2.0-2.0); ABG HCO3 24.3 MEQ/L (22.0-26.0); ABG O2 SATURATION 85.7 % (95.0-99.0); ABG PARTIAL PRESSURE CO2 46.5 mmHg (35.0-45.0); ABG PARTIAL PRESSURE O2 51.2 mmHg (75.0-100.0); ABG STANDARD HCO3 22.6 MEQ/L (22.0-26.0); ABG TOTAL CO2 25.7 MEQ/L (23.0-31.0); ABG pH (ARTERIAL) 7.336 UNITS (7.350-7.450)
[2019-09-28 20:45] LABS: BASO % 0.5 % (0.0-1.0); EOS # 0.2 10^3/uL (0.0-0.5); EOS % 1.8 % (0.0-3.0); HEMATOCRIT 43.7 % (42.0-52.0); HEMOGLOBIN 14.2 g/dl (13.5-17.5); LYMPH % 11.5 % (24.0-44.0); MEAN CORPUSCULAR HEMOGLOBIN 30.4 pg (27.0-33.0); MEAN CORPUSCULAR HGB CONC 32.5 g/dl (32.0-36.5); MEAN CORPUSCULAR VOLUME 93.6 fl (80.0-96.0); MONO % 11.6 % (0.0-5.0); NEUTROPHILS # 6.5 10^3/uL (1.5-8.5); NEUTROPHILS % 74.1 % (36.0-66.0); PLATELET COUNT, AUTOMATED 232 10^3/uL (150-450); RED BLOOD COUNT 4.67 10^6/uL (4.30-6.10); WHITE BLOOD COUNT 8.8 10^3/uL (4.0-10.0)
[2019-09-28] MEDS ORDERED: DOCUSATE SODIUM 100 MG CAP PO SCH (21:00)
[2019-09-28 21:10] LABS: BLOOD UREA NITROGEN 13 MG/DL (7-18); CALCIUM LEVEL 8.4 MG/DL (8.8-10.2); CARBON DIOXIDE LEVEL 27 MEQ/L (21-32); CHLORIDE LEVEL 100 MEQ/L (98-107); CREATININE FOR GFR 0.75 MG/DL (0.70-1.30); GLOMERULAR FILTRATION RATE > 60.0 (>42); GLUCOSE, FASTING 132 MG/DL (70-100); INFLUENZA A AMPLIFICATION NEGATIVE (NEGATIVE); INFLUENZA B AMPLIFICATION NEGATIVE (NEGATIVE); POTASSIUM SERUM 4.7 MEQ/L (3.5-5.1); SODIUM LEVEL 134 MEQ/L (136-145)
[2019-09-28] MEDS ORDERED: cefTRIAXone SOD 1 GM in D5W MINI-BAG PLUS 50 ML IV ONE (21:30)
[2019-09-28] MEDS ORDERED: AZITHROMYCIN INJ 500 MG, VIAL MATE ADAPTER 1 EACH in D5W 250 ML IV ONE (21:30)
[2019-09-28] MEDS ORDERED: OXYB-54 PO (22:00)
[2019-09-28] MEDS ORDERED: ALBUTEROL 90 MCG/ACT 8GM HFA INHALER INH PRN (22:15)
[2019-09-28] MEDS ORDERED: MOM 30ML SUSPENSION UDC PO PRN (22:15)
[2019-09-28] MEDS ORDERED: MAALOX 30 ML SUSP *UDC PO PRN (22:15)
[2019-09-28] MEDS ORDERED: ACETAMINOPHEN TAB 650MG DOSE (2X325MG) PO PRN (22:15)
--- NOTE | 2019-09-28 22:42 | HPEPDOC ---
General Date of Admission Date of Service: Sep 28, 2019 Chief Complaint The patient is a 74-year-old male admitted with a reason for visit of FEVER. Source: Old records, [facility] Caregiver/Aid Exam Limitations: Clinical conditions, Other (cerebral palsy) Timing/Duration: 4-6 hours Severity: Mild Associated Symptoms: Unobtainable History of Present Illness 74-year-old male from [facility] with past medical history of cerebral palsy, indwelling suprapubic catheter, dementia presents with fevers and difficult to breathing from [facility] Center. History was obtained by caregiver given patient's cerebral palsy. As per caregiver, patient was doing well this morning and had been doing well previous to this. Later this afternoon, they noted that patient was having some difficult to breathing. Patient was having some shortness of breath wall speaking in 5-6 word sentences. Temperature during afternoon/early suppertime was noted to be elevated and due to his worsening fever and breathing, was brought to the ER for further evaluation. Patient has had recent admit for similar complaints approximately 2 months prior in July. As per caregiver, patient has been noted because thing when feeding and has had difficulty swallowing pills as of late. He does not have any behavioral disturbances and has not had any complaints of feeling ill. There have been several detention residents there who have been sick with acute bronchitis and patient has had minimal contact with that. Patient is chronically wheelchair bound and is unable to ambulate by himself due to his quadriplegia. He should himself denies any complaints. He has the verbal ability of a 5-year-old as per caregiver. Upon ER evaluation, patient noted to have no white count but ABG did reveal some hypoxia. Chest x-ray does show possible new right lower lobe infiltrate with official read pending. Hospitalist called for admission and further management. Home Medications Scheduled Ammonium Lactate (Ammonium Lactate) 12 % Lot, 1 APLCT TOP QHS, (Reported) APPLIES TO FEET Aspirin (Aspir 81) 81 Mg Tablet.dr, 81 MG PO QHS, (Reported) Calcium Carbonate/Vitamin D3 (Calcium 600-Vit D3 400 Tablet) 1 Tab Tab, 1 TAB PO DAILY, (Reported) Cranberry Fruit Extract (Cranberry) 500 Mg Capsule, 500 MG PO BID, (Reported) Docusate Sodium (Colace) 100 Mg Cap, 100 MG PO BID, (Reported) Lisinopril (Lisinopril) 10 Mg Tab, 10 MG PO QHS, (Reported) Melatonin (Melatonin) 5 Mg Tab, 5 MG PO QHS, (Reported) Oxybutynin Chloride (Oxybutynin Chloride ER) 5 Mg Tab.er.24, 5 MG PO BID, (Reported) Pantoprazole Sodium (Protonix) 40 Mg Tab, 40 MG PO BID, (Reported) Polyethylene Glycol 3350 (Miralax) 17 Gm Powd.pack, 17 GM PO DAILY, (Reported) MIXES IN NECTAR THICK Zinc Oxide (Desitin) 454 Gm Cream..g., 1 APLCT TOP QHS, (Reported) APPLY TO AREAS OF RASH/ITCHING Scheduled PRN Bisacodyl (Dulcolax) 10 Mg Sup, [address] for CONSTIPATION, (Reported) TO BE USED ON DAY 5 WITHOUT A BM Magnesium Hydroxide (Milk of Magnesia) 400 Mg/5 Ml Oral.susp, 2,400 MG PO DAILY PRN for CONSTIPATION, (Reported) TAKES ON DAYS 3 AND 4 OF NO BM Nystatin (Nystatin Powder) 15 Gm Powder, 1 APLCT TOP BID PRN for RASH, (Reported) APPLY TO GROIN AND ABDOMEN AREA Zinc Oxide (Desitin) 454 Gm Cream..g., 1 APLCT TOP DAILY PRN for RASH/ITCHING, (Reported) Allergies Coded Allergies: codeine (Verified Adverse Reaction, Intermediate, [facility]S [facility], 08/27/19) Past Medical History Medical History Cerebral palsy, suprapubic catheter, dementia Surgical History Caregiver does not recall Family History Significant Family History: No pertinent family hx Unable to obtain at this time Social History * Smoker: Denies Alcohol: Denies Drugs: denies Recent Travel/Sick Contacts: Reports: Recent sick contacts; Denies: Recent travel Psychosocial History: Dementia, Mental handicap Currently wheelchair bound. Lives at [facility] A-FIB/[facility] A-FIB History Current/History of A-Fib/PAF?: No Review of Systems Other systems Unable to obtain due to clinical condition Physical Examination General Exam: Positive: Alert, Cooperative, No Acute Distress, Other (pleasant white male, able to answer yes or no questions. Mild increased work of breathing noted. Able to speak in 5-6 word bursts) Eye Exam: Positive: PERRLA, Conjunctiva & lids normal, EOMI ENT Exam: Positive: Atraumatic, Mucous membr. moist/pink; Negative: Pharyngeal Edema Neck Exam: Positive: Supple; Negative: JVD, thyromegaly Chest Exam: Positive: Other (patient has bronchial breath sounds and increased works of breathing noted. Mild expiratory wheezing appreciated. No audible crackles. Air entry seems good bilaterally) Heart Exam: Positive: Rate Normal, Regular Rhythm, Normal S1, Normal S2; Negative: Murmurs Abdomen Exam: Positive: Normal bowel sounds, Soft, Other (patient has no feeling below T10 due to his congenital condition); Negative: Tenderness, Hepatospenomegaly Extremity Exam: Positive: Other (atrophy noted of his bilateral lower extremities with decreased muscle tone and spasticity which is baseline); Negative: Clubbing, Edema Skin Exam: Positive: Nl turgor and temperature, Rash Neuro Exam: Positive: Other (patient has no sensation below T10 on exam.); Negative: Normal Gait, Normal Tone, Sensation Intact Psych Exam: Positive: Mood NL (patient alert and oriented only to self. As per baseline), Other Vital Signs Vital Signs Date Time Temp Pulse Resp B/P (MAP) Pulse Ox O2 Delivery O2 Flow Rate FiO2 09/28/19 21:42 Room Air 09/28/19 21:38 87 95 09/28/19 21:32 99.1 133/84 (100) 09/28/19 20:07 22 Laboratory Data Labs 24H Laboratory Tests 2 09/28/19 20:28: Immature Granulocyte % (Auto) 0.5, Neutrophils (%) (Auto) 74.1H, Lymphocytes (%) (Auto) 11.5L, Monocytes (%) (Auto) 11.6H, Eosinophils (%) (Auto) 1.8, Basophils (%) (Auto) 0.5, Neutrophils # (Auto) 6.5, Lymphocytes # (Auto) 1.0L, Monocytes # (Auto) 1.0H, Eosinophils # (Auto) 0.2, Basophils # (Auto) 0.0, Nucleated Red Blood Cells % (auto) 0.0, Urine Color ANTONETTE, Urine Appearance TURBIDH, Urine pH 5.0, Urine Specific [place] 1.023, Urine Protein 2+H, Urine Glucose (UA) NEGATIVE, Urine Ketones TRACEH, Urine Blood 1+H, Urine Nitrite NEGATIVE, Urine Bilirubin NEGATIVE, Urine Urobilinogen 0.2, Urine Leukocyte Esterase 3+H, Urine WBC (Auto) TNTCH, Urine RBC (Auto) 164H, Urine Hyaline Casts (Auto) 0, Urine Bacteria (Auto) 2+H, Urine Squamous Epithelial Cells 5, Urine Calcium Oxalate Cryst (Auto) SMALL, Urine Amorphous Sediment SMALLH, Urine Granular Casts (Auto) 9, Urine Mucus (Auto) LARGE, Urine Sperm (Auto) , Blood Gas Bicarbonate Standard 22.6, Arterial Blood pH 7.336L, Arterial Blood Partial Pressure CO2 46.5H, Arterial Blood Partial Pressure O2 51.2L, Arterial Blood Total CO2 25.7, Arterial Blood HCO3 24.3, Arterial Blood Base Excess -1.9, Arterial Blood Oxygen Saturation 85.7L, Anion Gap 7L, Glomerular Filtration Rate > 60.0, Lactic Acid Level 1.1, Calcium Level 8.4L, Influenza Type A (RT-PCR) NEGATIVE, Influenza Type B (RT-PCR) NEGATIVE CBC/BMP Laboratory Tests 09/28/19 20:28 Microbiology Microbiology 09/28/19 Urine Culture, Received Pending 09/28/19 Blood Culture, Received Pending RAD Interpretation STUDY: CXR Rad Actions: Films Reviewed RAD Interpretation: Other Result Comments: (platelike atelectasis seen. The right lower lobe with possible new infiltrate compared to the previous CXR, official read pending) Assessment/Plan 74-year-old male from [facility] with known cerebral palsy presents with shortness of breath and fevers. Concern for likely aspiration pneumonia versus pneumonitis At this time. Labs appear to be within normal limits , but breathing does appear mildly labored. Patient will likely need speech and swallow eval given episodes of choking noted by caregiver. We'll initiate antibiotics and monitor. Plan / VTE VTE Prophylaxis Ordered?: Yes Plan / Urinary Catheter Urinary Catheter: Other Catheter: (suprapubic catheter which is chronic) Plan Plan Shortness of breath and fevers concerning for possible aspiration pneumonia versus pneumonitis Patient has had multiple admissions for similar issues in the past. As per caregiver, patient has been trouble swallowing and has been noted to choke when eating. No elevated white count, but he is hypoxic and ABG that shows some CO2 retention. CXR does appear to have new infiltrate noted with official read pending. Status post ceftriaxone and azithromycin in the ER. - Switched to Levaquin 750 mg IV every 24 - Speech and swallow eval - Aspiration precautions - head of bed should be elevated - Stowell thick liquids and pured diet for now - Tylenol for fevers when necessary - Albuterol MDI for shortness of breath every 4 hours when necessary - Continue with supplemental O2 to maintain saturation greater than 92% as needed - Follow up pro-calcitonin levels- if negative, can consider discontinuation of antibiotics Suprapubic catheter Chronic issue for patient. Given his functional quadriplegia. UA does appear to be dirty, which may be responsible for fever as well. - Follow up urine culture - Continue with suprapubic catheter care Congenital quadriplegia Chronic issue. - Continue with frequent turning and repositioning to avoid pressure ulcers as per nursing staff CP (cerebral palsy), spastic Chronic issue. Currently at baseline mental status as per caregiver Hypertension Currently normotensive at this time. - Continue lisinopril as per home dose Diet: Continue Current Activity: Bedrest Medications: Bowel Regimen, Start Antibiotics Respiratory: Increase Oxygen Diagnostics: Check Labs Anticipated Discharge: Other Anticipated D/C LAKSHMI STAPLES MD Sep 28, 2019 22:42
[2019-09-28] MEDS ORDERED: BISACODYL 10 MG SUPP PR PRN (22:45)
[2019-09-28] MEDS ORDERED: NYSTATIN 100,000 UNITS/GM TOPICAL PWD 15 GM TOP PRN (22:45)
[2019-09-28 23:15] VITALS: BP 98/67
[2019-09-29] MEDS: PANTOPRAZOLE 40MG TAB (PROTONIX) PO SCH ×3 (00:26→21:31)
[2019-09-29] MEDS: DOCUSATE SODIUM 100 MG CAP PO SCH ×3 (00:26→21:32)
[2019-09-29 01:40] VITALS: BP 104/62
[2019-09-29 06:00] VITALS: BP 130/64
[2019-09-29] MEDS: HEPARIN SOD (PORCINE) 5000 UNITS/ML VIAL (J1644 PER 1000UNITS) SC SCH ×3 (06:01→21:31)
[2019-09-29 06:13] LABS: HEMATOCRIT 42.1 % (42.0-52.0); HEMOGLOBIN 13.4 g/dl (13.5-17.5); MEAN CORPUSCULAR HEMOGLOBIN 29.8 pg (27.0-33.0); MEAN CORPUSCULAR HGB CONC 31.8 g/dl (32.0-36.5); MEAN CORPUSCULAR VOLUME 93.8 fl (80.0-96.0); PLATELET COUNT, AUTOMATED 186 10^3/uL (150-450); RED BLOOD COUNT 4.49 10^6/uL (4.30-6.10); WHITE BLOOD COUNT 8.4 10^3/uL (4.0-10.0)
[2019-09-29 06:37] LABS: ALBUMIN 2.6 GM/DL (3.2-5.2); ALT/SGPT 17 U/L (12-78); BILIRUBIN,TOTAL 0.5 MG/DL (0.2-1.0); BLOOD UREA NITROGEN 13 MG/DL (7-18); CALCIUM LEVEL 8.3 MG/DL (8.8-10.2); CARBON DIOXIDE LEVEL 26 MEQ/L (21-32); CHLORIDE LEVEL 103 MEQ/L (98-107); CREATININE FOR GFR 0.69 MG/DL (0.70-1.30); GLOMERULAR FILTRATION RATE > 60.0 (>42); GLUCOSE, FASTING 95 MG/DL (70-100); POTASSIUM SERUM 4.2 MEQ/L (3.5-5.1); SODIUM LEVEL 135 MEQ/L (136-145); TOTAL PROTEIN 5.9 GM/DL (6.4-8.2)
--- NOTE | 2019-09-29 07:58 | REP ---
Clinical: Fever. Comparison: 08/27/2019. Findings: Examination is limited by portable technique. Mediastinum and cardiac silhouette are stable with suspected hiatal hernia again noted. Chronic pleuroparenchymal changes noted without acute consolidation, obvious effusion or pneumothorax. Skeletal structures intact. Impression: Chronic stable changes. No obvious acute consolidation or effusion. Electronically Signed by Abdiel Anderson MD 09/29/2019 07:49 A
[2019-09-29] MEDS: MIRALAX *UNIT DOSE* 17GM PACKET PO SCH (09:32)
[2019-09-29] MEDS: LevoFLOXacin IV 750 MG in IV 1 EA IV SCH (09:32)
--- NOTE | 2019-09-29 13:16 | IPNPDOC ---
Subjective Date Seen The patient was seen on 09/29/19. Subjective Chief Complaint/HPI BrotherDada at bedside. Afebrile this am, no respiratory distress, Butch is resting comfortably in bed. Objective Physical Examination General Exam: Positive: Alert, No Acute Distress Eye Exam: Positive: Conjunctiva & lids normal; Negative: Sclera icteric ENT Exam: Positive: Atraumatic, Mucous membr. moist/pink; Negative: Pharyngeal Edema Neck Exam: Positive: Supple; Negative: JVD, thyromegaly Chest Exam: Positive: Clear to auscultation; Negative: Rales, Rhonchi Heart Exam: Positive: Rate Normal, Regular Rhythm, Normal S1, Normal S2; Negative: Murmurs Abdomen Exam: Positive: Normal bowel sounds, Soft, Other (patient has no feeling below T10 due to his congenital condition); Negative: Tenderness, Hepatospenomegaly Male Exam: Positive: Normal Genital Exam (suprapubic cath insertsion site c/d/i) Extremity Exam: Positive: Other (atrophy noted of his bilateral lower extremities with decreased muscle tone and spasticity which is baseline); Negative: Clubbing, Edema Skin Exam: Positive: Nl turgor and temperature, Rash Neuro Exam: Positive: Normal Gait, Normal Tone, Sensation Intact, Other Psych Exam: Positive: Other (oriented to self only) Assessment /Plan Assessment # possible aspiration pneumonia versus pneumonitis causing sob - continue Levaquin 750 mg IV every 24 - Speech and swallow eval - Aspiration precautions - head of bed should be elevated - Meyer thick liquids and pured diet for now - nebs - procalcitonin pending # Possible UTi due to indwelling Suprapubic catheter - continue levaquin - awaiting u.cx # Congenital quadriplegia - Continue with frequent turning and repositioning to avoid pressure ulcers as per nursing staff # CP Chronic incurable problem # Hypertension - continue lisinopril t Dispo: back to [facility] once cultures resulted and afebrile, likely next 1-2 days Plan/VTE VTE Prophylaxis Ordered?: Yes (hep sq) VTE Exclusion Mechanical Proph: N/A:VTE Prophy Ordered VTE Exclusion Pharmacological: N/A:VTE Prophy Ordered VS, I&O, 24H, Fishbone Vital Signs/I&O Vital Signs Date Time Temp Pulse Resp B/P (MAP) Pulse Ox O2 Delivery O2 Flow Rate FiO2 09/29/19 06:00 97.0 62 20 130/64 (86) 95 Room Air I&O- Last 24 Hours up to 6 AM 09/29/19 05:59 Intake Total 305 ml Balance 305 ml Laboratory Data 24H LABS Laboratory Tests 2 09/28/19 20:28: Immature Granulocyte % (Auto) 0.5, Neutrophils (%) (Auto) 74.1H, Lymphocytes (%) (Auto) 11.5L, Monocytes (%) (Auto) 11.6H, Eosinophils (%) (Auto) 1.8, Basophils (%) (Auto) 0.5, Neutrophils # (Auto) 6.5, Lymphocytes # (Auto) 1.0L, Monocytes # (Auto) 1.0H, Eosinophils # (Auto) 0.2, Basophils # (Auto) 0.0, Nucleated Red Blood Cells % (auto) 0.0, Urine Color ANTONETTE, Urine Appearance TURBIDH, Urine pH 5.0, Urine Specific Jackson 1.023, Urine Protein 2+H, Urine Glucose (UA) NEGATIVE, Urine Ketones TRACEH, Urine Blood 1+H, Urine Nitrite NEGATIVE, Urine Bilirubin NEGATIVE, Urine Urobilinogen 0.2, Urine Leukocyte Esterase 3+H, Urine WBC (Auto) TNTCH, Urine RBC (Auto) 164H, Urine Hyaline Casts (Auto) 0, Urine Bacteria (Auto) 2+H, Urine Squamous Epithelial Cells 5, Urine Calcium Oxalate Cryst (Auto) SMALL, Urine Amorphous Sediment SMALLH, Urine Granular Casts (Auto) 9, Urine Mucus (Auto) LARGE, Urine Sperm (Auto) , Blood Gas Bicarbonate Standard 22.6, Arterial Blood pH 7.336L, Arterial Blood Partial Pressure CO2 46.5H, Arterial Blood Partial Pressure O2 51.2L, Arterial Blood Total CO2 25.7, Arterial Blood HCO3 24.3, Arterial Blood Base Excess -1.9, Arterial Blood Oxygen Saturation 85.7L, Anion Gap 7L, Glomerular Filtration Rate > 60.0, Lactic Acid Level 1.1, Calcium Level 8.4L, Influenza Type A (RT-PCR) NEGATIVE, Influenza Type B (RT-PCR) NEGATIVE 09/29/19 05:32: Nucleated Red Blood Cells % (auto) 0.0, Anion Gap 6L, Glomerular Filtration Rate > 60.0, Calcium Level 8.3L, Total Bilirubin 0.5, Aspartate Amino Transf (AST/SGOT) 10, Alanine Aminotransferase (ALT/SGPT) 17, Alkaline Phosphatase 70, Total Protein 5.9L, Albumin 2.6L, Albumin/Globulin Ratio 0.79L CBC/BMP Laboratory Tests 09/28/19 20:28 09/29/19 05:32 Microbiology Microbiology 09/28/19 Urine Culture, Received Pending 09/28/19 Blood Culture, Received Pending SUMMER WELSH MD Sep 29, 2019 13:16
[2019-09-29 14:00] VITALS: BP 132/69
--- NOTE | 2019-09-29 14:14 | PHACANCOPD ---
PHARMACY VANCOMYCIN DOSING Pt Demographics Demographics Patient Age:74 , Weight:93.900 , Gender: male Adjusted Body Weight Date: 09/29/19, Adjusted Body Weight: [84.12] Kg Events Past 24 Hours Events Past 24 Hours: NO: Dialysis, Diuretic Therapy, Change in CrCl, Fever, Elevation in WBC, Pending Diagnostics, Pending Procedures, Other Vancomycin Vancomycin indication: GPC BACTEREMIA Vancomycin Target Ranges: 10-20 mcg/ml Vancomycin Load Y/N: Yes Load Dose Date Time Vancomycin Load Dose:2G Date:09/29/19 Time: 15:00 Vancomycin Dose Date: 09/29/19. Current Vancomycin Dose: [1G IV Q12H] Intermittent Dosing?: No Labs Labs Item Value Date Time White Blood Count 8.8 10^3/uL 09/28/192027 White Blood Count 8.4 10^3/uL 09/29/19 0532 Creatinine 0.75 MG/DL 09/28/192027 Creatinine 0.69 MG/DL L 09/29/19 0532 Micro Microbiology 09/28/19 Urine Culture, Received Pending 09/28/19 Blood Culture - Preliminary, Resulted Creatinine Clearance Date:09/29/19. Creatinine Clearance: [~71ML/MIN ESTIMATED]. Pending Labs VANCOMYCIN TROUGH 09/29/29 @14:00 Assessment and Plan Maintaining Current Dose?: Yes Reason for dose change: No Dose Change Pharmacist Note Pharmacist Note Date: 09/29/19. Pharmacist note: Pt is a 74 year old male being treated for GPC bacteremia goal trough 10-20mcg/ml. The patient was last treated with vancomycin here at [facility] in 2013. To achieve goal the pt will receive a 2g loading dose 09/29/19 @15:00. Maintenance therapy will consist of 1g IV every 12 hours. A trough is scheduled 09/30/19 @14:00 prior to the third dose. We will continue to monitor and adjust the dose as needed. ROBERT HASSAN PHARMACY Sep 29, 2019 14:14
[2019-09-29] MEDS: VANCOMYCIN HCL 1,000 MG, VIAL MATE ADAPTER 1 EACH in D5W 250 ML IV SCH (15:13)
[2019-09-29] MEDS ORDERED: VANCOMYCIN HCL 1,000 MG, VIAL MATE ADAPTER 1 EACH in D5W 250 ML IV ONE (16:00)
[2019-09-29] MEDS: ASPIRIN 81 MG ENTERIC TAB PO SCH (21:31)
[2019-09-29] MEDS: lisinopriL 10 MG TAB PO SCH (21:31)
[2019-09-29 22:00] VITALS: BP 121/72
[2019-09-30] MEDS: VANCOMYCIN HCL 1,000 MG, VIAL MATE ADAPTER 1 EACH in D5W 250 ML IV SCH ×2 (03:14→14:57)
[2019-09-30 06:00] VITALS: BP 129/64
[2019-09-30] MEDS: HEPARIN SOD (PORCINE) 5000 UNITS/ML VIAL (J1644 PER 1000UNITS) SC SCH ×3 (06:12→21:51)
[2019-09-30 06:20] LABS: HEMATOCRIT 39.9 % (42.0-52.0); HEMOGLOBIN 13.1 g/dl (13.5-17.5); MEAN CORPUSCULAR HEMOGLOBIN 30.7 pg (27.0-33.0); MEAN CORPUSCULAR HGB CONC 32.8 g/dl (32.0-36.5); MEAN CORPUSCULAR VOLUME 93.4 fl (80.0-96.0); PLATELET COUNT, AUTOMATED 177 10^3/uL (150-450); RED BLOOD COUNT 4.27 10^6/uL (4.30-6.10); WHITE BLOOD COUNT 6.1 10^3/uL (4.0-10.0)
[2019-09-30 06:55] LABS: ALBUMIN 2.6 GM/DL (3.2-5.2); ALT/SGPT 17 U/L (12-78); BILIRUBIN,TOTAL 0.5 MG/DL (0.2-1.0); BLOOD UREA NITROGEN 11 MG/DL (7-18); CALCIUM LEVEL 8.4 MG/DL (8.8-10.2); CARBON DIOXIDE LEVEL 27 MEQ/L (21-32); CHLORIDE LEVEL 105 MEQ/L (98-107); CREATININE FOR GFR 0.72 MG/DL (0.70-1.30); GLOMERULAR FILTRATION RATE > 60.0 (>42); GLUCOSE, FASTING 106 MG/DL (70-100); POTASSIUM SERUM 3.9 MEQ/L (3.5-5.1); SODIUM LEVEL 137 MEQ/L (136-145); TOTAL PROTEIN 5.8 GM/DL (6.4-8.2)
[2019-09-30] MEDS: LevoFLOXacin IV 750 MG in IV 1 EA IV SCH (08:31)
[2019-09-30] MEDS: DOCUSATE SODIUM 100 MG CAP PO SCH ×2 (08:31→21:50)
[2019-09-30] MEDS: PANTOPRAZOLE 40MG TAB (PROTONIX) PO SCH ×2 (08:31→21:50)
[2019-09-30] MEDS: MIRALAX *UNIT DOSE* 17GM PACKET PO SCH (08:31)
--- NOTE | 2019-09-30 12:49 | IPNPDOC ---
Subjective Date Seen The patient was seen on 09/30/19. Subjective Chief Complaint/HPI Dada updated at bedside about possible bacteremia. Butch is afebrile and breathing room air w/o labored breaths Objective Physical Examination General Exam: Positive: Alert, No Acute Distress Eye Exam: Positive: Conjunctiva & lids normal; Negative: Sclera icteric ENT Exam: Positive: Atraumatic, Mucous membr. moist/pink; Negative: Pharyngeal Edema Neck Exam: Positive: Supple; Negative: JVD, thyromegaly Chest Exam: Positive: Clear to auscultation; Negative: Rales, Rhonchi Heart Exam: Positive: Rate Normal, Regular Rhythm, Normal S1, Normal S2; Negative: Murmurs Abdomen Exam: Positive: Normal bowel sounds, Soft, Other (patient has no feeling below T10 due to his congenital condition); Negative: Tenderness, Hepatospenomegaly Male Exam: Positive: Normal Genital Exam (suprapubic cath insertsion site c/d/i) Extremity Exam: Positive: Other (atrophy noted of his bilateral lower extremities with decreased muscle tone and spasticity which is baseline); Negative: Clubbing, Edema Skin Exam: Positive: Nl turgor and temperature, Rash Neuro Exam: Positive: Normal Gait, Normal Tone, Sensation Intact, Other Psych Exam: Positive: Other (oriented to self only) Assessment /Plan Assessment # Possible aspiration pneumonitis - less likely aspiration pneumonia with normal procalcitonin, unless it was drawn early in course of infection. Clinically stable so no need to repeat procalcitonin - continue Levaquin 750 mg IV every 24 - Speech consult reviewed recommend mech soft NTL diet - Aspiration precautions - nebs - procalcitonin normal # Fever with polymicrobial bacteremia (GPC + GPR) - await results to see if contaminant or true infection - repeat b.cx today - continue day # 2 vancomycin (pharm dosing) # Possible UTI vs. colonization due to indwelling Suprapubic catheter - continue levaquin - awaiting u.cx # Congenital quadriplegia - Continue with frequent turning and repositioning to avoid pressure ulcers as per nursing staff # CP - Chronic incurable problem # Hypertension - continue lisinopril Plan/VTE VTE Prophylaxis Ordered?: Yes (hep sq) VTE Exclusion Mechanical Proph: N/A:VTE Prophy Ordered VTE Exclusion Pharmacological: N/A:VTE Prophy Ordered VS, I&O, 24H, Fishbone Vital Signs/I&O Vital Signs Date Time Temp Pulse Resp B/P (MAP) Pulse Ox O2 Delivery O2 Flow Rate FiO2 09/30/19 06:00 98.0 71 18 129/64 (85) 96 09/29/19 14:00 Room Air I&O- Last 24 Hours up to 6 AM 09/30/19 06:00 Intake Total 1500 ml Output Total 1650 ml Balance -150 ml Laboratory Data 24H LABS Laboratory Tests 2 09/30/19 06:02: Nucleated Red Blood Cells % (auto) 0.0, Anion Gap 5L, Glomerular Filtration Rate > 60.0, Calcium Level 8.4L, Total Bilirubin 0.5, Aspartate Amino Transf (AST/SGOT) 9, Alanine Aminotransferase (ALT/SGPT) 17, Alkaline Phosphatase 72, Total Protein 5.8L, Albumin 2.6L, Albumin/Globulin Ratio 0.81L 09/30/19 07:43: Lab Scanned Report LAB OTHER CBC/BMP Laboratory Tests 09/30/19 06:02 Microbiology Microbiology 09/30/19 Blood Culture, Received Pending 09/28/19 Urine Culture, Received Pending 09/28/19 Blood Culture - Preliminary, Resulted SUMMER WELSH MD Sep 30, 2019 12:49
[2019-09-30 14:00] VITALS: BP 123/72
--- NOTE | 2019-09-30 14:51 | PHACANCOPD ---
PHARMACY VANCOMYCIN DOSING Pt Demographics Demographics Patient Age:74 , Weight:93.900 , Gender: male Adjusted Body Weight Date: 09/29/19, Adjusted Body Weight: [84.12] Kg Events Past 24 Hours Events Past 24 Hours: NO: Dialysis, Diuretic Therapy, Change in CrCl, Fever, Elevation in WBC, Pending Diagnostics, Pending Procedures, Other Vancomycin Vancomycin indication: GPC BACTEREMIA Vancomycin Target Ranges: 10-20 mcg/ml Vancomycin Load Y/N: Yes Load Dose Date Time Vancomycin Load Dose:2G Date:09/29/19 Time: 15:00 Vancomycin Dose Date: 09/29/19. Current Vancomycin Dose: [1G IV Q12H] Intermittent Dosing?: No Labs Labs Item Value Date Time Vancomycin Level Trough 15.6 UG/ML 09/30/19 1356 Creatinine 0.75 MG/DL 09/28/192027 Creatinine 0.69 MG/DL L 09/29/19 0532 Creatinine 0.72 MG/DL 09/30/19 0602 White Blood Count 8.8 10^3/uL 09/28/192027 White Blood Count 8.4 10^3/uL 09/29/19 0532 White Blood Count 6.1 10^3/uL 09/30/19 0602 Vital Signs Label Value Date Time Patient Temperature 99.6 degrees F 09/30/19 1400 Temperature Source Temporal 09/30/19 1400 Patient Temperature 98.0 degrees F 09/30/19 0600 Temperature Source Temporal 09/30/19 0600 Patient Temperature 97.6 degrees F 09/29/19 2200 Temperature Source Temporal 09/29/19 2200 Micro Microbiology 09/30/19 Blood Culture, Received Pending 09/28/19 Urine Culture, Received Pending 09/28/19 Blood Culture - Preliminary, Resulted Creatinine Clearance Date:09/29/19. Creatinine Clearance: [~71ML/MIN ESTIMATED]. Pending Labs VANCOMYCIN TROUGH 09/29/29 @14:00 Assessment and Plan Maintaining Current Dose?: Yes Reason for dose change: No Dose Change Pharmacist Note Pharmacist Note 09/30/19: Trough today resulted at 15.6mcg/ml. This is within our goal. We will continue the current dose of Vanco 1G IV Q12H @1500. Lab cultures still pending. Will continue to monitor and adjust dose as needed. Date: 09/29/19. Pharmacist note: Pt is a 74 year old male being treated for GPC bacteremia goal trough 10-20mcg/ml. The patient was last treated with vancomycin here at [facility] in 2013. To achieve goal the pt will receive a 2g loading dose 09/29/19 @15:00. Maintenance therapy will consist of 1g IV every 12 hours. A trough is scheduled 09/30/19 @14:00 prior to the third dose. We will continue to monitor and adjust the dose as needed. EDWARD LEMUS PHARMACY Sep 30, 2019 14:51
[2019-09-30 21:50] VITALS: BP 136/77
[2019-09-30] MEDS: ASPIRIN 81 MG ENTERIC TAB PO SCH (21:50)
[2019-09-30] MEDS: lisinopriL 10 MG TAB PO SCH (21:50)
[2019-09-30 22:00] VITALS: BP 134/74
[2019-10-01] MEDS: VANCOMYCIN HCL 1,000 MG, VIAL MATE ADAPTER 1 EACH in D5W 250 ML IV SCH (02:55)
[2019-10-01] MEDS: HEPARIN SOD (PORCINE) 5000 UNITS/ML VIAL (J1644 PER 1000UNITS) SC SCH (05:16)
[2019-10-01 06:00] VITALS: BP 149/87
[2019-10-01] MEDS: DOCUSATE SODIUM 100 MG CAP PO SCH (09:00)
[2019-10-01] MEDS: MIRALAX *UNIT DOSE* 17GM PACKET PO SCH (09:00)
[2019-10-01] MEDS: PANTOPRAZOLE 40MG TAB (PROTONIX) PO SCH (09:35)
[2019-10-01] MEDS ORDERED: LEVA750T7 PO (10:01)
[2019-10-01] MEDS ORDERED: AUGM875T28 PO (10:01)
[2019-10-01] MEDS ORDERED: LevoFLOXacin 750 MG TABLET PO ONE (11:00)
--- NOTE | 2019-10-01 17:56 | DS.PDOC ---
Discharge Summary General Date of Admission Sep 30, 2019 at 07:43 Date of Discharge 10/01/19 Discharge Summary DISCHARGE DIAGNOSES: aspiration pneumonitis UTI due to indwelling Suprapubic catheter History of chronic indwelling catheter Congenital quadriplegia Cerebral Palsy Hypertension Contaminated blood culture DISCHARGE MEDICATIONS: pls see below HOSPITAL COURSE: 74-year-old [facility] resident with past medical history of cerebral palsy, indwelling suprapubic catheter, dementia presents with fever, respiratory distre ss with conversational dyspnea, and dysphagia to solids when taking his medications. Pt was admitted for possible aspiration pneumonitis, UTI due to chronic catheter, and was found to have pseudomonas and enteroccus in urine culture and contaminated blood culture. aspiration pneumonitis -evaluated by swallow therapist who recommended mechanical soft diet. -kept on aspiration precautions UTI due to indwelling Suprapubic catheter - initially on vancomycin and levaquin - cx: pseudomonas and enterococcus -to complete full course of augmentin for enteroccocus and levaquin for pseudomonas as outpt. Congenital quadriplegia - Continue with frequent turning and repositioning to avoid pressure ulcers as per nursing staff CP - Chronic incurable problem Hypertension - continue lisinopril Contaminated blood culture -monitor for recurrent fevers at home. -immediate fu w pcp for review of systems after discharge and de-escalation of abx. DISCHARGE MEDICATIONS: Please see below. ALLERGIES: Please see below. PHYSICAL EXAMINATION ON DISCHARGE: VITAL SIGNS: Please see below. General Exam: Positive: Alert, Cooperative, No Acute Distress, Eye Exam: Positive: PERRLA, Conjunctiva & lids normal, EOMI ENT Exam: Positive: Atraumatic, Mucous membr. moist/pink; Negative: Pharyngeal Edema Neck Exam: Positive: Supple; Negative: JVD, thyromegaly Chest Exam: Positive: diminished. faint crackles at the bases Heart Exam: Positive: Rate Normal, Regular Rhythm, Normal S1, Normal S2; Negative: Murmurs Abdomen Exam: Positive: Normal bowel sounds, Soft nondistended Negative: Tenderness, Hepatospenomegaly Extremity Exam: Positive: Other (atrophy noted of his bilateral lower extremities with decreased muscle tone and spasticity which is baseline); Negative: Clubbing, Edema LABORATORY DATA: Please see below. IMAGING: Clinical: Fever. Comparison: 08/27/2019. Findings: Examination is limited by portable technique. Mediastinum and cardiac silhouette are stable with suspected hiatal hernia again noted. Chronic pleuroparenchymal changes noted without acute consolidation, obvious effusion or pneumothorax. Skeletal structures intact. Impression: Chronic stable changes. No obvious acute consolidation or effusion. Electronically Signed by Abdiel Anderson MD 09/29/2019 07:49 A DD: Abdiel Anderson MD 09/29/19 0748 DT: Canelo 09/29/1949 DS: FITO 09/29/19 0749 09/29/1949 TIME SPENT ON DISCHARGE: 30 min Vital Signs/I&Os Vital Signs Date Time Temp Pulse Resp B/P (MAP) Pulse Ox O2 Delivery O2 Flow Rate FiO2 10/01/19 06:00 98.4 61 20 149/87 (107) 94 09/30/19 14:00 Room Air I&O- Last 24 Hours up to 6 AM 10/01/19 06:00 Intake Total 600 ml Output Total 1500 ml Balance -900 ml Microbiology Microbiology 09/30/19 Blood Culture - Preliminary, Resulted No growth after 24 hours . All specim... 09/28/19 Urine Culture - Preliminary, Resulted Pseudomonas Aeruginosa Enterococcus Faecalis 09/28/19 Blood Culture - Preliminary, Resulted Staphylococcus Warneri Discharge Medications Scheduled Ammonium Lactate (Ammonium Lactate) 12 % Lot, 1 APLCT TOP QHS, (Reported) APPLIES TO FEET Amoxicillin/Potassium Clav (Augmentin 875-125 Tablet) 1 Each Tablet, 1 TAB PO BID Aspirin (Aspir 81) 81 Mg Tablet.dr, 81 MG PO QHS, (Reported) Calcium Carbonate/Vitamin D3 (Calcium 600-Vit D3 400 Tablet) 1 Tab Tab, 1 TAB PO DAILY, (Reported) Cranberry Fruit Extract (Cranberry) 500 Mg Capsule, 500 MG PO BID, (Reported) Docusate Sodium (Colace) 100 Mg Cap, 100 MG PO BID, (Reported) Levofloxacin (Levaquin) 750 Mg Tablet, 750 MG PO DAILY Lisinopril (Lisinopril) 10 Mg Tab, 10 MG PO QHS, (Reported) Melatonin (Melatonin) 5 Mg Tab, 5 MG PO QHS, (Reported) Oxybutynin Chloride (Oxybutynin Chloride ER) 5 Mg Tab.er.24, 5 MG PO BID, (Reported) Pantoprazole Sodium (Protonix) 40 Mg Tab, 40 MG PO BID, (Reported) Polyethylene Glycol 3350 (Miralax) 17 Gm Powd.pack, 17 GM PO DAILY, (Reported) MIXES IN NECTAR THICK Zinc Oxide (Desitin) 454 Gm Cream..g., 1 APLCT TOP QHS, (Reported) APPLY TO AREAS OF RASH/ITCHING Scheduled PRN Bisacodyl (Dulcolax) 10 Mg Sup, 10 MG LA for CONSTIPATION, (Reported) TO BE USED ON DAY 5 WITHOUT A BM Magnesium Hydroxide (Milk of Magnesia) 400 Mg/5 Ml Oral.susp, 2,400 MG PO DAILY PRN for CONSTIPATION, (Reported) TAKES ON DAYS 3 AND 4 OF NO BM Nystatin (Nystatin Powder) 15 Gm Powder, 1 APLCT TOP BID PRN for RASH, (Reported) APPLY TO GROIN AND ABDOMEN AREA Zinc Oxide (Desitin) 454 Gm Cream..g., 1 APLCT TOP DAILY PRN for RASH/ITCHING, (Reported) Allergies Coded Allergies: codeine (Verified Adverse Reaction, Intermediate, [facility], 08/27/19) ALFONSO RINALDI MD Oct 01, 2019 17:44
== END 2019-10-01 11:44 | DRG 698 ==
LOC: M ED 19:53 → M ED INP 19:54 → ENRESERVDT 22:43 → ENRESERVTM 22:43 → M MSPAV 23:15 → OBSVTOIN 09-30 07:43
PROVIDERS: ADMIT Internal Medicine; ATTEND General Practice
DX: T83.511A Infection and inflammatory reaction due to indwelling urethral catheter, initial encounter (principal); J69.0 Pneumonitis due to inhalation of food and vomit; G80.0 Spastic quadriplegic cerebral palsy; I10 Essential (primary) hypertension; F03.90 Unspecified dementia, unspecified severity, without behavioral disturbance, psychotic disturbance, mood disturbance, and anxiety; N39.0 Urinary tract infection, site not specified; B96.5 Pseudomonas (aeruginosa) (mallei) (pseudomallei) as the cause of diseases classified elsewhere; Z79.82 Long term (current) use of aspirin; Z79.899 Other long term (current) drug therapy; Z88.5 Allergy status to narcotic agent; Y84.6 Urinary catheterization as the cause of abnormal reaction of the patient, or of later complication, without mention of misadventure at the time of the procedure

== ENCOUNTER 2019-10-24 18:20 | Inpatient (IN) | payer MEDICARE, MEDICAID ==
[~2019-10-24] VITALS: Ht 167.6 cm; Wt 97.9 kg
[~2019-10-24 18:20] MED LIST changes: +AUGM875T28 PO; +OXYB-54 PO
--- NOTE | 2019-10-24 19:11 | REP ---
Clinical: Cough and dyspnea. Comparison: 09/28/2019. Findings: Examination is limited by portable technique, underpenetration, and rotation. Ill-defined infiltrate in the left lung base with possible small layering left effusion. Remainder of the lung arambula are clear. No pneumothorax. Mediastinum and cardiac silhouette stable. Skeletal structures intact. Impression: Left lower lobe consolidation along with suspected small pleural reaction/effusion. Electronically Signed by Abdiel Anderson MD 10/24/2019 07:02 P
[2019-10-24 19:17] LABS: BASO % 0.4 % (0.0-1.0); EOS # 0.4 10^3/uL (0.0-0.5); EOS % 4.4 % (0.0-3.0); HEMATOCRIT 41.9 % (42.0-52.0); HEMOGLOBIN 13.7 g/dl (13.5-17.5); LYMPH % 11.7 % (24.0-44.0); MEAN CORPUSCULAR HEMOGLOBIN 30.4 pg (27.0-33.0); MEAN CORPUSCULAR HGB CONC 32.7 g/dl (32.0-36.5); MEAN CORPUSCULAR VOLUME 92.9 fl (80.0-96.0); MONO # 0.9 10^3/uL (0.0-0.8); MONO % 11.1 % (0.0-5.0); NEUTROPHILS # 5.9 10^3/uL (1.5-8.5); NEUTROPHILS % 71.8 % (36.0-66.0); PLATELET COUNT, AUTOMATED 217 10^3/uL (150-450); RED BLOOD COUNT 4.51 10^6/uL (4.30-6.10); WHITE BLOOD COUNT 8.1 10^3/uL (4.0-10.0)
[2019-10-24 19:49] LABS: ALBUMIN 2.8 GM/DL (3.2-5.2); ALT/SGPT 15 U/L (12-78); BILIRUBIN,DIRECT 0.1 MG/DL (0.0-0.2); BILIRUBIN,TOTAL 0.3 MG/DL (0.2-1.0); BLOOD UREA NITROGEN 11 MG/DL (7-18); CALCIUM LEVEL 8.4 MG/DL (8.8-10.2); CARBON DIOXIDE LEVEL 25 MEQ/L (21-32); CHLORIDE LEVEL 106 MEQ/L (98-107); CPK CREATINE PHOSPHOKINASE 74 U/L (39-308); CREATININE FOR GFR 0.74 MG/DL (0.70-1.30); GLOMERULAR FILTRATION RATE > 60.0 (>42); GLUCOSE, FASTING 123 MG/DL (70-100); MB/CK RELATIVE INDEX 4.05 (< OR =4); NT-PRO BNP 337 PG/ML (<125); POTASSIUM SERUM 4.4 MEQ/L (3.5-5.1); SODIUM LEVEL 136 MEQ/L (136-145); THYROID STIMULATING HORMONE 0.688 uIU/ML (0.358-3.740); TOTAL PROTEIN 5.9 GM/DL (6.4-8.2); TROPONIN I < 0.02 NG/ML (< 0.10)
[2019-10-24] MEDS ORDERED: PIPERACILLIN/TAZOBACTAM SOD 4.5 GM in D5W MINI-BAG PLUS 50 ML IV ONE (20:00)
[2019-10-24] MEDS ORDERED: OXYB5TAB10 PO (20:34)
[2019-10-24] MEDS ORDERED: oxyBUTYnin 5 MG TAB PO SCH (21:00)
[2019-10-24] MEDS ORDERED: DOCUSATE SODIUM 100 MG CAP PO SCH (21:00)
[2019-10-24] MEDS ORDERED: PANTOPRAZOLE 40MG TAB (PROTONIX) PO SCH (21:00)
[2019-10-24] MEDS ORDERED: MOM 30ML SUSPENSION UDC PO PRN (21:15)
[2019-10-24] MEDS ORDERED: BISACODYL 10 MG SUPP PR PRN (21:15)
[2019-10-24] MEDS ORDERED: ACETAMINOPHEN TAB 650MG DOSE (2X325MG) PO PRN (21:15)
[2019-10-24] MEDS ORDERED: guaiFENesin SYRUP 200 MG/10 ML UDC PO PRN (21:30)
--- NOTE | 2019-10-24 23:08 | HPEPDOC ---
[facility] Medical History & Physical Date of Admission Oct 24, 2019 Date of Service: Oct 24, 2019 Attending Physician: A History and Physical CHIEF COMPLAINT: SOB and aspiration HISTORY OF PRESENT ILLNESS: This is a 74-year-old male from [facility] [[email or web address] with past medical history of cerebral palsy, indwelling suprapubic catheter, dementia presents with shortness of breath and possible aspiration. He arrived via EMS from [facility] [[email or web address]] and was accompanied by his nurse Catherine who provided the history. The caregiver has concerns of possible aspiration for he was having shortness of abram ath earlier this evening during his meal time. She states that he was satting appropriately between 94-97% on room air, on labored breathing and respirations were within normal limits. Caregiver states that he appears much better since being in the ER but believes he is aspirating with mealtime. She denies any fevers, change in appetite, cough, or change from any baseline. PAST MEDICAL HISTORY: 1. Cerebral palsy 2. Chronic Suprapubic catheter 3. Dementia HOME MEDICATIONS: Please see below. ALLERGIES: Please see below PAST SURGICAL HISTORY: 1. Caregiver does not recall SOCIAL HISTORY: Lives with: [facility] [[email or web address]], Employment: Disabled, Tobacco use: Denies. ETOH: Denies,Illicit drug use: Denies, CODE STATUS: FULL CODE FAMILY HISTORY: Reviewed. Unable to obtain due to CP and caregiver unable to provide. REVIEW OF SYSTEMS: 10 systems could not be reviewed due to baseline cognition PHYSICAL EXAMINATION: VITAL SIGNS: See Below GENERAL: Pleasant 74 year old sitting up in bed awake alert oriented speaking minimal which is baseline for he has 5-year old mentation HEENT: Atraumatic, normocephalic, Moist mucous membranes no elevation in CVP CARDIOVASCULAR: S1, S2 regular no additional heart sounds appreciated. RESPIRATORY: Clear to auscultation bilaterally. Upper respiratory adventitious sounds noted, ABDOMINAL: Bowel sounds present abdomen slightly distended but no tenderness with palpation. EXTREMITIES: No clubbing cyanosis or edema NEUROLOGICAL: Atrophy noted of his bilateral lower extremities with decreased muscle tone and spasticity, patient has no sensation below T10 on exam, which is baseline, PSYCHOLOGICAL: patient alert and oriented only to self per baseline as well LABORATORY DATA: See below. MICROBIOLOGY: Please see below. IMAGING: Chest Xray 10/24/2019 Impression: Left lower lobe consolidation along with suspected small pleural reaction/effusion ASSESSMENT & PLAN: This is a 74-year-old male from [facility] [[email or web address]] with known cerebral palsy presents with shortness of breath and possible aspiration PROBLEMS: 1. Aspiration into airway. 09/30/19 speech recommendation was LEVEL 2 mechanically altered soft solid diet and NECTAR thick liquids, and straws. -caregiver believe patient continues to aspirated into the airway and would like to another evaluation by speech therapy. -no leukocytosis, vitals are stable and lung exam benign. -s/p Zosyn 1 in the ER -Chest x-ray compared to 09/2019 appears improved even though it was read as left lower lobe solid lesion with suspected small pleural reaction. -I dont believe antibiotics are warranted at the current time. -Trend CBC and clinical status the next 24 hours and if needed can resume antibiotics tomorrow. 2. Suprapubic catheter -Chronic - Continue with suprapubic catheter care 3. Congenital quadriplegia -Chronic - Continue with frequent turning and repositioning q2h to avoid pressure ulcers 4. Cerebral palsy spastic -Chronic issue. -at baseline mental status as per caregiver 5. Hypertension -Currently normotensive at this time. -Continue home lisinopril 6. GERD Continue with home Protonix DVT PROPHYLAXIS: Heparin BID [facility] Vital Signs Vital Signs Date Time Temp Pulse Resp B/P (MAP) Pulse Ox O2 Delivery O2 Flow Rate FiO2 10/24/19 21:45 82 93 10/24/19 21:30 130/71 (90) 10/24/19 18:40 Room Air 10/24/19 18:27 99.3 22 Laboratory Data Labs 24H Laboratory Tests 2 10/24/19 19:05: Immature Granulocyte % (Auto) 0.6, Neutrophils (%) (Auto) 71.8H, Lymphocytes (%) (Auto) 11.7L, Monocytes (%) (Auto) 11.1H, Eosinophils (%) (Auto) 4.4H, Basophils (%) (Auto) 0.4, Neutrophils # (Auto) 5.9, Lymphocytes # (Auto) 1.0L, Monocytes # (Auto) 0.9H, Eosinophils # (Auto) 0.4, Basophils # (Auto) 0.0, Nucleated Red Blood Cells % (auto) 0.0, Anion Gap 5L, Glomerular Filtration Rate > 60.0, Lactic Acid Level 1.5, Calcium Level 8.4L, Total Bilirubin 0.3, Direct Bilirubin 0.1, Aspartate Amino Transf (AST/SGOT) 6L, Alanine Aminotransferase (ALT/SGPT) 15, Alkaline Phosphatase 71, Total Creatine Kinase 74, Creatine Kinase MB 3.0, Creatine Kinase MB Relative Index 4.05H, Troponin I < 0.02, ZT-Nzm-S-Type Natriuretic Peptide 337H, Total Protein 5.9L, Albumin 2.8L, Albumin/Globulin Ratio 0.90L, Thyroid Stimulating Hormone (TSH) 0.688 CBC/BMP Laboratory Tests 10/24/19 19:05 Microbiology Microbiology 10/24/19 Blood Culture, Received Pending 10/24/19 Blood Culture, Received Pending Home Medications Scheduled Ammonium Lactate (Ammonium Lactate) 12 % Lot, 1 APLCT TOP QHS APPLIES TO FEET Aspirin (Aspir 81) 81 Mg Tablet.dr, 81 MG PO QHS Calcium Carbonate/Vitamin D3 (Calcium 600-Vit D3 400 Tablet) 1 Tab Tab, 1 TAB PO DAILY Cranberry Fruit Extract (Cranberry) 500 Mg Capsule, 500 MG PO BID Docusate Sodium (Colace) 100 Mg Cap, 100 MG PO BID Lisinopril (Lisinopril) 10 Mg Tab, 10 MG PO QHS Melatonin (Melatonin) 5 Mg Tab, 5 MG PO QHS Oxybutynin Chloride (Oxybutynin Chloride) 5 Mg Tablet, 5 MG PO BID Pantoprazole Sodium (Protonix) 40 Mg Tab, 40 MG PO BID Polyethylene Glycol 3350 (Miralax) 17 Gm Powd.pack, 17 GM PO DAILY MIXES IN NECTAR THICK Zinc Oxide (Desitin) 454 Gm Cream..g., 1 APLCT TOP QHS APPLY TO PERIRECTAL AREA Scheduled PRN Bisacodyl (Dulcolax) 10 Mg Sup, 10 MG LA for CONSTIPATION TO BE USED ON DAY 5 WITHOUT A BM Magnesium Hydroxide (Milk of Magnesia) 400 Mg/5 Ml Oral.susp, 2,400 MG PO DAILY PRN for CONSTIPATION TAKES ON DAYS 3 AND 4 OF NO BM Allergies Coded Allergies: codeine (Verified Adverse Reaction, Intermediate, ALTERS BEHAVIOR, 08/04 11/19) GME ATTESTATION GME ATTESTATION My faculty preceptor for this patient encounter was physically present during the encounter and was fully available. All aspects of the patient interview, examination, medical decision making process, and medical care plan development were reviewed and approved by the faculty preceptor. The faculty preceptor is aware and concurs with the plan as stated in the body of this note and will attest to such by his/her cosignature. ATTENDING NOTE I, Shawna Sofia, have independently examined this patient and performed my own physical exam, as well as reviewed the documentation and edited where necessary. I have discussed in detail with the resident / student the findings and plan of treatment as documented by the resident / student and edited their note. I agree with their findings and treatment plan and have edited their documentation. I will continue to follow the patient during this hospital stay. DAWOOD BOLAÑOS DO Oct 24, 2019 23:08 SHAWNA SOFIA MD Oct 25, 2019 05:02
[2019-10-24 23:53] VITALS: BP 148/81
[2019-10-25] MEDS: ASPIRIN 81 MG ENTERIC TAB PO SCH ×2 (00:11→21:26)
[2019-10-25] MEDS: HEPARIN SOD (PORCINE) 5000UNITS/ML VIAL (J1644 PER 1000UNITS) SC SCH ×3 (00:11→21:25)
[2019-10-25] MEDS: lisinopriL 10 MG TAB PO SCH ×2 (00:11→21:27)
[2019-10-25] MEDS: NS 1,000 ML IV SCH ×2 (00:12→10:20)
[2019-10-25] MEDS: LACTIC ACID 12% LOTION 225 GM BTL TOP SCH ×2 (00:17→21:25)
[2019-10-25] MEDS: NYSTATIN 100,000 UNITS/GM TOPICAL PWD 15 GM TOP SCH ×3 (01:48→21:28)
[2019-10-25] MEDS ORDERED: KETOROLAC 30 MG/ML 1ML VIAL IV PRN (07:30)
[2019-10-25 08:08] LABS: HEMATOCRIT 39.6 % (42.0-52.0); HEMOGLOBIN 13.1 g/dl (13.5-17.5); MEAN CORPUSCULAR HEMOGLOBIN 30.9 pg (27.0-33.0); MEAN CORPUSCULAR HGB CONC 33.1 g/dl (32.0-36.5); MEAN CORPUSCULAR VOLUME 93.4 fl (80.0-96.0); PLATELET COUNT, AUTOMATED 202 10^3/uL (150-450); RED BLOOD COUNT 4.24 10^6/uL (4.30-6.10); WHITE BLOOD COUNT 7.2 10^3/uL (4.0-10.0)
[2019-10-25 08:37] LABS: BLOOD UREA NITROGEN 9 MG/DL (7-18); CALCIUM LEVEL 8.1 MG/DL (8.8-10.2); CARBON DIOXIDE LEVEL 27 MEQ/L (21-32); CHLORIDE LEVEL 106 MEQ/L (98-107); CREATININE FOR GFR 0.67 MG/DL (0.70-1.30); GLOMERULAR FILTRATION RATE > 60.0 (>42); GLUCOSE, FASTING 89 MG/DL (70-100); MAGNESIUM LEVEL 1.9 MG/DL (1.8-2.4); POTASSIUM SERUM 4.3 MEQ/L (3.5-5.1); SODIUM LEVEL 139 MEQ/L (136-145)
[2019-10-25] MEDS: PANTOPRAZOLE 40MG VIAL (C9113 PER 1) IV SCH ×2 (08:48→21:25)
[2019-10-25] MEDS: BISACODYL 10 MG SUPP PR SCH (08:49)
[2019-10-25] MEDS ORDERED: MIRALAX *UNIT DOSE* 17GM PACKET PO SCH (09:00)
[2019-10-25] MEDS: PIPERACILLIN/TAZOBACTAM SOD 3.375 GM in D5W MINI-BAG PLUS 50 ML IV SCH ×3 (10:19→21:25)
[2019-10-25] MEDS ORDERED: E-Z-PAQUE 96% w/w SUSP 176GM BTL As Ordered ONE (11:42)
[2019-10-25] MEDS ORDERED: VARIBAR PUDDING 40% w/v 230ML TUBE As Ordered ONE (11:42)
[2019-10-25] MEDS ORDERED: VARIBAR NECTAR 40% w/v 240ML SUSP BTL As Ordered ONE (11:42)
[2019-10-25] MEDS ORDERED: BARIUM SULFATE 700 MG TABLET (E-Z-DISK) As Ordered ONE (11:42)
[2019-10-25 14:00] VITALS: BP 163/81
--- NOTE | 2019-10-25 14:00 | ECGEPIP ---
[facility] - ED Test Date: 2019-10-24 Pat Name: KP WOOTEN Department: Room: [place] [address] Gender: Male [employer]: celine : 1945 Requested By: OMERO IYER Order Number: [id number] Reading MD: Dominga Davis Measurements Intervals Onida Rate: 82 P: 24 UT: 138 QRS: -15 QRSD: 86 T: 45 QT: 338 QTc: 397 Interpretive Statements SINUS RHYTHM LOW VOLTAGE LIMB NSTTW abnormalities baseline artifact may affect interpretation SIMILAR 07/10/19 Electronically Signed on 10-25-2019 14:00:27 EDT by Dominga Davis
--- NOTE | 2019-10-25 14:55 | IPNPDOC ---
Text Note Date of Service The patient was seen on 10/25/19. NOTE SUBJECTIVE: 74-year-old male from [facility] with history of cerebral palsy, suprapubic catheter, dementia presented yesterday with shortness of breath concerning for possible aspiration. Patient seen and examined this morning at bedside with brother present as well. He is comfortable appearing and per nursing staff their were no acute events overnight. OBJECTIVE: PHYSICAL EXAM: Vitals: (see below) General: No acute distress, sleeping comfortably in bed. HEENT: Normocephalic, atraumatic.Moist mucous membranes. Neck: No JVD, lymphadenopathy, or thyromegaly. Cardiac: RRR, Normal S1 and S2, No murmurs, gallops, rubs. Pulm: Clear to auscultation b/l. Symmetric thorax. No wheezing, crackles. Rhonchorous sounds throughout lungs arambula. Abd: Bowel Sounds present. Abdomen is soft, non-tender, non-distended. Ext: No edema or cyanosis Neuro: No focal neuro deficits LABORATORY DATA, MICROBIOLOGY: Please see below. IMAGING STUDIES: ASSESSMENT AND PLAN: #. Aspiration pneumonia -WBC count normal this AM, but in light of CXR finding will have place patient on Zosyn to cover for aspiration pneumonia. -Patient to undergo barium swallow today, speech to evaluate patient and are recommending honey thickened fluids, and pureed diet. #. Suprapubic catheter -Continue use of catheter #.Congenital quadriplegia -Chronic, nursing aware to frequently turn/reposition to avoid pressure ulcers. #.Cerebral palsy -Chronic -At mental baseline #.Hypertension -Continue lisinopril #. GERD -Continue home Protonix DVT prophylaxis: Heparin VS,Fishbone, I+O VS, Fishbone, I+O Laboratory Tests 10/24/19 19:05 10/25/19 07:29 Vital Signs Date Time Temp Pulse Resp B/P (MAP) Pulse Ox O2 Delivery O2 Flow Rate FiO2 10/25/19 14:00 98.5 65 18 163/81 (108) 97 Room Air I&O- Last 24 Hours up to 6 AM 10/25/19 06:00 Intake Total 50 ml Output Total 425 ml Balance -375 ml GME ATTESTATION GME ATTESTATION My faculty preceptor for this patient encounter was physically present during the encounter and was fully available. All aspects of the patient interview, examination, medical decision making process, and medical care plan development were reviewed and approved by the faculty preceptor. The faculty preceptor is aware and concurs with the plan as stated in the body of this note and will attest to such by his/her cosignature. ATTENDING NOTE I have independently interviewed and examined the patient at the bedside, and agree with the aforementioned management plans and physical findings as documented by my Resident Physician. ANETTE JOHN DO Oct 25, 2019 14:55 ALEXIA CEDILLO MD Oct 28, 2019 19:38
--- NOTE | 2019-10-25 19:31 | REP ---
COOKIE SWALLOW The procedure was performed under the direct supervision of Dr. Zambrano. The procedure was performed with Jewels Grimaldo from speech pathology present. 5 ml aliquots of honey and pudding consistency barium was administered. There is no evidence of penetration or aspiration. A detailed report of this examination will be provided by speech pathology. 0.9 minutes of fluoroscopy time was utilized for this procedure. Electronically Signed by JIM Philip 10/25/2019 03:59 P Electronically Signed by Dewayne Zambrano MD 10/25/2019 07:23 P
[2019-10-25 21:09] VITALS: BP 139/68
[2019-10-25 21:27] VITALS: BP 139/68
[2019-10-26] MEDS: PIPERACILLIN/TAZOBACTAM SOD 3.375 GM in D5W MINI-BAG PLUS 50 ML IV SCH ×2 (04:20→09:16)
[2019-10-26 05:52] VITALS: BP 136/69
[2019-10-26] MEDS: NS 1,000 ML IV SCH (06:50)
[2019-10-26 08:06] LABS: HEMATOCRIT 42.4 % (42.0-52.0); HEMOGLOBIN 13.7 g/dl (13.5-17.5); MEAN CORPUSCULAR HEMOGLOBIN 30.3 pg (27.0-33.0); MEAN CORPUSCULAR HGB CONC 32.3 g/dl (32.0-36.5); MEAN CORPUSCULAR VOLUME 93.8 fl (80.0-96.0); PLATELET COUNT, AUTOMATED 224 10^3/uL (150-450); RED BLOOD COUNT 4.52 10^6/uL (4.30-6.10); WHITE BLOOD COUNT 5.8 10^3/uL (4.0-10.0)
[2019-10-26 08:33] LABS: BLOOD UREA NITROGEN 10 MG/DL (7-18); CALCIUM LEVEL 8.6 MG/DL (8.8-10.2); CARBON DIOXIDE LEVEL 26 MEQ/L (21-32); CHLORIDE LEVEL 108 MEQ/L (98-107); CREATININE FOR GFR 0.74 MG/DL (0.70-1.30); GLOMERULAR FILTRATION RATE > 60.0 (>42); GLUCOSE, FASTING 100 MG/DL (70-100); POTASSIUM SERUM 4.6 MEQ/L (3.5-5.1); SODIUM LEVEL 141 MEQ/L (136-145)
[2019-10-26] MEDS: BISACODYL 10 MG SUPP PR SCH (09:00)
[2019-10-26] MEDS: PANTOPRAZOLE 40MG VIAL (C9113 PER 1) IV SCH (09:17)
[2019-10-26] MEDS: NYSTATIN 100,000 UNITS/GM TOPICAL PWD 15 GM TOP SCH (09:17)
[2019-10-26] MEDS: HEPARIN SOD (PORCINE) 5000UNITS/ML VIAL (J1644 PER 1000UNITS) SC SCH (09:17)
[2019-10-26] MEDS ORDERED: AMOX875T2 PO (10:11)
[2019-10-26] MEDS ORDERED: FUROSEMIDE 40MG/4ML VIAL (J1940) IV ONE (11:00)
--- NOTE | 2019-10-26 13:09 | DS.PDOC ---
Discharge Summary General Date of Admission Oct 24, 2019 at 21:10 Date of Discharge 10/26/2019 Primary Care Physician: Aldo Modi MD Attending Physician: ALEXIA CEDILLO MD Discharge Summary PROCEDURES PERFORMED DURING STAY: Barium esophagram ADMITTING/DISCHARGE DIAGNOSES: Aspiration pneumonia Dysphagia Cerebral palsy with blindness and quadriplegia. Hypertension GERD Chronic indwelling suprapubic catheter Dementia COMPLICATIONS/CHIEF COMPLAINT: concern for aspiration HISTORY OF PRESENT ILLNESS/HOSPITAL COURSE: Patient is a 74-year-old male who presented from [facility] at the urging of his nurse who had concerns patient was aspirating his food and requesting another speech evaluation. The patient was eating his meal and his nurse noticed he began having shortness of breath while he was eating. She checked his pulse ox and respiratory rate which were both within normal limits, however his breathing was labored so she brought him to the emergency department for evaluation as she believed he was aspirating with his meals. Initial ED work up revealed left lower lobe consolidation along with suspected small pleural reaction/effusion on CXR with normal vitals, but with otherwise normal lab work, vitals, and physical exam. Hospitalist team was called for admission out of concern for aspiration. The following day speech therapy was consulted and recommended barium esophagram to evaluate for aspiration pneumonia and put in new recommendations. The patient was started empirically on antibiotics to cover for aspiration pneumonia the following day in light of the CXR findings. They recommended pureed solids and honey thickened liquids fed to him with a small spoon with bites/sips. barium esophagram failed to demonstrate any penetration or aspiration. The following day he was deemed stable for discharge back to [facility] with a 6 day course of Augmentin to cover in case he had aspirated that evening. DISCHARGE MEDICATIONS: Please see below. ALLERGIES: Please see below. Vitals: (see below) General: No acute distress, sleeping comfortably in bed. HEENT: Normocephalic, atraumatic.Moist mucous membranes. Neck: No JVD, lymphadenopathy, or thyromegaly. Cardiac: RRR, Normal S1 and S2, No murmurs, gallops, rubs. Pulm: Clear to auscultation b/l. Symmetric thorax. No wheezing, crackles. Rhonchorous sounds throughout lungs arambula. Abd: Bowel Sounds present. Abdomen is soft, non-tender, non-distended. Ext: No edema or cyanosis Neuro: No focal neuro deficits LABORATORY DATA: Please see below. IMAGIN10/24/2019 CXR: Left lower lobe consolidation along with suspected small pleural reaction/effusion. 10/25/2019 Cookie Swallow Modified Barium Esophagram: 5 ml aliquots of honey and pudding consistency barium was administered. There is no evidence of penetration or aspiration. PROGNOSIS: stable ACTIVITY: As tolerated, may return to PT and dayhab DIET: Speech recommendations for staff: The patient demonstrated a mild-moderate oropharyngeal dysphagia characterized by poor coordination and control of bolus with premature spillage, delayed oral transit of bolus and delayed swallow response. No aspiration or penetration was observed on exam. Residuals were cleared with repeated swallows. The patient is additionally limited by cognition and inability to feed himself. Will require max assist for upright positioning and fed small spoon bites by staff. Comment: Recommend pureed solids and honey thickened liquids by small spoon bite/sip. Patient must be assisted for full upright positioning and fed by staff for all PO intake via small spoon bite/sip. Recommend medications crushed in puree assist. Oral care 3x/day w/ suction. F/u dysphagia tx to assess tolerance of diet modifications & for carryover of safe feeding strategies. Refer for f/u w/ DRUM HANDLER at [facility] on d/c from facility. DISCHARGE PLAN: Home to [facility] DISCHARGE INSTRUCTIONS: 1. Please follow up with PCP in the next 1-2 weeks. 2. Please return to hospital if symptoms worsen 3. Please complete course of antibiotics. DISCHARGE CONDITION: [Stable]. TIME SPENT ON DISCHARGE: 35 minutes Vital Signs/I&Os Vital Signs Date Time Temp Pulse Resp B/P (MAP) Pulse Ox O2 Delivery O2 Flow Rate FiO2 10/26/19 05:52 97.8 62 18 136/69 (91) 97 Room Air I&O- Last 24 Hours up to 6 AM 10/26/19 06:00 Intake Total 625 ml Output Total 1475 ml Balance -850 ml Laboratory Data Labs 24H Laboratory Tests 2 10/26/19 07:36: Nucleated Red Blood Cells % (auto) 0.0, Anion Gap 7L, Glomerular Filtration Rate > 60.0, Calcium Level 8.6L, Magnesium Level 2.0 CBC/BMP Laboratory Tests 10/26/19 07:36 Microbiology Microbiology 10/24/19 Blood Culture - Preliminary, Resulted No growth after 24 hours . All specim... 10/24/19 Blood Culture - Preliminary, Resulted No growth after 24 hours . All specim... Discharge Medications Scheduled Ammonium Lactate (Ammonium Lactate) 12 % Lot, 1 APLCT TOP QHS, (Reported) APPLIES TO FEET Amoxicillin/Potassium Clav (Amox-Clav 875-125 mg Tablet) 1 Each Tablet, 875 MG PO BID Aspirin (Aspir 81) 81 Mg Tablet.dr, 81 MG PO QHS, (Reported) Calcium Carbonate/Vitamin D3 (Calcium 600-Vit D3 400 Tablet) 1 Tab Tab, 1 TAB PO DAILY, (Reported) Cranberry Fruit Extract (Cranberry) 500 Mg Capsule, 500 MG PO BID, (Reported) Docusate Sodium (Colace) 100 Mg Cap, 100 MG PO BID, (Reported) Lisinopril (Lisinopril) 10 Mg Tab, 10 MG PO QHS, (Reported) Melatonin (Melatonin) 5 Mg Tab, 5 MG PO QHS, (Reported) Oxybutynin Chloride (Oxybutynin Chloride) 5 Mg Tablet, 5 MG PO BID, (Reported) Pantoprazole Sodium (Protonix) 40 Mg Tab, 40 MG PO BID, (Reported) Polyethylene Glycol 3350 (Miralax) 17 Gm Powd.pack, 17 GM PO DAILY, (Reported) MIXES IN NECTAR THICK Zinc Oxide (Desitin) 454 Gm Cream..g., 1 APLCT TOP QHS, (Reported) APPLY TO PERIRECTAL AREA Scheduled PRN Bisacodyl (Dulcolax) 10 Mg Sup, 10 MG ID for CONSTIPATION, (Reported) TO BE USED ON DAY 5 WITHOUT A BM Magnesium Hydroxide (Milk of Magnesia) 400 Mg/5 Ml Oral.susp, 2,400 MG PO DAILY PRN for CONSTIPATION, (Reported) TAKES ON DAYS 3 AND 4 OF NO BM Allergies Coded Allergies: codeine (Verified Adverse Reaction, Intermediate, ALTERS BEHAVIOR, 08/27/19) GME ATTESTATION GME ATTESTATION My faculty preceptor for this patient encounter was physically present during the encounter and was fully available. All aspects of the patient interview, examination, medical decision making process, and medical care plan development were reviewed and approved by the faculty preceptor. The faculty preceptor is aware and concurs with the plan as stated in the body of this note and will attest to such by his/her cosignature. ATTENDING NOTE I have independently interviewed and examined the patient at the bedside, and agree with the aforementioned management plans and physical findings as documented by my Resident Physician. I have personally spent 35 minutes in counselling the patient's brother and coordinating his discharge. ANETTE JOHN DO Oct 26, 2019 13:09 ALEXIA CEDILLO MD Oct 27, 2019 13:04
[2019-10-26 14:00] VITALS: BP 108/78
== END 2019-10-26 14:55 | disposition home or self-care (01) | DRG 177 ==
LOC: EDBD 18:20 → M ED 18:20 → M ED INP 21:10 → ENRESERV 22:40 → M MS5PR 23:20
PROVIDERS: ADMIT Internal Medicine; ATTEND Internal Medicine Nephrology
DX: J69.0 Pneumonitis due to inhalation of food and vomit (principal); G80.0 Spastic quadriplegic cerebral palsy; F03.90 Unspecified dementia, unspecified severity, without behavioral disturbance, psychotic disturbance, mood disturbance, and anxiety; I10 Essential (primary) hypertension; K21.9 Gastro-esophageal reflux disease without esophagitis; Z79.82 Long term (current) use of aspirin; Z79.899 Other long term (current) drug therapy; Z88.5 Allergy status to narcotic agent

== ENCOUNTER 2019-10-30 13:25 | Inpatient (IN) | payer MEDICARE, MEDICAID ==
[~2019-10-30] VITALS: Ht 167.6 cm; Wt 97.9 kg
[~2019-10-30 13:25] MED LIST changes: +AMOX875T2 PO
[2019-10-30 14:20] LABS: BASO % 0.2 % (0.0-1.0); EOS # 0.4 10^3/uL (0.0-0.5); EOS % 2.7 % (0.0-3.0); HEMATOCRIT 44.5 % (42.0-52.0); LYMPH # 0.8 10^3/uL (1.5-5.0); LYMPH % 5.2 % (24.0-44.0); MEAN CORPUSCULAR HEMOGLOBIN 29.7 pg (27.0-33.0); MEAN CORPUSCULAR HGB CONC 31.5 g/dl (32.0-36.5); MEAN CORPUSCULAR VOLUME 94.3 fl (80.0-96.0); MONO # 0.8 10^3/uL (0.0-0.8); MONO % 5.2 % (0.0-5.0); NEUTROPHILS # 12.6 10^3/uL (1.5-8.5); NEUTROPHILS % 86.1 % (36.0-66.0); PLATELET COUNT, AUTOMATED 207 10^3/uL (150-450); RED BLOOD COUNT 4.72 10^6/uL (4.30-6.10); WHITE BLOOD COUNT 14.7 10^3/uL (4.0-10.0)
--- NOTE | 2019-10-30 15:07 | REP ---
CHEST, SINGLE VIEW: Single view of the chest is performed. COMPARISON: 10/24/2019. There is increased parenchymal infiltrate in the left lower lung zone compared to the prior study. No infiltrate is seen in the right lung. The heart and mediastinum are unchanged. Esophagus is diffusely filled with air. IMPRESSION: Increased infiltrate in the left lower lung zone. Electronically Signed by Dewayne Zambrano MD 10/30/2019 03:14 P
[2019-10-30 15:08] LABS: ALBUMIN 2.9 GM/DL (3.2-5.2); ALT/SGPT 23 U/L (12-78); BILIRUBIN,DIRECT 0.2 MG/DL (0.0-0.2); BILIRUBIN,TOTAL 0.4 MG/DL (0.2-1.0); BLOOD UREA NITROGEN 11 MG/DL (7-18); CALCIUM LEVEL 8.8 MG/DL (8.8-10.2); CARBON DIOXIDE LEVEL 31 MEQ/L (21-32); CHLORIDE LEVEL 103 MEQ/L (98-107); CK-MB VALUE MASS 2.7 NG/ML (<3.6); CPK CREATINE PHOSPHOKINASE 41 U/L (39-308); GLOMERULAR FILTRATION RATE > 60.0 (>42); GLUCOSE, FASTING 120 MG/DL (70-100); MB/CK RELATIVE INDEX 6.59 (< OR =4); NT-PRO BNP 124 PG/ML (<125); POTASSIUM SERUM 4.7 MEQ/L (3.5-5.1); SODIUM LEVEL 137 MEQ/L (136-145); THYROXINE (T4) 11.4 UG/DL (4.5-12.0); TOTAL PROTEIN 6.2 GM/DL (6.4-8.2); TROPONIN I < 0.02 NG/ML (< 0.10)
[2019-10-30] MEDS ORDERED: PIPERACILLIN/TAZOBACTAM SOD 3.375 GM in D5W MINI-BAG PLUS 50 ML IV ONE (15:30)
[2019-10-30] MEDS ORDERED: AMOX875T2 PO (15:41)
[2019-10-30] MEDS ORDERED: MILKSUS3 PO (15:41)
[2019-10-30] MEDS ORDERED: MAALOX 30 ML SUSP *UDC PO PRN (16:30)
[2019-10-30] MEDS ORDERED: ACETAMINOPHEN TAB 650MG DOSE (2X325MG) PO PRN (16:30)
[2019-10-30] MEDS ORDERED: MOM 30ML SUSPENSION UDC PO PRN (16:30)
--- NOTE | 2019-10-30 16:43 | HPEPDOC ---
General Date of Admission Date of Service: Oct 30, 2019 Chief Complaint The patient is a 74-year-old male admitted with a reason for visit of Wheezing. Source: RN/MD, EMS notes reviewed, Old records, [facility] Caregiver/Aid Exam Limitations: Other (cerebral palsy) Timing/Duration: Other (. 1 day) Severity: Other (not applicable) Associated Symptoms: Other (shortness of breath) History of Present Illness This is a 74 years old male with past medical history of cerebral palsy indwelling suprapubic catheter. Dementia, he has a [facility] status once again brought back with chief complaints of wheezing and increased shortness of breath since today. Unable to obtain history from patient secondary to physical and mental condition. History was obtained from various sources including reviewed old records present EMS record caregiver and M.DJakob N nurse in ED Home Medications Scheduled Ammonium Lactate (Ammonium Lactate) 12 % Lot, 1 APLCT TOP QHS, (Reported) APPLIES TO FEET Amoxicillin/Potassium Clav (Amox-Clav 875-125 mg Tablet) 1 Each Tablet, 875 MG PO BID, (Reported) STARTED 10/26/19 FOR 6 DAYS Aspirin (Aspir 81) 81 Mg Tablet.dr, 81 MG PO QHS, (Reported) Calcium Carbonate/Vitamin D3 (Calcium 600-Vit D3 400 Tablet) 1 Tab Tab, 1 TAB PO DAILY, (Reported) Cranberry Fruit Extract (Cranberry) 500 Mg Capsule, 500 MG PO BID, (Reported) Docusate Sodium (Colace) 100 Mg Cap, 100 MG PO BID, (Reported) Lisinopril (Lisinopril) 10 Mg Tab, 10 MG PO QHS, (Reported) Melatonin (Melatonin) 5 Mg Tab, 5 MG PO QHS, (Reported) Oxybutynin Chloride (Oxybutynin Chloride) 5 Mg Tablet, 5 MG PO BID, (Reported) Pantoprazole Sodium (Protonix) 40 Mg Tab, 40 MG PO BID, (Reported) Polyethylene Glycol 3350 (Miralax) 17 Gm Powd.pack, 17 GM PO DAILY, (Reported) MIXES IN NECTAR THICK Zinc Oxide (Desitin) 454 Gm Cream..g., 1 APLCT TOP QHS, (Reported) APPLY TO PERIRECTAL AREA Scheduled PRN Bisacodyl (Dulcolax) 10 Mg Sup, 10 MG NC for CONSTIPATION, (Reported) TO BE USED ON DAY 5 WITHOUT A BM Magnesium Hydroxide (Milk of Magnesia) 400 Mg/5 Ml Oral.susp, 30 ML PO DAILY PRN for CONSTIPATION, (Reported) ON DAYS 3 & 4 OF NO BM Allergies Coded Allergies: codeine (Verified Adverse Reaction, Intermediate, [facility], 08/27/19) Past Medical History Medical History Cerebral palsy, chronic suprapubic catheter and dementia Surgical History None available Social History * Smoker: Denies Alcohol: Denies Drugs: denies A-FIB/CHADSVASC A-FIB History Current/History of A-Fib/PAF?: No Review of Systems Constitutional: Reports: Other (, unable to obtained review of systems secondary to patient's mental and physical status) Physical Examination General Exam: Positive: Cooperative Eye Exam: Positive: PERRLA ENT Exam: Positive: Atraumatic, Mucous membr. moist/pink Neck Exam: Positive: Supple Chest Exam: Positive: Other (. Bilateral wheezing and crackles at left lower lobe are both) Heart Exam: Positive: Rate Normal, Normal S1, Normal S2 Abdomen Exam: Positive: Normal bowel sounds, Soft Extremity Exam: Positive: Normal pulses Skin Exam: Positive: Nl turgor and temperature Neuro Exam: Positive: Strength at 5/5 X4 ext, Cranial Nerves 3-12 NL Vital Signs Vital Signs Date Time Temp Pulse Resp B/P (MAP) Pulse Ox O2 Delivery O2 Flow Rate FiO2 10/30/19 15:25 76 20 95 10/30/19 15:00 152/72 (98) 10/30/19 13:28 98.2 Room Air Laboratory Data Labs 24H Laboratory Tests 2 10/30/19 13:49: Immature Granulocyte % (Auto) 0.6, Neutrophils (%) (Auto) 86.1H, Lymphocytes (%) (Auto) 5.2L, Monocytes (%) (Auto) 5.2H, Eosinophils (%) (Auto) 2.7, Basophils (%) (Auto) 0.2, Neutrophils # (Auto) 12.6H, Lymphocytes # (Auto) 0.8L, Monocytes # (Auto) 0.8, Eosinophils # (Auto) 0.4, Basophils # (Auto) 0.0, Nucleated Red Blood Cells % (auto) 0.0, Anion Gap 3L, Glomerular Filtration Rate > 60.0, Lactic Acid Level 1.4, Calcium Level 8.8, Total Bilirubin 0.4, Direct Bilirubin 0.2, Aspartate Amino Transf (AST/SGOT) 8, Alanine Aminotransferase (ALT/SGPT) 23, Alkaline Phosphatase 78, Total Creatine Kinase 41, Creatine Kinase MB 2.7, Creatine Kinase MB Relative Index 6.59H, Troponin I < 0.02, GV-Dnv-F-Type Natriuretic Peptide 124, Total Protein 6.2L, Albumin 2.9L, Albumin/Globulin Ratio 0.88L, Thyroid Stimulating Hormone (TSH) 0.840, Thyroxine (T4) 11.4 10/30/19 14:07: POC pH (Misc Panel) 7.346L, POC Base Excess (Misc Panel) 2.0, POC Saturated Percent O2 (Misc) 96, POC pO2 (Misc Panel) 86.0, POC pCO2 (Misc Panel) 50.5H, POC HCO3 (Misc Panel) 27.6H, POC Total CO2 (Misc Panel) 29.0H CBC/BMP Laboratory Tests 10/30/19 13:49 Microbiology Microbiology 10/30/19 Blood Culture, Received Pending 10/30/19 Blood Culture, Received Pending Problems (1) Left lower lobe pneumonia Status: Acute Problem Text: Patient was recently admitted and October 23 and discharged after 2 days with similar complaint. Patient this time again presented with shortness of breath and wheezing. Patient. WBC count is 14.7. Chest x-ray is consistent with left lower lobe infi ltrate. CBC, CMP otherwise normal Left lower lobe pneumonia could be e healthcare facility acquired versus aspiration Admit patient to MedSurg floor with continuous pulse ox Continue Zosyn 3.375 mg IV every 6 hours DuoNeb every 6 hours and every 2 hours when necessary Oxygen supplementation to keep pulse ox more than 92% Blood cultures were done in ED Will also also order a sputum [employer] Nothing by mouth until cleared by speech therapy DVT prophylaxis with heparin Activity as tolerated Continue home meds (2) Aspiration into airway Status: Chronic Problem Text: History of chronic aspiration and the airway . We will repeat swallow eval: The speech and swallow therapy consult requested Keep nothing by mouth until cleared by speech pathologist (3) CP (cerebral palsy), spastic Status: Chronic Problem Text: Supportive care Plan / VTE VTE Prophylaxis Ordered?: Yes ABE SHI MD Oct 30, 2019 16:43
[2019-10-30] MEDS ORDERED: IPRATROPIUM 0.5MG/ALBUTEROL 2.5MG INH SOL UD 3ML (DUONEB)(J7620) NEB PRN (16:45)
--- NOTE | 2019-10-30 16:46 | ECGEPIP ---
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
[2019-10-30 18:30] VITALS: BP 142/69
[2019-10-30] MEDS: HEPARIN SOD (PORCINE) 5000UNITS/ML VIAL (J1644 PER 1000UNITS) SC SCH (20:46)
[2019-10-30] MEDS: PANTOPRAZOLE 40MG TAB (PROTONIX) PO SCH (20:47)
[2019-10-30] MEDS: lisinopriL 10 MG TAB PO SCH (20:47)
[2019-10-30] MEDS: ASPIRIN 81 MG ENTERIC TAB PO SCH (20:47)
[2019-10-30] MEDS: IPRATROPIUM 0.5MG/ALBUTEROL 2.5MG INH SOL UD 3ML (DUONEB)(J7620) NEB SCH (21:19)
[2019-10-30] MEDS: DOCUSATE SODIUM 100 MG CAP PO SCH (21:41)
[2019-10-30] MEDS: LACTIC ACID 12% LOTION 225 GM BTL TOP SCH (21:42)
[2019-10-30] MEDS: oxyBUTYnin 5 MG TAB PO SCH (21:42)
[2019-10-30 22:00] VITALS: BP 140/65
[2019-10-30] MEDS: PIPERACILLIN/TAZOBACTAM SOD 3.375 GM in D5W MINI-BAG PLUS 50 ML IV SCH (23:38)
[2019-10-31] MEDS: IPRATROPIUM 0.5MG/ALBUTEROL 2.5MG INH SOL UD 3ML (DUONEB)(J7620) NEB SCH ×4 (01:32→20:01)
[2019-10-31] MEDS: NYSTATIN 100,000 UNITS/GM TOPICAL PWD 15 GM TOP SCH ×2 (02:55→09:00)
[2019-10-31] MEDS: PIPERACILLIN/TAZOBACTAM SOD 3.375 GM in D5W MINI-BAG PLUS 50 ML IV SCH ×4 (03:49→22:23)
[2019-10-31 06:00] VITALS: BP 132/63
[2019-10-31 06:50] LABS: ALBUMIN 2.7 GM/DL (3.2-5.2); ALT/SGPT 21 U/L (12-78); BILIRUBIN,TOTAL 0.7 MG/DL (0.2-1.0); BLOOD UREA NITROGEN 11 MG/DL (7-18); CALCIUM LEVEL 8.8 MG/DL (8.8-10.2); CARBON DIOXIDE LEVEL 27 MEQ/L (21-32); CHLORIDE LEVEL 103 MEQ/L (98-107); CREATININE FOR GFR 0.69 MG/DL (0.70-1.30); GLOMERULAR FILTRATION RATE > 60.0 (>42); GLUCOSE, FASTING 119 MG/DL (70-100); MAGNESIUM LEVEL 1.9 MG/DL (1.8-2.4); POTASSIUM SERUM 4.3 MEQ/L (3.5-5.1); SODIUM LEVEL 138 MEQ/L (136-145); TOTAL PROTEIN 5.7 GM/DL (6.4-8.2)
[2019-10-31] MEDS: DOCUSATE SODIUM 100 MG CAP PO SCH (09:00)
[2019-10-31] MEDS: MIRALAX *UNIT DOSE* 17GM PACKET PO SCH (09:00)
[2019-10-31] MEDS: PANTOPRAZOLE 40MG TAB (PROTONIX) PO SCH (09:00)
[2019-10-31] MEDS: oxyBUTYnin 5 MG TAB PO SCH (09:00)
[2019-10-31] MEDS: HEPARIN SOD (PORCINE) 5000UNITS/ML VIAL (J1644 PER 1000UNITS) SC SCH ×2 (09:57→22:23)
--- NOTE | 2019-10-31 10:49 | IPNPDOC ---
Subjective Date Seen The patient was seen on 10/31/19. Subjective Chief Complaint/HPI Patient is awake secondary to his mental status. Cannot offer complaints, but wheezing is audible on his respirations General: Reports: Other Symptoms (unable to obtained review of systems secondary to patient's mental status) Objective Physical Examination General Exam: Positive: Cooperative Eye Exam: Positive: PERRLA ENT Exam: Positive: Atraumatic, Mucous membr. moist/pink Neck Exam: Positive: Supple Chest Exam: Positive: Other (. Bilateral wheezing and crackles at left lower lobe are both) Heart Exam: Positive: Rate Normal, Normal S1, Normal S2 Abdomen Exam: Positive: Normal bowel sounds, Soft Extremity Exam: Positive: Normal pulses Skin Exam: Positive: Nl turgor and temperature Neuro Exam: Positive: Strength at 5/5 X4 ext, Cranial Nerves 3-12 NL Assessment /Plan Problems (1) Left lower lobe pneumonia Status: Acute Problem Text: Patient was recently admitted and October 23 and discharged after 2 days with similar complaint. Patient this time again presented with shortness of breath and wheezing. Patient. WBC count is 14.7. Chest x-ray is consistent with left lower lobe infiltrate. CBC, CMP otherwise normal Left lower lobe pneumonia could be e healthcare facility acquired versus aspiration Admit patient to MedSurg floor with continuous pulse ox Continue Zosyn 3.375 mg IV every 6 hours DuoNeb every 6 hours and every 2 hours when necessary Oxygen supplementation to keep pulse ox more than 92% Blood cultures were done in ED report is pending His sputum C&S also order, but patient is not expectorating any phlegm Patient is still nothing by mouth awaiting speech therapy evaluation and recommendations DVT prophylaxis with heparin (2) Aspiration into airway Status: Chronic Problem Text: History of chronic aspiration and the airway We will repeat swallow eval: The speech and swallow therapy consult requested Keep nothing by mouth until cleared by speech pathologist (3) CP (cerebral palsy), spastic Status: Chronic Problem Text: Supportive care Plan/VTE VTE Prophylaxis Ordered?: Yes VS, I&O, 24H, Fishbone Vital Signs/I&O Vital Signs Date Time Temp Pulse Resp B/P (MAP) Pulse Ox O2 Delivery O2 Flow Rate FiO2 10/31/19 06:00 99.0 75 20 132/63 (86) 94 Nasal Cannula 2.0 I&O- Last 24 Hours up to 6 AM 10/31/19 06:00 Intake Total 170 ml Output Total 1800 ml Balance -1630 ml Laboratory Data 24H LABS Laboratory Tests 2 10/30/19 13:49: Immature Granulocyte % (Auto) 0.6, Neutrophils (%) (Auto) 86.1H, Lymphocytes (%) (Auto) 5.2L, Monocytes (%) (Auto) 5.2H, Eosinophils (%) (Auto) 2.7, Basophils (%) (Auto) 0.2, Neutrophils # (Auto) 12.6H, Lymphocytes # (Auto) 0.8L, Monocytes # (Auto) 0.8, Eosinophils # (Auto) 0.4, Basophils # (Auto) 0.0, Nucleated Red Blood Cells % (auto) 0.0, Anion Gap 3L, Glomerular Filtration Rate > 60.0, Lactic Acid Level 1.4, Calcium Level 8.8, Total Bilirubin 0.4, Direct Bilirubin 0.2, Aspartate Amino Transf (AST/SGOT) 8, Alanine Aminotransferase (ALT/SGPT) 2 3, Alkaline Phosphatase 78, Total Creatine Kinase 41, Creatine Kinase MB 2.7, Creatine Kinase MB Relative Index 6.59H, Troponin I < 0.02, SE-Bxk-[id number]-Type Natriuretic Peptide 124, Total Protein 6.2L, Albumin 2.9L, Albumin/Globulin Ratio 0.88L, Thyroid Stimulating Hormone (TSH) 0.840, Thyroxine (T4) 11.4 10/30/19 14:07: POC pH (Misc Panel) 7.346L, POC Base Excess (Misc Panel) 2.0, POC Saturated Percent O2 (Misc) 96, POC pO2 (Misc Panel) 86.0, POC pCO2 (Misc Panel) 50.5H, POC HCO3 (Misc Panel) 27.6H, POC Total CO2 (Misc Panel) 29.0H 10/31/19 02:20: Urine Color YELLOW, Urine Appearance CLOUDYH, Urine pH 7.0, Urine Specific [place] 1.013, Urine Protein NEGATIVE, Urine Glucose (UA) NEGATIVE, Urine Ketones NEGATIVE, Urine Blood 1+H, Urine Nitrite NEGATIVE, Urine Bilirubin NEGATIVE, Urine Urobilinogen 0.2, Urine Leukocyte Esterase 3+H, Urine WBC (Auto) 106H, Urine RBC (Auto) 28H, Urine Hyaline Casts (Auto) 0, Urine Bacteria (Auto) NEGATIVE, Urine Squamous Epithelial Cells 0, Urine Calcium Oxalate Cryst (Auto) SMALL, Urine Mucus (Auto) SMALL, Urine Yeast-Like Cells (Auto) MODERATEH, Urine Sperm (Auto) 10/31/19 02:21: Methicillin-Resist S.aureus DNA PCR NOT DETECTED 10/31/19 05:26: Anion Gap 8, Glomerular Filtration Rate > 60.0, Calcium Level 8.8, Magnesium Level 1.9, Total Bilirubin 0.7#, Aspartate Amino Transf (AST/SGOT) 10, Alanine Aminotransferase (ALT/SGPT) 21, Alkaline Phosphatase 73, Total Protein 5.7L, Albumin 2.7L, Albumin/Globulin Ratio 0.90L CBC/BMP Laboratory Tests 10/30/19 13:49 10/31/19 05:26 Microbiology Microbiology 10/31/19 Urine Culture, Received Pending 10/30/19 Blood Culture, Received Pending 10/30/19 Blood Culture, Received Pending ABE SHI MD Oct 31, 2019 10:49
[2019-10-31 14:00] VITALS: BP 142/64
[2019-10-31 22:00] VITALS: BP 146/74
[2019-10-31] MEDS: LACTIC ACID 12% LOTION 225 GM BTL TOP SCH (22:26)
[2019-11-01] MEDS: NYSTATIN 100,000 UNITS/GM TOPICAL PWD 15 GM TOP SCH ×4 (02:55→21:27)
[2019-11-01] MEDS: PIPERACILLIN/TAZOBACTAM SOD 3.375 GM in D5W MINI-BAG PLUS 50 ML IV SCH ×4 (03:09→21:28)
[2019-11-01] MEDS: IPRATROPIUM 0.5MG/ALBUTEROL 2.5MG INH SOL UD 3ML (DUONEB)(J7620) NEB SCH ×4 (03:19→19:18)
[2019-11-01 06:54] LABS: BASO % 0.5 % (0.0-1.0); EOS # 0.2 10^3/uL (0.0-0.5); EOS % 3.2 % (0.0-3.0); HEMATOCRIT 42.2 % (42.0-52.0); HEMOGLOBIN 13.5 g/dl (13.5-17.5); LYMPH # 1.5 10^3/uL (1.5-5.0); LYMPH % 20.6 % (24.0-44.0); MEAN CORPUSCULAR HEMOGLOBIN 30.3 pg (27.0-33.0); MEAN CORPUSCULAR VOLUME 94.8 fl (80.0-96.0); MONO # 0.7 10^3/uL (0.0-0.8); MONO % 9.1 % (0.0-5.0); NEUTROPHILS % 66.2 % (36.0-66.0); PLATELET COUNT, AUTOMATED 215 10^3/uL (150-450); RED BLOOD COUNT 4.45 10^6/uL (4.30-6.10); WHITE BLOOD COUNT 7.5 10^3/uL (4.0-10.0)
[2019-11-01 06:55] VITALS: BP 152/80
[2019-11-01 07:25] LABS: ALBUMIN 2.8 GM/DL (3.2-5.2); ALT/SGPT 20 U/L (12-78); BILIRUBIN,TOTAL 0.6 MG/DL (0.2-1.0); BLOOD UREA NITROGEN 13 MG/DL (7-18); CALCIUM LEVEL 8.6 MG/DL (8.8-10.2); CARBON DIOXIDE LEVEL 30 MEQ/L (21-32); CHLORIDE LEVEL 104 MEQ/L (98-107); CREATININE FOR GFR 0.74 MG/DL (0.70-1.30); GLOMERULAR FILTRATION RATE > 60.0 (>42); GLUCOSE, FASTING 95 MG/DL (70-100); POTASSIUM SERUM 4.1 MEQ/L (3.5-5.1); SODIUM LEVEL 139 MEQ/L (136-145); TOTAL PROTEIN 5.9 GM/DL (6.4-8.2)
[2019-11-01] MEDS: HEPARIN SOD (PORCINE) 5000UNITS/ML VIAL (J1644 PER 1000UNITS) SC SCH ×2 (09:24→21:27)
[2019-11-01] MEDS ORDERED: ACETAMINOPHEN 650 MG SUPP PR PRN (11:15)
--- NOTE | 2019-11-01 11:17 | IPNPDOC ---
Subjective Date Seen The patient was seen on 11/01/19. Subjective Chief Complaint/HPI Patient comfortable, answers some questions, back, when asked house. His respiratory status and how his breathing. He said "okay" General: Reports: ROS Unobtainable (secondary to patient's mental and physical status) Objective Physical Examination General Exam: Positive: Cooperative Neck Exam: Positive: Supple Chest Exam: Positive: Other (. Bilateral wheezing and crackles at left lower lobe are both) Heart Exam: Positive: Rate Normal, Normal S1, Normal S2 Abdomen Exam: Positive: Normal bowel sounds, Soft Extremity Exam: Positive: Normal pulses Skin Exam: Positive: Nl turgor and temperature Assessment /Plan Problems (1) Left lower lobe pneumonia Status: Acute Problem Text: Patient was recently admitted and October 23 and discharged after 2 days with similar complaint. Patient this time again presented with shortness of breath and wheezing. Patient. WBC count is 14.7. Chest x-ray is consistent with left lower lobe infiltrate. CBC, CMP otherwise normal Left lower lobe pneumonia could be e healthcare facility acquired versus aspiration Admitted to MedSur floor with continuous pulse ox Continue Zosyn as per orders. Pranav and seems to be responding Clinic exam crackles have slightly reduced and his WBC count is 7.5 today DuoNeb every 6 hours and every 2 hours when necessary Oxygen supplementation to keep pulse ox more than 92% All cultures are pending Discussed with the speech pathologist, patient is strict nothing by mouth all by mouth meds. Has been on hold, will await repeat swallow eval before restarting by mouth feeding and meds Will start D5 half-normal saline for nutritional supplement till patient is nothing by mouth (2) Aspiration into airway Status: Chronic Problem Text: History of chronic aspiration and the airway Patient was being fed with a straw at [facility], but patient needs to be fed by spoon as per speech pathology recommendations here. 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 Supporative care Plan/VTE VTE Prophylaxis Ordered?: Yes VS, I&O, 24H, Fishbone Vital Signs/I&O Vital Signs Date Time Temp Pulse Resp B/P (MAP) Pulse Ox O2 Delivery O2 Flow Rate FiO2 11/01/19 06:55 97.2 57 18 152/80 (104) 94 Nasal Cannula 2.0 I&O- Last 24 Hours up to 6 AM 11/01/19 06:00 Intake Total 100 ml Output Total 1500 ml Balance -1400 ml Laboratory Data 24H LABS Laboratory Tests 2 11/01/19 05:26: Immature Granulocyte % (Auto) 0.4, Neutrophils (%) (Auto) 66.2H, Lymphocytes (%) (Auto) 20.6L, Monocytes (%) (Auto) 9.1H, Eosinophils (%) (Auto) 3.2H, Basophils (%) (Auto) 0.5, Neutrophils # (Auto) 5.0, Lymphocytes # (Auto) 1.5, Monocytes # (Auto) 0.7, Eosinophils # (Auto) 0.2, Basophils # (Auto) 0.0, Nucleated Red Blood Cells % (auto) 0.0, Anion Gap 5L, Glomerular Filtration Rate > 60.0, Calcium Level 8.6L, Total Bilirubin 0.6, Aspartate Amino Transf (AST/SGOT) 15, Alanine Aminotransferase (ALT/SGPT) 20, Alkaline Phosphatase 65, Total Protein 5.9L, Albumin 2.8L, Albumin/Globulin Ratio 0.90L CBC/BMP Laboratory Tests 11/01/19 05:26 Microbiology Microbiology 10/31/19 Gram Stain - Final, Resulted 10/31/19 Sputum Culture - Preliminary, Resulted Yeast Like Organism 10/31/19 Urine Culture - Final, Complete Yeast Like Organism 10/30/19 Blood Culture - Preliminary, Resulted No growth after 24 hours . All specim... 10/30/19 Blood Culture - Preliminary, Resulted No growth after 24 hours . All specim... ABE SHI MD November 01, 2019 11:17
[2019-11-01] MEDS: D5W/0.45% SODIUM CHLORIDE 1,000 ML IV SCH (11:38)
[2019-11-01] MEDS: PANTOPRAZOLE 40MG VIAL (C9113 PER 1) IV SCH (12:35)
[2019-11-01 14:00] VITALS: BP 124/83
[2019-11-01 19:19] VITALS: O2SAT 97
[2019-11-01] MEDS: LACTIC ACID 12% LOTION 225 GM BTL TOP SCH (21:27)
[2019-11-01 22:00] VITALS: BP 140/84
[2019-11-02 00:21] VITALS: O2SAT 96
[2019-11-02] MEDS: IPRATROPIUM 0.5MG/ALBUTEROL 2.5MG INH SOL UD 3ML (DUONEB)(J7620) NEB SCH ×4 (00:21→19:33)
[2019-11-02] MEDS: D5W/0.45% SODIUM CHLORIDE 1,000 ML IV SCH ×2 (02:12→16:12)
[2019-11-02] MEDS: PIPERACILLIN/TAZOBACTAM SOD 3.375 GM in D5W MINI-BAG PLUS 50 ML IV SCH ×4 (03:30→21:48)
[2019-11-02 06:00] VITALS: BP 145/90
[2019-11-02] MEDS: HEPARIN SOD (PORCINE) 5000UNITS/ML VIAL (J1644 PER 1000UNITS) SC SCH ×2 (09:30→21:49)
[2019-11-02] MEDS: NYSTATIN 100,000 UNITS/GM TOPICAL PWD 15 GM TOP SCH ×2 (09:30→21:48)
--- NOTE | 2019-11-02 11:05 | IPNPDOC ---
Subjective Date Seen The patient was seen on 11/02/19. Subjective Chief Complaint/HPI Patient is more comfortable, answers questions with yes and no afebrile General: Reports: ROS Unobtainable (secondary to patient's mental status) Objective Physical Examination General Exam: Positive: Cooperative Neck Exam: Positive: Supple Chest Exam: Positive: Other (. Bilateral wheezing and crackles at left lower lobe are both) Heart Exam: Positive: Rate Normal, Normal S1, Normal S2 Abdomen Exam: Positive: Normal bowel sounds, Soft Extremity Exam: Positive: Normal pulses Skin Exam: Positive: Nl turgor and temperature Assessment /Plan Problems (1) Left lower lobe pneumonia Status: Acute Problem Text: Patient was recently admitted and October 23 and discharged after 2 days with similar complaint. Patient this time again presented with shortness of breath and wheezing. Patient. WBC count is 14.7. Chest x-ray is consistent with left lower lobe infiltrate. CBC, CMP otherwise normal Left lower lobe pneumonia could be e healthcare facility acquired versus aspiration [facility] Continue Zosyn as per orders. and seems to be responding . Lungs are clear on auscultation. His lab work is pending today DuoNeb every 6 hours and every 2 hours when necessary Oxygen supplementation to keep pulse ox more than 92% Discussed with the speech pathologist, patient is strict nothing by mouth all by mouth meds. Has been on hold, will await repeat swallow eval before restarting by mouth feeding and meds Will start D5 half-normal saline for nutritional supplement till patient is nothing by mouth Awaiting cultures, and will continue all present antibiotics (2) Aspiration into airway Status: Chronic Problem Text: History of chronic aspiration and the airway Patient was being fed with a straw at [facility], but patient needs to be fed by spoon as per speech pathology recommendations here. 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 Supporative care Plan/VTE VTE Prophylaxis Ordered?: Yes VS, I&O, 24H, Fishbone Vital Signs/I&O Vital Signs Date Time Temp Pulse Resp B/P (MAP) Pulse Ox O2 Delivery O2 Flow Rate FiO2 11/02/19 09:00 2.0 11/02/19 06:00 96.9 54 20 145/90 (108) 95 Nasal Cannula I&O- Last 24 Hours up to 6 AM 11/02/19 06:00 Intake Total 800 ml Output Total 1475 ml Balance -675 ml Laboratory Data Microbiology Microbiology 10/31/19 Gram Stain - Final, Complete 10/31/19 Sputum Culture - Final, Complete Yeast Like Organism 10/31/19 Urine Culture - Final, Complete Yeast Like Organism 10/30/19 Blood Culture - Preliminary, Resulted No Growth after 48 hours. All Specime... 10/30/19 Blood Culture - Preliminary, Resulted No Growth after 48 hours. All Specime... ABE SHI MD November 02, 2019 11:05
[2019-11-02] MEDS: PANTOPRAZOLE 40MG VIAL (C9113 PER 1) IV SCH (12:53)
[2019-11-02 14:00] VITALS: BP 148/79
[2019-11-02] MEDS: LACTIC ACID 12% LOTION 225 GM BTL TOP SCH (21:49)
[2019-11-02 22:00] VITALS: BP 123/65
[2019-11-03] MEDS: IPRATROPIUM 0.5MG/ALBUTEROL 2.5MG INH SOL UD 3ML (DUONEB)(J7620) NEB SCH ×4 (02:31→19:50)
[2019-11-03] MEDS: PIPERACILLIN/TAZOBACTAM SOD 3.375 GM in D5W MINI-BAG PLUS 50 ML IV SCH ×4 (03:41→21:20)
[2019-11-03 06:00] VITALS: BP 146/65
[2019-11-03] MEDS: D5W/0.45% SODIUM CHLORIDE 1,000 ML IV SCH ×2 (06:47→21:19)
[2019-11-03] MEDS: NYSTATIN 100,000 UNITS/GM TOPICAL PWD 15 GM TOP SCH ×2 (10:04→21:19)
[2019-11-03] MEDS: HEPARIN SOD (PORCINE) 5000UNITS/ML VIAL (J1644 PER 1000UNITS) SC SCH ×2 (10:05→21:20)
--- NOTE | 2019-11-03 11:48 | IPNPDOC ---
Subjective Date Seen The patient was seen on 11/03/19. Subjective Chief Complaint/HPI Patient is comfortable in no distress. Offers no new complaints, response to yes and no when asked questions General: Denies: ROS Unobtainable, Chills, Night Sweats, Fatigue, Malaise, Normal Appetite, Other Symptoms Skin: Denies: Rash, Lesions, Jaundice, Bruising, Itching, Dry, Breakdown, Nail Changes, Other Pulmonary: Denies: Dyspnea, Cough, Pleuritic Chest Pain, Other Symptoms Cardiovascular: Denies: Chest Pain, Palpitations, Orthopnea, Paroxysmal Noc. Dyspnea, Edema, Lt Headedness, Other Symptoms Gastrointestinal: Denies: Nausea, Vomiting, Abdominal Pain, Diarrhea, Constipation, Melena, Hematochezia, Other Symptoms Musculoskeletal: Denies: Neck Pain, Back Pain, Shoulder Pain, Arm Pain, Hand Pain, Leg Pain, Foot Pain, Joint Pain, Muscle Pain, Spasms, Other Symptoms Objective Physical Examination General Exam: Positive: Cooperative Neck Exam: Positive: Supple Chest Exam: Positive: Other (. Bilateral wheezing and crackles at left lower lobe are both) Heart Exam: Positive: Rate Normal, Normal S1, Normal S2 Abdomen Exam: Positive: Normal bowel sounds, Soft Extremity Exam: Positive: Normal pulses Skin Exam: Positive: Nl turgor and temperature Assessment /Plan Problems (1) Left lower lobe pneumonia Status: Acute Problem Text: Patient was recently admitted and October 23 and discharged after 2 days with similar complaint. Patient this time again presented with shortness of breath and wheezing. Patient. WBC count is 14.7. Chest x-ray is consistent with left lower lobe infiltrate. CBC, CMP otherwise normal Left lower lobe pneumonia could be e healthcare facility acquired versus aspiration [facility] Continue Zosyn as per orders. and seems to be responding . Lungs are clear on auscultation. His lab work is pending today DuoNeb every 6 hours and every 2 hours when necessary Oxygen supplementation to keep pulse ox more than 92% Discussed with the speech pathologist, patient is strict nothing by mouth all by mouth meds. Has been on hold, will await repeat swallow eval before restarting by mouth feeding and meds Will start D5 half-normal saline for nutritional supplement till patient is nothing by mouth Awaiting cultures, and will continue all present antibiotics Repeat chest x-ray in a.m. and also CBC, CMP (2) Aspiration into airway Status: Chronic Problem Text: History of chronic aspiration and the airway Patient was being fed with a straw at [facility], but patient needs to be fed by spoon as per speech pathology recommendations here. 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 Supporative care Plan/VTE VTE Prophylaxis Ordered?: Yes VS, I&O, 24H, Fishbone Vital Signs/I&O Vital Signs Date Time Temp Pulse Resp B/P (MAP) Pulse Ox O2 Delivery O2 Flow Rate FiO2 11/03/19 09:00 2.0 11/03/19 06:00 96.1 61 17 146/65 (92) 98 Nasal Cannula I&O- Last 24 Hours up to 6 AM 11/03/19 06:00 Intake Total 800 ml Output Total 1025 ml Balance -225 ml Laboratory Data Microbiology Microbiology 10/31/19 Gram Stain - Final, Complete 10/31/19 Sputum Culture - Final, Complete Yeast Like Organism 10/31/19 Urine Culture - Final, Complete Yeast Like Organism 10/30/19 Blood Culture - Preliminary, Resulted No Growth after 72 hours. All specime... 10/30/19 Blood Culture - Preliminary, Resulted No Growth after 72 hours. All specime... ABE SHI MD November 03, 2019 11:48
[2019-11-03] MEDS: PANTOPRAZOLE 40MG VIAL (C9113 PER 1) IV SCH (12:31)
[2019-11-03 14:00] VITALS: BP 149/82
[2019-11-03] MEDS: PANTOPRAZOLE 40MG TAB (PROTONIX) PO SCH (21:00)
[2019-11-03] MEDS: lisinopriL 10 MG TAB PO SCH (21:00)
[2019-11-03] MEDS: oxyBUTYnin 5 MG TAB PO SCH (21:00)
[2019-11-03] MEDS: DOCUSATE SODIUM 100 MG CAP PO SCH (21:00)
[2019-11-03] MEDS: ASPIRIN 81 MG ENTERIC TAB PO SCH (21:00)
[2019-11-03] MEDS: LACTIC ACID 12% LOTION 225 GM BTL TOP SCH (21:20)
[2019-11-03 22:00] VITALS: BP 137/85
[2019-11-04] MEDS: IPRATROPIUM 0.5MG/ALBUTEROL 2.5MG INH SOL UD 3ML (DUONEB)(J7620) NEB SCH ×4 (02:43→19:48)
[2019-11-04] MEDS: PIPERACILLIN/TAZOBACTAM SOD 3.375 GM in D5W MINI-BAG PLUS 50 ML IV SCH ×4 (04:46→21:57)
[2019-11-04 05:53] LABS: BASO % 0.4 % (0.0-1.0); EOS # 0.5 10^3/uL (0.0-0.5); EOS % 6.7 % (0.0-3.0); HEMOGLOBIN 13.4 g/dl (13.5-17.5); LYMPH # 1.4 10^3/uL (1.5-5.0); MEAN CORPUSCULAR HEMOGLOBIN 29.9 pg (27.0-33.0); MEAN CORPUSCULAR HGB CONC 31.9 g/dl (32.0-36.5); MEAN CORPUSCULAR VOLUME 93.8 fl (80.0-96.0); MONO # 0.7 10^3/uL (0.0-0.8); MONO % 9.1 % (0.0-5.0); NEUTROPHILS # 4.6 10^3/uL (1.5-8.5); NEUTROPHILS % 64.4 % (36.0-66.0); PLATELET COUNT, AUTOMATED 200 10^3/uL (150-450); RED BLOOD COUNT 4.48 10^6/uL (4.30-6.10); WHITE BLOOD COUNT 7.2 10^3/uL (4.0-10.0)
[2019-11-04 06:00] VITALS: BP 127/62
[2019-11-04 06:16] LABS: ALBUMIN 2.5 GM/DL (3.2-5.2); ALT/SGPT 16 U/L (12-78); BILIRUBIN,TOTAL 0.5 MG/DL (0.2-1.0); BLOOD UREA NITROGEN 7 MG/DL (7-18); CALCIUM LEVEL 8.1 MG/DL (8.8-10.2); CARBON DIOXIDE LEVEL 26 MEQ/L (21-32); CHLORIDE LEVEL 108 MEQ/L (98-107); CREATININE FOR GFR 0.61 MG/DL (0.70-1.30); GLOMERULAR FILTRATION RATE > 60.0 (>42); GLUCOSE, FASTING 119 MG/DL (70-100); POTASSIUM SERUM 3.2 MEQ/L (3.5-5.1); SODIUM LEVEL 142 MEQ/L (136-145); TOTAL PROTEIN 5.8 GM/DL (6.4-8.2)
[2019-11-04] MEDS ORDERED: POTASSIUM CHLORIDE 10 MEQ SR TABLET PO ONE (06:30)
--- NOTE | 2019-11-04 07:44 | REP ---
Clinical: Follow up pneumonia. Comparison: 10/30/2019. Findings: Mediastinum and cardiac silhouette are stable with mild cardiomegaly again suggested. Lung arambula demonstrate diffuse bilateral chronic interstitial changes with superimposed left lower lobe infiltrate mildly improved and possibly representing chronic changes as compared with multiple prior examinations dating through 07/10/2019. No obvious effusion. No pneumothorax. Skeletal structures are intact. Impression: Diffuse chronic changes with suspected chronic left lower lobe/retrocardiac predominance. Subtle superimposed left lower lobe infiltrate cannot be excluded, but appears improved compared to 10/30/2019. Electronically Signed by Abdiel Anderson MD 11/04/2019 07:35 A
[2019-11-04] MEDS: MIRALAX *UNIT DOSE* 17GM PACKET PO SCH (09:00)
[2019-11-04] MEDS: oxyBUTYnin 5 MG TAB PO SCH ×2 (09:00→21:00)
[2019-11-04] MEDS: PANTOPRAZOLE 40MG TAB (PROTONIX) PO SCH ×2 (09:00→21:00)
[2019-11-04] MEDS: DOCUSATE SODIUM 100 MG CAP PO SCH ×2 (09:00→21:00)
[2019-11-04] MEDS: HEPARIN SOD (PORCINE) 5000UNITS/ML VIAL (J1644 PER 1000UNITS) SC SCH ×2 (09:56→21:58)
[2019-11-04] MEDS: NYSTATIN 100,000 UNITS/GM TOPICAL PWD 15 GM TOP SCH ×2 (09:57→21:58)
[2019-11-04] MEDS ORDERED: POTASSIUM CHLORIDE 10% LIQ 20 MEQ/15 ML UDC PO ONE (12:00)
[2019-11-04] MEDS: PANTOPRAZOLE 40MG VIAL (C9113 PER 1) IV SCH (12:10)
[2019-11-04] MEDS ORDERED: BARIUM SULFATE 700 MG TABLET (E-Z-DISK) As Ordered ONE (12:38)
[2019-11-04] MEDS ORDERED: VARIBAR NECTAR 40% w/v 240ML SUSP BTL As Ordered ONE (12:38)
[2019-11-04] MEDS ORDERED: E-Z-PAQUE 96% w/w SUSP 176GM BTL As Ordered ONE (12:38)
[2019-11-04] MEDS ORDERED: VARIBAR PUDDING 40% w/v 230ML TUBE As Ordered ONE (12:38)
--- NOTE | 2019-11-04 12:48 | IPNPDOC ---
Subjective Date Seen The patient was seen on 11/04/19. Subjective Chief Complaint/HPI Patient is comfortable in no distress, answers with yes and no , would like to eat now General: Denies: ROS Unobtainable, Chills, Night Sweats, Fatigue, Malaise, Normal Appetite, Other Symptoms Constitutional: Denies: Chills, Fever, Night Sweats Pulmonary: Denies: Dyspnea, Cough, Pleuritic Chest Pain, Other Symptoms Cardiovascular: Denies: Chest Pain, Palpitations, Orthopnea, Paroxysmal Noc. Dyspnea, Edema, Lt Headedness, Other Symptoms Gastrointestinal: Denies: Nausea, Vomiting, Abdominal Pain, Diarrhea, Constipation, Melena, Hematochezia, Other Symptoms Musculoskeletal: Denies: Neck Pain, Back Pain, Shoulder Pain, Arm Pain, Hand Pain, Leg Pain, Foot Pain, Joint Pain, Muscle Pain, Spasms, Other Symptoms Neurological: Denies: Weakness, Numbness, Incoordination, Change in speech, Co nfusion, Seizures, Other Symptoms Objective Physical Examination Neck Exam: Positive: Supple Chest Exam: Positive: Other (. Bilateral wheezing and crackles at left lower lobe are both) Heart Exam: Positive: Rate Normal, Normal S1, Normal S2 Abdomen Exam: Positive: Normal bowel sounds, Soft Extremity Exam: Positive: Normal pulses Skin Exam: Positive: Nl turgor and temperature Assessment /Plan Problems (1) Left lower lobe pneumonia Status: Acute Problem Text: kandy was recently admitted and October 23 and discharged after 2 days with similar complaint. Patient this time again presented with shortness of breath and wheezing. Patient. WBC count is 14.7. Chest x-ray is consistent with left lower lobe infiltrate. CBC, CMP otherwise normal Left lower lobe pneumonia could be e healthcare facility acquired versus aspiration Admitted to [facility] floor with continuous pulse ox Continue Zosyn as per orders. and seems to be responding Repeat chest x-ray done today shows improvement Clinical examination, patient is afebrile, asymptomatic. Lungs are clear to A&P. His WBC count is 7.2 DuoNeb every 6 hours and every 2 hours when necessary Patient is awaiting cookie swallow well today and hopefully then restart diet And then possibly patient can be discharged home tomorrow (2) Aspiration into airway Status: Chronic Problem Text: History of chronic aspiration and the airway Patient was being fed with a straw at [facility], but patient needs to be fed by spoon as per speech pathology recommendations here. Patient is a awaiting a cookie swallow eval done today Awaiting further recommendation from speech pathology, then we'll restart feedings. 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 Supporative care Plan/VTE VTE Prophylaxis Ordered?: Yes VS, I&O, 24H, Fishbone Vital Signs/I&O Vital Signs Date Time Temp Pulse Resp B/P (MAP) Pulse Ox O2 Delivery O2 Flow Rate FiO2 11/04/19 09:00 2.0 11/04/19 06:00 97.7 57 19 127/62 (83) 100 Nasal Cannula I&O- Last 24 Hours up to 6 AM 11/04/19 06:00 Intake Total 50 ml Output Total 750 ml Balance -700 ml Laboratory Data 24H LABS Laboratory Tests 2 11/04/19 05:21: Immature Granulocyte % (Auto) 0.4, Neutrophils (%) (Auto) 64.4, Lymphocytes (%) (Auto) 19.0L, Monocytes (%) (Auto) 9.1H, Eosinophils (%) (Auto) 6.7H, Basophils (%) (Auto) 0.4, Neutrophils # (Auto) 4.6, Lymphocytes # (Auto) 1.4L, Monocytes # (Auto) 0.7, Eosinophils # (Auto) 0.5, Basophils # (Auto) 0.0, Nucleated Red Blood Cells % (auto) 0.0, Anion Gap 8, Glomerular Filtration Rate > 60.0, Calcium Level 8.1L, Magnesium Level 2.0, Total Bilirubin 0.5, Aspartate Amino Transf (AST/SGOT) 8, Alanine Aminotransferase (ALT/SGPT) 16, Alkaline Phosphatase 62, Total Protein 5.8L, Albumin 2.5L, Albumin/Globulin Ratio 0.76L CBC/BMP Laboratory Tests 11/04/19 05:21 Microbiology Microbiology 10/31/19 Gram Stain - Final, Complete 10/31/19 Sputum Culture - Final, Complete Yeast Like Organism 10/31/19 Urine Culture - Final, Complete Yeast Like Organism 10/30/19 Blood Culture - Preliminary, Resulted No Growth after 72 hours. All specime... 10/30/19 Blood Culture - Preliminary, Resulted No Growth after 72 hours. All specime... ABE SHI MD November 04, 2019 12:48
[2019-11-04] MEDS ORDERED: KCL 10MEQ/100ML SWI (KRUN) 10 MEQ in IV 1 EA IV ONE (13:00)
[2019-11-04] MEDS: D5W/0.45% SODIUM CHLORIDE 1,000 ML IV SCH ×2 (14:52→21:57)
[2019-11-04 15:40] VITALS: BP 143/42
--- NOTE | 2019-11-04 16:13 | REP ---
COOKIE SWALLOW The procedure was performed under the direct supervision of Dr. Zambrano. The procedure was performed with Jewels Grimaldo from speech pathology present. 5 ml aliquots of honey and pudding consistency barium was administered. There is no evidence of penetration or aspiration. The detailed report of this examination will be provided by speech pathology. 1.4 minutes of fluoroscopy time was utilized for this procedure. Electronically Signed by JIM Philip 11/04/2019 03:18 P Electronically Signed by Dewayne Zambrano MD 11/04/2019 04:05 P
[2019-11-04] MEDS: lisinopriL 10 MG TAB PO SCH (21:00)
[2019-11-04] MEDS: ASPIRIN 81 MG ENTERIC TAB PO SCH (21:00)
[2019-11-04] MEDS: LACTIC ACID 12% LOTION 225 GM BTL TOP SCH (21:58)
[2019-11-04 22:00] VITALS: BP 139/65
[2019-11-05] MEDS: IPRATROPIUM 0.5MG/ALBUTEROL 2.5MG INH SOL UD 3ML (DUONEB)(J7620) NEB SCH ×4 (02:55→19:25)
[2019-11-05] MEDS: PIPERACILLIN/TAZOBACTAM SOD 3.375 GM in D5W MINI-BAG PLUS 50 ML IV SCH ×4 (04:45→22:00)
[2019-11-05 06:00] VITALS: BP 130/67
[2019-11-05] MEDS ORDERED: OXYMETAZOLINE NASAL SPRAY (AFRIN) PRN (07:00)
[2019-11-05] MEDS ORDERED: POTASSIUM CHLORIDE 10% LIQ 20 MEQ/15 ML UDC PO ONE (08:45)
[2019-11-05] MEDS: oxyBUTYnin 5 MG TAB PO SCH ×2 (09:00→21:00)
[2019-11-05] MEDS: MIRALAX *UNIT DOSE* 17GM PACKET PO SCH (09:00)
[2019-11-05] MEDS: DOCUSATE SODIUM 100 MG CAP PO SCH ×2 (09:00→21:00)
[2019-11-05] MEDS: PANTOPRAZOLE 40MG TAB (PROTONIX) PO SCH (09:00)
[2019-11-05] MEDS: NYSTATIN 100,000 UNITS/GM TOPICAL PWD 15 GM TOP SCH ×2 (09:28→21:59)
[2019-11-05] MEDS: D5W/0.45% SODIUM CHLORIDE 1,000 ML IV SCH (09:56)
[2019-11-05] MEDS: HEPARIN SOD (PORCINE) 5000UNITS/ML VIAL (J1644 PER 1000UNITS) SC SCH ×2 (09:56→21:59)
[2019-11-05] MEDS: PANTOPRAZOLE 40MG VIAL (C9113 PER 1) IV SCH (13:22)
[2019-11-05 14:00] VITALS: BP 136/92
--- NOTE | 2019-11-05 20:40 | IPNPDOC ---
Date Seen The patient was seen on 11/05/19. Progress Note SUBJECTIVE: The patient did poorly with speech therapy at the bedside today, tomorrow doing fiberoptic swallowing evaluation at the bedside. Currently remains nothing by mouth. Zosyn covering UTI and left lower lobe pneumonia. There was some concern about his leaking suprapubic catheter, instructions of deflating and inflating the balloon were given to the nurse to follow from the home or he lives. The henry pathak is a poor historian but is not complaining on exam today. OBJECTIVE: VITAL SIGNS: Please see below PHYSICAL EXAMINATION: CONSTITUTIONAL: Following commands most times. resting comfortably, AAO x 3 EYES: PERRLA, EOM intact HENT, MOUTH: Normocephalic, atraumatic, moist mucous membranes NECK: SUPPLE, no JVD, no lymphadenopathy, no carotid bruit CV: Regular rate and rhythm, S1S2 normal, no murmurs/rubs/gallops RESPIRATORY: crackles in bilateral lower lung arambula, no wheezing, rhonchi or rales. GI: BS positive in 4 quadrants, soft, nontender, nondistended, no rebound or guarding, no organomegaly : Deferred MUSCULOSKELETAL: Normal ROM. No cyanosis, clubbing, swelling, joint deformity, extremity edema INTEGUMENTARY: Intact, no rashes, no lesions, no erythema NEUROLOGIC: Cranial Nerves II-XII are intact, no focal deficits CURRENT MEDICATIONS: Please see below LABORATORY DATA: Please see below IMAGING: Cookie Swallow: The procedure was performed under the direct supervision of Dr. Zambrano. The procedure was performed with Jewels Grimaldo from speech pathology present. 5 ml aliquots of honey and pudding consistency barium was administered. There is no evidence of penetration or aspiration. The detailed report of this examination will be provided by speech pathology. 1.4 minutes of fluoroscopy time was utilized for this procedure. ASSESSMENT: 74 y/o M with LLL pneumonia, hx of recurrent aspiration and ongoing dysphagia. PLAN: 1. Left lower lobe pneumonia, acute. Healthcare associated vs. aspiration concern. WBC wnl. Cookie swallow unchanged from prior but having further testing with fiberoptic swallowing eval to be done tomorrow. Remains NPO due to concern for aspiration. C/w zosyn. 2. Aspiration into airway, chronic. Patient was being fed with a straw at [facility], but patient needs to be fed by spoon as per speech pathology recommendations here. Although tim swallow unchanged from prior, concern is still there to c/w additional testing as mentioned above. F/u speech pathology suggestions and when to restart feedings. 3. Dysphagia. See above. 4. Hypokalemia likely 2/2 to decreased intake. F/u AM labs. 5. Quadriplegic infantile cerebral palsy, chronic. Supporative care 6. DVT px. Heparin SC. DISPOSITION: Currently inpatient. Plan is to return to prior living situation/home at discharge. VS, I&O, 24H, Fishbone Vital Signs/I&O Vital Signs Date Time Temp Pulse Resp B/P (MAP) Pulse Ox O2 Delivery O2 Flow Rate FiO2 11/05/19 14:00 97.5 80 16 136/92 (107) 88 Room Air 11/05/19 06:00 2.0 I&O- Last 24 Hours up to 6 AM 11/05/19 06:00 Intake Total 1310 ml Output Total 470 ml Balance 840 ml Laboratory Data Microbiology Microbiology 10/31/19 Gram Stain - Final, Complete 10/31/19 Sputum Culture - Final, Complete Yeast Like Organism 10/31/19 Urine Culture - Final, Complete Yeast Like Organism 10/30/19 Blood Culture - Final, Complete NO GROWTH AFTER 5 DAYS 10/30/19 Blood Culture - Final, Complete NO GROWTH AFTER 5 DAYS Current Medications Current Medications Medications (Trade) Dose Ordered Sig/Tatiana Route PRN Reason Start Time Stop Time Status Last Admin Dose Admin Acetaminophen (Tylenol Suppository) 650 mg Q4HP PRN [place] PAIN / FEVER 11/01/19 11:15 Acetaminophen (Tylenol Tab) 650 mg Q4H PRN PO PAIN OR FEVER 10/30/19 16:30 Al Hydrox/Mg Hydrox/Simethicone (Mylanta) 30 ml DAILY PRN PO DYSPEPSIA 10/30/19 16:30 Albuterol/ Ipratropium (Duoneb (Ipr 0.5mg/Alb 2.5mg)) 3 ml Q2HP PRN NEB SOB/WHEEZING 10/30/19 16:45 Albuterol/ Ipratropium (Duoneb (Ipr 0.5mg/Alb 2.5mg)) 3 ml RQ6H NEB 10/30/19 20:00 11/05/19 19:25 Aspirin (Ecotrin) 81 mg QHS PO 10/30/19 21:00 10/30/19 20:47 Dextrose/Sodium Chloride 1,000 ml @ 70 mls/hr [id number] IV 11/01/19 11:30 11/05/19 09:56 Docusate Sodium (Colace) 100 mg BID PO 10/30/19 21:00 10/30/19 21:41 Heparin Sodium (Porcine) (Heparin) 5,000 units Q12H SC 10/30/19 21:00 11/05/19 09:56 Home Med (Med Rec Complete!) ASDIRECTED XX 10/30/19 15:45 10/30/19 15:43 DC Lactic Acid (Lac-Hydrin 12% Lotion) APPLY TO FEET DIRECTED QHS TOP 10/30/19 21:00 11/04/19 21:58 Lisinopril (Prinivil) 10 mg QHS PO 10/30/19 21:00 10/30/19 20:47 Magnesium Hydroxide (Milk Of Magnesia) 30 ml DAILY PRN PO CONSTIPATION 10/30/19 16:30 Nystatin (Mycostatin Powder, Nystop) to groin BID TOP 10/30/19 21:00 11/05/19 09:28 Oxybutynin Chloride (Ditropan) 5 mg BID PO 10/30/19 21:00 10/30/19 21:42 Oxymetazoline HCl (Afrin) 2 spray ONCE PRN NA SEE LABEL COMMENTS 11/05/19 07:00 11/05/19 14:36 DC Oxymetazoline HCl (Afrin) 2 spray ONCE PRN NA SEE LABEL COMMENTS 11/06/19 07:00 Pantoprazole Sodium (Protonix) 40 mg BID PO 10/30/19 21:00 10/30/19 20:47 Pantoprazole Sodium (Protonix) 40 mg Q24H IV 11/01/19 12:00 11/05/19 13:22 Piperacillin Sod/ Tazobactam Sod 3.375 gm/Dextrose 50 ml @ 50 mls/hr Q6H IV 10/30/19 22:00 11/06/19 16:59 11/05/19 16:59 Polyethylene Glycol (Miralax) 1 pkt DAILY PO 10/31/19 09:00 Allergies Coded Allergies: codeine (Verified Adverse Reaction, Intermediate, [facility], 08/27/19) Arleth Pham MD November 05, 2019 20:40
[2019-11-05] MEDS: ASPIRIN 81 MG ENTERIC TAB PO SCH (21:00)
[2019-11-05] MEDS: lisinopriL 10 MG TAB PO SCH (21:00)
[2019-11-05] MEDS: LACTIC ACID 12% LOTION 225 GM BTL TOP SCH (21:59)
[2019-11-05 22:00] VITALS: BP 130/69
[2019-11-06] MEDS: D5W/0.45% SODIUM CHLORIDE 1,000 ML IV SCH ×2 (01:42→20:12)
[2019-11-06] MEDS: IPRATROPIUM 0.5MG/ALBUTEROL 2.5MG INH SOL UD 3ML (DUONEB)(J7620) NEB SCH ×4 (01:43→19:06)
[2019-11-06] MEDS: PIPERACILLIN/TAZOBACTAM SOD 3.375 GM in D5W MINI-BAG PLUS 50 ML IV SCH ×3 (04:32→17:16)
[2019-11-06 05:47] LABS: HEMATOCRIT 40.9 % (42.0-52.0); HEMOGLOBIN 13.5 g/dl (13.5-17.5); MEAN CORPUSCULAR HEMOGLOBIN 30.4 pg (27.0-33.0); MEAN CORPUSCULAR VOLUME 92.1 fl (80.0-96.0); PLATELET COUNT, AUTOMATED 222 10^3/uL (150-450); RED BLOOD COUNT 4.44 10^6/uL (4.30-6.10); WHITE BLOOD COUNT 7.2 10^3/uL (4.0-10.0)
[2019-11-06 06:00] VITALS: BP 115/66
[2019-11-06 06:08] LABS: ALBUMIN 2.7 GM/DL (3.2-5.2); ALT/SGPT 17 U/L (12-78); BILIRUBIN,TOTAL 0.5 MG/DL (0.2-1.0); BLOOD UREA NITROGEN 7 MG/DL (7-18); CALCIUM LEVEL 8.1 MG/DL (8.8-10.2); CARBON DIOXIDE LEVEL 26 MEQ/L (21-32); CHLORIDE LEVEL 109 MEQ/L (98-107); CREATININE FOR GFR 0.56 MG/DL (0.70-1.30); GLOMERULAR FILTRATION RATE > 60.0 (>42); GLUCOSE, FASTING 116 MG/DL (70-100); POTASSIUM SERUM 3.4 MEQ/L (3.5-5.1); SODIUM LEVEL 140 MEQ/L (136-145); TOTAL PROTEIN 5.8 GM/DL (6.4-8.2)
[2019-11-06] MEDS ORDERED: OXYMETAZOLINE NASAL SPRAY (AFRIN) PRN (07:00)
[2019-11-06] MEDS ORDERED: ASPIRIN 81 MG CHEW TABLET PO SCH ×2 (09:00→21:00)
[2019-11-06] MEDS: DOCUSATE SODIUM 100 MG CAP PO SCH (09:00)
[2019-11-06] MEDS: MIRALAX *UNIT DOSE* 17GM PACKET PO SCH (09:00)
[2019-11-06] MEDS: oxyBUTYnin 5 MG TAB PO SCH ×2 (10:17→22:38)
[2019-11-06] MEDS: HEPARIN SOD (PORCINE) 5000UNITS/ML VIAL (J1644 PER 1000UNITS) SC SCH ×2 (10:17→22:38)
[2019-11-06] MEDS: NYSTATIN 100,000 UNITS/GM TOPICAL PWD 15 GM TOP SCH ×2 (10:18→22:44)
[2019-11-06] MEDS: KCL 10MEQ/100ML SWI (KRUN) 10 MEQ in IV 1 EA IV SCH ×4 (13:09→16:02)
[2019-11-06] MEDS: PANTOPRAZOLE 40MG VIAL (C9113 PER 1) IV SCH (13:09)
[2019-11-06 14:00] VITALS: BP 131/71
[2019-11-06] MEDS ORDERED: KCL 10MEQ IN STERILE WATER 100ML As Ordered ONE ×2 (15:08→16:01)
--- NOTE | 2019-11-06 19:42 | IPNPDOC ---
Date Seen The patient was seen on 11/06/19. Progress Note SUBJECTIVE: Patient could not tolerate fiberoptic study, swallowing evaluation done at the bedside is suggesting honey thickened. Diet. No straws only spoons to be used. He is coughing but they cannot rule out aspiration versus fatigue so small meals are encouraged. There was a concern from [facility], a nurse called and stated that they would like a GI consult on prior to patient being sent home. They state that she feels he's been having esophagus problems that need to be addressed. We do not have GI currently on consultation service but will curbside them to discuss case prior to discharge. The patient has no complaints. OBJECTIVE: VITAL SIGNS: Please see below PHYSICAL EXAMINATION: CONSTITUTIONAL: Following commands most times. resting comfortably, AAO x 3 EYES: PERRLA, EOM intact HENT, MOUTH: Normocephalic, atraumatic, moist mucous membranes NECK: SUPPLE, no JVD, no lymphadenopathy, no carotid bruit CV: Regular rate and rhythm, S1S2 normal, no murmurs/rubs/gallops RESPIRATORY: crackles in bilateral lower lung arambula, no wheezing, rhonchi or rales. GI: BS positive in 4 quadrants, soft, nontender, nondistended, no rebound or guarding, no organomegaly : Deferred MUSCULOSKELETAL: Normal ROM. No cyanosis, clubbing, swelling, joint deformity, extremity edema INTEGUMENTARY: Intact, no rashes, no lesions, no erythema NEUROLOGIC: Cranial Nerves II-XII are intact, no focal deficits CURRENT MEDICATIONS: Please see below LABORATORY DATA: Please see below IMAGING: No new imaging. ASSESSMENT: 74 y/o M with LLL pneumonia, hx of recurrent aspiration and ongoing dysphagia. PLAN: 1. Left lower lobe pneumonia, acute. Healthcare associated vs. aspiration concern. WBC wnl. C/w zosyn. 2. Aspiration into airway, chronic. Fiberoptic study could not be completed due to patient not participating. Patient was being fed with a straw at [facility], but patient needs to be fed by spoon as per speech pathology recommendations here. Risks of feeding with even honey thickened pureed diet with spoon were discussed with the family at the , it was explained that increased coughing could be secondary to aspiration or fatigue. The family does not want a feeding tube and decision was made to resume honey thickened pured diet. I myself, again, discussed this with the family at the bedside after the decision was made to resume the diet, risks again were explained. Will discuss the case with GI tomorrow over the phone as official consult cannot be put in due to not having the service currently. We will then update [facility] prior to discharge. 3. Dysphagia. See above. 4. Hypokalemia likely 2/2 to decreased intake. F/u AM labs. 5. Quadriplegic infantile cerebral palsy, chronic. Supportive care 6. DVT px. Heparin SC. DISPOSITION: Currently inpatient. Plan is to return to prior living situation/home at discharge. Will discuss case with GI in the AM to see if any additional testing needs to be done at this time. VS, I&O, 24H, Fishbone Vital Signs/I&O Vital Signs Date Time Temp Pulse Resp B/P (MAP) Pulse Ox O2 Delivery O2 Flow Rate FiO2 11/06/19 14:00 96.9 76 20 131/71 (91) 96 Room Air 11/05/19 06:00 2.0 I&O- Last 24 Hours up to 6 AM 11/06/19 06:00 Intake Total 420 ml Output Total 625 ml Balance -205 ml Laboratory Data 24H LABS Laboratory Tests 2 11/06/19 05:11: Nucleated Red Blood Cells % (auto) 0.0, Anion Gap 5L, Glomerular Filtration Rate > 60.0, Calcium Level 8.1L, Total Bilirubin 0.5, Aspartate Amino Transf (AST/SGOT) 10, Alanine Aminotransferase (ALT/SGPT) 17, Alkaline Phosphatase 68, Total Protein 5.8L, Albumin 2.7L, Albumin/Globulin Ratio 0.87L CBC/BMP Laboratory Tests 11/06/19 05:11 Microbiology Microbiology 10/31/19 Gram Stain - Final, Complete 10/31/19 Sputum Culture - Final, Complete Yeast Like Organism 10/31/19 Urine Culture - Final, Complete Yeast Like Organism 10/30/19 Blood Culture - Final, Complete NO GROWTH AFTER 5 DAYS 10/30/19 Blood Culture - Final, Complete NO GROWTH AFTER 5 DAYS Current Medications Current Medications Medications (Trade) Dose Ordered Sig/Tatiana Route PRN Reason Start Time Stop Time Status Last Admin Dose Admin Acetaminophen (Tylenol Suppository) 650 mg Q4HP PRN [place] PAIN / FEVER 11/01/19 11:15 Acetaminophen (Tylenol Tab) 650 mg Q4H PRN PO PAIN OR FEVER 10/30/19 16:30 Al Hydrox/Mg Hydrox/Simethicone (Mylanta) 30 ml DAILY PRN PO DYSPEPSIA 10/30/19 16:30 Albuterol/ Ipratropium (Duoneb (Ipr 0.5mg/Alb 2.5mg)) 3 ml Q2HP PRN NEB SOB/WHEEZING 10/30/19 16:45 Albuterol/ Ipratropium (Duoneb (Ipr 0.5mg/Alb 2.5mg)) 3 ml RQ6H NEB 10/30/19 20:00 11/06/19 19:06 Aspirin (Aspirin Chewable) 81 mg DAILY PO 11/06/19 09:00 11/06/19 13:12 DC Aspirin (Aspirin Chewable) 81 mg QHS PO 11/06/19 21:00 Aspirin (Ecotrin) 81 mg QHS PO 10/30/19 21:00 11/06/19 11:06 DC 10/30/19 20:47 Dextrose/Sodium Chloride 1,000 ml @ 70 mls/hr [id number] IV 11/01/19 11:30 11/06/19 01:42 Docusate Sodium (Colace) 100 mg BID PO 10/30/19 21:00 11/06/19 11:07 DC 10/30/19 21:41 Heparin Sodium (Porcine) (Heparin) 5,000 units Q12H SC 10/30/19 21:00 11/06/19 10:17 Home Med (Med Rec Complete!) ASDIRECTED XX 10/30/19 15:45 10/30/19 15:43 DC Lactic Acid (Lac-Hydrin 12% Lotion) APPLY TO FEET DIRECTED QHS TOP 10/30/19 21:00 11/05/19 21:59 Lisinopril (Prinivil) 10 mg QHS PO 10/30/19 21:00 10/30/19 20:47 Magnesium Hydroxide (Milk Of Magnesia) 30 ml DAILY PRN PO CONSTIPATION 10/30/19 16:30 Nystatin (Mycostatin Powder, Nystop) to groin BID TOP 10/30/19 21:00 11/06/19 10:18 Oxybutynin Chloride (Ditropan) 5 mg BID PO 10/30/19 21:00 11/06/19 10:17 Oxymetazoline HCl (Afrin) 2 spray ONCE PRN NA SEE LABEL COMMENTS 11/05/19 07:00 11/05/19 14:36 DC Oxymetazoline HCl (Afrin) 2 spray ONCE PRN NA SEE LABEL COMMENTS 11/06/19 07:00 Pantoprazole Sodium (Protonix) 40 mg BID PO 10/30/19 21:00 11/05/19 20:47 DC 10/30/19 20:47 Pantoprazole Sodium (Protonix) 40 mg Q24H IV 11/01/19 12:00 11/06/19 13:09 Piperacillin Sod/ Tazobactam Sod 3.375 gm/Dextrose 50 ml @ 50 mls/hr Q6H IV 10/30/19 22:00 11/06/19 16:59 DC 11/06/19 17:16 Polyethylene Glycol (Miralax) 1 pkt DAILY PO 10/31/19 09:00 11/06/19 11:07 DC Potassium Chloride 10 meq/ IV Miscellaneous Supplies 100 ml @ 100 mls/hr Q1H IV 11/06/19 09:00 11/06/19 12:59 DC 11/06/19 16:02 Allergies Coded Allergies: codeine (Verified Adverse Reaction, Intermediate, [facility], 08/27/19) Arleth Pham MD November 06, 2019 19:41
[2019-11-06 22:00] VITALS: BP 130/69
[2019-11-06 22:39] VITALS: BP 135/72
[2019-11-06] MEDS: LACTIC ACID 12% LOTION 225 GM BTL TOP SCH (22:39)
[2019-11-06] MEDS: lisinopriL 10 MG TAB PO SCH (22:39)
[2019-11-07 05:54] LABS: HEMATOCRIT 40.3 % (42.0-52.0); HEMOGLOBIN 13.4 g/dl (13.5-17.5); MEAN CORPUSCULAR HEMOGLOBIN 30.5 pg (27.0-33.0); MEAN CORPUSCULAR HGB CONC 33.3 g/dl (32.0-36.5); MEAN CORPUSCULAR VOLUME 91.8 fl (80.0-96.0); PLATELET COUNT, AUTOMATED 204 10^3/uL (150-450); RED BLOOD COUNT 4.39 10^6/uL (4.30-6.10); WHITE BLOOD COUNT 6.7 10^3/uL (4.0-10.0)
[2019-11-07 06:00] VITALS: BP 126/57
[2019-11-07 06:22] LABS: ALBUMIN 2.5 GM/DL (3.2-5.2); ALT/SGPT 15 U/L (12-78); BILIRUBIN,TOTAL 0.4 MG/DL (0.2-1.0); BLOOD UREA NITROGEN 5 MG/DL (7-18); CALCIUM LEVEL 7.9 MG/DL (8.8-10.2); CARBON DIOXIDE LEVEL 25 MEQ/L (21-32); CHLORIDE LEVEL 111 MEQ/L (98-107); CREATININE FOR GFR 0.56 MG/DL (0.70-1.30); GLOMERULAR FILTRATION RATE > 60.0 (>42); GLUCOSE, FASTING 104 MG/DL (70-100); POTASSIUM SERUM 3.5 MEQ/L (3.5-5.1); SODIUM LEVEL 143 MEQ/L (136-145); TOTAL PROTEIN 5.5 GM/DL (6.4-8.2)
[2019-11-07] MEDS: IPRATROPIUM 0.5MG/ALBUTEROL 2.5MG INH SOL UD 3ML (DUONEB)(J7620) NEB SCH ×2 (07:11→13:46)
[2019-11-07] MEDS: oxyBUTYnin 5 MG TAB PO SCH (09:00)
[2019-11-07] MEDS: HEPARIN SOD (PORCINE) 5000UNITS/ML VIAL (J1644 PER 1000UNITS) SC SCH (09:29)
[2019-11-07] MEDS: NYSTATIN 100,000 UNITS/GM TOPICAL PWD 15 GM TOP SCH (09:30)
[2019-11-07] MEDS: D5W/0.45% SODIUM CHLORIDE 1,000 ML IV SCH (09:30)
[2019-11-07] MEDS: PANTOPRAZOLE 40MG VIAL (C9113 PER 1) IV SCH (13:23)
[2019-11-07 14:00] VITALS: BP 163/73
--- NOTE | 2019-11-07 16:16 | DS.PDOC ---
Discharge Summary General Date of Admission Oct 30, 2019 at 16:25 Date of Discharge 11/07/19 Primary Care Physician: Aldo Modi MD Attending Physician: Arleth Pham MD Discharge Summary HISTORY OF PRESENT ILLNESS: This is a 74 years old male with past medical history of cerebral palsy indwelling suprapubic catheter. Dementia, he has a [facility] status once again brought back with chief complaints of wheezing and increased shortness of breath since today. Unable to obtain history from patient secondary to physical and mental condition. History was obtained from various sources including reviewed old records present EMS record caregiver and M.D., nurse in ED. Patient was admitted for LLL pneumonia, aspiration vs. healthcare associated and dysphagia. HOSPITAL COURSE: During patient's hospitalization, he was treated with IV Zosyn for a total of 7 days. UA +; however, grew only yeast- not treated per guidelines. Patient did poorly with speech therapy at the bedside. Reports were given to us that patient was using a straw at the facility. Esophagus XR (Barium swallow or cookie swallow) showed no change from prior, when 5 ml aliquots of honey and pudding consistency barium was administered. There was no evidence of penetration or aspiration. As suspicion was still high with patient coughing with feedings (aspiration vs. fatigue with large meals?) a fiberoptic swallowing evaluation was ordered. On 11/06/19, this was attempted; however, patient did not participate. This had to be cancelled. Family was notified of results by [facility] [place] and myself. Decision was made by family, despite risk for aspiration, to continue to feed but with honey thickened liquids, pureed diet, no straws, spoon feedings only. Tube feedings, artificial feeding was not desired by family. Case was discussed curbside with GI over the phone (Dr. So, no GI consult was available to take place in hospital due to nobody operations agent) and esophogram was suggested. As esophogram uses barium liquid and risk of aspiration was high, this was cancelled. By 11/07/19 patient's WBC wnl, afebrile, tolerated revised diet well with no additional aspiration concerns. He was discharged back to [facility] with the suggested diet and recommended follow up wit h PCP within 1-2 weeks. Suprapubic catheter did leak several days; however, when balloon was deflated and inflated again, this issue resolved. On day of discharge, patient was much improved and had no complaints. He denied pain or shortness of breath. His brother Dada was at bedside and updated at discharge as well. PAST MEDICAL HISTORY: Cerebral palsy, chronic suprapubic catheter and dementia PAST SURGICAL HISTORY: Suprapubic catheter placement FAMILY HISTORY: Patient unable to provide due to mental status, cerebral palsy, dementia Social History * Smoker: Denies Alcohol: Denies Drugs: denies ALLERGIES: Please see below. DISCHARGE MEDICATIONS: Please see below. PHYSICAL EXAMINATION: CONSTITUTIONAL: Following commands most times. Resting comfortably, Awake but unable to answer orientation questions- baseline. EYES: PERRLA, EOM intact HENT, MOUTH: Normocephalic, atraumatic, moist mucous membranes NECK: SUPPLE, no JVD, no lymphadenopathy, no carotid bruit CV: Regular rate and rhythm, S1S2 normal, no murmurs/rubs/gallops RESPIRATORY: no wheezing, rhonchi or rales. GI: BS positive in 4 quadrants, soft, nontender, nondistended, no rebound or guarding, no organomegaly : Deferred MUSCULOSKELETAL: Normal ROM. No cyanosis, clubbing, swelling, joint deformity, extremity edema bilaterally +1 INTEGUMENTARY: Intact, no rashes, no lesions, no erythema NEUROLOGIC: Cranial Nerves II-XII are intact, no focal deficits CURRENT MEDICATIONS: Please see below LABORATORY DATA: Please see below IMAGING: Please refer to Imaging in system ASSESSMENT: 74 y/o M with LLL pneumonia, hx of recurrent aspiration and ongoing dysphagia. PLAN: 1. Aspiration into airway, chronic and recurrent. Despite esophageal XR (aka cookie swallow or barium swallow), high suspicion still with occasional coughing with meals. Cannot exclude aspiration or fatigue with large meals either. Fiberoptic study could not be completed due to patient not participating. Patient was being fed with a straw at [facility] but patient needs to be fed by spoon as per speech pathology recommendations here. No straws to be used with feedings. Risks of feeding with even honey thickened pureed diet with spoon were discussed with the family. The family does not want a feeding tube and decision was made to resume honey thickened pured diet. Pt to follow up with PCP. 2. Dysphagia. See above. 3. Left lower lobe pneumonia, acute. Healthcare associated vs. aspiration alisa rn. Completed 7 days [place]. 4. Hypokalemia likely 2/2 to decreased intake. Resolved. 5. Quadriplegic infantile cerebral palsy, chronic. Supportive care DISPOSITION: Discharging today to [facility] in improved condition. Family updated at bedside. TIME SPENT ON DISCHARGE: 35 minutes. Vital Signs/I&Os Vital Signs Date Time Temp Pulse Resp B/P (MAP) Pulse Ox O2 Delivery O2 Flow Rate FiO2 11/07/19 14:00 96.7 69 19 163/73 (103) 94 Room Air 11/05/19 06:00 2.0 I&O- Last 24 Hours up to 6 AM 11/07/19 06:00 Intake Total 570 ml Output Total 450 ml Balance 120 ml Laboratory Data Labs 24H Laboratory Tests 2 11/07/19 05:08: Nucleated Red Blood Cells % (auto) 0.0, Anion Gap 7L, Glomerular Filtration Rate > 60.0, Calcium Level 7.9L, Total Bilirubin 0.4, Aspartate Amino Transf (AST/SGOT) 9, Alanine Aminotransferase (ALT/SGPT) 15, Alkaline Phosphatase 64, Total Protein 5.5L, Albumin 2.5L, Albumin/Globulin Ratio 0.83L CBC/BMP Laboratory Tests 11/07/19 05:08 Microbiology Microbiology 10/31/19 Gram Stain - Final, Complete 10/31/19 Sputum Culture - Final, Complete Yeast Like Organism 10/31/19 Urine Culture - Final, Complete Yeast Like Organism 10/30/19 Blood Culture - Final, Complete NO GROWTH AFTER 5 DAYS 10/30/19 Blood Culture - Final, Complete NO GROWTH AFTER 5 DAYS Discharge Medications Scheduled Ammonium Lactate (Ammonium Lactate) 12 % Lot, 1 APLCT TOP QHS, (Reported) APPLIES TO FEET Aspirin (Aspir 81) 81 Mg Tablet.dr, 81 MG PO QHS, (Reported) Calcium Carbonate/Vitamin D3 (Calcium 600-Vit D3 400 Tablet) 1 Tab Tab, 1 TAB PO DAILY, (Reported) Cranberry Fruit Extract (Cranberry) 500 Mg Capsule, 500 MG PO BID, (Reported) Docusate Sodium (Colace) 100 Mg Cap, 100 MG PO BID, (Reported) Lisinopril (Lisinopril) 10 Mg Tab, 10 MG PO QHS, (Reported) Melatonin (Melatonin) 5 Mg Tab, 5 MG PO QHS, (Reported) Oxybutynin Chloride (Oxybutynin Chloride) 5 Mg Tablet, 5 MG PO BID, (Reported) Pantoprazole Sodium (Protonix) 40 Mg Tab, 40 MG PO BID, (Reported) Polyethylene Glycol 3350 (Miralax) 17 Gm Powd.pack, 17 GM PO DAILY, (Reported) MIXES IN NECTAR THICK Zinc Oxide (Desitin) 454 Gm Cream..g., 1 APLCT TOP QHS, (Reported) APPLY TO PERIRECTAL AREA Scheduled PRN Bisacodyl (Dulcolax) 10 Mg Sup, 10 MG ME for CONSTIPATION, (Reported) TO BE USED ON DAY 5 WITHOUT A BM Magnesium Hydroxide (Milk of Magnesia) 400 Mg/5 Ml Oral.susp, 30 ML PO DAILY PRN for CONSTIPATION, (Reported) ON DAYS 3 & 4 OF NO BM Allergies Coded Allergies: codeine (Verified Adverse Reaction, Intermediate, [facility], 08/27/19) Arleth Pham MD November 07, 2019 16:16
== END 2019-11-07 16:00 | disposition home or self-care (01) | DRG 177 ==
LOC: M ED 13:25 → EDBD 13:25 → M ED INP 16:25 → ENRESERV 16:44 → M MSPAV 18:19
PROVIDERS: ADMIT Internal Medicine; ATTEND Internal Medicine
DX: J69.0 Pneumonitis due to inhalation of food and vomit (principal); G80.0 Spastic quadriplegic cerebral palsy; F03.90 Unspecified dementia, unspecified severity, without behavioral disturbance, psychotic disturbance, mood disturbance, and anxiety; R13.10 Dysphagia, unspecified; E87.6 Hypokalemia; Z79.82 Long term (current) use of aspirin; Z79.899 Other long term (current) drug therapy; Z88.5 Allergy status to narcotic agent; Z53.8 Procedure and treatment not carried out for other reasons

== ENCOUNTER → 2019-11-16 | Outpatient (CLI) | payer MEDICARE, MEDICAID ==
[~2019-11-16] MED LIST changes: +MILKSUS3 PO; +ZINC20OI21 TOP; -ZINC60OI TOP
--- NOTE | 2019-12-11 06:52 | REP ---
Clinical: Dysphagia. Technique: AP and lateral views of the chest. Comparison: 11/04/2019. Findings: Mediastinum and cardiac silhouette are grossly stable. Lung arambula demonstrate chronic changes. Left lower lobe infiltrate is again noted and appears improved. No new consolidation, obvious effusion, or pneumothorax. Skeletal structures are intact. Impression: Improved aeration with decreased left lower lobe infiltrate suggested. Electronically Signed by Abdiel Anderson MD 12/11/2019 06:43 A
== END ==
LOC: M WUC 12:34
PROVIDERS: ATTEND Nurse Practitioner Family
DX: R13.10 Dysphagia, unspecified (principal); R91.8 Other nonspecific abnormal finding of lung field

== ENCOUNTER → 2020-01-21 | Outpatient (CLI) | payer MEDICARE, MEDICAID ==
[~2020-01-21] MED LIST changes: -ASPI81TA85 PO; +ASPI81TA86 PO; +CALC-211 PO; -CALCTAB7 PO; -MELA5TAB31 PO; +MELA5TAB36 PO
[2020-01-21 12:57] LABS: ALBUMIN 3.1 GM/DL (3.2-5.2); ALT/SGPT 25 U/L (12-78); BILIRUBIN,TOTAL 0.5 MG/DL (0.2-1.0); BLOOD UREA NITROGEN 11 MG/DL (7-18); CALCIUM LEVEL 8.6 MG/DL (8.8-10.2); CARBON DIOXIDE LEVEL 31 MEQ/L (21-32); CHLORIDE LEVEL 104 MEQ/L (98-107); CHOLESTEROL LEVEL 109 MG/DL (<200); CHOLESTEROL RISK RATIO 2.595 (<5); CREATININE FOR GFR 0.83 MG/DL (0.70-1.30); GLOMERULAR FILTRATION RATE > 60.0 (>42); GLUCOSE, FASTING 106 MG/DL (70-100); HDL CHOLESTEROL 42 MG/DL (>40); LDL CHOLESTEROL 44 MG/DL (<100); NON-HDL-C 67 MG/DL; POTASSIUM SERUM 4.3 MEQ/L (3.5-5.1); SODIUM LEVEL 141 MEQ/L (136-145); TOTAL PROTEIN 6.1 GM/DL (6.4-8.2); TRIGLYCERIDES LEVEL 117 MG/DL (<150)
== END ==
LOC: M WUC 09:08
PROVIDERS: ATTEND Family Medicine
DX: Z13.220 Encounter for screening for lipoid disorders (principal); Z93.59 Other cystostomy status; M81.8 Other osteoporosis without current pathological fracture; I10 Essential (primary) hypertension

== ENCOUNTER → 2020-03-11 | Outpatient (REF) | payer MEDICARE, MEDICAID | LOC: M LAB REF 16:59 | PROVIDERS: ATTEND Internal Medicine Nephrology | DX: R80.9 Proteinuria, unspecified (principal) ==

== ENCOUNTER → 2021-03-11 | Outpatient (CLI) | payer MEDICARE, MEDICAID ==
[~2021-03-11] MED LIST changes: -CALC600T52 PO; +CALC600T64 PO; -DOXY100C37 PO; +DOXY1CAP62 PO; +LISI10TA22 PO; -LISI10TA4 PO; -PEG1POW PO; +POLY17PO18 PO
[2021-03-11 10:48] LABS: HEMATOCRIT 43.1 % (42.0-52.0); HEMOGLOBIN 14.2 g/dl (13.5-17.5); MEAN CORPUSCULAR HGB CONC 32.9 g/dl (32.0-36.5); MEAN CORPUSCULAR VOLUME 90.9 fl (80.0-96.0); PLATELET COUNT, AUTOMATED 182 10^3/uL (150-450); RED BLOOD COUNT 4.74 10^6/uL (4.30-6.10); WHITE BLOOD COUNT 7.1 10^3/uL (4.0-10.0)
[2021-03-11 11:25] LABS: ALBUMIN 2.7 GM/DL (3.2-5.2); ALT/SGPT 17 U/L (12-78); BILIRUBIN,TOTAL 0.5 MG/DL (0.2-1.0); BLOOD UREA NITROGEN 10 MG/DL (7-18); CALCIUM LEVEL 8.9 MG/DL (8.8-10.2); CARBON DIOXIDE LEVEL 28 MEQ/L (21-32); CHLORIDE LEVEL 105 MEQ/L (98-107); CREATININE FOR GFR 0.54 MG/DL (0.70-1.30); GLOMERULAR FILTRATION RATE > 60.0 (>42); GLUCOSE, FASTING 97 MG/DL (70-100); POTASSIUM SERUM 4.6 MEQ/L (3.5-5.1); SODIUM LEVEL 138 MEQ/L (136-145); TOTAL 25(OH) VITAMIN D 23.8 NG/ML (30.0-100.0); TOTAL PROTEIN 5.9 GM/DL (6.4-8.2)
== END ==
LOC: M WUC 08:41
PROVIDERS: ATTEND Family Medicine
DX: M81.8 Other osteoporosis without current pathological fracture (principal); I10 Essential (primary) hypertension; Z93.59 Other cystostomy status

== ENCOUNTER → 2021-03-12 | Outpatient (CLI) | payer MEDICARE, MEDICAID | LOC: M LABSMTC 09:57 | PROVIDERS: ATTEND Pediatrics | DX: Z20.822 Contact with and (suspected) exposure to COVID-19 (principal) | CPT/HCPCS: C9803; U0003 ==

== ENCOUNTER → 2021-03-17 | Outpatient (REF) | payer MEDICARE, MEDICAID | LOC: M LAB REF 17:16 | PROVIDERS: ATTEND Internal Medicine Nephrology | DX: R80.9 Proteinuria, unspecified (principal) ==

== ENCOUNTER 2021-04-01 07:15 | Emergency (ER) | payer MEDICARE, MEDICAID ==
[~2021-04-01] VITALS: Ht 167.6 cm; Wt 90.9 kg
[2021-04-01 07:49] LABS: BASO % 0.4 % (0.0-1.0); EOS # 0.2 10^3/uL (0.0-0.5); EOS % 2.2 % (0.0-3.0); HEMATOCRIT 44.6 % (42.0-52.0); HEMOGLOBIN 14.8 g/dl (13.5-17.5); LYMPH # 1.4 10^3/uL (1.5-5.0); LYMPH % 15.7 % (24.0-44.0); MEAN CORPUSCULAR HEMOGLOBIN 30.5 pg (27.0-33.0); MEAN CORPUSCULAR HGB CONC 33.2 g/dl (32.0-36.5); MONO % 10.7 % (2.0-8.0); NEUTROPHILS # 6.5 10^3/uL (1.5-8.5); NEUTROPHILS % 70.5 % (36.0-66.0); PLATELET COUNT, AUTOMATED 191 10^3/uL (150-450); RED BLOOD COUNT 4.85 10^6/uL (4.30-6.10); WHITE BLOOD COUNT 9.2 10^3/uL (4.0-10.0)
[2021-04-01 07:59] LABS: BLOOD UREA NITROGEN 13 MG/DL (7-18); CALCIUM LEVEL 8.8 MG/DL (8.8-10.2); CARBON DIOXIDE LEVEL 25 MEQ/L (21-32); CHLORIDE LEVEL 105 MEQ/L (98-107); CREATININE FOR GFR 0.68 MG/DL (0.70-1.30); GLOMERULAR FILTRATION RATE > 60.0 (>42); GLUCOSE, FASTING 98 MG/DL (70-100); POTASSIUM SERUM 4.9 MEQ/L (3.5-5.1); SODIUM LEVEL 139 MEQ/L (136-145)
--- NOTE | 2021-04-01 08:17 | REP ---
INDICATION: TRAUMA. COMPARISON: Comparison chest x-ray November 16, 2019. TECHNIQUE: Portable upright AP chest radiograph. Two views. FINDINGS: There is moderate to marked gaseous distention of a loop of colon under the somewhat elevated right hemidiaphragm in the upper abdomen. There is no evidence of pneumothorax. There is slight blunting of the left lateral pleural angle. No pulmonary contusion is seen. No mediastinal widening is appreciated. No rib or other acute fracture. There is mild platelike atelectasis in the left base. The heart is not felt to be enlarged. IMPRESSION: Blunting of the left lateral pleural angle. Moderate to marked gaseous distention of a colonic loop under the right hemidiaphragm in the upper abdomen. Mild platelike atelectasis left base. <Electronically signed by Rivera Sánchez > 04/01/21 0811
[2021-04-01] MEDS ORDERED: ASPI81TA26 PO (09:48)
[2021-04-01] MEDS ORDERED: EMOL85CR TOP (09:48)
[2021-04-01] MEDS ORDERED: CALCTAB62 PO (09:48)
[2021-04-01] MEDS ORDERED: DOCU5LIQ PO (09:48)
[2021-04-01] MEDS ORDERED: D-40TAB2 PO (09:48)
[2021-04-01] MEDS ORDERED: HOME MED LIST COMPLETE! XX SCH (09:50)
[2021-04-01] MEDS ORDERED: ISOVUE-370 76% 100ML VIAL As Ordered ONE (10:04)
--- NOTE | 2021-04-01 11:26 | REP ---
INDICATION: SBO. COMPARISON: Comparison CT study December 14, 2018. TECHNIQUE: Helical scanning was acquired and 4 mm axial images are re-formatted. Coronal and sagittal MPR images were generated and reviewed. The contrast enhancement dose is 100 mL of intravenous Isovue 370. FINDINGS: Preliminary digital ap processor radiographs demonstrate massive distension of the rectosigmoid and sigmoid colon and a few loops of air-filled small bowel and proximal colon. The patient is scanned rotated somewhat to the left. On axial CT images there is platelike atelectasis in the left lower lobe. Abdominal CT images demonstrate that the massively dilated air-filled loop of colon is rectosigmoid and sigmoid colon. This extends directly and uninterrupted from the rectum proximal to the subdiaphragmatic region. There is no evidence of sigmoid volvulus. There is some stool in the ascending and transverse segments of the colon as well as in the splenic flexure. There is no evidence of free intraperitoneal air. There is however mild pneumobilia. Large gallstones are noted in the gallbladder. These are unchanged. There was some pneumobilia on the prior CT from December 14, 2018 as well. No abnormal abdominal or peritoneal fluid collection is seen. There is a percutaneous cystostomy tube in the urinary bladder. Bladder myers are thickened. There is mild left-sided hydronephrosis and hydroureter. The this is unchanged. The rectal distension was observed on December 14, 2018 study. No abnormality is noted in the pancreas. No retroperitoneal mass or adenopathy is seen. IMPRESSION: Marked gas and mucoid stool-filled distension of the rectum, rectosigmoid, and sigmoid colon filling much of the abdomen. This is similar although more pronounced to the pattern observed on December 14, [address] study. No evidence of a volvulus seen. Percutaneous cystostomy catheter in place. Diffuse bladder wall thickening again noted. Mild left-sided hydronephrosis is again noted. Cholelithiasis and pneumobilia are again noted. <Electronically signed by Rivera Sánchez > 04/01/21 [id number]
--- NOTE | 2021-04-01 13:56 | REP ---
INDICATION: seizure. COMPARISON: Comparison is made with images from MRI study of the brain dated June 07, 2007. TECHNIQUE: Helical scanning is acquired. 5 mm axial images were reformatted. Coronal MPR images were generated. FINDINGS: Bone window settings demonstrate an intact bony calvarium. There is no evidence of skull fracture or incidental bony calvarial lesion. The visualized paranasal sinuses appear clear. No intraorbital abnormality is seen. On soft tissue window setting images; the lateral, third, and fourth ventricles are normal in size and position. Zambrano-white differentiation pattern is normal above and below the tentorium. There are is no evidence of intracranial hemorrhage. No mass, edema, infarction, or midline shift is seen. No extra-axial fluid collection is appreciated. There is generalized volume loss and concordant ventricular enlargement. Vascular calcification is noted in the distal internal carotid arteries. IMPRESSION: Generalized volume loss and some mild vascular calcification. Otherwise unremarkable brain CT study. <Electronically signed by Rivera Sánchez > 04/01/21 0247
[2021-04-01] MEDS ORDERED: levETIRAcetam INJection 500 MG in D5W MINI-BAG PLUS 100 ML IV ONE (14:20)
[2021-04-01] MEDS ORDERED: KEPP1TAB PO (15:06)
[2021-04-01 16:00] VITALS: BP 94/60
== END 2021-04-01 16:25 | disposition home or self-care (01) ==
LOC: M ED 07:15
DX: G40.89 Other seizures (principal); K59.00 Constipation, unspecified; Z96.0 Presence of urogenital implants; N13.30 Unspecified hydronephrosis; K80.20 Calculus of gallbladder without cholecystitis without obstruction; G80.9 Cerebral palsy, unspecified; G82.50 Quadriplegia, unspecified; I10 Essential (primary) hypertension; K44.9 Diaphragmatic hernia without obstruction or gangrene; H54.8 Legal blindness, as defined in USA; Z79.82 Long term (current) use of aspirin; Z79.899 Other long term (current) drug therapy; Z88.5 Allergy status to narcotic agent
CPT/HCPCS: 36415; 70450; 71045; 74177; 80048; 85025; 87798; 96365; 96366; 99285; J1953; Q9967

== ENCOUNTER → 2021-04-07 | Outpatient (REF) | payer MEDICARE, MEDICAID ==
[~2021-04-07] MED LIST changes: +CALCTAB62 PO; +D-40TAB2 PO; +DOCU5LIQ PO; +EMOL85CR TOP; +KEPP1TAB PO
== END ==
LOC: M SFHCPLAZ 10:34
PROVIDERS: ATTEND Family Medicine
DX: R56.9 Unspecified convulsions (principal)

== ENCOUNTER → 2021-04-07 | Outpatient (CLI) | payer MEDICARE, MEDICAID ==
[~2021-04-07] MED LIST changes: +DOXY-443 PO; -DOXY1CAP62 PO
[2021-04-07 16:37] LABS: MAGNESIUM LEVEL 1.8 MG/DL (1.8-2.4); PHOSPHORUS LEVEL 3.7 MG/DL (2.5-4.9)
== END ==
LOC: M WUC 14:05
PROVIDERS: ATTEND Student in an Organized Health Care Education/Training Program
DX: R56.9 Unspecified convulsions (principal)
CPT/HCPCS: 36415; 80180; 83735; 84100; G0463

== ENCOUNTER → 2021-04-12 | Outpatient (REF) | payer MEDICARE, MEDICAID ==
[~2021-04-12] MED LIST changes: -DOXY-443 PO; +DOXY1CAP62 PO
[2021-04-12 21:12] LABS: AMORPHOUS SEDIMENT SMALL (NEGATIVE); APPEARANCE, URINE TURBID (CLEAR); BACTERIA, URINE AUTO 2+ (NEGATIVE); BILIRUBIN, URINE AUTO NEGATIVE (NEGATIVE); BLOOD, URINE BLOOD NEGATIVE (NEGATIVE); COLOR, URINE AMBER (YELLOW); GLUCOSE, URINE (UA) AUTO NEGATIVE (NEGATIVE); KETONE, URINE AUTO NEGATIVE (NEGATIVE); LEUKOCYTE ESTERASE, URINE AUTO 2+ (NEGATIVE); MUCUS, URINE SMALL (NEGATIVE); NITRITE, URINE AUTO NEGATIVE (NEGATIVE); PROTEIN, URINE AUTO 3+ mg/dL (NEGATIVE); RBC, URINE AUTO 84 /HPF (0-3); SPECIFIC GRAVITY URINE AUTO 1.018 (1.002-1.035); SQUAMOUS EPITHELIAL CELL UR AU 0 /HPF (0-6); UROBILINOGEN, URINE AUTO 0.2 mg/dL (0.0-2.0); WBC, URINE AUTO 65 /HPF (0-3)
== END ==
LOC: M LAB REF 20:00
PROVIDERS: ATTEND Student in an Organized Health Care Education/Training Program
DX: R56.9 Unspecified convulsions (principal); N30.90 Cystitis, unspecified without hematuria; N32.89 Other specified disorders of bladder

== ENCOUNTER 2021-05-03 09:29 | Emergency (ER) | payer MEDICARE, MEDICAID ==
[~2021-05-03] VITALS: Ht 170.2 cm; Wt 80.9 kg
[~2021-05-03 09:29] MED LIST changes: +DOXY-443 PO; -DOXY1CAP62 PO
--- OUTSIDE RECORDS SUMMARY | 2021-05-03 09:35 | CCD ---
Author Author [facility] em[facility] Organization [facility] ems Address Unknown Phone Unavailable Care Team Providers Care Forest Ranger Name Role Phone Pam Duenas Unavailable PROBLEMS Type Condition ICD9-CM Code [id number] Code Onset Dates Condition S tatus W/U Status Risk SNOMED Code Notes Problem Full incontinence of feces R15.9 Active confirmed 75624783 Problem Essential hypertension I10 Active confirmed 97126332 Problem Unspecified contact dermatitis due to other agents L25.8 Active confirmed 659548632 Problem Internal hemorrhoids K64.8 Active confirmed 30733056 Problem Contact dermatitis and other eczema, due to unspecified ca use L25.9 Active confirmed 92688464 Problem 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 Active confirmed 185277751 Problem 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 Active confirmed 81299920 Problem 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 Acti ve confirmed 88146465 Problem Legal blindness, 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 Active confirmed 490505056 Problem Constipation, unspecified constipation type K59.00 Active confirmed 44256426 Problem Calculus of gallbladder and bile duct without cholecystiti s K80.70 Active confirmed 740726710 Problem Localized edema R60.0 Active confirmed 2747 64298 Problem Raynaud's syndrome I73.00 Active confirmed 1 80621808 Problem Non-pressure chronic ulcer o f other part of left foot limited to breakdown of skin L97.521 Active confirmed 226004209 Problem Stage III pressure ulcer of sacral region L89.153 Active confirmed 401983167 Problem Other specified dermatitis L30.8 Active confirmed 441714306 Problem Laceration of fourth toe, right S91.114A Active confirmed 460549681 Problem Neurogenic bladder N31.9 Active confirmed 3 54654368 Problem Stage 2 skin ulcer of sacral region L89.152 Acti ve confirmed 90288858 Problem 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 Active conf irmed 50472125 Problem Suprapubic catheter Z93.59 Active confirmed 694068463 Problem Iron deficiency anemia, unspecified iron deficiency an emia type D50.9 Active confirmed 96216290 Problem Constipation by delayed colonic transit K59.01 Active confirmed 39597735 Problem Escoto's esophagus without dysplasia K22.70 Ac tive confirmed 045794498 Problem Bladder wall thickening N32.89 Active confirmed 216206075 Problem Reflux esophagitis K21.0 Active confirmed 2 37791691 Problem Hypoalbuminemia E88.09 Active confirmed 1192 22097 Problem Ulcer of esophagus K22.10 Active confirmed 3 0788066 Problem Complete paraplegia G82.21 Active confirmed 897714583697479 Problem Malignant hyperthermia due to anesthesia, 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 Active confirmed 643059887 Problem Dysphagia, unspecified type R13.10 Active confirmed 55391710 Problem Intellectual disability F79 Active confirmed 900025648 Problem Pneumobilia K83.8 Active confirmed 28589437 8 ALLERGIES Allergen (clinical drug ingredient) Drug/Non Drug Allergy do cumented on EMR Reaction Allergy Type Onset Date Status codeine Codeine Sulfate([facility] Code:[address]-89) alters m ental status Drug Allergy Active ENCOUNTERS from 1945 to 2021-04-07 Encounter Location Date Provider Diagnosis [address] [phone] [place] [address] Apr, Pam Duenas IMMUNIZATIONS Vaccine Route Administration Date Status Influenza Pharmacy Given Unknown May 14, 2018 Adminis tered Depo-Medrol 40mg Methylpredisolone Acetate IM Intramuscular Jul 10, 2019 Administered Pneumococcal Adult 0.5mL Pneumovax 23 IM Intramuscular Jun 07 013 Administered Influenza (High Dose 65 & up) Unknown Mar 30, 2016 Ad ministered Influenza (High Dose 65 & up) Unknown Apr 18, 2016 Ad ministered Influenza 6mo & up Fluzone Unknown Apr 17, 2012 Admin istered Pneumococcal Adult 0.5mL Pneumovax 23 Unknown May 27 08 Administered TDAP IM Intramuscular December 07, 2012 Administered Pneumococcal 0.5mL Prevnar 13 Unknown December 17, 2015 Ad ministered Pneumococcal 0.5mL Prevnar 13 Unknown Mar 30, 2015 Ad ministered Influenza 6mo & up Fluzone Unknown Apr 18, 2016 Admin istered Influenza 6mo & up Fluzone Unknown May 22, 2015 Refus ed Influenza 6mo & up Fluzone Unknown Mar 30, 2015 Admin istered Influenza 6mo & up Fluzone Unknown Apr 20, 2013 Admin istered SOCIAL HISTORY Tobacco Use: Social History Observation Description Date Details (start date - stop date) Never Smoker Sex Assigned At : Social History Observation Description Sex Assigned At Unknown Education: Question Answer Notes Level of Education: Not Answered Audit Question Answer Notes Total Score: 0 Interpretation: Alcohol Education Sexual Hx: Question Answer Notes Had sex in the last 12 months (vaginal, oral, or anal)? No Have you ever had an STD? No Drug and Alcohol Question Answer Notes Total Score: 0 Interpretation: No problems reported BMI Care Goal Follow-Up Question Answer Notes Above Normal BMI Follow-Up Lifestyle education regarding t Tobacco Use: Question Answer Notes Are you a: never smoker REASON FOR REFERRAL No Information VITAL SIGNS No information MEDICATIONS Medication SIG (Take, Route, Frequency, Duration) Notes Start Da te End Date Status Ammonium Lactate 12 % 1 application Externally bef ore bedtime to feet for 30 Days Active Fleet Enema 7-19 GM/118ML as directed Rectal October, Unknown Oxybutynin Chloride 5 MG 1 tablet Orally bid for 30 Days Active Occupational Therapy as directed DX : G80.8 eval for adaptive eq uipment needs Jan, Active Aspir-81 81 MG 1 tablet Orally Once a day for 90 Active Vitamin D-400 10 MCG (400 UNIT) 1 tablet Orally Once a day for 9 0 day(s) Apr, Active Sterile Water - as directed 250 cc bottle to flush suprapubic catehter six times per week for 30 Days Aug, Active Cranberry 500 MG 1 capsule with meals Orally twice daily (Do Not bubb le) Not-Taking Optifoam 4 l89.892 apply to scrotum q 3 days. measurements: #1: 0.5 cm #2 1 cm #3 0.5 cm Active MiraLax 17 gm 17 gm in 6-8 oz liquid Orally daily for 30 day(s) dupli glenn Unknown Docusate Sodium 50 MG/5ML 10 ml Orally twice daily for 30 day(s) Mar, Unknown Melatonin Maximum Strength 5 MG TAKE ONE TABLET BY MOUTH EVERY E VENING for 90 Active Amoxicillin-Pot Clavulanate 875-125 MG 1 tablet Orally every 12 hrs x 6 days Unknown Boost High Protein - 237 ml Orally bid in between meals dx: E88.09 for 30 Days Mar, Unknown May Have - trunk swingway lateral and l abor DX:G80.8 & G82.21 Daily for 99 months fax to [phone] Jul, Active May Have - headrest extendion with labo r and hardware for wheelchair G80.8 for 99 months Jul, Active Protonix 40 MG 1 tablet Orally Twice a day for 30 Active May Have - head rest extension on wheel chair with labor DX:G80.8 & G82.21 Daily for 99 months fax to [phone] Jul, Active Calcium 600 MG 1 tablet with meals Orally Once a day for 90 day (s) Apr, Active Bard Deluxe Fabric Leg Straps - as directed change onc e per month with catheter changes and prn if soiled for 90 day(s) Oct, Active Milk of Magnesia otc 30 ml Orally on days 3&4 without BM Active Dulcolax 5 MG 2 tablet as needed orally on day 5 no BM for bowel protocol order for 30 day(s) Mar, Active Lisinopril 10 MG 1 tablet Orally Once a day for 30 Active Keppra 500 MG 1 tablet Orally every 12 hrs Active Bard Irrigation Tray - as directed catheter twice per week for 90 day s Active May Use - please monitor his liquid intake between 2,000-3 ,500 ml daily May, Active Dulcolax 10 mg 1 suppository as needed for constipation Rectal use on day 5 of no BM Active Polyethylene Glycol 3350 17 GM/SCOOP DISSOLVE 17 GRAMS INTO 6-8 OUNCES OF LIQUID AND DRINK ONCE DAILY for 30 Acti ve Docusate Sodium 150 MG/15ML 10 ml Orally Twice a day for 30 Active Catheter . 28F catheter suprapubic once monthly and as needed DX:N31.9 for 90 day(s) Active Bardia Urinary Drainage Bag - as directed every week and prn for 90 day(s) Active Catheter Insertion Tray . 28 greek monthly and prn N3 1.9 internally 30 day(s) for 90 day(s) Active PROCEDURES No Information RESULTS No Results REASON FOR VISIT when is patient suppose to have blood work done? MEDICAL (GENERAL) HISTORY Type Description Date Medical History CP with spastic quadplegia Medical History legal blindness, macular degeneration an d optic nerve atrophy Medical History HTN: ASCVD risk 16.2% in 08/2018 Medical History peripheral sensory neuropathy Medical History Raynaud's phenomenon Medical History nummular eczema Medical History osteoporosis. DEXA 11/05/13. Recheck 2 yea rs- Reclast Medical History hemorrhoids Medical History left femur fracture 11/03/12 Medical History hiatal hernia Medical History suprapubic catheter Medical History seizure activity 04/01/2021 Surgical History suprapubic catheter placement ~1994 Surgical History L patella 17 yo Surgical History tooth extractions ([facility]) 2006, 2011 Surgical History cystscopy ([facility]) 05/08/2013 Surgical History EGD ([facility]) - severe eso phagitis and non-bleeding esophageal ulcers 10/2014 Surgical History EGD ([facility]) - relatively normal exam 05/2016 Surgical History cystoscopy 01/10/2019 Hospitalization History cellulitis ([facility]) 10/2013 Hospitalization History GI blood loss anemia, 08/04 se ericka esophagitis and esophageal ulcers ([facility]) 10/2014 Hospitalization History wound care ([facility]) 08/2016 Hospitalization History hyperbilirubinemina/jaundice ([facility]) 2 018 Hospitalization History Constipation, ? UTI ([facility]) 08/16-08/03 Hospitalization History pneumonia ([facility]) 07/10/19 Hospitalization History pneumonia ([facility]) 08/2019 Hospitalization History aspiration pneumonitis ([facility]) 09/2019 Hospitalization History aspiration pneumonitis ([facility]) 10/2019 Goals Section No Information Health Concerns No Information MEDICAL EQUIPMENT No Information MENTAL STATUS No Information FUNCTIONAL STATUS No Information ASSESSMENTS No Information PLAN OF TREATMENT Medication Medication Name Sig Start Date Stop Date Keppra 500 MG 1 tablet Orally every 12 hrs Next Appt Details Provider Name:Pam Duenas, 2021-04-16 10 :30:00 AM, [address] , , [place], [address], Provider Name:Bob Aburto, 2021-07-14 10:15:00 AM, [address], , [place], [address], Insurance Providers Payer Name Payer Address Payer Phone Insured Name Patient Relati onship to Insured Coverage Start Date Coverage End Date MEDICAID [place] [employer] [address] [facility] [id number] KP JOAQUIN MEDICARE Part A and B [address] [facility] [id number] [phone] KP JOAQUIN self
--- OUTSIDE RECORDS SUMMARY | 2021-05-03 09:35 | CCD ---
Author Author [facility] Organization [facility] Address Unknown Phone Unavailable Care Team Providers Care Exhibit Cleaner Name Role Phone Pam Duenas Unavailable PROBLEMS Type Condition ICD9-CM Code LSU76-SA Code Onset Dates Condition S tatus W/U Status Risk SNOMED Code Notes Problem Full incontinence of feces R15.9 Active confirmed 78563342 Problem Essential hypertension I10 Active confirmed 26226080 Problem Unspecified contact dermatitis due to other agents L25.8 Active confirmed 579584872 Problem Internal hemorrhoids K64.8 Active confirmed 44657586 Problem Contact dermatitis and other eczema, due to unspecified ca use L25.9 Active confirmed 64907310 Problem 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 Active confirmed 658149607 Problem 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 Active confirmed 63138628 Problem 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 Acti ve confirmed 88229367 Problem Legal blindness, 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 Active confirmed 700364113 Problem Constipation, unspecified constipation type K59.00 Active confirmed 60388077 Problem Calculus of gallbladder and bile duct without cholecystiti s K80.70 Active confirmed 980563777 Problem Localized edema R60.0 Active confirmed 2747 41938 Problem Raynaud's syndrome I73.00 Active confirmed 1 26090178 Problem Non-pressure chronic ulcer o f other part of left foot limited to breakdown of skin L97.521 Active confirmed 058004133 Problem Stage III pressure ulcer of sacral region L89.153 Active confirmed 456562933 Problem Other specified dermatitis L30.8 Active confirmed 185043210 Problem Laceration of fourth toe, right S91.114A Active confirmed 919285599 Problem Neurogenic bladder N31.9 Active confirmed 3 37523687 Problem Stage 2 skin ulcer of sacral region L89.152 Acti ve confirmed 54648650 Problem 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 Active conf irmed 23682025 Problem Suprapubic catheter Z93.59 Active confirmed 865976190 Problem Iron deficiency anemia, unspecified iron deficiency an emia type D50.9 Active confirmed 26796058 Problem Constipation by delayed colonic transit K59.01 Active confirmed 50133517 Problem Escoto's esophagus without dysplasia K22.70 Ac tive confirmed 094438423 Problem Bladder wall thickening N32.89 Active confirmed 372009875 Problem Reflux esophagitis K21.0 Active confirmed 2 49454354 Problem Hypoalbuminemia E88.09 Active confirmed 1192 00490 Problem Ulcer of esophagus K22.10 Active confirmed 3 5039927 Problem Complete paraplegia G82.21 Active confirmed 331292415290912 Problem Malignant hyperthermia due to anesthesia, 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 Active confirmed 624745910 Problem Dysphagia, unspecified type R13.10 Active confirmed 93577200 Problem Intellectual disability F79 Active confirmed 381630411 Problem Pneumobilia K83.8 Active confirmed 23176118 8 ALLERGIES Allergen (clinical drug ingredient) Drug/Non Drug Allergy do cumented on EMR Reaction Allergy Type Onset Date Status codeine Codeine Sulfate([facility] Code:[address]-79) alters m ental status Drug Allergy Active ENCOUNTERS from 1945 to 2021-04-09 Encounter Location Date Provider Diagnosis [facility] [place] [phone] [place] [address] 06 Apr, 2021 Pam Duenas Seizure R56.9 ; Blad rukhsana wall thickening N32.89 ; Pneumobilia K83.8 and Hydronephrosis, unspecified hydronephrosis type N13.30 IMMUNIZATIONS Vaccine Route Administration Date Status Influenza Pharmacy Given Unknown May 14, 2018 Adminis tered Depo-Medrol 40mg Methylpredisolone Acetate IM Intramuscular Jul 10, 2019 Administered Pneumococcal Adult 0.5mL Pneumovax 23 IM Intramuscular Jun 07, 013 Administered Influenza (High Dose 65 & [...] you a: never smoker REASON FOR REFERRAL from 1945 to 2021-04-09 Reason New-onset seizure activity, started on Keppra by ER. No more seizure activity reported. Please evaluate and treat Diagnosis 1 Seizure (R56.9) Referral Organization [facility] Resident Referring Provider First Name Pam Referring Provider Last Name Yulissa Referring Provider Specialty Family Medicine Referred Provider Diana Davis Referred Provider Specialty Neurology Referral Priority Urgent General Notes Pam Duenas 04/07/2021 1:55: 18 PM > Please send referral to Diana Davis per [facility] requestCindy Medrano 04/07/2021 3:32:52 PM > FAXED Clinical Notes Pam Duenas 04/07/2021 1:54: 51 PM > 76 yo male [facility] patient with history of quadriplegia had seizure episodes on 04/01/2021 went to ER. He was started on Keppra 500mg BID. Urgent referral sent. Please evaluate and treat. Your expertise is appreciated VITAL SIGNS Weight 185 lbs Apr, Weight-kg 83.92 kg Apr, Height 66 in Apr, BMI 29.86 kg/m2 Apr, Heart Rate 60 /min Apr, Respiratory Rate 20 /min Apr, Temperature 96.0 degrees Fahrenheit Apr, Oximetry 99 Apr, Blood pressure systolic 128 mm Hg Apr, Blood pressure diastolic 60 mm Hg Apr, MEDICATIONS Medication SIG (Take, Route, Frequency, Duration) [...] G82.21 Daily for 99 months fax to [phone] Jul, Active May Have - headrest extendion with labo r and hardware for wheelchair G80.8 for 99 months Jul, Active Protonix 40 MG 1 tablet Orally Twice a day for 30 Active May Have - head rest extension on wheel chair with labor DX:G80.8 & G82.21 Daily for 99 months fax to [phone] Jul, Active Calcium 600 MG 1 tablet [...] day(s) Active Catheter Insertion Tray . 28 iranian monthly and prn N3 1.9 internally 30 day(s) for 90 day(s) Active PROCEDURES No Information RESULTS Component Value Reference Range MAGNESIUM LEVEL Reviewed date:04/07/2021 22:39:58 Interpretation: Performing Lab:[facility], [facility] [address] [place] [address] , ,[place] [address] MAGNESIUM LEVEL 1.8 1.8-2.4 PHOSPHOROUS LEVEL Reviewed date:04/07/2021 22:40:09 Interpretation: Performing Lab:[facility], [facility] [address] [address] , ,[place] [address] PHOSPHORUS LEVEL 3.7 2.5-4.9 REASON FOR VISIT ER 04/01/2021 follow up MEDICAL (GENERAL) HISTORY Type Description Date Medical [...] patella 17 yo [facility] History cystscopy ([facility]) 05/08/2013 Surgical History EGD ([facility]) - severe eso phagitis and non-bleeding esophageal ulcers 10/2014 Surgical History EGD ([facility]) - relatively normal exam 05/2016 Surgical History cystoscopy 01/10/2019 Hospitalization History cellulitis ([facility]) 10/2013 Hospitalization History GI blood loss anemia, 08/04 se ericka esophagitis and esophageal ulcers ([facility]) 10/2014 Hospitalization History wound care ([facility]) 08/2016 Hospitalization History hyperbilirubinemina/jaundice ([facility]) 2 018 Hospitalization History Constipation, ? UTI ([facility]) 08/16-08/03 Hospitalization History pneumonia ([facility]) 07/10/19 Hospitalization History pneumonia ([facility]) 08/2019 Hospitalization History aspiration pneumonitis ([facility]) 09/2019 Hospitalization History aspiration pneumonitis ([facility]) 10/2019 Goals Section No Information Health Concerns No Information MEDICAL EQUIPMENT No Information MENTAL STATUS No Information FUNCTIONAL STATUS No Information ASSESSMENTS Encounter Date Diagnosis Assessment Notes Treatment Notes Treatm ent Clinical Notes Apr, Seizure (ICD-10 - R56.9) Will re-send urgent referral to neurology; sent to Diana Davis per [facility] request. Check for Keppra level. R/o electrolyte disturbances. If seizure occurs again, patient is to be taken to the ER Apr, Bladder wall thickening (ICD-10 - N32.89) Ddx due to cystitis vs malignancy vs inflammatory process. UA ordered Apr, Pneumobilia (ICD-10 - K83.8) Patient is stable, has pneumobilia and cholelithiasis shown on prior CT in 2019. No leukocytosis or fever. Patient is to seek immediate care if there is fever, chills, or abdominal distention Apr, Hydronephrosis, unspecified hydronephros is type (ICD-10 - N13.30) Mild left hydronephrosis shown on CT abd/pelvis which was also shown on prior CT in 2019. Continue current management of suprapubic catheter with urology PLAN OF TREATMENT Medication Medication Name Sig Start Date Stop Date Keppra 500 MG 1 tablet Orally every 12 hrs Treatment Notes Assessment Notes Clinical Notes Seizure Will re-send urgent referral to neurology; sent to Diana Davis per [facility] request. Check for Keppra level. R/o electrolyte disturbances. If seizure occurs again, patient is to be taken to the ER Bladder wall thickening Ddx due to cysti tis vs malignancy vs inflammatory process. UA ordered Pneumobilia Patient is stable, h as pneumobilia and cholelithiasis shown on prior CT in 2019. No leukocytosis or fever. Patient is to seek immediate care if there is fever, chills, or abdominal distention Hydronephrosis, unspecified hydronephrosis type Mild left hydronephrosis shown on CT abd/pelvis which was also shown on prior CT in 2019. Continue current management of suprapubic catheter with urology Treatment Notes Test Name Order Date LEVETIRACETAM (KEPPRA) 2021-04-07 UA URINALYSIS 2021-04-07 Referrals Referral Date Details New-onset seizure activity, started on Keppra by ER. No more seizure activity reported. Please evaluate and treat, Diana Davis Next Appt Details 1 weeks Reason:ear check Provider Name:Pam Duenas, 2021-04-28 09 :00:00 AM, [address], , [place], [address], Provider Name:Bob Aburto, 2021-07-14 10:15:00 AM, [address], , [place], [address], Follow Up:1 weeksear check Insurance Providers Payer Name Payer Address Payer Phone Insured Name Patient Relati onship to Insured Coverage Start Date Coverage End Date MEDICAID [employer] [address] [facility] [id number] [place] MEDICARE Part A and B [address] [facility] [id number] KP [place] self
--- OUTSIDE RECORDS SUMMARY | 2021-05-03 09:35 | CCD ---
Author Author [facility] Organization [facility] Address Unknown Phone Unavailable Care Team Providers Care Production Troubleshooter Name Role Phone Aldo Modi Unavailable PROBLEMS Type Condition ICD9-CM Code JFT58-HE Code Onset Dates Condition S tatus W/U Status Risk SNOMED Code Notes Problem Raynaud's syndrome I73.00 Active confirmed 1 69012072 Problem Full incontinence of feces R15.9 Active confirmed 55730874 Problem Localized edema R60.0 Active confirmed 2744 11432 Problem Essential hypertension I10 Active confirmed 31641947 Problem Unspecified contact dermatitis due to other agents L25.8 Active confirmed 002375752 Problem Internal hemorrhoids K64.8 Active confirmed 47977186 Problem Contact dermatitis and other eczema, due to unspecified ca use L25.9 Active confirmed 57827958 Problem 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 Active conf irmed 96383368 Problem Suprapubic catheter Z93.59 Active confirmed 791567667 Problem Legal blindness, 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 Active confirmed 340560384 Problem Calculus of gallbladder and bile duct without cholecystiti s K80.70 Active confirmed 945027727 Problem Complete paraplegia G82.21 Active confirmed 109462554874208 Problem Reflux esophagitis K21.0 Active confirmed 2 32915575 Problem Non-pressure chronic ulcer o f other part of left foot limited to breakdown of skin L97.521 Active confirmed 157987591 Problem Stage III pressure ulcer of sacral region L89.153 Active confirmed 527432048 Problem Other specified dermatitis L30.8 Active confirmed 106241684 Problem Laceration of fourth toe, right S91.114A Active confirmed 521726035 Problem Neurogenic bladder N31.9 Active confirmed 3 88966924 Problem Stage 2 skin ulcer of sacral region L89.152 Acti ve confirmed 56505585 Problem Constipation, unspecified constipation type K59.00 Active confirmed 04469774 Problem 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 Acti ve confirmed 33011858 Problem Iron deficiency anemia, unspecified iron deficiency an emia type D50.9 Active confirmed 61198848 Problem Intellectual disability F79 Active confirmed 609783845 Problem 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 Active confirmed 41220787 Problem Hypoalbuminemia E88.09 Active confirmed 1192 70927 Problem 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 Active confirmed 909245575 Problem Ulcer of esophagus K22.10 Active confirmed 3 6456714 Problem Constipation by delayed colonic transit K59.01 Active confirmed 49324228 Problem Escoto's esophagus without dysplasia K22.70 Ac tive confirmed 672547045 Problem Malignant hyperthermia due to anesthesia, 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 Active confirmed 799736612 Problem Dysphagia, unspecified type R13.10 Active confirmed 62124367 ALLERGIES Allergen (clinical drug ingredient) Drug/Non Drug Allergy do cumented on EMR Reaction Allergy Type Onset Date Status codeine Codeine Sulfate([facility] Code:[address]-47) alters m ental status Drug Allergy Active ENCOUNTERS from 1945 to 2021-04-01 Encounter Location Date Provider Diagnosis [address] [facility] [phone] [place] [address] 30 Mar, 2021 Aldo Modi IMMUNIZATIONS Vaccine Route Administration Date Status Influenza Pharmacy Given Unknown May 14, 2018 Adminis tered Depo-Medrol 40mg Methylpredisolone Acetate IM Intramuscular Jul 10, 2019 Administered Influenza (High Dose 65 & up) Unknown Apr 18, 2016 Ad ministered TDAP IM Intramuscular December 07, 2012 Administered Pneumococcal Adult 0.5mL Pneumovax 23 IM Intramuscular Jun 07 013 Administered Influenza 6mo & up Fluzone Unknown Apr 17, 2012 Admin istered Influenza (High Dose 65 & up) Unknown Mar 30, 2016 Ad ministered Pneumococcal Adult 0.5mL Pneumovax 23 Unknown May 27 08 Administered Pneumococcal 0.5mL Prevnar 13 Unknown December [...] Notes Start Da te End Date Status Catheter Insertion Tray . 28 bahraini monthly and prn N3 1.9 internally 30 day(s) for 90 day(s) Active May Have - trunk swingway lateral and l abor DX:G80.8 & G82.21 Daily for 99 months fax to [phone] Jul, Active Sterile Water - as directed 250 cc bottle to flush suprapubic catehter six times per week for 30 Days Aug, Active Milk of Magnesia otc 30 ml Orally on days 3&4 without BM Active Oxybutynin Chloride 5 MG 1 tablet Orally bid for 30 Days Active Docusate Sodium 50 MG/5ML 10 ml Orally twice daily for 30 day(s) Mar, Active May Have - head rest extension on wheel chair with labor DX:G80.8 & G82.21 Daily for 99 months fax to [phone] Jul, Active Bard Rudye Fabric Leg Straps - as directed change onc e per month with catheter changes and prn if soiled for 90 day(s) Oct, Active May Use - please monitor his liquid intake between 2,000-3 ,500 ml daily May, Active May Have - headrest extendion with labo r and hardware for wheelchair G80.8 for 99 months Jul, Active Bard Irrigation Tray - as directed catheter twice per week for 90 day s Active Docusate Sodium 150 MG/15ML 10 ml Orally Twice a day for 30 Active Dulcolax 10 mg 1 suppository as needed for constipation Rectal use on day 5 of no BM Active Occupational Therapy as directed DX : G80.8 eval for adaptive eq uipment needs Jan, Active Ammonium Lactate 12 % 1 application Externally bef ore bedtime to feet for 30 Days Active Amoxicillin-Pot Clavulanate 875-125 MG 1 tablet Orally every 12 hrs x 6 days Not-Taking Fleet Enema 7-19 GM/118ML as directed Rectal October, Active Protonix 40 MG 1 tablet Orally Twice a day for 30 Active Calcium 600 MG 1 tablet with meals Orally Once a day for 90 day (s) Apr, Active Catheter . 28F catheter suprapubic once monthly and as needed DX:N31.9 for 90 day(s) Active Polyethylene Glycol 3350 17 GM/SCOOP DISSOLVE 17 GRAMS INTO 6-8 OUNCES OF LIQUID AND DRINK ONCE DAILY for 30 Acti ve Optifoam 4 l89.892 apply to scrotum q 3 days. measurements: #1: 0.5 cm #2 1 cm #3 0.5 cm Active Aspir-81 81 MG 1 tablet Orally Once a day for 90 Active Vitamin D-400 10 MCG (400 UNIT) 1 tablet Orally Once a day for 9 0 day(s) Apr, Active Bardia Urinary Drainage Bag - as directed every week and prn for 90 day(s) Active MiraLax 17 gm 17 gm in 6-8 oz liquid Orally daily for 30 day(s) Active Melatonin Maximum Strength 5 MG TAKE ONE TABLET BY MOUTH EVERY E VENING for 90 Active Lisinopril 10 MG 1 tablet Orally Once a day for 30 Active Cranberry 500 MG 1 capsule with meals Orally twice daily (Do Not bubb le) Not-Taking Dulcolax 5 MG 2 tablet as needed orally on day 5 no BM for bowel protocol order for 30 day(s) Mar, Active Boost High Protein - 237 ml Orally bid in between meals dx: E88.09 for 30 Days Mar, Active PROCEDURES No Information RESULTS No Results REASON FOR VISIT myclonic movements MEDICAL (GENERAL) HISTORY Type Description Date Medical [...] History hiatal hernia Medical History suprapubic catheter Surgical History suprapubic catheter placement ~1994 Surgical History L patella 17 yo [facility] Surgical History cystscopy ([facility]) 05/08/2013 Surgical History EGD ([facility]) - severe eso phagitis and non-bleeding esophageal ulcers 10/2014 Surgical History EGD ([facility]) - relatively normal exam 05/2016 Surgical History cystoscopy 01/10/2019 Hospitalization History cellulitis ([facility]) 10/2013 Hospitalization History GI blood loss anemia, 08/04 se ericka esophagitis and esophageal ulcers ([facility]) 10/2014 Hospitalization History wound care ([facility]) 08/2016 Hospitalization History hyperbilirubinemina/jaundice ([facility]) 2 018 Hospitalization History Constipation, ? UTI ([facility]) 08/16-08/03 Hospitalization History pneumonia ([facility]) 07/10/19 Hospitalization History pneumonia ([facility]) 08/2019 Hospitalization History aspiration pneumonitis ([facility]) 09/2019 Hospitalization History aspiration pneumonitis ([facility]) 10/2019 Goals Section No Information Health Concerns No Information MEDICAL EQUIPMENT No Information MENTAL STATUS No Information FUNCTIONAL STATUS No Information ASSESSMENTS No Information PLAN OF TREATMENT Medication Medication Name Sig Start Date Stop Date Dulcolax 5 MG 2 tablet as needed orally on day 5 no BM for bowel protocol order for 30 day(s) Mar, Boost High Protein - 237 ml Orally bid in between meals dx: E88.09 for 30 Days Mar, Melatonin Maximum Strength 5 MG TAKE ONE TABLET BY MOUTH EVERY E VENING for 90 Lisinopril 10 MG 1 tablet Orally Once a day for 30 Docusate Sodium 50 MG/5ML 10 ml Orally twice daily for 30 day(s) Mar, Bard Deluxe Fabric Leg Straps - as directed change onc e per month with catheter changes and prn if soiled for 90 day(s) Oct, Catheter . 28F catheter suprapubic once monthly and as needed DX:N31.9 for 90 day(s) MiraLax 17 gm 17 gm in 6-8 oz liquid Orally daily for 30 day(s ) Catheter Insertion Tray . 28 bahraini monthly and prn N3 1.9 internally 30 day(s) for 90 day(s) Bardia Urinary Drainage Bag - as directed every week and prn for 90 day(s) Bard Irrigation Tray - as directed catheter twice per week for 9 0 days Protonix 40 MG 1 tablet Orally Twice a day for 30 Polyethylene Glycol 3350 17 GM/SCOOP DISSOLVE 17 GRAMS INTO 6-8 OUNCES OF LIQUID AND DRINK ONCE DAILY for 30 Aspir-81 81 MG 1 tablet Orally Once a day for 90 Next Appt Details Provider Name:Pam Yulissa, 2021-04-07 09 :00:00 AM, [address] [facility] [address], , [place], [address], Provider Name:Bob Aburto, 2021-07-14 10:15:00 AM, [address], , [place], [address], Insurance Providers Payer Name Payer Address Payer Phone Insured Name Patient Relati onship to Insured Coverage Start Date Coverage End Date MEDICAID [employer] [address] [facility] [id number] [place] MEDICARE Part A and B [address] [facility] [address] [phone] KP [place] self
--- OUTSIDE RECORDS SUMMARY | 2021-05-03 09:35 | CCD ---
Author Author [facility] Syst ems Organization [facility] ems Address Unknown Phone Unavailable Care Team Providers Care Batch Roller Operator Name Role Phone Aldo Modi Unavailable PROBLEMS Type Condition ICD9-CM Code [id number] Code Onset Dates Condition S tatus W/U Status Risk SNOMED Code Notes Problem Full incontinence of feces R15.9 Active confirmed 35313224 Problem Essential hypertension I10 Active confirmed 94279018 Problem Unspecified contact dermatitis due to other agents L25.8 Active confirmed 068478510 Problem Internal hemorrhoids K64.8 Active confirmed 74861710 Problem Contact dermatitis and other eczema, due to unspecified ca use L25.9 Active confirmed 83976775 Problem 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 Active confirmed 451739922 Problem 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 Active confirmed 05112870 Problem 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 Acti ve confirmed 22419589 Problem Legal blindness, 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 Active confirmed 715570231 Problem Constipation, unspecified constipation type K59.00 Active confirmed 28233839 Problem Calculus of gallbladder and bile duct without cholecystiti s K80.70 Active confirmed 019637796 Problem Localized edema R60.0 Active confirmed 2747 43257 Problem Raynaud's syndrome I73.00 Active confirmed 1 56882142 Problem Non-pressure chronic ulcer o f other part of left foot limited to breakdown of skin L97.521 Active confirmed 336007318 Problem Stage III pressure ulcer of sacral region L89.153 Active confirmed 050899392 Problem Other specified dermatitis L30.8 Active confirmed 612718875 Problem Laceration of fourth toe, right S91.114A Active confirmed 918496428 Problem Neurogenic bladder N31.9 Active confirmed 3 10576358 Problem Stage 2 skin ulcer of sacral region L89.152 Acti ve confirmed 59790556 Problem 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 Active conf irmed 11008179 Problem Suprapubic catheter Z93.59 Active confirmed 348992381 Problem Iron deficiency anemia, unspecified iron deficiency an emia type D50.9 Active confirmed 84208635 Problem Constipation by delayed colonic transit K59.01 Active confirmed 60832465 Problem Escoto's esophagus without dysplasia K22.70 Ac tive confirmed 399821495 Problem Bladder wall thickening N32.89 Active confirmed 479267149 Problem Reflux esophagitis K21.0 Active confirmed 2 65815899 Problem Hypoalbuminemia E88.09 Active confirmed 1192 21310 Problem Ulcer of esophagus K22.10 Active confirmed 3 8466857 Problem Complete paraplegia G82.21 Active confirmed 691838988808627 Problem Malignant hyperthermia due to anesthesia, 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 Active confirmed 762770105 Problem Dysphagia, unspecified type R13.10 Active confirmed 87830723 Problem Intellectual disability F79 Active confirmed 570430976 Problem Pneumobilia K83.8 Active confirmed 40717702 8 ALLERGIES Allergen (clinical drug ingredient) Drug/Non Drug Allergy do cumented on EMR Reaction Allergy Type Onset Date Status codeine Codeine Sulfate([facility] Code:[address]-95) alters m ental status Drug Allergy Active ENCOUNTERS from 1945 to 2021-04-29 Encounter Location [place] [address] 12 Apr, 2021 Aldo Modi Cystitis N30.90 IMMUNIZATIONS Vaccine Route Administration Date Status Pneumococcal Adult 0.5mL Pneumovax 23 IM Intramuscular Jun 07 013 Administered Depo-Medrol 40mg Methylpredisolone Acetate IM Intramuscular Jul 10, 2019 Administered Influenza (High Dose 65 & up) Unknown Apr 18, 2016 Ad ministered Influenza Pharmacy Given Unknown May 14, 2018 Adminis tered TDAP IM Intramuscular December 07, 2012 Administered Influenza 6mo & up Fluzone Unknown [...] Notes Start Da te End Date Status Debrox 6.5 % 5 drops into affected ear Otic Twice a day for 4 day(s) Apr, Active MiraLax 17 gm 17 gm in 6-8 oz liquid Orally daily for 30 day(s) dupli glenn Unknown Bardia Urinary Drainage Bag - as directed every week and prn for 90 day(s) Active Keppra 100 MG/ML 5 ml Orally every 12 hrs for 30 day(s) Apr, Active Docusate Sodium 150 MG/15ML 10 ml Orally Twice a day for 30 Active Bard Irrigation Tray - as directed catheter twice per week for 90 day s Active Jarret Rectal Tube 1 per rectum with flatus bag dx: R14.0 for 1 d ays Apr, Active Fleet Enema 7-19 GM/118ML as directed Rectal October, Unknown Boost High Protein - 237 ml Orally bid in between meals dx: E88.09 for 30 Days Mar, Unknown Sterile Water - as directed 250 cc bottle to flush suprapubic catehter six times per week for 30 Days Aug, Active Oxybutynin Chloride 5 MG 1 tablet Orally bid for 30 Days Active Catheter Insertion Tray . 28 greek monthly and prn N3 1.9 internally 30 day(s) for 90 day(s) Active Amoxicillin-Pot Clavulanate 875-125 MG 1 tablet Orally every 12 hrs x 6 days Unknown Docusate Sodium 50 MG/5ML 10 ml Orally twice daily for 30 day(s) Mar, Unknown Optifoam 4 l89.892 apply to scrotum q 3 days. measurements: #1: 0.5 cm #2 1 cm #3 0.5 cm Active Ammonium Lactate 12 % 1 application Externally bef ore bedtime to feet for 30 Days Active Catheter . 28F catheter suprapubic once monthly and as needed DX:N31.9 for 90 day(s) Active Occupational Therapy as directed DX : G80.8 eval for adaptive eq uipment needs Jan, Active Milk of Magnesia otc 30 ml Orally on days 3&4 without BM Active Amoxicillin 500 MG 1 capsule Orally every 8 hrs for 14 day(s) Apr, Not-Taking May Use - please monitor his liquid intake between 2,000-3 ,500 ml daily May, Active Melatonin Maximum Strength 5 MG TAKE ONE TABLET BY MOUTH EVERY E VENING for Active Cefdinir 300 MG as directed Orally Q12H for 14 days Apr Not-Taking Calcium 600 MG 1 tablet with meals Orally Once a day for 90 day (s) Apr, Active Lisinopril 10 MG 1 tablet Orally Once a day for 30 Active May Have - head rest extension on wheel chair with labor DX:G80.8 & G82.21 Daily for 99 months fax to [phone] Jul, Active Vitamin D-400 10 MCG (400 UNIT) 1 tablet Orally Once a day for 9 0 day(s) Apr, Active Probiotic 250 MG 1 capsule Orally Q12H for 14 day(s) 2020 Active Cranberry 500 MG 1 capsule with meals Orally twice daily (Do Not bubb le) Not-Taking Aspir-81 81 MG 1 tablet Orally Once a day for 90 Active May Have - headrest extendion with labo r and hardware for wheelchair G80.8 for 99 months Jul, Active May Have - trunk swingway lateral and l abor DX:G80.8 & G82.21 Daily for 99 months fax to [phone] Jul, Active Dulcolax 5 MG 2 tablet as needed orally on day 5 no BM for bowel protocol order for 30 day(s) Mar, Active Bard Deluxe Fabric Leg Straps - as directed change onc e per month with catheter changes and prn if soiled for 90 day(s) Oct, Active Dulcolax 10 mg 1 suppository as needed for constipation Rectal use on day 5 of no BM Active Polyethylene Glycol 3350 17 GM/SCOOP DISSOLVE 17 GRAMS INTO 6-8 OUNCES OF LIQUID AND DRINK ONCE DAILY for 30 Acti ve Protonix 40 MG 1 tablet Orally Twice a day for 30 Active PROCEDURES No Information RESULTS No Results REASON FOR VISIT Urine culture MEDICAL (GENERAL) HISTORY Type Description Date Medical [...] patella 17 yo Surgical History tooth extractions ([facility]) 2006, 2011 Surgical History cystscopy ([facility]) 05/08/2013 Surgical History EGD ([facility]) - severe eso phagitis and non-bleeding esophageal ulcers 10/2014 Surgical History EGD ([facility]) - relatively normal exam 05/2016 Surgical History cystoscopy 01/10/2019 Hospitalization History cellulitis ([facility]) 10/2013 Hospitalization History GI blood loss anemia, 2/2 se ericka esophagitis and esophageal ulcers ([facility]) 10/2014 Hospitalization History wound care ([facility]) 08/2016 Hospitalization History hyperbilirubinemina/jaundice ([facility]) 2 018 Hospitalization History Constipation, ? UTI ([facility]) 08/16-08/03 Hospitalization History pneumonia ([facility]) 07/10/19 Hospitalization History pneumonia ([facility]) 08/2019 Hospitalization History aspiration pneumonitis ([facility]) 09/2019 Hospitalization History aspiration pneumonitis ([facility]) 10/2019 Goals Section No Information Health Concerns No Information MEDICAL EQUIPMENT No Information MENTAL STATUS No Information FUNCTIONAL STATUS No Information ASSESSMENTS Encounter Date Diagnosis Assessment Notes Treatment Notes Treatm ent Clinical Notes Apr, Cystitis (ICD-10 - N30.90) CT abd/pelvis during ER visit demonstrated bladder wall thickening and UA demonstrated pyruia with possible UTI. Urine culture ordered returned showed e- coli and enterococcus with the only oral antibiotics sensitive to both organisms being nitrofurantonin. Although colonization is a possibility, given bladder wall thickening and limitation to inquire symptoms due to cerebal palsy and quadraplagia, will presumly treat as UTI for 14 days and recommend suprapubic catheter changed PLAN OF TREATMENT Medication Medication Name Sig Start Date Stop Date Debrox 6.5 % 5 drops into affected ear Otic Twice a d ay for 4 day(s) Apr, Treatment Notes Assessment Notes Clinical Notes Cystitis CT abd/pelvis during ER visit demonstrated bladder wall thickening and UA demonstrated pyruia with possible UTI. Urine culture ordered returned showed e-coli and enterococcus with the only oral antibiotics sensitive to both organisms being nitrofurantonin. Although colonization is a possibility, given bladder wall thickening and limitation to inquire symptoms due to cerebal palsy and quadraplagia, will presumly treat as UTI for 14 days and recommend suprapubic catheter changed Treatment Notes Test Name Order Date URINE CULTURE 2021-04-13 Next Appt Details Provider Name:Bob Aburto IN ACTIVE, 2021-07-14 10:15:00 AM, [address], , [place], [address], Provider Name:Roberto Jordan, 2021-07-03 2 10:15:00 AM, [address], , [place], [address], Provider Name:Aldo Modi, 2021-09-02 1 01:00:00 PM, [address] [facility], , [place], [address], Insurance Providers Payer Name Payer Address Payer Phone Insured Name Patient Relati onship to Insured Coverage Start Date Coverage End Date MEDICARE Part A and B [address] [facility] [phone] KP JOAQUIN self MEDICAID [employer] [address] [facility] [id number] KP JOAQUIN self
--- OUTSIDE RECORDS SUMMARY | 2021-05-03 09:35 | CCD ---
Author Author [facility] Syst ems Organization [facility] ems Address Unknown Phone Unavailable Care Team Providers Care Flanging Roll Operator Name Role Phone Pam Duenas Unavailable PROBLEMS Type Condition ICD9-CM Code [id number] Code Onset Dates Condition S tatus W/U Status Risk SNOMED Code Notes Problem Raynaud's syndrome I73.00 Active confirmed 1 17388727 Problem Full incontinence of feces R15.9 Active confirmed 18724754 Problem Localized edema R60.0 Active confirmed 2742 92889 Problem Essential hypertension I10 Active confirmed 71847187 Problem Unspecified contact dermatitis due to other agents L25.8 Active confirmed 437716484 Problem Internal hemorrhoids K64.8 Active confirmed 35049179 Problem Contact dermatitis and other eczema, due to unspecified ca use L25.9 Active confirmed 51929792 Problem 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 Active conf irmed 05634339 Problem Suprapubic catheter Z93.59 Active confirmed 474063659 Problem Legal blindness, 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 Active confirmed 200760586 Problem Calculus of gallbladder and bile duct without cholecystiti s K80.70 Active confirmed 420700702 Problem Complete paraplegia G82.21 Active confirmed 180708188217375 Problem Reflux esophagitis K21.0 Active confirmed 2 15691264 Problem Non-pressure chronic ulcer o f other part of left foot limited to breakdown of skin L97.521 Active confirmed 858529183 Problem Stage III pressure ulcer of sacral region L89.153 Active confirmed 559167824 Problem Other specified dermatitis L30.8 Active confirmed 699585367 Problem Laceration of fourth toe, right S91.114A Active confirmed 369636488 Problem Neurogenic bladder N31.9 Active confirmed 3 05736534 Problem Stage 2 skin ulcer of sacral region L89.152 Acti ve confirmed 39024463 Problem Constipation, unspecified constipation type K59.00 Active confirmed 09451838 Problem 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 Acti ve confirmed 21445323 Problem Iron deficiency anemia, unspecified iron deficiency an emia type D50.9 Active confirmed 82420633 Problem Intellectual disability F79 Active confirmed 791668704 Problem 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 Active confirmed 29904074 Problem Hypoalbuminemia E88.09 Active confirmed 1192 99608 Problem 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 Code:[address]-70) alters m ental status Drug Allergy Active ENCOUNTERS from 1945 to 2021-03-31 Encounter Location Date Provider Diagnosis [address] [facility] [phone] [place] [address] Mar, Pam Duenas IMMUNIZATIONS Vaccine Route Administration Date Status Pneumococcal Adult 0.5mL Pneumovax 23 IM Intramuscular Jun 07 013 Administered Depo-Medrol 40mg Methylpredisolone Acetate IM Intramuscular Jul 10, 2019 Administered Influenza (High Dose 65 & up) Unknown Mar 30, 2016 Ad ministered Influenza (High Dose 65 & up) Unknown Apr 18, 2016 Ad ministered Influenza Pharmacy Given Unknown May 14, 2018 Adminis tered Influenza 6mo & up Fluzone Unknown Apr [...] Date Status Catheter Insertion Tray . 28 liberian monthly and prn N3 1.9 internally 30 day(s) for 90 day(s) Active May Have - trunk swingway lateral and l abor DX:G80.8 & G82.21 Daily for 99 months fax to [phone] Jul, Active Sterile Water - as directed [...] G82.21 Daily for 99 months fax to [phone] Jul, Active Bard Rudye Fabric Leg Straps [...] MOUTH EVERY E VENING for 90 Active Boost High Protein - 237 ml Orally bid in between meals dx: E88.09 for 30 Days Mar, Active Cranberry 500 MG 1 capsule with meals Orally twice daily (Do Not bubb le) Not-Taking Lisinopril 10 MG 1 tablet Orally Once a day for 30 Active Dulcolax 5 MG 2 tablet as needed orally on day 5 no BM for bowel protocol order for 30 day(s) Mar, Active PROCEDURES No Information RESULTS No Results REASON FOR VISIT Dulcolax MEDICAL (GENERAL) HISTORY Type Description Date Medical [...] patella 17 yo [facility] Surgical History cystscopy ([facility]) 05/08/2013 Surgical History EGD ([facility]) - severe eso phagitis and non-bleeding esophageal ulcers 10/2014 Surgical History EGD ([facility]) - relatively normal exam 05/2016 Surgical History cystoscopy 01/10/2019 Hospitalization History cellulitis ([facility]) 10/2013 Hospitalization History GI blood loss anemia, 08/04 se ericka esophagitis and esophageal ulcers ([facility]) 10/2014 Hospitalization History wound care ([facility]) 08/2016 Hospitalization History hyperbilirubinemina/jaundice ([facility]) 2 018 Hospitalization History Constipation, ? UTI ([facility]) 08/16-08/03 Hospitalization History pneumonia ([facility]) 07/10/19 Hospitalization History pneumonia ([facility]) 08/2019 Hospitalization History aspiration pneumonitis ([facility]) 09/2019 Hospitalization History aspiration pneumonitis ([facility]) 10/2019 Goals Section No Information Health Concerns No Information MEDICAL EQUIPMENT No Information MENTAL STATUS No Information FUNCTIONAL STATUS No Information ASSESSMENTS No Information PLAN OF TREATMENT Medication Medication Name Sig Start Date Stop Date Lisinopril 10 MG 1 tablet Orally Once a day for 30 Dulcolax 5 MG 2 tablet as needed orally on day 5 no BM for bowel protocol order for 30 day(s) Mar, Melatonin Maximum Strength 5 MG TAKE ONE TABLET BY MOUTH EVERY E VENING for 90 Boost High Protein - 237 ml Orally bid in between meals dx: E88.09 for 30 Days Mar, Docusate Sodium 50 MG/5ML 10 ml Orally [...] day(s ) Catheter Insertion Tray . 28 liberian monthly and prn N3 1.9 internally 30 [...] Name:Pam Yulissa, 2021-04-07 09 :00:00 AM, [address] [facility], , [place], [address], Provider Name:Bob Aburto, 2021-07-14 10:15:00 AM, [address], , [place], [address], Insurance Providers Payer Name Payer Address Payer Phone Insured Name Patient Relati onship to Insured Coverage Start Date Coverage End Date MEDICARE Part A and B [address] [facility] [id number] [phone] KP JOAQUIN self MEDICAID [employer] [address] [facility] [id number] [place] JO[place]QUIN self
--- OUTSIDE RECORDS SUMMARY | 2021-05-03 09:35 | CCD ---
Author Author [facility] Syst ems Organization [facility] ems Address Unknown Phone Unavailable Care Team Providers Care Bilingual Receptionist Name Role Phone Pam Duenas Unavailable PROBLEMS Type Condition ICD9-CM Code UFG71-TA Code Onset Dates Condition S tatus W/U Status Risk SNOMED Code Notes Problem Full incontinence of feces R15.9 Active confirmed 91961344 Problem Essential hypertension I10 Active confirmed 23974606 Problem Unspecified contact dermatitis due to other agents L25.8 Active confirmed 067509779 Problem Internal hemorrhoids K64.8 Active confirmed 31773386 Problem Contact dermatitis and other eczema, due to unspecified ca use L25.9 Active confirmed 33445908 Problem 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 Active confirmed 256947254 Problem 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 Active confirmed 14869311 Problem 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 Acti ve confirmed 92493775 Problem Legal blindness, 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 Active confirmed 483580523 Problem Constipation, unspecified constipation type K59.00 Active confirmed 12664172 Problem Calculus of gallbladder and bile duct without cholecystiti s K80.70 Active confirmed 748973629 Problem Localized edema R60.0 Active confirmed 2747 46635 Problem Raynaud's syndrome I73.00 Active confirmed 1 24009648 Problem Non-pressure chronic ulcer o f other part of left foot limited to breakdown of skin L97.521 Active confirmed 084374901 Problem Stage III pressure ulcer of sacral region L89.153 Active confirmed 931930559 Problem Other specified dermatitis L30.8 Active confirmed 093585919 Problem Laceration of fourth toe, right S91.114A Active confirmed 830160751 Problem Neurogenic bladder N31.9 Active confirmed 3 44721410 Problem Stage 2 skin ulcer of sacral region L89.152 Acti ve confirmed 57129027 Problem 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 Active conf irmed 69896371 Problem Suprapubic catheter Z93.59 Active confirmed 463164770 Problem Iron deficiency anemia, unspecified iron deficiency an emia type D50.9 Active confirmed 06048575 Problem Constipation by delayed colonic transit K59.01 Active confirmed 97195737 Problem Escoto's esophagus without dysplasia K22.70 Ac tive confirmed 902437684 Problem Bladder wall thickening N32.89 Active confirmed 741917049 Problem Reflux esophagitis K21.0 Active confirmed 2 01426420 Problem Hypoalbuminemia E88.09 Active confirmed 1192 76541 Problem Ulcer of esophagus K22.10 Active confirmed 3 7053879 Problem Complete paraplegia G82.21 Active confirmed 036345863965334 Problem Malignant hyperthermia due to anesthesia, 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 Active confirmed 972079442 Problem Dysphagia, unspecified type R13.10 Active confirmed 72043876 Problem Intellectual disability F79 Active confirmed 870103411 Problem Pneumobilia K83.8 Active confirmed 15943608 8 ALLERGIES Allergen (clinical drug ingredient) Drug/Non Drug Allergy do cumented on EMR Reaction Allergy Type Onset Date Status codeine Codeine Sulfate([facility] Code:[address]-32) alters m ental status Drug Allergy Active ENCOUNTERS from 1945 to 2021-04-28 Encounter Location Date Provider Diagnosis [facility] Resident [address] [facility] [address] [phone] [place] [address] Apr, Pam Duenas Excessive cerumen in left ear canal H61.22 IMMUNIZATIONS Vaccine Route Administration Date Status Pneumococcal [...] REASON FOR REFERRAL No Information VITAL SIGNS Weight 185 lbs Apr, Weight-kg 83.92 kg Apr, Height 66 in Apr, BMI 29.86 kg/m2 Apr, Heart Rate 60 /min Apr, Respiratory Rate 20 /min Apr, Temperature 95.8 degrees Fahrenheit Apr, Oximetry 99 Apr, Blood pressure systolic 122 mm Hg Apr, Blood pressure diastolic 70 mm Hg Apr, MEDICATIONS Medication SIG (Take, Route, Frequency, Duration) Notes Start Da te End Date Status Debrox 6.5 % 5 drops into affected ear Otic Twice a day for 4 day(s) Apr, Active MiraLax 17 gm 17 gm in 6-8 oz liquid Orally daily for 30 day(s) lisaleonela glenn Unknown Bardia Urinary Drainage Bag - as directed every week and prn for 90 day(s) Active Keppra 100 MG/ML 5 ml Orally every 12 hrs for 30 day(s) Apr, Active Docusate Sodium 150 MG/15ML 10 ml Orally Twice a day for 30 Active Bard Irrigation Tray - as directed catheter twice per week for 90 day s Active Delta Rectal Tube 1 per rectum with flatus [...] Days Active Catheter Insertion Tray . 28 kyrgyz monthly and prn N3 1.9 internally 30 [...] MOUTH EVERY E VENING for 90 Active Cefdinir 300 MG as directed Orally Q12H for 14 days Apr Not-Taking Calcium 600 MG 1 tablet with meals Orally Once a day for 90 day (s) Apr, Active Lisinopril 10 MG 1 tablet Orally Once a day for 30 Active May Have - head rest extension on wheel chair with labor DX:G80.8 & G82.21 Daily for 99 months fax to [phone] Jul, Active Vitamin D-400 10 MCG (400 UNIT) 1 tablet Orally Once a day for 9 0 day(s) 28 Apr, 2020 Active Probiotic 250 MG 1 capsule Orally Q12H for 14 day(s) 17 Oc , 2020 Active Cranberry 500 MG 1 capsule [...] G82.21 Daily for 99 months fax to [phone] Jul, Active Dulcolax 5 MG 2 tablet [...] Information RESULTS No Results REASON FOR VISIT Wants ear check MEDICAL (GENERAL) HISTORY Type Description Date Medical [...] extractions ([facility]) 2006, 2011 Surgical History cystscopy ([facility]) 05/08/2013 Surgical History EGD ([facility]) - severe eso phagitis and non-bleeding esophageal ulcers 10/2014 Surgical History EGD ([facility]) - relatively normal exam 05/2016 Surgical History cystoscopy 01/10/2019 Hospitalization History cellulitis ([facility]) 10/2013 Hospitalization History GI blood loss anemia, 2/ se ericka esophagitis and esophageal ulcers ([facility]) 10/2014 Hospitalization History wound care ([facility]) 08/2016 Hospitalization History hyperbilirubinemina/jaundice ([facility]) 2 018 Hospitalization History Constipation, ? UTI ([facility]) 08/16-08/03 Hospitalization History pneumonia ([facility]) 07/10/19 Hospitalization History pneumonia ([facility]) 08/2019 Hospitalization History aspiration pneumonitis ([facility]) 09/2019 Hospitalization History aspiration pneumonitis ([facility]) 10/2019 Goals Section No Information Health Concerns No Information MEDICAL EQUIPMENT No Information MENTAL STATUS No Information FUNCTIONAL STATUS No Information ASSESSMENTS Encounter Date Diagnosis Assessment Notes Treatment Notes Treatm ent Clinical Notes Apr, Excessive cerumen in left ear canal (ICD-10 - H6 1.22) Excessive cerumen in left ear canal without impaction. Start debrox with ear irrigation as needed at [facility]. Contact clinic if there is any question or concern Apr, Other Advised [facility] sta ff to follow urology's instruction for positive urine culture result and suprapubic catheter care PLAN OF TREATMENT Medication Medication Name Sig Start Date Stop Date Debrox 6.5 % 5 drops into affected ear Otic Twice a d ay for 4 day(s) Apr, Treatment Notes Assessment Notes Clinical Notes Excessive cerumen in left ear canal Exce ssive cerumen in left ear canal without impaction. Start debrox with ear irrigation as needed at [facility]. Contact clinic if there is any question or concern Next Appt Details 08/2020 Reason:annual visit Provider Name:Bob Aburto IN ACTIVE, 2021-07-14 10:15:00 AM, [address], , [place], [address], Provider Name:Roberto Jordan, 2021-07-03 2 10:15:00 AM, [address], , [place], [address], Provider Name:Aldo Modi, 2021-09-02 1 01:00:00 PM, [address] [facility], , [place], [address], Follow Up:1annual visit Insurance Providers Payer Name Payer Address Payer Phone Insured Name Patient Relati onship to Insured Coverage Start Date Coverage End Date MEDICAID [employer] [address] [facility] [address] [place] MEDICARE Part A and B [address] [facility] [id number] [place] self
--- OUTSIDE RECORDS SUMMARY | 2021-05-03 09:35 | CCD ---
Author Author [facility] Syst ems Organization [facility] ems Address Unknown Phone Unavailable Care Team Providers Care Liability Claims Representative Name Role Phone Pam Duenas Unavailable PROBLEMS Type Condition ICD9-CM Code BFZ00-CA Code Onset Dates Condition S tatus W/U Status Risk SNOMED Code Notes Problem Full incontinence of feces R15.9 Active confirmed 25108985 Problem Essential hypertension I10 Active confirmed 98004375 Problem Unspecified contact dermatitis due to other agents L25.8 Active confirmed 092881065 Problem Internal hemorrhoids K64.8 Active confirmed 94074317 Problem Contact dermatitis and other eczema, due to unspecified ca use L25.9 Active confirmed 49280758 Problem 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 Active confirmed 365121776 Problem 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 Active confirmed 40930157 Problem 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 Acti ve confirmed 70323840 Problem Legal blindness, 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 Active confirmed 738457408 Problem Constipation, unspecified constipation type K59.00 Active confirmed 18132075 Problem Calculus of gallbladder and bile duct without cholecystiti s K80.70 Active confirmed 435715862 Problem Localized edema R60.0 Active confirmed 2747 38283 Problem Raynaud's syndrome I73.00 Active confirmed 1 27193382 Problem Non-pressure chronic ulcer o f other part of left foot limited to breakdown of skin L97.521 Active confirmed 497991741 Problem Stage III pressure ulcer of sacral region L89.153 Active confirmed 031276238 Problem Other specified dermatitis L30.8 Active confirmed 067006926 Problem Laceration of fourth toe, right S91.114A Active confirmed 612253653 Problem Neurogenic bladder N31.9 Active confirmed 3 70145996 Problem Stage 2 skin ulcer of sacral region L89.152 Acti ve confirmed 61000158 Problem 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 Active conf irmed 83592814 Problem Suprapubic catheter Z93.59 Active confirmed 377780481 Problem Iron deficiency anemia, unspecified iron deficiency an emia type D50.9 Active confirmed 00733215 Problem Constipation by delayed colonic transit K59.01 Active confirmed 90413733 Problem Escoto's esophagus without dysplasia K22.70 Ac tive confirmed 717951655 Problem Bladder wall thickening N32.89 Active confirmed 072101414 Problem Reflux esophagitis K21.0 Active confirmed 2 33628588 Problem Hypoalbuminemia E88.09 Active confirmed 1192 51901 Problem Ulcer of esophagus K22.10 Active confirmed 3 4576447 Problem Complete paraplegia G82.21 Active confirmed 484944644615260 Problem Malignant hyperthermia due to anesthesia, 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 Active confirmed 845434050 Problem Dysphagia, unspecified type R13.10 Active confirmed 94905309 Problem Intellectual disability F79 Active confirmed 899544085 Problem Pneumobilia K83.8 Active confirmed 39669425 8 ALLERGIES Allergen (clinical drug ingredient) Drug/Non Drug Allergy do cumented on EMR Reaction Allergy Type Onset Date Status codeine Codeine Sulfate([facility] Code:[address]-26) alters m ental status Drug Allergy Active ENCOUNTERS from 1945 to 2021-04-07 Encounter Location Date Provider Diagnosis [address] [phone] [place] [address] Apr, Pam Duenas IMMUNIZATIONS Vaccine Route Administration [...] G82.21 Daily for 99 months fax to [phone] Jul, Active May Have - headrest extendion with labo r and hardware for wheelchair G80.8 for 99 months Jul, Active Protonix 40 MG 1 tablet Orally Twice a day for 30 Active May Have - head rest extension on wheel chair with labor DX:G80.8 & G82.21 Daily for 99 months fax to [phone] Jul, Active Calcium 600 MG 1 tablet [...] day(s) Active Catheter Insertion Tray . 28 cuban monthly and prn N3 1.9 internally 30 day(s) for 90 day(s) Active PROCEDURES No Information RESULTS No Results REASON FOR VISIT referral MEDICAL (GENERAL) HISTORY Type Description Date Medical [...] patella 17 yo Surgical History tooth extractions ([facility]) 2006, 2011 Surgical History cystscopy ([facility]) 05/08/2013 Surgical History EGD ([facility]) - severe eso phagitis and non-bleeding esophageal ulcers 10/2014 Surgical History EGD ([facility]) - relatively normal exam 05/2016 Surgical History cystoscopy 01/10/2019 Hospitalization History cellulitis ([facility]) 10/2013 Hospitalization History GI blood loss anemia, 2/ se ericka esophagitis and esophageal ulcers ([facility]) 10/2014 Hospitalization History wound care ([facility]) 08/2016 Hospitalization History hyperbilirubinemina/jaundice ([facility]) 2 018 Hospitalization History Constipation, ? UTI ([facility]) 08/16-08/03 Hospitalization History pneumonia ([facility]) 07/10/19 Hospitalization History pneumonia ([facility]) 08/2019 Hospitalization History aspiration pneumonitis ([facility]) 09/2019 Hospitalization History aspiration pneumonitis ([facility]) 10/2019 Goals Section No Information Health Concerns No Information MEDICAL EQUIPMENT No Information MENTAL STATUS No Information FUNCTIONAL STATUS No Information ASSESSMENTS No Information PLAN OF TREATMENT Medication Medication Name Sig Start Date Stop Date Keppra 500 MG 1 tablet Orally every 12 hrs Next Appt Details Provider Name:Pam Duenas, 2021-04-16 10 :30:00 AM, [address] [facility] [address] , , [place], [address], Provider Name:Bob Aburto, 2021-07-14 10:15:00 AM, [address] , , [place], [address], Insurance Providers Payer Name Payer Address Payer Phone Insured Name Patient Relati onship to Insured Coverage Start Date Coverage End Date MEDICAID [employer] [address] [facility] [id number] [place] MEDICARE Part A and B [address] [facility] [id number] KP [place] self
--- OUTSIDE RECORDS SUMMARY | 2021-05-03 09:35 | CCD ---
Author Author [facility] Syst ems Organization [facility] ems Address Unknown Phone Unavailable Care Team Providers Care Contract Technical Writer Name Role Phone Pam Duenas Unavailable PROBLEMS Type Condition ICD9-CM Code JRY72-EY Code Onset Dates Condition S tatus W/U Status Risk SNOMED Code Notes Problem Full incontinence of feces R15.9 Active confirmed 25849891 Problem Essential hypertension I10 Active confirmed 32922014 Problem Unspecified contact dermatitis due to other agents L25.8 Active confirmed 477454908 Problem Internal hemorrhoids K64.8 Active confirmed 13561947 Problem Contact dermatitis and other eczema, due to unspecified ca use L25.9 Active confirmed 06967983 Problem 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 Active confirmed 188039313 Problem 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 Active confirmed 46169549 Problem 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 Acti ve confirmed 94807661 Problem Legal blindness, 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 Active confirmed 620597221 Problem Constipation, unspecified constipation type K59.00 Active confirmed 54990500 Problem Calculus of gallbladder and bile duct without cholecystiti s K80.70 Active confirmed 411823666 Problem Localized edema R60.0 Active confirmed 2747 15934 Problem Raynaud's syndrome I73.00 Active confirmed 1 38141672 Problem Non-pressure chronic ulcer o f other part of left foot limited to breakdown of skin L97.521 Active confirmed 623595951 Problem Stage III pressure ulcer of sacral region L89.153 Active confirmed 347701557 Problem Other specified dermatitis L30.8 Active confirmed 959430893 Problem Laceration of fourth toe, right S91.114A Active confirmed 585794642 Problem Neurogenic bladder N31.9 Active confirmed 3 56065990 Problem Stage 2 skin ulcer of sacral region L89.152 Acti ve confirmed 22122237 Problem 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 Active conf irmed 52754018 Problem Suprapubic catheter Z93.59 Active confirmed 016143044 Problem Iron deficiency anemia, unspecified iron deficiency an emia type D50.9 Active confirmed 71154083 Problem Constipation by delayed colonic transit K59.01 Active confirmed 78105641 Problem Escoto's esophagus without dysplasia K22.70 Ac tive confirmed 709376257 Problem Bladder wall thickening N32.89 Active confirmed 251339205 Problem Reflux esophagitis K21.0 Active confirmed 2 03797234 Problem Hypoalbuminemia E88.09 Active confirmed 1192 10388 Problem Ulcer of esophagus K22.10 Active confirmed 3 1129132 Problem Complete paraplegia G82.21 Active confirmed 642910636591274 Problem Malignant hyperthermia due to anesthesia, 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 Active confirmed 252182613 Problem Dysphagia, unspecified type R13.10 Active confirmed 85165458 Problem Intellectual disability F79 Active confirmed 322209672 Problem Pneumobilia K83.8 Active confirmed 35049357 8 ALLERGIES Allergen (clinical drug ingredient) Drug/Non Drug Allergy do cumented on EMR Reaction Allergy Type Onset Date Status codeine Codeine Sulfate([facility] Code:[address]-81) alters m ental status Drug Allergy Active ENCOUNTERS from 1945 to 2021-04-27 Encounter Location Date Provider Diagnosis [address] [phone] [place] [address] Apr, Pam Duenas IMMUNIZATIONS Vaccine Route Administration [...] Notes Start Da te End Date Status Keppra 100 MG/ML 5 ml Orally every 12 hrs for 30 day(s) Apr, Active Lisinopril 10 MG 1 tablet Orally Once a day for 30 Active Boost High Protein - 237 ml Orally bid in between meals dx: E88.09 for 30 Days Mar, Unknown Occupational Therapy as directed DX : G80.8 eval for adaptive eq uipment needs Jan, Active Amoxicillin 500 MG 1 capsule Orally every 8 hrs for 14 day(s) Apr, Active Docusate Sodium 50 MG/5ML 10 ml [...] day for 9 0 day(s) Apr, Active Ammonium Lactate 12 % 1 application Externally bef ore bedtime to feet for 30 Days Active Cefdinir 300 MG as directed Orally Q12H for 14 days Apr Active Calcium 600 MG 1 tablet with meals Orally Once a day for 90 day (s) Apr, Active MiraLax 17 gm 17 gm in 6-8 oz liquid Orally daily for 30 day(s) abner glenn Unknown Sterile Water - as directed 250 cc bottle to flush suprapubic catehter six times per week for 30 Days Aug, Active Fleet Enema 7-19 GM/118ML as directed Rectal October, Unknown Oxybutynin Chloride 5 MG 1 tablet Orally bid for 30 Days Active Cranberry 500 MG 1 capsule with meals Orally twice daily (Do Not bubb le) Not-Taking May Have - trunk swingway lateral and l abor DX:G80.8 & G82.21 Daily for 99 months fax to [phone] Jul, Active May Have - headrest extendion with labo r and hardware for wheelchair G80.8 for 99 months Jul, Active Protonix 40 MG 1 tablet Orally Twice a day for 30 Active May Have - head rest extension on wheel chair with labor DX:G80.8 & G82.21 Daily for 99 months fax to [phone] Jul, Active Probiotic 250 MG 1 capsule Orally Q12H for 14 day(s) 2020 Active Bard Deluxe Fabric Leg Straps - as directed change onc e per month with catheter changes and prn if soiled for 90 day(s) Oct, Active Milk of Magnesia otc 30 ml Orally on days 3&4 without BM Active Melatonin Maximum Strength 5 MG TAKE ONE TABLET BY MOUTH EVERY E VENING for 90 Active Dulcolax 5 MG 2 tablet as needed orally on day 5 no BM for bowel protocol order for 30 day(s) Mar, Active Amoxicillin-Pot Clavulanate 875-125 MG 1 tablet Orally every 12 hrs x 6 days Unknown Bard Irrigation Tray - as directed catheter [...] day(s) Active Catheter Insertion Tray . 28 kazakh monthly and prn N3 1.9 internally 30 day(s) for 90 day(s) Active PROCEDURES No Information RESULTS No Results REASON FOR VISIT Medication Question MEDICAL (GENERAL) HISTORY Type Description Date Medical [...] [facility] [place], 2011 Surgical History cystscopy ([facility]) 05/08/2013 Surgical History EGD ([facility]) - severe eso phagitis and non-bleeding esophageal ulcers 10/2014 Surgical History EGD ([facility]) - relatively normal exam 05/2016 Surgical History cystoscopy 01/10/2019 Hospitalization History cellulitis ([facility]) 10/2013 Hospitalization History GI blood loss anemia, 2/2 se ericka esophagitis and esophageal ulcers ([facility]) 10/2014 Hospitalization History wound care ([facility]) 08/2016 Hospitalization History hyperbilirubinemina/jaundice ([facility]) 2 018 Hospitalization History Constipation, ? UTI ([facility]) 08/16-08/03 Hospitalization History pneumonia ([facility]) 07/10/19 Hospitalization History pneumonia ([facility]) 08/2019 Hospitalization History aspiration pneumonitis ([facility]) 09/2019 Hospitalization History aspiration pneumonitis ([facility]) 10/2019 Goals Section No Information Health Concerns No Information MEDICAL EQUIPMENT No Information MENTAL STATUS No Information FUNCTIONAL STATUS No Information ASSESSMENTS No Information PLAN OF TREATMENT Medication Medication Name Sig Start Date Stop Date Probiotic 250 MG 1 capsule Orally Q12H for 14 day(s) Apr, Keppra 100 MG/ML 5 ml Orally every 12 hrs for 30 day(s) Apr, Cefdinir 300 MG as directed Orally Q12H for 14 days Apr, Amoxicillin 500 MG 1 capsule Orally every 8 hrs for 14 day(s) Apr, Vitamin D-400 10 MCG (400 UNIT) 1 tablet Orally Once a day f or 90 day(s) Apr, Calcium 600 MG 1 tablet with meals Orally Once a day for 90 day (s) Apr, Next Appt Details Provider Name:Pam Yulissa, 2021-04-28 09 :00:00 AM, [address] [facility], , [place], [address], Provider Name:Roberto Jordan, 2021-07-03 2 10:15:00 AM, [address], , [place], [address], Provider Name:Bob Aburto IN ACTIVE, 2021-07-14 10:15:00 AM, [address], , [place], [address], Insurance Providers Payer Name Payer Address Payer Phone Insured Name Patient Relati onship to Insured Coverage Start Date Coverage End Date MEDICARE Part A and B [address] [facility] [id number] [place] MEDICAID [facility] [address] [facility] [address] [place] self
--- OUTSIDE RECORDS SUMMARY | 2021-05-03 09:35 | CCD ---
Author Author [facility] ems Organization [facility] ems Address Unknown Phone Unavailable Care Team Providers Care Mainframe Software Developer Name Role Phone Pam Duenas Unavailable PROBLEMS Type Condition ICD9-CM Code [id number] Code Onset Dates Condition S tatus W/U Status Risk SNOMED Code Notes Problem Full incontinence of feces R15.9 Active confirmed 10914665 Problem Essential hypertension I10 Active confirmed 40581791 Problem Unspecified contact dermatitis due to other agents L25.8 Active confirmed 483876966 Problem Internal hemorrhoids K64.8 Active confirmed 52079539 Problem Contact dermatitis and other eczema, due to unspecified ca use L25.9 Active confirmed 17069932 Problem 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 Active confirmed 390145814 Problem 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 Active confirmed 81007808 Problem 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 Acti ve confirmed 05887581 Problem Legal blindness, 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 Active confirmed 124972063 Problem Constipation, unspecified constipation type K59.00 Active confirmed 85522453 Problem Calculus of gallbladder and bile duct without cholecystiti s K80.70 Active confirmed 738110753 Problem Localized edema R60.0 Active confirmed 2747 94730 Problem Raynaud's syndrome I73.00 Active confirmed 1 48452887 Problem Non-pressure chronic ulcer o f other part of left foot limited to breakdown of skin L97.521 Active confirmed 789058142 Problem Stage III pressure ulcer of sacral region L89.153 Active confirmed 610709899 Problem Other specified dermatitis L30.8 Active confirmed 353419575 Problem Laceration of fourth toe, right S91.114A Active confirmed 787727038 Problem Neurogenic bladder N31.9 Active confirmed 3 12277418 Problem Stage 2 skin ulcer of sacral region L89.152 Acti ve confirmed 24972552 Problem 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 Active conf irmed 41930850 Problem Suprapubic catheter Z93.59 Active confirmed 534355548 Problem Iron deficiency anemia, unspecified iron deficiency an emia type D50.9 Active confirmed 25446572 Problem Constipation by delayed colonic transit K59.01 Active confirmed 66367066 Problem Escoto's esophagus without dysplasia K22.70 Ac tive confirmed 780654967 Problem Bladder wall thickening N32.89 Active confirmed 283228956 Problem Reflux esophagitis K21.0 Active confirmed 2 96128505 Problem Hypoalbuminemia E88.09 Active confirmed 1192 83261 Problem Ulcer of esophagus K22.10 Active confirmed 3 5317112 Problem Complete paraplegia G82.21 Active confirmed 725946452997987 Problem Malignant hyperthermia due to anesthesia, 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 Active confirmed 881296383 Problem Dysphagia, unspecified type R13.10 Active confirmed 25202105 Problem Intellectual disability F79 Active confirmed 591353138 Problem Pneumobilia K83.8 Active confirmed 65704450 8 ALLERGIES Allergen (clinical drug ingredient) Drug/Non Drug Allergy do cumented on EMR Reaction Allergy Type Onset Date Status codeine Codeine Sulfate([facility] Code:[address]-58) alters m ental status Drug Allergy Active ENCOUNTERS from 1945 to 2021-04-22 Encounter Location Date Provider Diagnosis [address] [phone] [place] [address] Apr, Pam Duenas IMMUNIZATIONS Vaccine Route Administration Date Status Depo-Medrol 40mg Methylpredisolone Acetate IM Intramuscular Jul 10, 2019 Administered Influenza Pharmacy Given Unknown May 14, 2018 Adminis tered Pneumococcal Adult 0.5mL Pneumovax 23 IM Intramuscular [...] G82.21 Daily for 99 months fax to [phone] Jul, Active May Have - headrest extendion with labo r and hardware for wheelchair G80.8 for 99 months Jul, Active Protonix 40 MG 1 tablet Orally Twice a day for 30 Active May Have - head rest extension on wheel chair with labor DX:G80.8 & G82.21 Daily for 99 months fax to [phone] Jul, Active Probiotic 250 MG 1 capsule [...] day(s) Active Catheter Insertion Tray . 28 malay monthly and prn N3 1.9 internally 30 day(s) for 90 day(s) Active PROCEDURES No Information RESULTS No Results REASON FOR VISIT Calcium Vit D MEDICAL (GENERAL) HISTORY Type Description Date Medical [...] patella 17 yo [facility] Surgical History [facility]scopy ([facility]) 05/08/2013 Surgical History EGD ([facility]) - severe eso phagitis and non-bleeding esophageal ulcers 10/2014 Surgical History EGD ([facility]) - relatively normal exam 05/2016 Surgical History cystoscopy 01/10/2019 Hospitalization History cellulitis ([facility]) 10/2013 Hospitalization History GI blood loss anemia, 2/2 se ericka esophagitis and esophageal ulcers ([facility]) 10/2014 Hospitalization History wound care ([facility]) 08/2016 Hospitalization History hyperbilirubinemina/jaundice ([facility]) 2 018 Hospitalization History Constipation, ? UTI ([facility]) 08/16-08/03 Hospitalization History pneumonia ([facility]) 07/10/19 Hospitalization History pneumonia ([facility]) 08/2019 Hospitalization History aspiration pneumonitis ([facility]) 09/2019 Hospitalization History aspiration pneumonitis ([facility]) 10/2019 Goals Section No Information Health [...] Name:Pam Yulissa, 2021-04-28 09 :00:00 AM, [address] [facility], , [place], [address], Provider Name:Bob CHOW ACTIVE, 2021-07-14 10:15:00 AM, [address], , [place], [address], Insurance Providers Payer Name Payer Address Payer Phone Insured Name Patient Relati onship to Insured Coverage Start Date Coverage End Date MEDICARE Part A and B [address] [facility] [id number] KP JOAQUIN self MEDICAID [employer] [address] [facility] [id number] KP JOAQUIN self
--- OUTSIDE RECORDS SUMMARY | 2021-05-03 09:35 | CCD ---
Author Author [facility] em[facility] Organization [facility] ems Address Unknown Phone Unavailable Care Team Providers Care Cryptologic Support Specialist Name Role Phone Pam Duenas Unavailable PROBLEMS Type Condition ICD9-CM Code [id number] Code Onset Dates Condition S tatus W/U Status Risk SNOMED Code Notes Problem Full incontinence of feces R15.9 Active confirmed 83441385 Problem Essential hypertension I10 Active confirmed 09860107 Problem Unspecified contact dermatitis due to other agents L25.8 Active confirmed 352780828 Problem Internal hemorrhoids K64.8 Active confirmed 05316876 Problem Contact dermatitis and other eczema, due to unspecified ca use L25.9 Active confirmed 92932960 Problem 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 Active confirmed 267569915 Problem 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 Active confirmed 48424998 Problem 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 Acti ve confirmed 63177671 Problem Legal blindness, 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 Active confirmed 472455787 Problem Constipation, unspecified constipation type K59.00 Active confirmed 62365717 Problem Calculus of gallbladder and bile duct without cholecystiti s K80.70 Active confirmed 954118900 Problem Localized edema R60.0 Active confirmed 2747 21563 Problem Raynaud's syndrome I73.00 Active confirmed 1 01097543 Problem Non-pressure chronic ulcer o f other part of left foot limited to breakdown of skin L97.521 Active confirmed 469628504 Problem Stage III pressure ulcer of sacral region L89.153 Active confirmed 208116105 Problem Other specified dermatitis L30.8 Active confirmed 992110499 Problem Laceration of fourth toe, right S91.114A Active confirmed 587285251 Problem Neurogenic bladder N31.9 Active confirmed 3 10996670 Problem Stage 2 skin ulcer of sacral region L89.152 Acti ve confirmed 14319283 Problem 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 Active conf irmed 41018175 Problem Suprapubic catheter Z93.59 Active confirmed 618448740 Problem Iron deficiency anemia, unspecified iron deficiency an emia type D50.9 Active confirmed 63839138 Problem Constipation by delayed colonic transit K59.01 Active confirmed 67737972 Problem Escoto's esophagus without dysplasia K22.70 Ac tive confirmed 924080664 Problem Bladder wall thickening N32.89 Active confirmed 306372530 Problem Reflux esophagitis K21.0 Active confirmed 2 12056201 Problem Hypoalbuminemia E88.09 Active confirmed 1192 89165 Problem Ulcer of esophagus K22.10 Active confirmed 3 3629170 Problem Complete paraplegia G82.21 Active confirmed 748159754467891 Problem Malignant hyperthermia due to anesthesia, 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 Active confirmed 393137916 Problem Dysphagia, unspecified type R13.10 Active confirmed 40699402 Problem Intellectual disability F79 Active confirmed 578654677 Problem Pneumobilia K83.8 Active confirmed 10493075 8 ALLERGIES Allergen (clinical drug ingredient) Drug/Non Drug Allergy do cumented on EMR Reaction Allergy Type Onset Date Status codeine Codeine Sulfate([facility] Code:[address]-17) alters m ental status Drug Allergy Active ENCOUNTERS from 1945 to 2021-04-12 Encounter Location Date Provider Diagnosis [address] [facility] [phone] [place] [address] 08 Apr, 2021 Pam Yulissa Seizure R56.9 IMMUNIZATIONS Vaccine Route Administration Date Status Depo-Medrol [...] 12 hrs for 30 day(s) Apr, Active Aspir-81 81 MG 1 tablet Orally Once a day for 90 Active Oxybutynin Chloride 5 MG 1 tablet Orally bid for 30 Days Active Occupational Therapy as directed DX : G80.8 eval for adaptive eq uipment needs Jan, Active Lisinopril 10 MG 1 tablet Orally Once a day for 30 Active Vitamin D-400 10 MCG (400 UNIT) 1 tablet Orally Once a day for 9 0 day(s) Apr, Active Optifoam 4 l89.892 apply to scrotum q 3 days. measurements: #1: 0.5 cm #2 1 cm #3 0.5 cm Active MiraLax 17 gm 17 gm in 6-8 oz liquid Orally daily for 30 day(s) lisali glenn Unknown Ammonium Lactate 12 % 1 application Externally bef ore bedtime to feet for 30 Days Active Fleet Enema 7-19 GM/118ML as directed Rectal October, Unknown Amoxicillin-Pot Clavulanate 875-125 MG 1 tablet Orally every 12 hrs x 6 days Unknown Sterile Water - as directed 250 cc bottle to flush suprapubic catehter six times per week for 30 Days Aug, Active Cranberry 500 MG 1 capsule with meals Orally twice daily (Do Not bubb le) Not-Taking Docusate Sodium 50 MG/5ML 10 ml Orally twice daily for 30 day(s) Mar, Unknown May Have - trunk swingway lateral and l abor DX:G80.8 & G82.21 Daily for 99 months fax to [phone] Jul, Active May Have - headrest extendion with labo r and hardware for wheelchair G80.8 for 99 months Jul, Active Protonix 40 MG 1 tablet Orally Twice a day for 30 Active May Have - head rest extension on wheel chair with labor DX:G80.8 & G82.21 Daily for 99 months fax to [phone] Jul, Active Dulcolax 5 MG 2 tablet [...] MOUTH EVERY E VENING for 90 Active Calcium 600 MG 1 tablet with meals Orally Once a day for 90 day (s) Apr, Active Boost High Protein - 237 ml Orally bid in between meals dx: E88.09 for 30 Days Mar, Unknown Bard Irrigation Tray - as directed [...] day(s) Active Catheter Insertion Tray . 28 qatari monthly and prn N3 1.9 internally 30 day(s) for 90 day(s) Active PROCEDURES No Information RESULTS No Results REASON FOR VISIT Liquid Keppra? MEDICAL (GENERAL) HISTORY Type Description Date Medical [...] patella 17 yo Surgical History tooth extractions ([facility]) 2006, 2011 Surgical History cystscopy ([facility]) 05/08/2013 Surgical History EGD ([facility]) - severe eso phagitis and non-bleeding esophageal ulcers 10/2014 Surgical History EGD ([facility]) - relatively normal exam 05/2016 Surgical History cystoscopy 01/10/2019 Hospitalization History cellulitis ([facility]) 10/2013 Hospitalization History GI blood loss anemia, / se ericka esophagitis and esophageal ulcers ([facility]) 10/2014 Hospitalization History wound care ([facility]) 08/2016 Hospitalization History hyperbilirubinemina/jaundice ([facility]) 2 018 Hospitalization History Constipation, ? UTI ([facility]) 08/16-08/03 Hospitalization History pneumonia ([facility]) 07/10/19 Hospitalization History pneumonia ([facility]) 08/2019 Hospitalization History aspiration pneumonitis ([facility]) 09/2019 Hospitalization History aspiration pneumonitis ([facility]) 10/2019 Goals Section No Information Health Concerns No Information MEDICAL EQUIPMENT No Information MENTAL STATUS No Information FUNCTIONAL STATUS No Information ASSESSMENTS Encounter Date Diagnosis Assessment Notes Treatment Notes Treatm ent Clinical Notes Apr, Seizure (ICD-10 - R56.9) PLAN OF TREATMENT Medication Medication Name Sig Start Date Stop Date Keppra 100 MG/ML 5 ml Orally every 12 hrs for 30 day(s) Apr, Next Appt Details Provider Name:Pam Duenas 2021-04-28 09 :00:00 AM, [address] [facility], , [place], [address], Provider Name:Bob Aburto, 2021-07-14 10:15:00 AM, [address], , [place], [address], Insurance Providers Payer Name Payer Address Payer Phone Insured Name Patient Relati onship to Insured Coverage Start Date Coverage End Date MEDICARE Part A and B [address] [facility] [address] [phone] KP JOAQUIN self MEDICAID [employer] [address] [facility] [id number] KP JOAQUIN self
--- OUTSIDE RECORDS SUMMARY | 2021-05-03 09:35 | CCD ---
Author Author [facility] ems Organization [facility] ems Address Unknown Phone Unavailable Care Team Providers Care Explosive Specialist Name Role Phone Aldo Modi Unavailable PROBLEMS Type Condition ICD9-CM Code [id number] Code Onset Dates Condition S tatus W/U Status Risk SNOMED Code Notes Problem Raynaud's syndrome I73.00 Active confirmed 1 09653212 Problem Full incontinence of feces R15.9 Active confirmed 16526347 Problem Localized edema R60.0 Active confirmed 2746 35770 Problem Essential hypertension I10 Active confirmed 77903626 Problem Unspecified contact dermatitis due to other agents L25.8 Active confirmed 812021920 Problem Internal hemorrhoids K64.8 Active confirmed 00355251 Problem Contact dermatitis and other eczema, due to unspecified ca use L25.9 Active confirmed 24710182 Problem 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 Active conf irmed 11702792 Problem Suprapubic catheter Z93.59 Active confirmed 143232706 Problem Legal blindness, 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 Active confirmed 428330060 Problem Calculus of gallbladder and bile duct without cholecystiti s K80.70 Active confirmed 349901346 Problem Complete paraplegia G82.21 Active confirmed 750910000278744 Problem Reflux esophagitis K21.0 Active confirmed 2 59010194 Problem Non-pressure chronic ulcer o f other part of left foot limited to breakdown of skin L97.521 Active confirmed 232444277 Problem Stage III pressure ulcer of sacral region L89.153 Active confirmed 790624403 Problem Other specified dermatitis L30.8 Active confirmed 082109652 Problem Laceration of fourth toe, right S91.114A Active confirmed 582772081 Problem Neurogenic bladder N31.9 Active confirmed 3 40313574 Problem Stage 2 skin ulcer of sacral region L89.152 Acti ve confirmed 40169611 Problem Constipation, unspecified constipation type K59.00 Active confirmed 09806756 Problem 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 Acti ve confirmed 41632931 Problem Iron deficiency anemia, unspecified iron deficiency an emia type D50.9 Active confirmed 11320326 Problem Intellectual disability F79 Active confirmed 164438238 Problem 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 Active confirmed 07058695 Problem Hypoalbuminemia E88.09 Active confirmed 1192 12199 Problem 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 Active confirmed 312479574 Problem Ulcer of esophagus K22.10 Active confirmed 3 2277441 Problem Constipation by delayed colonic transit K59.01 Active confirmed 70768368 Problem Escoto's esophagus without dysplasia K22.70 Ac tive confirmed 311216990 Problem Malignant hyperthermia due to anesthesia, 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 Active confirmed 738254471 Problem Dysphagia, unspecified type R13.10 Active confirmed 53449874 ALLERGIES Allergen (clinical drug ingredient) Drug/Non Drug Allergy do cumented on EMR Reaction Allergy Type Onset Date Status codeine Codeine Sulfate([facility] Code:[address]-97) alters m ental status Drug Allergy Active ENCOUNTERS from 1945 to 2021-04-02 Encounter Location Date Provider Diagnosis [address] [facility] [phone] [place] [address] 30 Mar, 2021 Aldo Modi Hypoalbuminemia E88.09 IMMUNIZATIONS Vaccine Route Administration Date Status Influenza [...] Notes Start Da te End Date Status Bard Deluxe Fabric Leg Straps - as directed change onc e per month with catheter changes and prn if soiled for 90 day(s) Oct, Active May Have - trunk swingway lateral and l abor DX:G80.8 & G82.21 Daily for 99 months fax to [phone] Jul, Active Catheter Insertion Tray . 28 kiswahili monthly and prn N3 1.9 internally 30 day(s) for 90 day(s) Active Milk of Magnesia otc 30 ml Orally on days 3&4 without BM Active Oxybutynin Chloride 5 MG 1 tablet Orally bid for 30 Days Active Bard Irrigation Tray - as directed catheter twice per week for 90 day s Active May Have - head rest extension on wheel chair with labor DX:G80.8 & G82.21 Daily for 99 months fax to [phone] Jul, Active Docusate Sodium 50 MG/5ML 10 ml Orally twice daily for 30 day(s) Mar, Active May Use - please monitor his liquid intake between 2,000-3 ,500 ml daily May, Active May Have - headrest extendion with labo r and hardware for wheelchair G80.8 for 99 months Jul, Active Boost High Protein - 237 ml Orally bid in between meals dx: E88.09 for 30 Days Mar, Active Docusate Sodium 150 MG/15ML 10 ml Orally Twice a day for 30 Active Dulcolax 10 mg 1 suppository as needed for constipation Rectal use on day 5 of no BM Active Catheter . 28F catheter suprapubic once monthly and as needed DX:N31.9 for 90 day(s) Active Occupational Therapy as directed DX : G80.8 eval for adaptive eq uipment needs Jan, Active Vitamin D-400 10 MCG (400 UNIT) 1 tablet Orally Once a day for 9 0 day(s) Apr, Active Bardia Urinary Drainage Bag - as directed every week and prn for 90 day(s) Active Protonix 40 MG 1 tablet Orally Twice a day for 30 Active MiraLax 17 gm 17 gm in 6-8 oz liquid Orally daily for 30 day(s) Active Fleet Enema 7-19 GM/118ML as directed Rectal October, Active Polyethylene Glycol 3350 17 GM/SCOOP DISSOLVE 17 GRAMS INTO 6-8 OUNCES OF LIQUID AND DRINK ONCE DAILY for 30 Acti ve Optifoam 4 l89.892 apply to scrotum q 3 days. measurements: #1: 0.5 cm #2 1 cm #3 0.5 cm Active Aspir-81 81 MG 1 tablet Orally Once a day for 90 Active Calcium 600 MG 1 tablet with meals Orally Once a day for 90 day (s) Apr, Active Sterile Water - as directed 250 cc bottle to flush suprapubic catehter six times per week for 30 Days Aug, Active Ammonium Lactate 12 % 1 application Externally bef ore bedtime to feet for 30 Days Active Amoxicillin-Pot Clavulanate 875-125 MG 1 tablet Orally every 12 hrs x 6 days Not-Taking Cranberry 500 MG 1 capsule with meals Orally twice daily (Do Not bubb le) Not-Taking Melatonin Maximum Strength 5 MG TAKE ONE TABLET BY MOUTH EVERY E VENING for 90 Active Lisinopril 10 MG 1 tablet Orally Once a day for 30 Active Dulcolax 5 MG 2 tablet as needed orally on day 5 no BM for bowel protocol order for 30 day(s) Mar, Active PROCEDURES No Information RESULTS No Results REASON FOR VISIT script MEDICAL (GENERAL) HISTORY Type Description Date Medical [...] patella 17 yo Surgical History tooth extractions ([facility]) 2006, 2011 Surgical History cystscopy ([facility] uro) 05/08/2013 Surgical History EGD ([facility]) - severe eso phagitis and non-bleeding esophageal ulcers 10/2014 Surgical History EGD ([facility]) - relatively normal exam 05/2016 Surgical History cystoscopy 01/10/2019 Hospitalization History cellulitis ([facility]) 10/2013 Hospitalization History GI blood loss anemia, / se eircka esophagitis and esophageal ulcers ([facility]) 10/2014 Hospitalization History wound care ([facility]) 08/2016 Hospitalization History hyperbilirubinemina/jaundice ([facility]) 2 018 Hospitalization History Constipation, ? UTI ([facility]) 08/16-08/03 Hospitalization History pneumonia ([facility]) 07/10/19 Hospitalization History pneumonia ([facility]) 08/2019 Hospitalization History aspiration pneumonitis ([facility]) 09/2019 Hospitalization History aspiration pneumonitis ([facility]) 10/2019 Goals Section No Information Health Concerns No Information MEDICAL EQUIPMENT No Information MENTAL STATUS No Information FUNCTIONAL STATUS No Information ASSESSMENTS Encounter Date Diagnosis Assessment Notes Treatment Notes Treatm ent Clinical Notes Mar, Hypoalbuminemia (ICD-10 - E88.09) PLAN OF TREATMENT Medication Medication Name Sig Start Date Stop Date Lisinopril 10 MG 1 tablet Orally Once a day for 30 Dulcolax 5 MG 2 tablet as needed orally on day 5 no BM for bowel protocol order for 30 day(s) Mar, MiraLax 17 gm 17 gm in 6-8 oz liquid Orally daily for 30 day(s ) Melatonin Maximum Strength 5 MG TAKE ONE TABLET BY MOUTH EVERY E VENING for 90 Bard Irrigation Tray - as directed catheter twice per week for 9 0 days Docusate Sodium 50 MG/5ML 10 ml Orally twice daily for 30 day(s) Mar, Bardia Urinary Drainage Bag - as directed every week and prn for 90 day(s) Catheter . 28F catheter suprapubic once monthly and as needed DX:N31.9 for 90 day(s) Bard Deluxe Fabric Leg Straps - as directed change onc e per month with catheter changes and prn if soiled for 90 day(s) Oct, Catheter Insertion Tray . 28 kiswahili monthly and prn N3 1.9 internally 30 day(s) for 90 day(s) Boost High Protein - 237 ml Orally bid in between meals dx: E88.09 for 30 Days Mar, Protonix 40 MG 1 tablet Orally Twice a day for 30 Polyethylene Glycol 3350 17 GM/SCOOP DISSOLVE 17 GRAMS INTO 6-8 OUNCES OF LIQUID AND DRINK ONCE DAILY for 30 Aspir-81 81 MG 1 tablet Orally Once a day for 90 Next Appt Details Provider Name:Pam Duenas, 2021-04-07 09 :00:00 AM, [address] [facility], , [place], [address], Provider Name:Bob Aburto, 2021-07-14 10:15:00 AM, [address], , [place], [address], Insurance Providers Payer Name Payer Address Payer Phone Insured Name Patient Relati onship to Insured Coverage Start Date Coverage End Date MEDICARE Part A and B [address] [facility] [id number] KP JOAQUIN self MEDICAID [employer] [address] [facility] [id number] KP JOAQUIN self
--- OUTSIDE RECORDS SUMMARY | 2021-05-03 09:35 | CCD ---
Author Author [facility] Syst ems Organization [facility] ems Address Unknown Phone Unavailable Care Team Providers Care Physician Liaison Name Role Phone Aldo Modi Unavailable PROBLEMS Type Condition ICD9-CM Code VFH12-SC Code Onset Dates Condition S tatus W/U Status Risk SNOMED Code Notes Problem Full incontinence of feces R15.9 Active confirmed 14595150 Problem Essential hypertension I10 Active confirmed 98360517 Problem Unspecified contact dermatitis due to other agents L25.8 Active confirmed 502844981 Problem Internal hemorrhoids K64.8 Active confirmed 63214665 Problem Contact dermatitis and other eczema, due to unspecified ca use L25.9 Active confirmed 04250041 Problem 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 Active confirmed 651277327 Problem 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 Active confirmed 08057212 Problem 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 Acti ve confirmed 41228887 Problem Legal blindness, 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 Active confirmed 541341966 Problem Constipation, unspecified constipation type K59.00 Active confirmed 99763345 Problem Calculus of gallbladder and bile duct without cholecystiti s K80.70 Active confirmed 338743279 Problem Localized edema R60.0 Active confirmed 2747 58335 Problem Raynaud's syndrome I73.00 Active confirmed 1 57447947 Problem Non-pressure chronic ulcer o f other part of left foot limited to breakdown of skin L97.521 Active confirmed 567753585 Problem Stage III pressure ulcer of sacral region L89.153 Active confirmed 463800258 Problem Other specified dermatitis L30.8 Active confirmed 481894425 Problem Laceration of fourth toe, right S91.114A Active confirmed 729067759 Problem Neurogenic bladder N31.9 Active confirmed 3 53689889 Problem Stage 2 skin ulcer of sacral region L89.152 Acti ve confirmed 19448422 Problem 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 Active conf irmed 55707078 Problem Suprapubic catheter Z93.59 Active confirmed 229891019 Problem Iron deficiency anemia, unspecified iron deficiency an emia type D50.9 Active confirmed 53179015 Problem Constipation by delayed colonic transit K59.01 Active confirmed 53767188 Problem Escoto's esophagus without dysplasia K22.70 Ac tive confirmed 144606178 Problem Bladder wall thickening N32.89 Active confirmed 423964959 Problem Reflux esophagitis K21.0 Active confirmed 2 56915448 Problem Hypoalbuminemia E88.09 Active confirmed 1192 22416 Problem Ulcer of esophagus K22.10 Active confirmed 3 2709732 Problem Complete paraplegia G82.21 Active confirmed 625777826198530 Problem Malignant hyperthermia due to anesthesia, 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 Code:[address]-00) alters m ental status Drug Allergy Active ENCOUNTERS from 1945 to 2021-04-28 Encounter Location Date Provider Diagnosis [address] [phone] [place] [address] Apr, Aldo Modi IMMUNIZATIONS Vaccine Route Administration Date [...] Notes Start Da te End Date Status Occupational Therapy as directed DX : G80.8 eval for adaptive eq uipment needs Jan, Active Amoxicillin 500 MG 1 capsule Orally every 8 hrs for 14 day(s) Apr, Active Docusate Sodium 50 MG/5ML 10 ml Orally twice daily for 30 day(s) Mar, Unknown [place] Rectal Tube 1 per rectum with flatus bag dx: R14.0 for 1 d ays Apr, Active Dulcolax 5 MG 2 tablet as needed orally on day 5 no BM for bowel protocol order for 30 day(s) Mar, Active Amoxicillin-Pot Clavulanate 875-125 MG 1 tablet Orally every 12 hrs x 6 days Unknown Ammonium Lactate 12 % 1 application Externally bef ore bedtime to feet for 30 Days Active Cefdinir 300 MG as directed Orally Q12H for 14 days Apr Active Calcium 600 MG 1 tablet with meals Orally Once a day for 90 day (s) Apr, Active Keppra 100 MG/ML 5 ml Orally every 12 hrs for 30 day(s) Apr, Active Lisinopril 10 MG 1 tablet Orally Once a day for 30 Active Boost High Protein - 237 ml Orally bid in between meals dx: E88.09 for 30 Days Mar, Unknown Fleet Enema 7-19 GM/118ML as directed Rectal October, Unknown Oxybutynin Chloride 5 MG 1 tablet Orally bid for 30 Days Active Optifoam 4 l89.892 apply to scrotum q 3 days. measurements: #1: 0.5 cm #2 1 cm #3 0.5 cm Active Aspir-81 81 MG 1 tablet Orally Once a day for 90 Active Vitamin D-400 10 MCG (400 UNIT) 1 tablet Orally Once a day for 9 0 day(s) Apr, Active MiraLax 17 gm 17 gm in 6-8 oz liquid Orally daily for 30 day(s) abner elizabeth Unknown May Have - trunk swingway lateral and l abor DX:G80.8 & G82.21 Daily for 99 months fax to [phone] Jul, Active May Have - headrest extendion with labo r and hardware for wheelchair G80.8 for 99 months Jul, Active Protonix 40 MG 1 tablet Orally Twice a day for 30 Active May Have - head rest extension on wheel chair with labor DX:G80.8 & G82.21 Daily for 99 months fax to [phone] Jul, Active Melatonin Maximum Strength 5 MG TAKE ONE TABLET BY MOUTH EVERY E VENING for 90 Active Bard Deluxe Fabric Leg Straps - as directed change onc e per month with catheter changes and prn if soiled for 90 day(s) Oct, Active Milk of Magnesia otc 30 ml Orally on days 3&4 without BM Active Sterile Water - as directed 250 cc bottle to flush suprapubic catehter six times per week for 30 Days Aug, Active Probiotic 250 MG 1 capsule Orally Q12H for 14 day(s) Oc 2020 Active Cranberry 500 MG 1 capsule with meals Orally twice daily (Do Not bubb le) Not-Taking Bard Irrigation Tray - as directed catheter [...] day(s) Active Catheter Insertion Tray . 28 albanian monthly and prn N3 1.9 internally 30 day(s) for 90 day(s) Active PROCEDURES No Information RESULTS No Results REASON FOR VISIT Order - Rectal tube MEDICAL (GENERAL) HISTORY Type Description Date Medical [...] patella 17 yo Surgical History tooth extractions ([place]) 2006, 2011 Surgical History cystscopy ([facility]) 05/08/2013 Surgical History EGD ([place]) - severe eso phagitis and non-bleeding esophageal ulcers 10/2014 Surgical History EGD ([facility]) - relatively normal exam 05/2016 Surgical History cystoscopy 01/10/2019 Hospitalization History cellulitis ([facility]) 10/2013 Hospitalization History GI blood loss anemia, / se ericka esophagitis and esophageal ulcers ([facility]) 10/2014 Hospitalization History wound care ([facility] 08/2016 Hospitalization History hyperbilirubinemina/jaundice ([facility]) 2 018 Hospitalization History Constipation, ? UTI ([facility]) 08/16-08/03 Hospitalization History pneumonia ([facility]) 07/10/19 Hospitalization History pneumonia ([facility]) 08/2019 Hospitalization History aspiration pneumonitis ([facility]) 09/2019 Hospitalization History aspiration pneumonitis ([facility]) 10/2019 Goals Section No Information Health Concerns No Information MEDICAL EQUIPMENT No Information MENTAL STATUS No Information FUNCTIONAL STATUS No Information ASSESSMENTS No Information PLAN OF TREATMENT Medication Medication Name Sig Start Date Stop Date Keppra 100 MG/ML 5 ml Orally every 12 hrs for 30 day(s) Apr, [place] Rectal Tube 1 per rectum with flatus bag dx: R14.0 f or 1 days Apr, Amoxicillin 500 MG 1 capsule Orally every 8 hrs for 14 day(s) Apr, Probiotic 250 MG 1 capsule Orally Q12H for 14 day(s) Apr, Calcium 600 MG 1 tablet with meals Orally Once a day for 90 day (s) Apr, Cefdinir 300 MG as directed Orally Q12H for 14 days Apr, Vitamin D-400 10 MCG (400 UNIT) 1 tablet Orally Once a day f or 90 day(s) Apr, Next Appt Details Provider Name:Pam Duenas, 2021-04-28 09 :00:00 AM, [address] [facility], , [place], [address], Provider Name:Roberto Jordan, 2021-07-03 2 10:15:00 AM, [address], , [place], [address], Provider Name:Bob Aburto IN ACTIVE, 2021-07-14 10:15:00 AM, [address], , [place], [address], Insurance Providers Payer Name Payer Address Payer Phone Insured Name Patient Relati onship to Insured Coverage Start Date Coverage End Date MEDICARE Part A and B [address] [facility] [id number] KP JOAQUIN self MEDICAID [id number] [address] [facility] [id number] KP JOAQUIN self
--- OUTSIDE RECORDS SUMMARY | 2021-05-03 09:35 | CCD ---
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 Name Role Phone Pam Duenas Unavailable PROBLEMS Type Condition ICD9-CM Code NDE79-CG Code Onset Dates Condition S tatus W/U Status Risk SNOMED Code Notes Problem Raynaud's syndrome I73.00 Active confirmed 1 93997715 Problem Full incontinence of feces R15.9 Active confirmed 71458995 Problem Localized edema R60.0 Active confirmed 2742 30700 Problem Essential hypertension I10 Active confirmed 45448000 Problem Unspecified contact dermatitis due to other agents L25.8 Active confirmed 993757280 Problem Internal hemorrhoids K64.8 Active confirmed 87968875 Problem Contact dermatitis and other eczema, due to unspecified ca use L25.9 Active confirmed 07081705 Problem 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 Active conf irmed 52614392 Problem Suprapubic catheter Z93.59 Active confirmed 521827908 Problem Legal blindness, 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 Active confirmed 836812237 Problem Calculus of gallbladder and bile duct without cholecystiti s K80.70 Active confirmed 840198889 Problem Complete paraplegia G82.21 Active confirmed 080269515143570 Problem Reflux esophagitis K21.0 Active confirmed 2 23002424 Problem Non-pressure chronic ulcer o f other part of left foot limited to breakdown of skin L97.521 Active confirmed 753971154 Problem Stage III pressure ulcer of sacral region L89.153 Active confirmed 289849453 Problem Other specified dermatitis L30.8 Active confirmed 901496084 Problem Laceration of fourth toe, right S91.114A Active confirmed 756432226 Problem Neurogenic bladder N31.9 Active confirmed 3 01492111 Problem Stage 2 skin ulcer of sacral region L89.152 Acti ve confirmed 65999927 Problem Constipation, unspecified constipation type K59.00 Active confirmed 01181145 Problem 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 Acti ve confirmed 81718066 Problem Iron deficiency anemia, unspecified iron deficiency an emia type D50.9 Active confirmed 36768876 Problem Intellectual disability F79 Active confirmed 222271311 Problem 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 Active confirmed 32227551 Problem Hypoalbuminemia E88.09 Active confirmed 1192 49764 Problem 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 Active confirmed 783834661 Problem Ulcer of esophagus K22.10 Active confirmed 3 6704421 Problem Constipation by delayed colonic transit K59.01 Active confirmed 27709780 Problem Escoto's esophagus without dysplasia K22.70 Ac tive confirmed 231365946 Problem Malignant hyperthermia due to anesthesia, 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 Active confirmed 363401025 Problem Dysphagia, unspecified type R13.10 Active confirmed 31281577 ALLERGIES Allergen (clinical drug ingredient) Drug/Non Drug Allergy do cumented on EMR Reaction Allergy Type Onset Date Status codeine Codeine Sulfate([facility] Code:[address]-92) alters m ental status Drug Allergy Active ENCOUNTERS from 1945 to 2021-04-05 Encounter Location Date Provider Diagnosis [address] [facility] [phone] [place] [address] Apr, Pam Yulissa Seizure R56.9 IMMUNIZATIONS Vaccine Route [...] smoker REASON FOR REFERRAL from 1945 to 2021-04-05 Reason 76 yo male [facility] patient sent to [facility] ED on 04/01/21 for new-onset seizure, 3 episodes of seizure reported. Please eval and treat. Thank you Diagnosis 1 Seizure (R56.9) Referral Organization [facility] GME Resident Referring Provider First Name Pam Referring Provider Last Name Yulissa Referring Provider Specialty Family Medicine Referred Provider Elodia Rosa Referred Provider Specialty Neurology Referral Priority Urgent General Notes Joanie Hager 04/05/2021 6:0 2:15 PM > Referral sent P2P and faxed Clinical Notes Pam Duenas 04/02/2021 7:09: 02 PM > 76 year old [facility] patient was sent to [facility] ED on 04/01/2021. 3 episodes of seizure activity reported. Started on Keppra 500mg BID by ED. Brain CT report 04/01/2021 showed no acute abnormality. Please evaluate and treat. Thank you VITAL SIGNS No information MEDICATIONS Medication SIG (Take, Route, Frequency, Duration) Notes Start Da te End Date Status Bard Deluxe Fabric Leg Straps - as directed change onc e per month with catheter changes and prn if soiled for 90 day(s) Oct, Active May Have - trunk swingway lateral and l abor DX:G80.8 & G82.21 Daily for 99 months fax to [phone] Jul, Active Catheter Insertion Tray . 28 sammarinese monthly and prn N3 1.9 internally 30 [...] G82.21 Daily for 99 months fax to [phone] Jul, Active Docusate Sodium 50 MG/5ML 10 [...] Information RESULTS No Results REASON FOR VISIT [place] MEDICAL (GENERAL) HISTORY Type Description Date Medical [...] extractions ([place]) 2006, 2011 Surgical History cystscopy ([facility]) 05/08/2013 Surgical History EGD ([facility]) - severe eso phagitis and non-bleeding esophageal ulcers 10/2014 Surgical History EGD ([facility]) - relatively normal exam 05/2016 Surgical History cystoscopy 01/10/2019 Hospitalization History cellulitis ([facility]) 10/2013 Hospitalization History GI blood loss anemia, 08/04 se ericka esophagitis and esophageal ulcers ([facility]) 10/2014 Hospitalization History wound care ([facility]) 08/2016 Hospitalization History hyperbilirubinemina/jaundice ([facility]) 2 018 Hospitalization History Constipation, ? UTI ([facility]) 08/16-08/03 Hospitalization History pneumonia ([facility]) 07/10/19 Hospitalization History pneumonia ([facility]) 08/2019 Hospitalization History aspiration pneumonitis ([facility]) 09/2019 Hospitalization History aspiration pneumonitis ([facility]) 10/2019 Goals Section No Information Health Concerns No Information MEDICAL EQUIPMENT No Information MENTAL STATUS No Information FUNCTIONAL STATUS No Information ASSESSMENTS Encounter Date Diagnosis Assessment Notes Treatment Notes Treatm ent Clinical Notes Apr, Seizure (ICD-10 - R56.9) Went to [facility] ED on 04/01/21 for new-onset seizure. [facility] staff reported patient had total 3 episodes of seizure. Was prescribed Keppra 500mg BID for 30 days by ER. No refill needed at this time. Will refer to neurology urgently for new-onset seizure PLAN OF TREATMENT Medication Medication Name Sig [...] day(s) Oct, Catheter Insertion Tray . 28 sammarinese monthly and prn N3 1.9 internally 30 [...] tablet Orally Once a day for 90 Treatment Notes Assessment Notes Clinical Notes Seizure Went to [facility] ED on for new-onset seizure. [facility] staff reported patient had total 3 episodes of seizure. Was prescribed Keppra 500mg BID for 30 days by ER. No refill needed at this time. Will refer to neurology urgently for new-onset seizure Referrals Referral Date Details 76 yo male [facility] patient sent to [facility] ED on 04/01/21 for new-onset seizure, 3 episodes of seizure reported. Please eval and treat. Thank you, Elodia Rosa Next Appt Details Provider Name:Pam Yulissa, 2021-04-07 09 :00:00 AM, [address] [facility], , [place], [address], Provider Name:Bob Aburto, 2021-07-14 10:15:00 AM, [address], , [place], [address], Insurance Providers Payer Name Payer Address Payer Phone Insured Name Patient Relati onship to Insured Coverage Start Date Coverage End Date MEDICARE Part A and B [address] [facility] [id number] [phone] KP JOAQUIN self MEDICAID [facility] [address] [facility] [id number] [phone] KP JOAQUIN self
--- OUTSIDE RECORDS SUMMARY | 2021-05-03 09:36 | CCD ---
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 Active confirmed 546899628 Problem Localized edema R60.0 Active confirmed 2741 89856 Problem Raynaud's syndrome I73.00 Active confirmed 1 89120987 Problem Unspecified contact dermatitis due to other agents L25.8 Active confirmed 645281379 Problem Full incontinence of feces R15.9 Active confirmed 69362156 Problem Contact dermatitis and other eczema, due to unspecified ca use L25.9 Active confirmed 57594830 Problem Essential hypertension I10 Active confirmed 34665848 Problem Suprapubic catheter Z93.59 Active confirmed 963958122 Problem Neurogenic bladder N31.9 Active confirmed 3 76639762 Problem Calculus of gallbladder and bile duct without cholecystiti s K80.70 Active confirmed 885194639 Problem Reflux esophagitis K21.0 Active confirmed 2 44279945 Problem Ulcer of esophagus K22.10 Active confirmed 3 5103203 Problem Stage III pressure ulcer of sacral region L89.153 Active confirmed 548100506 Problem Complete paraplegia G82.21 Active confirmed 109867328586232 Problem Laceration of fourth toe, right S91.114A Active confirmed 624375177 Problem Non-pressure chronic ulcer o f other part of left foot limited to breakdown of skin L97.521 Active confirmed 957237671 Problem Stage 2 skin ulcer of sacral region L89.152 Acti ve confirmed 99864157 Problem Other specified dermatitis L30.8 Active confirmed 331984906 Problem 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 Active conf irmed 34750387 Problem Constipation, unspecified constipation type K59.00 Active confirmed 42835230 Problem 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 Acti ve confirmed 70715275 Problem Dysphagia, unspecified type R13.10 Active confirmed 77306362 Problem 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 Active confirmed 09838711 Problem Intellectual disability F79 Active confirmed 683041860 Problem Internal hemorrhoids K64.8 Active confirmed 02027436 Problem 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 Active confirmed 231925708 Problem Iron deficiency anemia, unspecified iron deficiency an emia type D50.9 Active confirmed 92212450 Problem Constipation by delayed colonic transit K59.01 Active confirmed 62761284 Problem Escoto's esophagus without dysplasia K22.70 Ac tive confirmed 602003765 Problem Malignant hyperthermia due to anesthesia, 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 Active confirmed 559994130 ALLERGIES Allergen (clinical drug ingredient) Drug/Non Drug Allergy do cumented on EMR Reaction Allergy Type Onset Date Status codeine Codeine Sulfate([facility] Code:[address]-56) alters m ental status Drug Allergy Active ENCOUNTERS from 1945 to 2021-03-13 Encounter Location Date Provider Diagnosis [address] [phone] [place] [address] 09 Mar, 2021 Aldo Modi IMMUNIZATIONS Vaccine Route [...] Notes Start Da te End Date Status Polyethylene Glycol 3350 17 GM/SCOOP DISSOLVE 17 [...] G82.21 Daily for 99 months fax to [phone] Jul, Active Protonix 40 MG 1 tablet Orally Twice a day for 30 Active Dulcolax 10 mg 1 suppository as needed for constipation Rectal use on day 5 of no BM Active Melatonin 5 MG 1 tablet Orally before bedtime for 30 day(s) Jul, Active May Have - headrest extendion with labo r and hardware for wheelchair G80.8 for 99 months Jul, Active Aspir-81 81 MG 1 tablet Orally Once a day for 90 Active Optifoam 4 l89.892 apply to scrotum q 3 days. measurements: #1: 0.5 cm #2 1 cm #3 0.5 cm Active Colace 100 mg 1 capsule Orally twice a day for 30 Active Oxybutynin Chloride 5 MG 1 tablet Orally bid for 30 Days Active Bardia Urinary Drainage Bag - as directed every week and prn for 90 day(s) Active Fleet Enema 7-19 GM/118ML as directed Rectal October, Active MiraLax 17 gm 17 gm in 6-8 oz liquid Orally daily for 30 day(s) Active Catheter Insertion Tray . 28 cameroonian monthly and prn N3 1.9 internally 30 day(s) for 90 day(s) Active May Have - trunk swingway lateral and l abor DX:G80.8 & G82.21 Daily for 99 months fax to [phone] Jul, Active Occupational Therapy as directed DX : G80.8 eval for adaptive eq uipment needs Jan, Active Sterile Water - as directed 250 cc bottle to flush suprapubic catehter six times per week for 30 Days Aug, Active Milk of Magnesia otc 30 ml Orally on days 3&4 without BM Active May Use - please monitor his liquid intake between 2,000-3 ,500 ml daily May, Active Ammonium Lactate 12 % 1 application Externally bef ore bedtime to feet for 30 Days Active Bard Deluxe Fabric Leg Straps - as directed change onc e per month with catheter changes and prn if soiled for 90 day(s) Oct, Active Catheter . 28F catheter suprapubic once monthly and as needed DX:N31.9 for 90 day(s) Active Calcium 600 MG 1 tablet with meals Orally Once a day for 90 day (s) Apr, Active Amoxicillin-Pot Clavulanate 875-125 MG 1 tablet Orally every 12 hrs x 6 days Not-Taking Vitamin D-400 10 MCG (400 UNIT) 1 tablet Orally Once a day for 9 0 day(s) Apr, Active Cranberry 500 MG 1 capsule with meals Orally twice daily (Do Not bubb le) Not-Taking Lisinopril 10 MG 1 tablet Orally Once a day for 30 Active PROCEDURES No Information RESULTS No Results REASON FOR VISIT Aspir-81 81 MG Tablet Delayed Release MEDICAL (GENERAL) HISTORY Type Description Date Medical [...] extractions ([facility]) 2006, 2011 Surgical History cystscopy ([facility]) 05/08/2013 Surgical History EGD ([facility]) - severe eso phagitis and non-bleeding esophageal ulcers 10/2014 Surgical History EGD ([facility]) - relatively normal exam 05/2016 Surgical History cystoscopy 01/10/2019 Hospitalization History cellulitis ([facility]) 10/2013 Hospitalization History GI blood loss anemia, 08/04 se ericka esophagitis and esophageal ulcers ([facility]) 10/2014 Hospitalization History [facility] care ([facility]) 08/2016 Hospitalization History hyperbilirubinemina/jaundice ([facility]) 2 018 Hospitalization History Constipation, ? UTI ([facility]) 08/16-08/03 Hospitalization History pneumonia ([facility]) 07/10/19 Hospitalization History pneumonia ([facility]) 08/2019 Hospitalization History aspiration pneumonitis ([facility]) 09/2019 Hospitalization History aspiration pneumonitis ([facility]) 10/2019 Goals Section No Information Health Concerns No Information MEDICAL EQUIPMENT No Information MENTAL STATUS No Information FUNCTIONAL STATUS No Information ASSESSMENTS No Information PLAN OF TREATMENT Medication Medication Name Sig Start Date Stop Date MiraLax 17 gm 17 gm in 6-8 oz liquid Orally daily for 30 day(s ) Lisinopril 10 MG 1 tablet Orally Once a day for 30 Bardia Urinary Drainage Bag - as directed every week and prn for 90 day(s) Aspir-81 81 MG 1 tablet Orally Once a day for 90 Catheter . 28F catheter suprapubic once monthly and as needed DX:N31.9 for 90 day(s) Protonix 40 MG 1 tablet Orally Twice a day for 30 Melatonin 5 MG 1 tablet Orally before bedtime for 30 day(s) Jul, Bard Deluxe Fabric Leg Straps - as directed change onc e per month with catheter changes and prn if soiled for 90 day(s) Oct, Catheter Insertion Tray . 28 cameroonian monthly and prn N3 1.9 internally 30 day(s) for 90 day(s) Polyethylene Glycol 3350 17 GM/SCOOP DISSOLVE 17 GRAMS INTO 6-8 OUNCES OF LIQUID AND DRINK ONCE DAILY for 30 Bard Irrigation Tray - as directed catheter twice per week for 9 0 days Next Appt Details Provider Name:Aldo Modi, 2021-03-04 3 01:45:00 PM, [address] [facility], , [place], [address], Provider Name:Bob Aburto, 2021-07-14 10:15:00 AM, [address] , , [place], [address], Insurance Providers Payer Name Payer Address Payer Phone Insured Name Patient Relati onship to Insured Coverage Start Date Coverage End Date MEDICARE Part A and B [address] [facility] [id number] KP JOAQUIN self MEDICAID [employer] [address] [facility] [id number] KP JO[place]QUIN self
--- OUTSIDE RECORDS SUMMARY | 2021-05-03 09:36 | CCD ---
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 Active confirmed 056751560 Problem Localized edema R60.0 Active confirmed 2741 91048 Problem Raynaud's syndrome I73.00 Active confirmed 1 76774540 Problem Unspecified contact dermatitis due to other agents L25.8 Active confirmed 555037203 Problem Full incontinence of feces R15.9 Active confirmed 85449437 Problem Contact dermatitis and other eczema, due to unspecified ca use L25.9 Active confirmed 30780290 Problem Essential hypertension I10 Active confirmed 81556413 Problem Suprapubic catheter Z93.59 Active confirmed 732618211 Problem Neurogenic bladder N31.9 Active confirmed 3 73340014 Problem Calculus of gallbladder and bile duct without cholecystiti s K80.70 Active confirmed 400531354 Problem Reflux esophagitis K21.0 Active confirmed 2 71827240 Problem Ulcer of esophagus K22.10 Active confirmed 3 2801331 Problem Stage III pressure ulcer of sacral region L89.153 Active confirmed 575857383 Problem Complete paraplegia G82.21 Active confirmed 532200332750621 Problem Laceration of fourth toe, right S91.114A Active confirmed 392876085 Problem Non-pressure chronic ulcer o f other part of left foot limited to breakdown of skin L97.521 Active confirmed 364405865 Problem Stage 2 skin ulcer of sacral region L89.152 Acti ve confirmed 60667566 Problem Other specified dermatitis L30.8 Active confirmed 655612013 Problem 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 Active conf irmed 16494710 Problem Constipation, unspecified constipation type K59.00 Active confirmed 27662415 Problem 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 Acti ve confirmed 50865774 Problem Dysphagia, unspecified type R13.10 Active confirmed 09272238 Problem 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 Active confirmed 87816808 Problem Intellectual disability F79 Active confirmed 214714042 Problem Internal hemorrhoids K64.8 Active confirmed 33276016 Problem 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 Active confirmed 820675014 Problem Iron deficiency anemia, unspecified iron deficiency an emia type D50.9 Active confirmed 39256427 Problem Constipation by delayed colonic transit K59.01 Active confirmed 54108609 Problem Escoto's esophagus without dysplasia K22.70 Ac tive confirmed 439872901 Problem Malignant hyperthermia due to anesthesia, 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 Active confirmed 576257519 ALLERGIES Allergen (clinical drug ingredient) Drug/Non Drug Allergy do cumented on EMR Reaction Allergy Type Onset Date Status codeine Codeine Sulfate([facility] Code:[address]-10) alters m ental status Drug Allergy Active ENCOUNTERS from 1945 to 2021-02-19 Encounter Location Date Provider Diagnosis [address] [phone] [place] [address] Jan, Aldo Modi IMMUNIZATIONS Vaccine Route Administration Date Status Pneumococcal [...] Start Da te End Date Status Bard Irrigation Tray - as directed catheter twice per week for 90 day s Active May Have - head rest extension on wheel chair with labor DX:G80.8 & G82.21 Daily for 99 months fax to [phone] Jul, Active Bard Deluxe Fabric Leg Straps - as directed change onc e per month with catheter changes and prn if soiled for 90 day(s) Oct, Active May Use - please monitor his liquid intake between 2,000-3 ,500 ml daily May, Active Melatonin 5 MG 1 tablet Orally before bedtime for 30 day(s) Jul, Active May Have - headrest extendion with labo r and hardware for wheelchair G80.8 for 99 months Jul, Active Polyethylene Glycol 3350 17 GM/SCOOP DISSOLVE 17 GRAMS INTO 6-8 OUNCES OF LIQUID AND DRINK ONCE DAILY for 30 Acti ve Docusate Sodium 150 MG/15ML 10 ml Orally Twice a day for 30 Active Colace 100 mg 1 capsule Orally twice a day for 30 Active Protonix 40 MG 1 tablet Orally Twice a day for 30 Active Dulcolax 10 mg 1 suppository as needed for constipation Rectal use on day 5 of no BM Active Oxybutynin Chloride 5 MG 1 tablet Orally bid for 30 Days Active Aspir-81 81 MG 1 tablet Orally Once a day for 90 Active Fleet Enema 7-19 GM/118ML as directed Rectal October, Active MiraLax 17 gm 17 gm in 6-8 oz liquid Orally daily for 30 day(s) Active Sterile Water - as directed 250 cc bottle to flush suprapubic catehter six times per week for 30 Days Aug, Active Milk of Magnesia otc 30 ml Orally on days 3&4 without BM Active Occupational Therapy as directed DX : G80.8 eval for adaptive eq uipment needs Jan, Active Bardia Urinary Drainage Bag - as directed every week and prn for 90 day(s) Active Optifoam 4 l89.892 apply to scrotum q 3 days. measurements: #1: 0.5 cm #2 1 cm #3 0.5 cm Active May Have - trunk swingway lateral and l abor DX:G80.8 & G82.21 Daily for 99 months fax to [phone] Jul, Active Ammonium Lactate 12 % 1 application Externally bef ore bedtime to feet for 30 Days Active Catheter Insertion Tray . 28 belarusian monthly and prn N3 1.9 internally 30 day(s) for 90 day(s) Active Catheter . 28F catheter suprapubic once [...] Information RESULTS No Results REASON FOR VISIT Melatonin MEDICAL (GENERAL) HISTORY Type Description Date Medical [...] 17 yo Surgical History tooth extractions ([facility]) 2011 Surgical History cystscopy ([facility] uro) 05/08/2013 Surgical History EGD ([place]) - severe eso phagitis and non-bleeding esophageal ulcers 10/2014 Surgical History EGD ([facility]) - relatively normal exam 05/2016 Surgical History cystoscopy 01/10/2019 Hospitalization History cellulitis ([facility]) 10/2013 Hospitalization History GI blood loss anemia, 08/04 se ericka esophagitis and esophageal ulcers ([facility]) 10/2014 Hospitalization History wound care ([facility]) 08/2016 Hospitalization History hyperbilirubinemina/jaundice ([facility]) 2 018 Hospitalization History Constipation, ? UTI ([facility]) 08/16-08/03 Hospitalization History pneumonia ([facility]) 07/10/19 Hospitalization History pneumonia ([facility]) 08/2019 Hospitalization History aspiration pneumonitis ([facility]) 09/2019 Hospitalization History aspiration pneumonitis ([facility]) 10/2019 Goals Section No Information Health Concerns No Information MEDICAL EQUIPMENT No Information MENTAL STATUS No Information FUNCTIONAL STATUS No Information ASSESSMENTS No Information PLAN OF TREATMENT Medication Medication Name Sig Start Date Stop Date MiraLax 17 gm 17 gm in 6-8 oz liquid Orally daily for 30 day(s ) Lisinopril 10 MG 1 tablet Orally Once a day for 30 Aspir-81 81 MG 1 tablet Orally Once a day for 90 Protonix 40 MG 1 tablet Orally Twice a day for 30 Catheter . 28F catheter suprapubic once monthly and as needed DX:N31.9 for 90 day(s) Melatonin 5 MG 1 tablet Orally before bedtime for 30 day(s) Jul, Polyethylene Glycol 3350 17 GM/SCOOP DISSOLVE 17 GRAMS INTO 6-8 OUNCES OF LIQUID AND DRINK ONCE DAILY for 30 Catheter Insertion Tray . 28 belarusian monthly and prn N3 1.9 internally 30 day(s) for 90 day(s) Bardia Urinary Drainage Bag - as directed every week and prn for 90 day(s) Bard Irrigation Tray - as directed catheter twice per week for 9 0 days Bard Deluxe Fabric Leg Straps - as directed change onc e per month with catheter changes and prn if soiled for 90 day(s) Oct, Next Appt Details Provider Name:Aldo Zohra Modi, 2021-03-04 3 01:45:00 PM, [address] [facility], , [place], [address], Provider Name:Bob Aburto, 2021-07-14 10:15:00 AM, [address], , [place], [address], Insurance Providers Payer Name Payer Address Payer Phone Insured Name Patient Relati onship to Insured Coverage Start Date Coverage End Date MEDICARE Part A and B [address] [facility] [id number] [phone] KP JOAQUIN self MEDICAID [employer] [address] [facility] [id number] KP JOAQUIN self
--- OUTSIDE RECORDS SUMMARY | 2021-05-03 09:36 | CCD ---
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 Active confirmed 792248797 Problem Localized edema R60.0 Active confirmed 2746 01462 Problem Raynaud's syndrome I73.00 Active confirmed 1 40139922 Problem Unspecified contact dermatitis due to other agents L25.8 Active confirmed 015876620 Problem Full incontinence of feces R15.9 Active confirmed 89464478 Problem Contact dermatitis and other eczema, due to unspecified ca use L25.9 Active confirmed 70277414 Problem Essential hypertension I10 Active confirmed 66407229 Problem Suprapubic catheter Z93.59 Active confirmed 148610837 Problem Neurogenic bladder N31.9 Active confirmed 3 17732064 Problem Calculus of gallbladder and bile duct without cholecystiti s K80.70 Active confirmed 097246567 Problem Reflux esophagitis K21.0 Active confirmed 2 04230650 Problem Ulcer of esophagus K22.10 Active confirmed 3 2179239 Problem Stage III pressure ulcer of sacral region L89.153 Active confirmed 101838054 Problem Complete paraplegia G82.21 Active confirmed 094821361506608 Problem Laceration of fourth toe, right S91.114A Active confirmed 790058374 Problem Non-pressure chronic ulcer o f other part of left foot limited to breakdown of skin L97.521 Active confirmed 656220075 Problem Stage 2 skin ulcer of sacral region L89.152 Acti ve confirmed 26921991 Problem Other specified dermatitis L30.8 Active confirmed 260404012 Problem 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 Active conf irmed 88707353 Problem Constipation, unspecified constipation type K59.00 Active confirmed 41293486 Problem 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 Acti ve confirmed 37104821 Problem Dysphagia, unspecified type R13.10 Active confirmed 97639997 Problem 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 Active confirmed 81181581 Problem Intellectual disability F79 Active confirmed 752056978 Problem Internal hemorrhoids K64.8 Active confirmed 16145000 Problem 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 Active confirmed 488673632 Problem Iron deficiency anemia, unspecified iron deficiency an emia type D50.9 Active confirmed 44338996 Problem Constipation by delayed colonic transit K59.01 Active confirmed 89588799 Problem Escoto's esophagus without dysplasia K22.70 Ac tive confirmed 811738301 Problem Malignant hyperthermia due to anesthesia, 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 Active confirmed 849264036 ALLERGIES Allergen (clinical drug ingredient) Drug/Non Drug Allergy do cumented on EMR Reaction Allergy Type Onset Date Status codeine Codeine Sulfate([facility]NOTE 3] Code:[address]-20) alters m ental status Drug Allergy Active ENCOUNTERS from 1945 to 2021-03-19 Encounter Location Date Provider Diagnosis [address] [phone] [place] [address] 07 Mar, 2021 Aldo Modi Exposure to COVID-19 virus Z 20.822 IMMUNIZATIONS Vaccine Route Administration Date Status Pneumococcal [...] G82.21 Daily for 99 months fax to [phone] Jul, Active Protonix 40 MG 1 tablet [...] day(s) Active Catheter Insertion Tray . 28 syrian monthly and prn N3 1.9 internally 30 day(s) for 90 day(s) Active May Have - trunk swingway lateral and l abor DX:G80.8 & G82.21 Daily for 99 months fax to [phone] Jul, Active Occupational Therapy as directed DX [...] Information RESULTS No Results REASON FOR VISIT COVID exposure, asymptomatic MEDICAL (GENERAL) HISTORY Type Description Date Medical [...] extractions ([facility]) 2006, 2011 Surgical History cystscopy ([facility] uro) 05/08/2013 Surgical History EGD ([facility]) - severe eso phagitis and non-bleeding esophageal ulcers 10/2014 Surgical History EGD ([facility]) - relatively normal exam 05/2016 Surgical History cystoscopy 01/10/2019 Hospitalization History cellulitis ([facility]) 10/2013 Hospitalization History GI blood loss anemia, 08/04 se ericka esophagitis and esophageal ulcers ([facility]) 10/2014 Hospitalization History wound care ([facility]) 08/2016 Hospitalization History hyperbilirubinemina/jaundice ([facility]) 2 018 Hospitalization History Constipation, ? UTI ([facility]) 08/16-08/03 Hospitalization History pneumonia ([facility]) 07/10/19 Hospitalization History pneumonia ([facility]) 08/2019 Hospitalization History aspiration pneumonitis ([facility]) 09/2019 Hospitalization History aspiration pneumonitis ([facility]) 10/2019 Goals Section No Information Health Concerns No Information MEDICAL EQUIPMENT No Information MENTAL STATUS No Information FUNCTIONAL STATUS No Information ASSESSMENTS Encounter Date Diagnosis Assessment Notes Treatment Notes Treatm ent Clinical Notes Mar, Exposure to COVID-19 virus (ICD-10 - Z20.822) PLAN OF TREATMENT Medication Medication Name Sig [...] day(s) Oct, Catheter Insertion Tray . 28 syrian monthly and prn N3 1.9 internally 30 day(s) for 90 day(s) Polyethylene Glycol 3350 17 GM/SCOOP DISSOLVE 17 GRAMS INTO 6-8 OUNCES OF LIQUID AND DRINK ONCE DAILY for 30 Bard Irrigation Tray - as directed catheter twice per week for 9 0 days Treatment Notes Test Name Order Date Influenza A/B RSV COVID AMP 2021-03-09 Next Appt Details Provider Name:Aldo Modi, 2021-03-04 3 01:45:00 PM, [address] [facility], , [place], [address], Provider Name:Bob Aburto, 2021-07-14 10:15:00 AM, [address], , [place], [address], Insurance Providers Payer Name Payer Address Payer Phone Insured Name Patient Relati onship to Insured Coverage Start Date Coverage End Date MEDICAID [employer] [address] [facility] [id number] [phone] KP JOAQUIN self MEDICARE Part A and B [address] [facility] [id number] KP JOAQUIN self
--- OUTSIDE RECORDS SUMMARY | 2021-05-03 09:36 | CCD ---
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 Active confirmed 967192113 Problem Localized edema R60.0 Active confirmed 274 41253 Problem Raynaud's syndrome I73.00 Active confirmed 1 38033884 Problem Unspecified contact dermatitis due to other agents L25.8 Active confirmed 827332897 Problem Full incontinence of feces R15.9 Active confirmed 72932185 Problem Contact dermatitis and other eczema, due to unspecified ca use L25.9 Active confirmed 66600217 Problem Essential hypertension I10 Active confirmed 32336368 Problem Suprapubic catheter Z93.59 Active confirmed 307539429 Problem Neurogenic bladder N31.9 Active confirmed 3 65866013 Problem Calculus of gallbladder and bile duct without cholecystiti s K80.70 Active confirmed 969089625 Problem Reflux esophagitis K21.0 Active confirmed 2 78067248 Problem Ulcer of esophagus K22.10 Active confirmed 3 4980008 Problem Stage III pressure ulcer of sacral region L89.153 Active confirmed 367008655 Problem Complete paraplegia G82.21 Active confirmed 064721209513169 Problem Laceration of fourth toe, right S91.114A Active confirmed 095515750 Problem Non-pressure chronic ulcer o f other part of left foot limited to breakdown of skin L97.521 Active confirmed 356572247 Problem Stage 2 skin ulcer of sacral region L89.152 Acti ve confirmed 87948750 Problem Other specified dermatitis L30.8 Active confirmed 575236224 Problem 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 Active conf irmed 97374810 Problem Constipation, unspecified constipation type K59.00 Active confirmed 77556320 Problem 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 Acti ve confirmed 51090881 Problem Dysphagia, unspecified type R13.10 Active confirmed 87583802 Problem 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 Active confirmed 02842635 Problem Intellectual disability F79 Active confirmed 575224229 Problem Internal hemorrhoids K64.8 Active confirmed 88398254 Problem 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 Active confirmed 751165311 Problem Iron deficiency anemia, unspecified iron deficiency an emia type D50.9 Active confirmed 71480337 Problem Constipation by delayed colonic transit K59.01 Active confirmed 41551144 Problem Escoto's esophagus without dysplasia K22.70 Ac tive confirmed 210679772 Problem Malignant hyperthermia due to anesthesia, 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 Active confirmed 207479182 ALLERGIES Allergen (clinical drug ingredient) Drug/Non Drug Allergy do cumented on EMR Reaction Allergy Type Onset Date Status codeine Codeine Sulfate([facility] Code:[address]-29) alters m ental status Drug Allergy Active ENCOUNTERS from 1945 to 2021-02-17 Encounter Location Date Provider Diagnosis [facility] [address] [phone] [place] [address] Jan, Bob Aburto IMMUNIZATIONS Vaccine Route Administration Date Status Pneumococcal [...] G82.21 Daily for 99 months fax to [phone] Jul, Active Bard Deluxe Fabric Leg Straps [...] G82.21 Daily for 99 months fax to [phone] Jul, Active Ammonium Lactate 12 % 1 application Externally bef ore bedtime to feet for 30 Days Active Catheter Insertion Tray . 28 tristanian monthly and prn N3 1.9 internally 30 [...] Information RESULTS No Results REASON FOR VISIT irrigation orders MEDICAL (GENERAL) HISTORY Type Description Date Medical [...] extractions ([facility]) 2006, 2011 Surgical History cystscopy ([facility] u[facility]) 05/08/2013 Surgical History EGD ([facility]) - severe eso phagitis and non-bleeding esophageal ulcers 10/2014 Surgical History EGD ([facility]) - relatively normal exam 05/2016 Surgical History cystoscopy 01/10/2019 Hospitalization History cellulitis ([facility]) 10/2013 Hospitalization History GI blood loss anemia, 08/04 se ericka esophagitis and esophageal ulcers ([facility]) 10/2014 Hospitalization History wound care ([facility] [place]) 08/2016 Hospitalization History hyperbilirubinemina/jaundice ([facility]) 2 018 Hospitalization History Constipation, ? UTI ([facility]) 08/16-08/03 Hospitalization History pneumonia ([facility]) 07/10/19 Hospitalization History pneumonia ([facility]) 08/2019 Hospitalization History aspiration pneumonitis ([facility]) 09/2019 Hospitalization History aspiration pneumonitis ([facility]) 10/2019 Goals Section No Information Health Concerns [...] for 30 Catheter Insertion Tray . 28 tristanian monthly and prn N3 1.9 internally 30 [...] day(s) Oct, Next Appt Details Provider Name:Aldo العلي Rian, 2021-03-04 3 01:45:00 PM, [address] [facility], , [place], [address], Provider Name:Bob Aburto, 2021-07-14 10:15:00 AM, [address], , [place], [address], Insurance Providers Payer Name Payer Address Payer Phone Insured Name Patient Relati onship to Insured Coverage Start Date Coverage End Date MEDICARE Part A and B [address] [facility] [phone] KP JOAQUIN self [facility]ICAID [facility] [address] [facility] [id number] [phone] KP JOAQUIN self
--- OUTSIDE RECORDS SUMMARY | 2021-05-03 09:36 | CCD ---
Author Author [facility] Sy[facility] ems Organization [facility] ems Address Unknown Phone Unavailable Care Team Providers Care Oxygraph Operator Name Role Phone Pam Duenas Unavailable PROBLEMS Type Condition ICD9-CM Code VQQ49-GI Code Onset Dates Condition S tatus W/U Status Risk SNOMED Code Notes Problem Raynaud's syndrome I73.00 Active confirmed 1 81115511 Problem Full incontinence of feces R15.9 Active confirmed 43469874 Problem Localized edema R60.0 Active confirmed 2748 45817 Problem Essential hypertension I10 Active confirmed 91774247 Problem Unspecified contact dermatitis due to other agents L25.8 Active confirmed 336524027 Problem Internal hemorrhoids K64.8 Active confirmed 25752390 Problem Contact dermatitis and other eczema, due to unspecified ca use L25.9 Active confirmed 00468004 Problem 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 Active conf irmed 47978239 Problem Suprapubic catheter Z93.59 Active confirmed 454087740 Problem Legal blindness, 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 Active confirmed 561660821 Problem Calculus of gallbladder and bile duct without cholecystiti s K80.70 Active confirmed 420507683 Problem Complete paraplegia G82.21 Active confirmed 975025912172817 Problem Reflux esophagitis K21.0 Active confirmed 2 38631358 Problem Non-pressure chronic ulcer o f other part of left foot limited to breakdown of skin L97.521 Active confirmed 828327450 Problem Stage III pressure ulcer of sacral region L89.153 Active confirmed 316593040 Problem Other specified dermatitis L30.8 Active confirmed 349702114 Problem Laceration of fourth toe, right S91.114A Active confirmed 866321753 Problem Neurogenic bladder N31.9 Active confirmed 3 65443028 Problem Stage 2 skin ulcer of sacral region L89.152 Acti ve confirmed 24238331 Problem Constipation, unspecified constipation type K59.00 Active confirmed 20743071 Problem 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 Acti ve confirmed 70892136 Problem Iron deficiency anemia, unspecified iron deficiency an emia type D50.9 Active confirmed 92538207 Problem Intellectual disability F79 Active confirmed 780704253 Problem 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 Active confirmed 30710675 Problem Hypoalbuminemia E88.09 Active confirmed 1192 38596 Problem 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 Active confirmed 233470264 Problem Ulcer of esophagus K22.10 Active confirmed 3 5241896 Problem Constipation by delayed colonic transit K59.01 Active confirmed 77999790 Problem Escoto's esophagus without dysplasia K22.70 Ac tive confirmed 908656510 Problem Malignant hyperthermia due to anesthesia, 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 Active confirmed 565172708 Problem Dysphagia, unspecified type R13.10 Active confirmed 03518359 ALLERGIES Allergen (clinical drug ingredient) Drug/Non Drug Allergy do cumented on EMR Reaction Allergy Type Onset Date Status codeine Codeine Sulfate([facility] Code:[address]-89) alters m ental status Drug Allergy Active ENCOUNTERS from 1945 to 2021-03-27 Encounter Location Date Provider Diagnosis [place] [address] [facility] [phone] [place] [address] Mar, Pam Duenas IMMUNIZATIONS Vaccine Route Administration [...] between 2,000-3 ,500 ml daily May, Active Docusate Sodium 50 MG/5ML 10 ml Orally twice daily for 30 day(s) Mar, Active May Have - trunk swingway lateral and l abor DX:G80.8 & G82.21 Daily for 99 months fax to [phone] Jul, Active Dulcolax 5 MG 1 tablet as needed for const ipation Orally Once a day for 30 day(s) Mar, Active Melatonin 5 MG 1 tablet Orally before bedtime for 30 day(s) Jul, Active Docusate Sodium 150 MG/15ML 10 ml Orally Twice a day for 30 Active Polyethylene Glycol 3350 17 GM/SCOOP DISSOLVE 17 GRAMS INTO 6-8 OUNCES OF LIQUID AND DRINK ONCE DAILY for 30 Acti ve May Have - head rest extension on wheel chair with labor DX:G80.8 & G82.21 Daily for 99 months fax to [phone] Jul, Active Dulcolax 10 mg 1 suppository as needed for constipation Rectal use on day 5 of no BM Active Boost High Protein - 237 ml Orally bid in between meals dx: E88.09 for 30 Days Mar, Active May Have - headrest extendion with labo r and hardware for wheelchair G80.8 for 99 months Jul, Active Aspir-81 81 MG 1 tablet Orally Once a day for 90 Active Bardia Urinary Drainage Bag - as directed every week and prn for 90 day(s) Active Fleet Enema 7-19 GM/118ML as directed Rectal October, Active MiraLax 17 gm 17 gm in 6-8 oz liquid Orally daily for 30 day(s) Active Catheter Insertion Tray . 28 persian monthly and prn N3 1.9 internally 30 day(s) for 90 day(s) Active Optifoam 4 l89.892 apply to scrotum q 3 days. measurements: #1: 0.5 cm #2 1 cm #3 0.5 cm Active Occupational Therapy as directed DX : G80.8 eval for adaptive eq uipment needs Jan, Active Sterile Water - as directed 250 cc bottle to flush suprapubic catehter six times per week for 30 Days Aug, Active Protonix 40 MG 1 tablet Orally Twice a day for 30 Active Milk of Magnesia otc 30 ml Orally on days 3&4 without BM Active Oxybutynin Chloride 5 MG 1 tablet Orally bid for 30 Days Active Ammonium Lactate 12 % 1 application [...] Information RESULTS No Results REASON FOR VISIT ARC MEDICAL (GENERAL) HISTORY Type Description Date Medical [...] extractions ([facility]) 2006, 2011 Surgical History cystscopy ([facility] uro) 05/08/2013 Surgical History EGD ([place]) - severe eso phagitis and non-bleeding esophageal ulcers 10/2014 Surgical History EGD ([facility]) - relatively normal exam 05/2016 Surgical History cystoscopy 01/10/2019 Hospitalization History cellulitis ([facility]) 10/2013 Hospitalization History GI blood loss anemia, 08/04 se ericka esophagitis and esophageal ulcers ([facility]) 10/2014 Hospitalization History wound care ([facility]) 08/2016 Hospitalization History hyperbilirubinemina/jaundice ([facility]) 2 018 Hospitalization History Constipation, ? UTI ([facility]) 08/16-08/03 Hospitalization History pneumonia ([facility]) 07/10/19 Hospitalization History pneumonia ([facility]) 08/2019 Hospitalization History aspiration pneumonitis ([facility]) 09/2019 Hospitalization History aspiration pneumonitis ([facility]) 10/2019 Goals Section No Information Health Concerns [...] AND DRINK ONCE DAILY for 30 Bard Deluxe Fabric Leg Straps - as directed change onc e per month with catheter changes and prn if soiled for 90 day(s) Oct, Catheter Insertion Tray . 28 persian monthly and prn N3 1.9 internally 30 day(s) for 90 day(s) Bard Irrigation Tray - as directed catheter twice per week for 9 0 days Docusate Sodium 50 MG/5ML 10 ml Orally twice daily for 30 day(s) Mar, Boost High Protein - 237 ml Orally bid in between meals dx: E88.09 for 30 Days Mar, Aspir-81 81 MG 1 tablet Orally Once a day for 90 Protonix 40 MG 1 tablet Orally Twice a day for 30 Dulcolax 5 MG 1 tablet as needed for const ipation Orally Once a day for 30 day(s) Mar, Next Appt Details Provider Name:Pam Yulissa, 2021-04-07 09 :00:00 AM, [address] [facility], , [place], [address], Provider Name:Bob Aburto, 2021-07-14 10:15:00 AM, [address], , [place], [address], Insurance Providers Payer Name Payer Address Payer Phone Insured Name Patient Relati onship to Insured Coverage Start Date Coverage End Date MEDICARE Part A and B [address] [facility] [phone] KP JOAQUIN self MEDICAID [employer] [address] [facility] [id number] KP JOAQUIN self
--- OUTSIDE RECORDS SUMMARY | 2021-05-03 09:36 | CCD ---
Author Author 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 Active confirmed 642192037 Problem Localized edema R60.0 Active confirmed 2743 49944 Problem Raynaud's syndrome I73.00 Active confirmed 1 00292638 Problem Unspecified contact dermatitis due to other agents L25.8 Active confirmed 981334928 Problem Full incontinence of feces R15.9 Active confirmed 58660601 Problem Contact dermatitis and other eczema, due to unspecified ca use L25.9 Active confirmed 67253155 Problem Essential hypertension I10 Active confirmed 35231393 Problem Suprapubic catheter Z93.59 Active confirmed 373677653 Problem Neurogenic bladder N31.9 Active confirmed 3 35643563 Problem Calculus of gallbladder and bile duct without cholecystiti s K80.70 Active confirmed 919828140 Problem Reflux esophagitis K21.0 Active confirmed 2 59540312 Problem Ulcer of esophagus K22.10 Active confirmed 3 4682359 Problem Stage III pressure ulcer of sacral region L89.153 Active confirmed 975587250 Problem Complete paraplegia G82.21 Active confirmed 269119974088558 Problem Laceration of fourth toe, right S91.114A Active confirmed 490431860 Problem Non-pressure chronic ulcer o f other part of left foot limited to breakdown of skin L97.521 Active confirmed 107372278 Problem Stage 2 skin ulcer of sacral region L89.152 Acti ve confirmed 06798490 Problem Other specified dermatitis L30.8 Active confirmed 383926104 Problem 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 Active conf irmed 90628882 Problem Constipation, unspecified constipation type K59.00 Active confirmed 13071922 Problem 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 Acti ve confirmed 48842489 Problem Dysphagia, unspecified type R13.10 Active confirmed 14208287 Problem 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 Active confirmed 20219232 Problem Intellectual disability F79 Active confirmed 539391847 Problem Internal hemorrhoids K64.8 Active confirmed 33172578 Problem 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 Active confirmed 468788538 Problem Iron deficiency anemia, unspecified iron deficiency an emia type D50.9 Active confirmed 66508356 Problem Constipation by delayed colonic transit K59.01 Active confirmed 30472899 Problem Escoto's esophagus without dysplasia K22.70 Ac tive confirmed 261037239 Problem Malignant hyperthermia due to anesthesia, 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 Active confirmed 252860416 ALLERGIES Allergen (clinical drug ingredient) Drug/Non Drug Allergy do cumented on EMR Reaction Allergy Type Onset Date Status codeine Codeine Sulfate([facility] Code:[address]-78) alters m ental status Drug Allergy Active ENCOUNTERS from 1945 to 2021-03-24 Encounter Location Date Provider Diagnosis [address] [phone] [place] [address] Mar, Aldo Modi IMMUNIZATIONS Vaccine Route Administration Date Status Depo-Medrol [...] G82.21 Daily for 99 months fax to [phone] Jul, Active Docusate Sodium 50 MG/5ML 10 [...] Orally Twice a day for 30 Active Aspir-81 81 MG 1 tablet Orally Once a day for 90 Active Protonix 40 MG 1 tablet Orally [...] day(s) Active Catheter Insertion Tray . 28 micronesian monthly and prn N3 1.9 internally 30 day(s) for 90 day(s) Active Milk of Magnesia otc 30 ml Orally on days 3&4 without BM Active Occupational Therapy as directed DX : G80.8 eval for adaptive eq uipment needs Jan, Active Sterile Water - as directed 250 cc bottle to flush suprapubic catehter six times per week for 30 Days Aug, Active Optifoam 4 l89.892 apply to scrotum q 3 days. measurements: #1: 0.5 cm #2 1 cm #3 0.5 cm Active May Have - trunk swingway lateral and l abor DX:G80.8 & G82.21 Daily for 99 months fax to [phone] Jul, Active Ammonium Lactate 12 % 1 [...] Information RESULTS No Results REASON FOR VISIT Colace 100 mg Correction MEDICAL (GENERAL) HISTORY Type Description Date Medical [...] extractions ([facility]) 2006, 2011 Surgical History cystscopy ([facility] uro) 05/08/2013 Surgical History EGD ([facility]) - severe eso phagitis and non-bleeding esophageal ulcers 10/2014 Surgical History EGD ([facility]) - relatively normal exam 05/2016 Surgical History cystoscopy 01/10/2019 Hospitalization History cellulitis ([facility]) 10/2013 Hospitalization History GI blood loss anemia, 08/04 se ericka esophagitis and esophageal ulcers ([facility]) 10/2014 Hospitalization History wound care ([facility]) 08/2016 Hospitalization History hyperbilirubinemina/jaundice ([facility]) 2 018 Hospitalization History Constipation, ? UTI ([facility]) 08/16-08/03 Hospitalization History pneumonia ([facility]) 07/10/19 Hospitalization History pneumonia ([facility]) 08/2019 Hospitalization History aspiration pneumonitis ([facility]) 09/2019 Hospitalization History aspiration pneumonitis ([facility]) 10/2019 Goals Section No Information [...] every week and prn for 90 day(s) Protonix 40 MG 1 tablet Orally Twice a day for 30 Catheter . 28F catheter suprapubic once monthly and as needed DX:N31.9 for 90 day(s) Aspir-81 81 MG 1 tablet Orally Once a day for 90 Melatonin 5 MG 1 tablet Orally before bedtime for 30 day(s) Jul, Polyethylene Glycol 3350 17 GM/SCOOP DISSOLVE 17 GRAMS INTO 6-8 OUNCES OF LIQUID AND DRINK ONCE DAILY for 30 Bard Deluxe Fabric Leg Straps - as directed change onc e per month with catheter changes and prn if soiled for 90 day(s) Oct, Catheter Insertion Tray . 28 micronesian monthly and prn N3 1.9 internally 30 day(s) for 90 day(s) Bard Irrigation Tray - as directed catheter twice per week for 9 0 days Docusate Sodium 50 MG/5ML 10 ml Orally twice daily for 30 day(s) Mar, Next Appt Details Provider Name:Pam Duenas, 2021-04-07 09 :00:00 AM, [address] [facility], , [place], [address], Provider Name:Bob Aburto, 2021-07-14 10:15:00 AM, [address], , [place], [address], Insurance Providers Payer Name Payer Address Payer Phone Insured Name Patient Relati onship to Insured Coverage Start Date Coverage End Date MEDICAID [employer] [address] [facility] [id number] KP JOAQUIN self MEDICARE Part A and B [address] [facility] [phone] KP JOAQUIN self
--- OUTSIDE RECORDS SUMMARY | 2021-05-03 09:36 | CCD | Continuity of Care Document ---
Author Author Calvin RAMOS DPM Organization Unknown Address [address] [place] [address], [facility] [address] [place] [address] Phone [phone] Care Team Providers Care Tube Worker Name Role Phone Aldo Modi M.D. [phone] Problems Active Problems Provider Date Onychomycosis Mckinley Ramos DPM Onset: 05/03/2019 Peripheral vascular disease Mckinley Ramos DPM Onset: 07/2018 Social History Type Date Description Comments Sex Unknown ETOH Use Never used alcohol Tobacco Use Start: Unknown Patient has never smoked Allergies, Adverse Reactions, Alerts Description No Known Drug Allergies Medications Active Medications SIG Qnty Indications Ordering Provide r Date Ammonium Lactate 12% Cream Apply To Feet Once Daily 280units Mckinley Ramos DPM 12/11/2017 Alendronate Sodium 70mg Tablets Elias CORTES,[facility] Atorvastatin Calcium 20mg Tablets Elias CORTES,[facility] Polyethylene Glycol 3350 3350NF Powder [facility] Lisinopril-Hydrochlorothiazide 10-12.5mg Tablets Rian Cummings,[place] 0 Sulfamethoxazole/Trimethoprim DS 800-160mg Tablets Rian Cummings,[place] 0 Triamcinolone Acetonide 0.025% Cream [facility] Immunizations Description No Information Available Vital Signs Date Vital Result Comment 01/19/2017 2:34pm Height 68 inches Weight 218.00 lb BP Systolic 128 mmHg BP Diastolic 62 mmHg Heart Rate 60 /min BMI (Body Mass Index) 33.1 kg/m2 10/16/2014 10:51am Pain Level 0 Results Description No Information Available Procedures Date Code Description Status 02/22/2021 25264 Office/Outpatient Established Lo w MDM 20-29 Min Completed 02/22/2021 11923 Debridement 6-10 Nails Electric Completed Medical Devices Description No Information Available Encounters Type Date Location Provider Dx Diagnosis Office Visit 02/22/2021 2:45p [facility] Mckinley Ramos DPM M20.40 Other hammer toe(s) (acquired), unspecified foot I73.89 Other specified peripheral v ascular diseases B35.1 Tinea unguium Assessments Date Code Description Provider 02/22/2021 M20.40 Other hammer toe(s) (acquired), unspecified foot Mckinley Ramos DPM 02/22/2021 I73.89 Other specified peripheral vascu lar diseases Mckinley Ramos DPM 02/22/2021 B35.1 Tinea unguium Mckinley Ramos DPM Plan of Treatment Future Appointment(s):* 05/03/2021 9:45 am - Mckinley Ramos DPM at [facility] Functional Status Description No Information Available Mental Status Description No Information Available Referrals Description No Information Available
--- OUTSIDE RECORDS SUMMARY | 2021-05-03 09:36 | CCD ---
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 Active confirmed 192474080 Problem Localized edema R60.0 Active confirmed 2746 02346 Problem Raynaud's syndrome I73.00 Active confirmed 1 32293727 Problem Unspecified contact dermatitis due to other agents L25.8 Active confirmed 090567996 Problem Full incontinence of feces R15.9 Active confirmed 06320675 Problem Contact dermatitis and other eczema, due to unspecified ca use L25.9 Active confirmed 92396487 Problem Essential hypertension I10 Active confirmed 38268309 Problem Suprapubic catheter Z93.59 Active confirmed 507840794 Problem Neurogenic bladder N31.9 Active confirmed 3 68765038 Problem Calculus of gallbladder and bile duct without cholecystiti s K80.70 Active confirmed 163692771 Problem Reflux esophagitis K21.0 Active confirmed 2 35107325 Problem Ulcer of esophagus K22.10 Active confirmed 3 8720762 Problem Stage III pressure ulcer of sacral region L89.153 Active confirmed 885969930 Problem Complete paraplegia G82.21 Active confirmed 060917146163019 Problem Laceration of fourth toe, right S91.114A Active confirmed 300563437 Problem Non-pressure chronic ulcer o f other part of left foot limited to breakdown of skin L97.521 Active confirmed 894551419 Problem Stage 2 skin ulcer of sacral region L89.152 Acti ve confirmed 30601349 Problem Other specified dermatitis L30.8 Active confirmed 285367476 Problem 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 Active conf irmed 63606803 Problem Constipation, unspecified constipation type K59.00 Active confirmed 41009780 Problem 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 Acti ve confirmed 59803214 Problem Dysphagia, unspecified type R13.10 Active confirmed 22293113 Problem 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 Active confirmed 37750470 Problem Intellectual disability F79 Active confirmed 817413292 Problem Internal hemorrhoids K64.8 Active confirmed 07323472 Problem 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 Active confirmed 253111909 Problem Iron deficiency anemia, unspecified iron deficiency an emia type D50.9 Active confirmed 00641395 Problem Constipation by delayed colonic transit K59.01 Active confirmed 59674014 Problem Escoto's esophagus without dysplasia K22.70 Ac tive confirmed 970120997 Problem Malignant hyperthermia due to anesthesia, 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 Active confirmed 931476806 ALLERGIES Allergen (clinical drug ingredient) Drug/Non Drug Allergy do cumented on EMR Reaction Allergy Type Onset Date Status codeine Codeine Sulfate([facility] Code:[address]-53) alters m ental status Drug Allergy Active ENCOUNTERS from 1945 to 2021-02-17 Encounter Location Date Provider Diagnosis [address] [phone] [place] [address] Jan, Pam Duenas IMMUNIZATIONS Vaccine Route Administration Date [...] G82.21 Daily for 99 months fax to [phone] Jul, Active [employer] Leg Straps [...] G82.21 Daily for 99 months fax to [phone] Jul, Active Ammonium Lactate 12 % 1 application Externally bef ore bedtime to feet for 30 Days Active Catheter Insertion Tray . 28 nepalese monthly and prn N3 1.9 internally 30 [...] Information RESULTS No Results REASON FOR VISIT refills -out MEDICAL (GENERAL) HISTORY Type Description Date Medical [...] extractions ([facility]) 2006, 2011 Surgical History cystscopy ([facility] uro) 05/08/2013 Surgical History EGD ([facility]) - severe eso phagitis and non-bleeding esophageal ulcers 10/2014 Surgical History EGD ([facility]) - relatively normal exam 05/2016 Surgical History cystoscopy 01/10/2019 Hospitalization History cellulitis ([facility]) 10/2013 Hospitalization History GI blood loss anemia, 08/04 se ericka esophagitis and esophageal ulcers ([facility]) 10/2014 [place]/2016 Hospitalization History hyperbilirubinemina/jaundice ([facility]) 2 018 Hospitalization History Constipation, ? UTI ([facility]) 08/16-08/03 Hospitalization History pneumonia ([facility]) 07/10/19 Hospitalization History pneumonia ([facility]) 08/2019 Hospitalization History aspiration pneumonitis ([facility]) 09/2019 Hospitalization History aspiration pneumonitis ([facility]) 10/2019 Goals Section No Information Health Concerns [...] for 30 Catheter Insertion Tray . 28 nepalese monthly and prn N3 1.9 internally 30 [...] Zohra Modi, 2021-03-04 3 01:45:00 PM, [address] [facility], , [place], [address], Provider Name:Bob Tony Lamonte, 2021-07-14 10:15:00 AM, [address] , , [place], [address], Insurance Providers Payer Name Payer Address Payer Phone Insured Name Patient Relati onship to Insured Coverage Start Date Coverage End Date MEDICARE Part A and B [address] [facility] [id number] KP [place]IN self MEDICAID [facility] [address] [facility] [id number] [phone] KP JOAQUIN self
--- OUTSIDE RECORDS SUMMARY | 2021-05-03 09:36 | CCD ---
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 Role Phone Aldo Modi Unavailable PROBLEMS Type Condition ICD9-CM Code [id number] Code Onset Dates Condition S tatus W/U Status Risk SNOMED Code Notes Problem Raynaud's syndrome I73.00 Active confirmed 1 24707675 Problem Full incontinence of feces R15.9 Active confirmed 93126585 Problem Localized edema R60.0 Active confirmed 2740 77332 Problem Essential hypertension I10 Active confirmed 65565767 Problem Unspecified contact dermatitis due to other agents L25.8 Active confirmed 425161416 Problem Internal hemorrhoids K64.8 Active confirmed 78372074 Problem Contact dermatitis and other eczema, due to unspecified ca use L25.9 Active confirmed 96551468 Problem 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 Active conf irmed 54803655 Problem Suprapubic catheter Z93.59 Active confirmed 209623100 Problem Legal blindness, 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 Active confirmed 458115738 Problem Calculus of gallbladder and bile duct without cholecystiti s K80.70 Active confirmed 059308954 Problem Complete paraplegia G82.21 Active confirmed 488761300606024 Problem Reflux esophagitis K21.0 Active confirmed 2 82670049 Problem Non-pressure chronic ulcer o f other part of left foot limited to breakdown of skin L97.521 Active confirmed 507534841 Problem Stage III pressure ulcer of sacral region L89.153 Active confirmed 315293797 Problem Other specified dermatitis L30.8 Active confirmed 264235959 Problem Laceration of fourth toe, right S91.114A Active confirmed 933818389 Problem Neurogenic bladder N31.9 Active confirmed 3 57203134 Problem Stage 2 skin ulcer of sacral region L89.152 Acti ve confirmed 87051237 Problem Constipation, unspecified constipation type K59.00 Active confirmed 54207266 Problem 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 Acti ve confirmed 37297630 Problem Iron deficiency anemia, unspecified iron deficiency an emia type D50.9 Active confirmed 65687542 Problem Intellectual disability F79 Active confirmed 337800918 Problem 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 Active confirmed 02109228 Problem Hypoalbuminemia E88.09 Active confirmed 1192 87219 Problem 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 Active confirmed 101682685 Problem Ulcer of esophagus K22.10 Active confirmed 3 3366891 Problem Constipation by delayed colonic transit K59.01 Active confirmed 76708154 Problem Escoto's esophagus without dysplasia K22.70 Ac tive confirmed 402131864 Problem Malignant hyperthermia due to anesthesia, 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 Active confirmed 412369104 Problem Dysphagia, unspecified type R13.10 Active confirmed 40140047 ALLERGIES Allergen (clinical drug ingredient) Drug/Non Drug Allergy do cumented on EMR Reaction Allergy Type Onset Date Status codeine Codeine Sulfate([facility] Code:[address]-64) alters m ental status Drug Allergy Active ENCOUNTERS from 1945 to 2021-03-31 Encounter Location Date Provider Diagnosis [address] [facility] [phone] [place] [address] Mar, Aldo Modi Hypoalbuminemia E88.09 IMMUNIZATIONS Vaccine Route Administration Date Status Pneumococcal [...] Date Status Catheter Insertion Tray . 28 cuban monthly and prn N3 1.9 internally 30 day(s) for 90 day(s) Active May Have - trunk swingway lateral and l abor DX:G80.8 & G82.21 Daily for 99 months fax to [phone] Jul, Active Sterile Water - as directed [...] G82.21 Daily for 99 months fax to [phone] Jul, Active [employer] Leg Straps - as directed change [...] Information RESULTS No Results REASON FOR VISIT low albumin MEDICAL (GENERAL) HISTORY Type Description Date Medical [...] patella 17 yo [facility] History cystscopy ([facility]) 05/08/2013 Surgical History EGD ([place]) - severe eso phagitis and non-bleeding esophageal ulcers 10/2014 Surgical History EGD ([facility]) - relatively normal exam 05/2016 Surgical History cystoscopy 01/10/2019 Hospitalization History cellulitis ([facility]) 10/2013 Hospitalization History GI blood loss anemia, / se ericka esophagitis and esophageal ulcers ([facility]) 10/2014 Hospitalization History wound care ([facility]) 08/2016 Hospitalization History hyperbilirubinemina/jaundice [facility] [...] day(s ) Catheter Insertion Tray . 28 cuban monthly [...] Name:Pam Duenas, 2021-04-07 09 :00:00 AM, [address] [facility], , [place], [address], Provider Name:Bob Aburto, 2021-07-14 10:15:00 AM, [address], , [place], [address], Insurance Providers Payer Name Payer Address Payer Phone Insured Name Patient Relati onship to Insured Coverage Start Date Coverage End Date MEDICARE Part A and B [address] [facility] [phone] KP [place] self MEDICAID [employer] [address] [facility] [id number] [place] self
--- OUTSIDE RECORDS SUMMARY | 2021-05-03 09:36 | CCD | Continuity of Care Document ---
Author Author Calvin RAMOS DPM Organization Unknown Address [address] [place] [address], [address] [place] [address] Phone [phone] Care Team Providers Care Adult School Counselor Name Role Phone Aldo Modi M.D. [phone] Problems Active Problems Provider Date Onychomycosis Mckinley [...] DPM 12/11/2017 Alendronate Sodium 70mg Tablets Elias CORTES,[facility] Atorvastatin Calcium 20mg Tablets Elias CORTES,[facility] Polyethylene Glycol 3350 3350NF Powder [facility] Lisinopril-Hydrochlorothiazide 10-12.5mg Tablets Rian Cummings,[place] 0 Sulfamethoxazole/Trimethoprim DS 800-160mg Tablets Rian Cummings,[place] 0 Triamcinolone Acetonide 0.025% Cream [facility] Immunizations Description No Information Available Vital Signs Date Vital Result Comment 01/19/2017 2:34pm Height 68 inches Weight 218.00 lb BP Systolic 128 mmHg BP Diastolic 62 mmHg Heart Rate 60 /min BMI (Body Mass Index) 33.1 kg/m2 10/16/2014 10:51am Pain Level 0 Results Description No Information Available Procedures Description No Information Available Medical Devices Description No Information Available Encounters Description No Information Available Assessments Description No Information Available Plan of Treatment Future Appointment(s):* 05/03/2021 2:45 pm - Mckinley Ramos DPM at [facility] Functional Status Description No Information Available Mental Status Description No Information Available Referrals Description No Information Available
--- OUTSIDE RECORDS SUMMARY | 2021-05-03 09:37 | CCD ---
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 Name Role Phone ELZA, Fela MARTINS PA Unavailable Unavailable LETTIERE, Fela MARTINS PA Unavailable Unavailable LETTIERE, Fela MARTINS PA Unavailable Unavailable LETTIERE, Fela MARTINS PA Unavailable Unavailable LETTIERE, Fela MARTINS PA Unavailable Unavailable LETTIERE, Fela MARTINS PA Unavailable Unavailable LETTIERE, Fela MARTINS PA Unavailable Unavailable LETTIERE, Fela MARTINS PA Unavailable Unavailable LETTIERE, Fela MARTINS PA Unavailable Unavailable LETTIERE, Fela MARTINS PA Unavailable Unavailable LETTIERE, Fela MARTINS PA Unavailable Unavailable LETTIERE, Fela MARTINS PA Unavailable Unavailable LETTIERE, A LAKSHMI PA Unavailable Unavailable LETTIERE, A LAKSHMI PA Unavailable Unavailable LETTIERE, A LAKSHMI PA Unavailable Unavailable LETTIERE, A LAKSHMI PA Unavailable Unavailable LETTIERE, A LAKSHMI PA Unavailable Unavailable LETTIERE, A LAKSHMI PA Unavailable Unavailable LETTIERE, A LAKSHMI PA Unavailable Unavailable LETTIERE, A LAKSHMI PA Unavailable Unavailable LETTIERE, A LAKSHMI PA Unavailable Unavailable LETTIERE, A LAKSHMI PA Unavailable Unavailable LETTIERE, A LAKSHMI PA Unavailable Unavailable LETTIERE, A LAKSHMI PA Unavailable Unavailable LETTIERE, A LAKSHMI PA Unavailable Unavailable LETTIERE, A LAKSHMI PA Unavailable Unavailable LETTIERE, Fela MARTINS PA Unavailable Unavailable LETTIERE, A LAKSHMI PA Unavailable Unavailable LETTIERE, A LAKSHMI PA Unavailable Unavailable LETTIERE, A LAKSHMI PA Unavailable Unavailable LETTIERE, A LAKSHMI PA Unavailable Unavailable MAJAK, R CHARLIE DPM Unavailable Unavailable MAJAK, R CHARLIE DPM Unavailable Unavailable MAJAK, R CHARLIE DPM Unavailable Unavailable MAJAK, R CHARLIE DPM Unavailable Unavailable MAJAK, R CHARLIE DPM Unavailable Unavailable MAJAK, R CHARLIE DPM Unavailable Unavailable MAJAK, R CHARLIE DPM Unavailable Unavailable MAJAK, R CHARLIE DPM Unavailable Unavailable MAJAK, R CHARLIE DPM Unavailable Unavailable MAJAK, R CHARLIE DPM Unavailable Unavailable MAJAK, R CHARLIE DPM Unavailable Unavailable MAJAK, R CHARLIE DPM Unavailable Unavailable MAJAK, R CHARLIE DPM Unavailable Unavailable MAJAK, R CHARLIE DPM Unavailable Unavailable MAJAK, R CHARLIE DPM Unavailable Unavailable MAJAK, R CHARLIE DPM Unavailable Unavailable MAJAK, R CHARLIE DPM Unavailable Unavailable MAJAK, R CHARLIE DPM Unavailable Unavailable MAJAK, R CHARLIE DPM Unavailable Unavailable MAJAK, R CHARLIE DPM Unavailable Unavailable MAJAK, R CHARLIE DPM Unavailable Unavailable MAJAK, R CHARLIE DPM Unavailable Unavailable MAJAK, R CHARLIE DPM Unavailable Unavailable MAJAK, R CHARLIE DPM Unavailable Unavailable MAJAK, R CHARLIE DPM Unavailable Unavailable MAJAK, R CHARLIE DPM Unavailable Unavailable MAJAK, R CHARLIE DPM Unavailable Unavailable MAJAK, R CHARLIE DPM Unavailable Unavailable MAJAK, R CHARLIE DPM Unavailable Unavailable MAJAK, R CHARLIE DPM Unavailable Unavailable MAJAK, R CHARLIE DPM Unavailable Unavailable Re-disclosure Warning The records that you are about to access may contain information from federally-assisted alcohol or drug abuse programs. If such information is present, then the following federally mandated warning applies: This information has been disclosed to you from records protected by federal confidentiality rules (42 CFR part 2). The federal rules prohibit you from making any further disclosure of this information unless further disclosure is expressly permitted by the written consent of the person to whom it pertains or as otherwise permitted by 42 CFR part 2. A general authorization for the release of medical or other information is NOT sufficient for this purpose. The Federal rules restrict any use of the information to criminally investigate or prosecute any alcohol or drug abuse patient.The records that you are about to access may contain highly sensitive health information, the redisclosure of which is protected by Article 27-F of the [facility] Public Health law. If you continue you may have access to information: Regarding HIV / AIDS; Provided by facilities licensed or operated by the [facility] Office of Mental Health; or Provided by the [facility] Office for People With Developmental Disabilities. If such information is present, then the following [facility] mandated warning applies: This information has been disclosed to you from confidential records which are protected by state law. State law prohibits you from making any further disclosure of this information without the specific written consent of the person to whom it pertains, or as otherwise permitted by law. Any unauthorized further disclosure in violation of state law may result in a fine or alf sentence or both. A general authorization for the release of medical or other information is NOT sufficient authorization for further disc losure. Family History Family Member Name Family Member Gender Family Member Status Date o f Status Description Data Source(s) Unknown Unknown Problem MEDENT ([facility]) Unknown Female Problem MEDENT ([facility] Encounters Encounter Providers Location Date Indications Data Source(s ) Office Visit, Est Pt., Level [address] FC [address] [place] [address] 04/28/2021 12:00:00 AM EDT eCW1 ([facility]) Unknown [address] [facility] [address] 04/23/2021 12:00:00 AM EDT eCW1 ([facility]) Unknown [address] [facility] [address] 04/20/2021 12:00:00 AM EDT eCW1 ([facility]) Unknown [address] [facility] [address] 04/19/2021 12:00:00 AM EDT eCW1 ([facility]) Unknown [address] [facility] [address] 04/13/2021 12:00:00 AM EDT eCW1 ([facility]) [place] [address] [facility] [address] 04/09/2021 12:00:00 AM EDT eCW1 ([facility]) [place] [address] [facility] [address] 04/07/2021 12:00:00 AM EDT eCW1 ([facility]) [place] [address] [facility] [address] 04/07/2021 12:00:00 AM EDT eCW1 ([facility]) [place] [address] [facility] [address] 04/07/2021 12:00:00 AM EDT eCW1 ([facility]) [place] [address] [facility] [address] 04/02/2021 12:00:00 AM EDT eCW1 ([facility]) [place] [address] [facility] [address] 04/01/2021 12:00:00 AM EDT eCW1 ([facility]) [place] [address] [facility] [address] 04/01/2021 12:00:00 AM EDT eCW1 ([facility]) [place] [address] [facility] [address] 03/31/2021 12:00:00 AM EDT eCW1 ([facility]) [place] [address] [facility] [address] 03/25/2021 12:00:00 AM EDT eCW1 ([facility]) [place] [address] [facility] [address] 03/25/2021 12:00:00 AM EDT eCW1 ([facility]) [place] [address] [facility] [address] 03/24/2021 12:00:00 AM EDT eCW1 ([facility]) [place] [address] [facility] [address] 03/11/2021 12:00:00 AM EDT [facility]CW1 [facility] Unknown [address] [facility] [address] 03/09/2021 12:00:00 AM EDT [facility]CW1 [facility] Outpatient Attender: CHARLIE RAMOS [facility] Office 02/01 02:45:00 PM EDT MEDENT ([facility] Unknown [address] [facility] [place] [address] 02/17/2021 12:00:00 AM EDT eCW1 ([facility]) Unknown [address] [facility] [place] [address] 02/17/2021 12:00:00 AM EDT eCW1 ([facility]) Unknown [address] [facility] [place] [address] 02/16/2021 12:00:00 AM EDT [facility] Outpatient Attender: LAKSHMI isaac 01/27/2021 04:10:00 PM EDT MEDENT ([facility]) Unknown [address] [facility] [address] 12/07/2020 12:00:00 AM EDT eCW1 ([facility]) Unknown [address] [facility] [place] [address] 11/16/2020 12:00:00 AM EDT eCW1 [facility] Unknown [address] [facility] [place] [address] 10/26/2020 12:00:00 AM EDT eCW1 ([facility]) Outpatient [address] [facility] [place] [address] 09/24/2020 12:00:00 AM EDT eCW1 ([facility]) Unknown [address] [facility] [place] [address] 08/28/2020 12:00:00 AM EST eCW1 ([facility]) [place] [address] [facility] [address] 08/25/2020 12:00:00 AM EST eCW1 ([facility]) [place] [address] [facility] [address] 08/24/2020 12:00:00 AM EST eCW1 ([facility]) [place] [address] [facility] [address] 07/23/2020 12:00:00 AM EST eCW1 ([facility]) [place] [address] [facility] [address] 07/21/2020 12:00:00 AM EST eCW1 ([facility]) [place] [address] [facility] [address] 07/20/2020 12:00:00 AM EST eCW1 ([facility]) Unknown [address] [facility] [address] 07/16/2020 12:00:00 AM EST eCW1 ([facility]) Unknown [address] [facility] [address] 07/13/2020 12:00:00 AM EST eCW1 ([facility]) Unknown [address] [facility] [address] 07/08/2020 12:00:00 AM EST eCW1 ([facility]) [place] [address] [facility] [address] 07/06/2020 12:00:00 AM EST eCW1 ([facility]) Outpatient [address] [facility] [address] 06/29/2020 12:00:00 AM EST eCW1 ([facility]) Unknown [address] [facility] [address] 06/17/2020 12:00:00 AM EST eCW1 ([facility]) [place] [address] [facility] [address] 05/07/2020 12:00:00 AM EST eCW1 ([facility]) Unknown [address] [facility] [address] 05/01/2020 12:00:00 AM EDT eCW1 ([facility]) Unknown [address] [facility] [address] 04/30/2020 12:00:00 AM EDT eCW1 ([facility]) Unknown [address] [facility] [address] 04/28/2020 12:00:00 AM EDT eCW1 ([facility]) Unknown [address] [facility] [address] 04/23/2020 12:00:00 AM EDT eCW1 ([facility]) Unknown [address] [facility] [address] 04/21/2020 12:00:00 AM EDT eCW1 ([facility]) Unknown [address] [facility] [address] 04/21/2020 12:00:00 AM EDT eCW1 ([facility]) Unknown [address] [facility] [address] 04/14/2020 12:00:00 AM EDT eCW1 ([facility]) Unknown [address] [facility] [address] 04/02/2020 12:00:00 AM EDT eCW1 ([facility]) Unknown [address] [facility] [address] 04/02/2020 12:00:00 AM EDT eCW1 ([facility]) Immunizations Vaccine Date Status Description Data Source(s) COVID-19 VACCINE Moderna 08/06/2020 12:00:00 AM EST completed [facility] Vaccine Series Complete: YESThis Data wa s Submitted to [facility] Via [facility]. COVID-19 VACCINE Moderna 07/08/2020 12:00:00 AM EST completed [employer] Vaccine Series Complete: NOThis Data was Submitted to [facility] Via [employer]. Medications Medication Brand Name Start Date Product Form Dose Route Admi nistrative Instructions Pharmacy Instructions Status Indications Reaction Description Data Source(s) carbamide peroxide 65 MG/ML Otic Solution [Debrox] Debrox 6. 5 % Debrox 6.5 % 04/28/2021 12:00:00 AM EDT 5.0 {drops_into_affected_ear} active Debrox 6.5 % eCW1 ([facility]) carbamide peroxide 65 MG/ML Otic Solution [Debrox] Debrox 6. 5 % Debrox 6.5 % 04/28/2021 12:00:00 AM EDT 5.0 {drops_into_affected_ear} active Debrox 6.5 % eCW1 ([facility]) Many Rectal Tube UNK 04/27/2021 12:00:00 AM EDT active Many Rectal Tube eCW1 ([facility]) Many Rectal Tube UNK 04/27/2021 12:00:00 AM EDT active Many Rectal Tube eCW1 ([facility]) Many Rectal Tube UNK 04/27/2021 12:00:00 AM EDT active Jarret Rectal Tube eCW1 ([facility]) Probiotic 250 MG Probiotic 250 MG 04/18/2021 12:00:00 AM EDT 1.0 {capsule} active Probiotic 250 MG eCW1 (Counts include 234 beds at the [facility]) Amoxicillin 500 MG Oral Capsule Amoxicillin 500 MG 04/18/2021 12:00 :00 AM EDT 1.0 {capsule} active Amoxicillin 500 MG eCW1 ([facility]) Amoxicillin 500 MG Oral Capsule Amoxicillin 500 MG 04/18/2021 12:00 :00 AM EDT 1.0 {capsule} active Amoxicillin 500 MG eCW1 ([facility]) cefdinir 300 MG Oral Capsule Cefdinir 300 MG Cefdinir 300 MG 04/18/2021 12:00:00 AM EDT suspended Cefdinir 300 MG eCW1 ([facility]) cefdinir 300 MG Oral Capsule Cefdinir 300 MG Cefdinir 300 MG 04/18/2021 12:00:00 AM EDT active Cefdinir 300 MG eCW1 ([facility]) cefdinir 300 MG Oral Capsule Cefdinir 300 MG Cefdinir 300 MG 04/18/2021 12:00:00 AM EDT active Cefdinir 300 MG eCW1 ([facility]) Amoxicillin 500 MG Oral Capsule Amoxicillin 500 MG 04/18/2021 12:00 :00 AM EDT 1.0 {capsule} suspended Amoxicillin 500 MG eCW1 ([facility]) Amoxicillin 500 MG Oral Capsule Amoxicillin 500 MG 04/18/2021 12:00 :00 AM EDT 1.0 {capsule} active Amoxicillin 500 MG eCW1 ([facility]) cefdinir 300 MG Oral Capsule Cefdinir 300 MG Cefdinir 300 MG 04/18/2021 12:00:00 AM EDT active Cefdinir 300 MG eCW1 ([facility]) cefdinir 300 MG Oral Capsule Cefdinir 300 MG Cefdinir 300 MG 04/18/2021 12:00:00 AM EDT suspended Cefdinir 300 MG eCW1 ([facility]) Amoxicillin 500 MG Oral Capsule Amoxicillin 500 MG 04/18/2021 12:00 :00 AM EDT 1.0 {capsule} suspended Amoxicillin 500 MG eCW1 ([facility]) Probiotic 250 MG Probiotic 250 MG 04/18/2021 12:00:00 AM EDT 1.0 {capsule} active Probiotic 250 MG eCW1 (Counts include 234 beds at the [facility]) Probiotic 250 MG Probiotic 250 MG 04/18/2021 12:00:00 AM EDT 1.0 {capsule} active Probiotic 250 MG eCW1 (Counts include 234 beds at the [facility]) Probiotic 250 MG Probiotic 250 MG 04/18/2021 12:00:00 AM EDT 1.0 {capsule} active Probiotic 250 MG eCW1 (Counts include 234 beds at the [facility]) Probiotic 250 MG Probiotic 250 MG 04/18/2021 12:00:00 AM EDT 1.0 {capsule} active Probiotic 250 MG eCW1 (Counts include 234 beds at the [facility]) Levetiracetam 100 MG/ML Oral Solution [Keppra] Keppra 100 MG/ML Keppra 100 MG/ML 04/10/2021 12:00:00 AM EDT 5.0 {ml} active Keppra 100 MG/ML eCW1 ([facility]) Levetiracetam 100 MG/ML Oral Solution [Keppra] Keppra 100 MG/ML Keppra 100 MG/ML 04/10/2021 12:00:00 AM EDT 5.0 {ml} active Keppra 100 MG/ML eCW1 ([facility]) Levetiracetam 100 MG/ML Oral Solution [Keppra] Keppra 100 MG/ML Keppra 100 MG/ML 04/10/2021 12:00:00 AM EDT 5.0 {ml} active Keppra 100 MG/ML eCW1 ([facility]) Levetiracetam 100 MG/ML Oral Solution [Keppra] Keppra 100 MG/ML Keppra 100 MG/ML 04/10/2021 12:00:00 AM EDT 5.0 {ml} active Keppra 100 MG/ML eCW1 ([facility]) Levetiracetam 100 MG/ML Oral Solution [Keppra] Keppra 100 MG/ML Keppra 100 MG/ML 04/10/2021 12:00:00 AM EDT 5.0 {ml} active Keppra 100 MG/ML eCW1 ([facility]) Levetiracetam 100 MG/ML Oral Solution [Keppra] Keppra 100 MG/ML Keppra 100 MG/ML 04/10/2021 12:00:00 AM EDT 5.0 {ml} active Keppra 100 MG/ML eCW1 ([facility]) Bisacodyl 5 MG Delayed Release Oral Tablet [Dulcolax] Dulcolax 5 MG Dulcolax 5 MG 03/31/2021 12:00:00 AM EDT 2.0 {tablet_as_needed} active Dulcolax 5 MG eCW1 ([facility]) Bisacodyl 5 MG Delayed Release Oral Tablet [Dulcolax] Dulcolax 5 MG Dulcolax 5 MG 03/31/2021 12:00:00 AM EDT 2.0 {tablet_as_needed} active Dulcolax 5 MG eCW1 ([facility]) Bisacodyl 5 MG Delayed Release Oral Tablet [Dulcolax] Dulcolax 5 MG Dulcolax 5 MG 03/31/2021 12:00:00 AM EDT 2.0 {tablet_as_needed} active Dulcolax 5 MG eCW1 ([facility]) Bisacodyl 5 MG Delayed Release Oral Tablet [Dulcolax] Dulcolax 5 MG Dulcolax 5 MG 03/31/2021 12:00:00 AM EDT 2.0 {tablet_as_needed} active Dulcolax 5 MG eCW1 ([facility]) Bisacodyl 5 MG Delayed Release Oral Tablet [Dulcolax] Dulcolax 5 MG Dulcolax 5 MG 03/31/2021 12:00:00 AM EDT 2.0 {tablet_as_needed} active Dulcolax 5 MG eCW1 ([facility]) Bisacodyl 5 MG Delayed Release Oral Tablet [Dulcolax] Dulcolax 5 MG Dulcolax 5 MG 03/31/2021 12:00:00 AM EDT 2.0 {tablet_as_needed} active Dulcolax 5 MG eCW1 ([facility]) Bisacodyl 5 MG Delayed Release Oral Tablet [Dulcolax] Dulcolax 5 MG Dulcolax 5 MG 03/31/2021 12:00:00 AM EDT 2.0 {tablet_as_needed} active Dulcolax 5 MG eCW1 ([facility]) Bisacodyl 5 MG Delayed Release Oral Tablet [Dulcolax] Dulcolax 5 MG Dulcolax 5 MG 03/31/2021 12:00:00 AM EDT 2.0 {tablet_as_needed} active Dulcolax 5 MG eCW1 ([facility]) Bisacodyl 5 MG Delayed Release Oral Tablet [Dulcolax] Dulcolax 5 MG Dulcolax 5 MG 03/31/2021 12:00:00 AM EDT 2.0 {tablet_as_needed} active Dulcolax 5 MG eCW1 ([facility]) Bisacodyl 5 MG Delayed Release Oral Tablet [Dulcolax] Dulcolax 5 MG Dulcolax 5 MG 03/31/2021 12:00:00 AM EDT 2.0 {tablet_as_needed} active Dulcolax 5 MG eCW1 ([facility]) Bisacodyl 5 MG Delayed Release Oral Tablet [Dulcolax] Dulcolax 5 MG Dulcolax 5 MG 03/31/2021 12:00:00 AM EDT 2.0 {tablet_as_needed} active Dulcolax 5 MG eCW1 ([facility]) Bisacodyl 5 MG Delayed Release Oral Tablet [Dulcolax] Dulcolax 5 MG Dulcolax 5 MG 03/31/2021 12:00:00 AM EDT 2.0 {tablet_as_needed} active Dulcolax 5 MG eCW1 ([facility]) Bisacodyl 5 MG Delayed Release Oral Tablet [Dulcolax] Dulcolax 5 MG Dulcolax 5 MG 03/31/2021 12:00:00 AM EDT 2.0 {tablet_as_needed} active Dulcolax 5 MG eCW1 ([facility]) Bisacodyl 5 MG Delayed Release Oral Tablet [Dulcolax] Dulcolax 5 MG Dulcolax 5 MG 03/31/2021 12:00:00 AM EDT 2.0 {tablet_as_needed} active Dulcolax 5 MG eCW1 ([facility]) Boost High Protein - Boost High Protein - 03/26/2021 12:00:00 AM ED T 237.0 {ml} active Boost High Protein - eCW 1 ([facility]) Boost High Protein - Boost High Protein - 03/26/2021 12:00:00 AM ED T 237.0 {ml} active Boost High Protein - eCW 1 ([facility]) Boost High Protein - Boost High Protein - 03/26/2021 12:00:00 AM ED T 237.0 {ml} active Boost High Protein - eCW 1 ([facility]) Boost High Protein - Boost High Protein - 03/26/2021 12:00:00 AM ED T 237.0 {ml} active Boost High Protein - eCW 1 ([facility]) Boost High Protein - Boost High Protein - 03/26/2021 12:00:00 AM ED T 237.0 {ml} active Boost High Protein - eCW 1 ([facility]) Boost High Protein - Boost High Protein - 03/26/2021 12:00:00 AM ED T 237.0 {ml} active Boost High Protein - eCW 1 ([facility]) Boost High Protein - Boost High Protein - 03/26/2021 12:00:00 AM ED T 237.0 {ml} active Boost High Protein - eCW 1 ([facility]) Boost High Protein - Boost High Protein - 03/26/2021 12:00:00 AM ED T 237.0 {ml} active Boost High Protein - eCW 1 ([facility]) Boost High Protein - Boost High Protein - 03/26/2021 12:00:00 AM ED T 237.0 {ml} active Boost High Protein - eCW 1 ([facility]) Boost High Protein - Boost High Protein - 03/26/2021 12:00:00 AM ED T 237.0 {ml} active Boost High Protein - eCW 1 ([facility]) Boost High Protein - Boost High Protein - 03/26/2021 12:00:00 AM ED T 237.0 {ml} active Boost High Protein - eCW 1 ([facility]) Boost High Protein - Boost High Protein - 03/26/2021 12:00:00 AM ED T 237.0 {ml} active Boost High Protein - eCW 1 ([facility]) Boost High Protein - Boost High Protein - 03/26/2021 12:00:00 AM ED T 237.0 {ml} active Boost High Protein - eCW 1 ([facility]) Boost High Protein - Boost High Protein - 03/26/2021 12:00:00 AM ED T 237.0 {ml} active Boost High Protein - eCW 1 ([facility]) Bisacodyl 5 MG Delayed Release Oral Tablet [Dulcolax] Dulcolax 5 MG Dulcolax 5 MG 03/26/2021 12:00:00 AM EDT active Dulcolax 5 MG eCW1 ([facility]) Boost High Protein - Boost High Protein - 03/26/2021 12:00:00 AM ED T 237.0 {ml} active Boost High Protein - eCW 1 ([facility]) Docusate Sodium 10 MG/ML Oral Suspension Docusate Sodi um 50 MG/5ML Docusate Sodium 50 MG/5ML 03/24/2021 12:00:00 AM EDT 10.0 {ml} active Docusate Sodium 50 MG/5ML eCW1 ([facility]) Docusate Sodium 10 MG/ML Oral Suspension Docusate Sodi um 50 MG/5ML Docusate Sodium 50 MG/5ML 03/24/2021 12:00:00 AM EDT 10.0 {ml} active Docusate Sodium 50 MG/5ML eCW1 ([facility]) Docusate Sodium 10 MG/ML Oral Suspension Docusate Sodi um 50 MG/5ML Docusate Sodium 50 MG/5ML 03/24/2021 12:00:00 AM EDT 10.0 {ml} active Docusate Sodium 50 MG/5ML eCW1 ([facility]) Docusate Sodium 10 MG/ML Oral Suspension Docusate Sodi um 50 MG/5ML Docusate Sodium 50 MG/5ML 03/24/2021 12:00:00 AM EDT 10.0 {ml} active Docusate Sodium 50 MG/5ML eCW1 ([facility]) Docusate Sodium 10 MG/ML Oral Suspension Docusate Sodi um 50 MG/5ML Docusate Sodium 50 MG/5ML 03/24/2021 12:00:00 AM EDT 10.0 {ml} active Docusate Sodium 50 MG/5ML eCW1 ([facility]) Docusate Sodium 10 MG/ML Oral Suspension Docusate Sodi um 50 MG/5ML Docusate Sodium 50 MG/5ML 03/24/2021 12:00:00 AM EDT 10.0 {ml} active Docusate Sodium 50 MG/5ML eCW1 ([facility]) Docusate Sodium 10 MG/ML Oral Suspension Docusate Sodi um 50 MG/5ML Docusate Sodium 50 MG/5ML 03/24/2021 12:00:00 AM EDT 10.0 {ml} active Docusate Sodium 50 MG/5ML eCW1 ([facility]) Docusate Sodium 10 MG/ML Oral Suspension Docusate Sodi um 50 MG/5ML Docusate Sodium 50 MG/5ML 03/24/2021 12:00:00 AM EDT 10.0 {ml} active Docusate Sodium 50 MG/5ML eCW1 ([facility]) Docusate Sodium 10 MG/ML Oral Suspension Docusate Sodi um 50 MG/5ML Docusate Sodium 50 MG/5ML 03/24/2021 12:00:00 AM EDT 10.0 {ml} active Docusate Sodium 50 MG/5ML eCW1 ([facility]) Docusate Sodium 10 MG/ML Oral Suspension Docusate Sodi um 50 MG/5ML Docusate Sodium 50 MG/5ML 03/24/2021 12:00:00 AM EDT 10.0 {ml} active Docusate Sodium 50 MG/5ML eCW1 ([facility]) Docusate Sodium 10 MG/ML Oral Suspension Docusate Sodi um 50 MG/5ML Docusate Sodium 50 MG/5ML 03/24/2021 12:00:00 AM EDT 10.0 {ml} active Docusate Sodium 50 MG/5ML eCW1 ([facility]) Docusate Sodium 10 MG/ML Oral Suspension Docusate Sodi um 50 MG/5ML Docusate Sodium 50 MG/5ML 03/24/2021 12:00:00 AM EDT 10.0 {ml} active Docusate Sodium 50 MG/5ML eCW1 ([facility]) Docusate Sodium 10 MG/ML Oral Suspension Docusate Sodi um 50 MG/5ML Docusate Sodium 50 MG/5ML 03/24/2021 12:00:00 AM EDT 10.0 {ml} active Docusate Sodium 50 MG/5ML eCW1 ([facility]) Docusate Sodium 10 MG/ML Oral Suspension Docusate Sodi um 50 MG/5ML Docusate Sodium 50 MG/5ML 03/24/2021 12:00:00 AM EDT 10.0 {ml} active Docusate Sodium 50 MG/5ML eCW1 ([facility]) Docusate Sodium 10 MG/ML Oral Suspension Docusate Sodi um 50 MG/5ML Docusate Sodium 50 MG/5ML 03/24/2021 12:00:00 AM EDT 10.0 {ml} active Docusate Sodium 50 MG/5ML eCW1 ([facility]) Docusate Sodium 10 MG/ML Oral Suspension Docusate Sodi um 50 MG/5ML Docusate Sodium 50 MG/5ML 03/24/2021 12:00:00 AM EDT 10.0 {ml} active Docusate Sodium 50 MG/5ML eCW1 ([facility]) Mupirocin 0.02 MG/MG Topical Ointment Mupirocin 01/27/2021 12:00:00 AM EDT active MEDENT ([facility], [facility]) [employer] - [employer] - 10/26/2020 12:00:00 AM EDT active [employer] - eCW1 ([facility]) [employer] - [employer] - 10/26/2020 12:00:00 AM EDT active [employer] - eCW1 ([facility]) [employer] - [employer] - 10/26/2020 12:00:00 AM EDT active [employer] - eCW1 ([facility]) [employer] - [employer] - 10/26/2020 12:00:00 AM EDT active [employer] - eCW1 ([facility]) [employer] - [employer] - 10/26/2020 12:00:00 AM EDT active [employer] - eCW1 ([facility]) [employer] - [employer] - 10/26/2020 12:00:00 AM EDT active [employer] - eCW1 ([facility]) [employer] - [employer] - 10/26/2020 12:00:00 AM EDT active [employer] - eCW1 ([facility]) [employer] - [employer] - 10/26/2020 12:00:00 AM EDT active [employer] - eCW1 ([facility]) [employer] - [employer] - 10/26/2020 12:00:00 AM EDT active [employer] - eCW1 ([facility]) [employer] - [employer] - 10/26/2020 12:00:00 AM EDT active [employer] - eCW1 ([facility]) [employer] - [employer] - 10/26/2020 12:00:00 AM EDT active [employer] - eCW1 ([facility]) [employer] - [employer] - 10/26/2020 12:00:00 AM EDT active [employer] - eCW1 ([facility]) [employer] - [employer] - 10/26/2020 12:00:00 AM EDT active [employer] - eCW1 ([facility]) [employer] - [employer] - 10/26/2020 12:00:00 AM EDT active [employer] - eCW1 ([facility]) [employer] - [employer] - 10/26/2020 12:00:00 AM EDT active [employer] - eCW1 ([facility]) [employer] - [employer] - 10/26/2020 12:00:00 AM EDT active [employer] - eCW1 ([facility]) [employer] - [employer] - 10/26/2020 12:00:00 AM EDT active [employer] - eCW1 ([facility]) [employer] - [employer] - 10/26/2020 12:00:00 AM EDT active [employer] - eCW1 ([facility]) [employer] - [employer] - 10/26/2020 12:00:00 AM EDT active [employer] - eCW1 ([facility]) [employer] - [employer] - 10/26/2020 12:00:00 AM EDT active [employer] - eCW1 ([facility]) [employer] - [employer] - 10/26/2020 12:00:00 AM EDT active [employer] - eCW1 ([facility]) [employer] - [employer] - 10/26/2020 12:00:00 AM EDT active [employer] - eCW1 ([facility]) [employer] - [employer] - 10/26/2020 12:00:00 AM EDT active [employer] - eCW1 ([facility]) [employer] - [employer] - 10/26/2020 12:00:00 AM EDT active [employer] - eCW1 ([facility]) Docusate Sodium 10 MG/ML Oral Solution Docusate Sodium 150 MG/15ML Docusate Sodium 150 MG/15ML 07/17/2020 12:00:00 AM EST 5.0 {ml_as_needed} active Docusate Sodium 150 MG/15ML eCW1 ([facility]) Docusate Sodium 10 MG/ML Oral Solution Docusate Sodium 150 MG/15ML Docusate Sodium 150 MG/15ML 07/17/2020 12:00:00 AM EST 5.0 {ml_as_needed} active Docusate Sodium 150 MG/15ML eCW1 ([facility]) Docusate Sodium 10 MG/ML Oral Solution Docusate Sodium 150 MG/15ML Docusate Sodium 150 MG/15ML 07/17/2020 12:00:00 AM EST 5.0 {ml_as_needed} active Docusate Sodium 150 MG/15ML eCW1 ([facility]) Docusate Sodium 10 MG/ML Oral Solution Docusate Sodium 150 MG/15ML Docusate Sodium 150 MG/15ML 07/17/2020 12:00:00 AM EST 5.0 {ml_as_needed} active Docusate Sodium 150 MG/15ML eCW1 ([facility]) Docusate Sodium 10 MG/ML Oral Solution Docusate Sodium 150 MG/15ML Docusate Sodium 150 MG/15ML 07/17/2020 12:00:00 AM EST 5.0 {ml_as_needed} active Docusate Sodium 150 MG/15ML eCW1 ([facility]) Docusate Sodium 10 MG/ML Oral Solution Docusate Sodium 150 MG/15ML Docusate Sodium 150 MG/15ML 07/17/2020 12:00:00 AM EST 5.0 {ml_as_needed} active Docusate Sodium 150 MG/15ML eCW1 ([facility]) Docusate Sodium 10 MG/ML Oral Solution Docusate Sodium 150 MG/15ML Docusate Sodium 150 MG/15ML 07/17/2020 12:00:00 AM EST 5.0 {ml_as_needed} active Docusate Sodium 150 MG/15ML eCW1 ([facility]) Docusate Sodium 10 MG/ML Oral Solution Docusate Sodium 150 MG/15ML Docusate Sodium 150 MG/15ML 07/17/2020 12:00:00 AM EST 5.0 {ml_as_needed} active Docusate Sodium 150 MG/15ML eCW1 ([facility]) Calcium 600 MG Calcium 600 MG 04/29/2020 12:00:00 AM EDT 1.0 {tablet_with_meals} active Calcium 600 MG eCW1 ([facility]) Calcium 600 MG Calcium 600 MG 04/29/2020 12:00:00 AM EDT 1.0 {tablet_with_meals} active Calcium 600 MG eCW1 ([facility]) Calcium 600 MG Calcium 600 MG 04/29/2020 12:00:00 AM EDT 1.0 {tablet_with_meals} active Calcium 600 MG eCW1 ([facility]) Cholecalciferol 400 UNT Oral Tablet Vitamin D-400 10 M CG (400 UNIT) Vitamin D- 400 10 MCG (400 UNIT) 04/29/2020 12:00:00 AM EDT 1.0 {tablet} active Vitamin D-400 10 MCG (400 UNIT) eCW1 ([facility]) Cholecalciferol 400 UNT Oral Tablet Vitamin D-400 10 M CG (400 UNIT) Vitamin D- 400 10 MCG (400 UNIT) 04/29/2020 12:00:00 AM EDT 1.0 {tablet} active Vitamin D-400 10 MCG (400 UNIT) eCW1 ([facility]) Cholecalciferol 400 UNT Oral Tablet Vitamin D-400 10 M CG (400 UNIT) Vitamin D- 400 10 MCG (400 UNIT) 04/29/2020 12:00:00 AM EDT 1.0 {tablet} active Vitamin D-400 10 MCG (400 UNIT) eCW1 ([facility]) Cholecalciferol 400 UNT Oral Tablet Vitamin D-400 10 M CG (400 UNIT) Vitamin D- 400 10 MCG (400 UNIT) 04/29/2020 12:00:00 AM EDT 1.0 {tablet} active Vitamin D-400 10 MCG (400 UNIT) eCW1 ([facility]) Calcium 600 MG Calcium 600 MG 04/29/2020 12:00:00 AM EDT 1.0 {tablet_with_meals} active Calcium 600 MG eCW1 ([facility]) Calcium 600 MG Calcium 600 MG 04/29/2020 12:00:00 AM EDT 1.0 {tablet_with_meals} active Calcium 600 MG eCW1 ([facility]) Calcium 600 MG Calcium 600 MG 04/29/2020 12:00:00 AM EDT 1.0 {tablet_with_meals} active Calcium 600 MG eCW1 ([facility]) Cholecalciferol 400 UNT Oral Tablet Vitamin D-400 10 M CG (400 UNIT) Vitamin D- 400 10 MCG (400 UNIT) 04/29/2020 12:00:00 AM EDT 1.0 {tablet} active Vitamin D-400 10 MCG (400 UNIT) eCW1 ([facility]) Cholecalciferol 400 UNT Oral Tablet Vitamin D-400 10 M CG (400 UNIT) Vitamin D- 400 10 MCG (400 UNIT) 04/29/2020 12:00:00 AM EDT 1.0 {tablet} active Vitamin D-400 10 MCG (400 UNIT) eCW1 ([facility]) Calcium 600 MG Calcium 600 MG 04/29/2020 12:00:00 AM EDT 1.0 {tablet_with_meals} active Calcium 600 MG eCW1 ([facility]) Calcium 600 MG Calcium 600 MG 04/29/2020 12:00:00 AM EDT 1.0 {tablet_with_meals} active Calcium 600 MG eCW1 ([facility]) Cholecalciferol 400 UNT Oral Tablet Vitamin D-400 10 M CG (400 UNIT) Vitamin D- 400 10 MCG (400 UNIT) 04/29/2020 12:00:00 AM EDT 1.0 {tablet} active Vitamin D-400 10 MCG (400 UNIT) eCW1 ([facility]) Calcium 600 MG Calcium 600 MG 04/29/2020 12:00:00 AM EDT 1.0 {tablet_with_meals} active Calcium 600 MG eCW1 ([facility]) Cholecalciferol 400 UNT Oral Tablet Vitamin D-400 10 M CG (400 UNIT) Vitamin D- 400 10 MCG (400 UNIT) 04/29/2020 12:00:00 AM EDT 1.0 {tablet} active Vitamin D-400 10 MCG (400 UNIT) eCW1 ([facility]) Calcium 600 MG Calcium 600 MG 04/29/2020 12:00:00 AM EDT 1.0 {tablet_with_meals} active Calcium 600 MG eCW1 ([facility]) Calcium 600 MG Calcium 600 MG 04/29/2020 12:00:00 AM EDT 1.0 {tablet_with_meals} active Calcium 600 MG eCW1 ([facility]) Calcium 600 MG Calcium 600 MG 04/29/2020 12:00:00 AM EDT 1.0 {tablet_with_meals} active Calcium 600 MG eCW1 ([facility]) Calcium 600 MG Calcium 600 MG 04/29/2020 12:00:00 AM EDT 1.0 {tablet_with_meals} active Calcium 600 MG eCW1 ([facility]) Cholecalciferol 400 UNT Oral Tablet Vitamin D-400 10 M CG (400 UNIT) Vitamin D- 400 10 MCG (400 UNIT) 04/29/2020 12:00:00 AM EDT 1.0 {tablet} active Vitamin D-400 10 MCG (400 UNIT) eCW1 ([facility]) Calcium 600 MG Calcium 600 MG 04/29/2020 12:00:00 AM EDT 1.0 {tablet_with_meals} active Calcium 600 MG eCW1 ([facility]) Calcium 600 MG Calcium 600 MG 04/29/2020 12:00:00 AM EDT 1.0 {tablet_with_meals} active Calcium 600 MG eCW1 ([facility]) Calcium 600 MG Calcium 600 MG 04/29/2020 12:00:00 AM EDT 1.0 {tablet_with_meals} active Calcium 600 MG eCW1 ([facility]) Cholecalciferol 400 UNT Oral Tablet Vitamin D-400 10 M CG (400 UNIT) Vitamin D- 400 10 MCG (400 UNIT) 04/29/2020 12:00:00 AM EDT 1.0 {tablet} active Vitamin D-400 10 MCG (400 UNIT) eCW1 ([facility]) Calcium 600 MG Calcium 600 MG 04/29/2020 12:00:00 AM EDT 1.0 {tablet_with_meals} active Calcium 600 MG eCW1 ([facility]) Cholecalciferol 400 UNT Oral Tablet Vitamin D-400 10 M CG (400 UNIT) Vitamin D- 400 10 MCG (400 UNIT) 04/29/2020 12:00:00 AM EDT 1.0 {tablet} active Vitamin D-400 10 MCG (400 UNIT) eCW1 ([facility]) Cholecalciferol 400 UNT Oral Tablet Vitamin D-400 10 M CG (400 UNIT) Vitamin D- 400 10 MCG (400 UNIT) 04/29/2020 12:00:00 AM EDT 1.0 {tablet} active Vitamin D-400 10 MCG (400 UNIT) eCW1 ([facility]) Cholecalciferol 400 UNT Oral Tablet Vitamin D-400 10 M CG (400 UNIT) Vitamin D- 400 10 MCG (400 UNIT) 04/29/2020 12:00:00 AM EDT 1.0 {tablet} active Vitamin D-400 10 MCG (400 UNIT) eCW1 ([facility]) Cholecalciferol 400 UNT Oral Tablet Vitamin D-400 10 M CG (400 UNIT) Vitamin D- 400 10 MCG (400 UNIT) 04/29/2020 12:00:00 AM EDT 1.0 {tablet} active Vitamin D-400 10 MCG (400 UNIT) eCW1 ([facility]) Calcium 600 MG Calcium 600 MG 04/29/2020 12:00:00 AM EDT 1.0 {tablet_with_meals} active Calcium 600 MG eCW1 ([facility]) Cholecalciferol 400 UNT Oral Tablet Vitamin D-400 10 M CG (400 UNIT) Vitamin D- 400 10 MCG (400 UNIT) 04/29/2020 12:00:00 AM EDT 1.0 {tablet} active Vitamin D-400 10 MCG (400 UNIT) eCW1 ([facility]) Cholecalciferol 400 UNT Oral Tablet Vitamin D-400 10 M CG (400 UNIT) Vitamin D- 400 10 MCG (400 UNIT) 04/29/2020 12:00:00 AM EDT 1.0 {tablet} active Vitamin D-400 10 MCG (400 UNIT) eCW1 ([facility]) Calcium 600 MG Calcium 600 MG 04/29/2020 12:00:00 AM EDT 1.0 {tablet_with_meals} active Calcium 600 MG eCW1 ([facility]) Calcium 600 MG Calcium 600 MG 04/29/2020 12:00:00 AM EDT 1.0 {tablet_with_meals} active Calcium 600 MG eCW1 ([facility]) Cholecalciferol 400 UNT Oral Tablet Vitamin D-400 10 M CG (400 UNIT) Vitamin D- 400 10 MCG (400 UNIT) 04/29/2020 12:00:00 AM EDT 1.0 {tablet} active Vitamin D-400 10 MCG (400 UNIT) eCW1 ([facility]) Cholecalciferol 400 UNT Oral Tablet Vitamin D-400 10 M CG (400 UNIT) Vitamin D- 400 10 MCG (400 UNIT) 04/29/2020 12:00:00 AM EDT 1.0 {tablet} active Vitamin D-400 10 MCG (400 UNIT) eCW1 ([facility]) Calcium 600 MG Calcium 600 MG 04/29/2020 12:00:00 AM EDT 1.0 {tablet_with_meals} active Calcium 600 MG eCW1 ([facility]) Calcium 600 MG Calcium 600 MG 04/29/2020 12:00:00 AM EDT 1.0 {tablet_with_meals} active Calcium 600 MG eCW1 ([facility]) Cholecalciferol 400 UNT Oral Tablet Vitamin D-400 10 M CG (400 UNIT) Vitamin D- 400 10 MCG (400 UNIT) 04/29/2020 12:00:00 AM EDT 1.0 {tablet} active Vitamin D-400 10 MCG (400 UNIT) eCW1 ([facility]) Cholecalciferol 400 UNT Oral Tablet Vitamin D-400 10 M CG (400 UNIT) Vitamin D- 400 10 MCG (400 UNIT) 04/29/2020 12:00:00 AM EDT 1.0 {tablet} active Vitamin D-400 10 MCG (400 UNIT) eCW1 ([facility]) Calcium 600 MG Calcium 600 MG 04/29/2020 12:00:00 AM EDT 1.0 {tablet_with_meals} active Calcium 600 MG eCW1 ([facility]) Cholecalciferol 400 UNT Oral Tablet Vitamin D-400 10 M CG (400 UNIT) Vitamin D- 400 10 MCG (400 UNIT) 04/29/2020 12:00:00 AM EDT 1.0 {tablet} active Vitamin D-400 10 MCG (400 UNIT) eCW1 ([facility]) Calcium 600 MG Calcium 600 MG 04/29/2020 12:00:00 AM EDT 1.0 {tablet_with_meals} active Calcium 600 MG eCW1 ([facility]) Calcium 600 MG Calcium 600 MG 04/29/2020 12:00:00 AM EDT 1.0 {tablet_with_meals} active Calcium 600 MG eCW1 ([facility]) Calcium 600 MG Calcium 600 MG 04/29/2020 12:00:00 AM EDT 1.0 {tablet_with_meals} active Calcium 600 MG eCW1 ([facility]) Cholecalciferol 400 UNT Oral Tablet Vitamin D-400 10 M CG (400 UNIT) Vitamin D- 400 10 MCG (400 UNIT) 04/29/2020 12:00:00 AM EDT 1.0 {tablet} active Vitamin D-400 10 MCG (400 UNIT) eCW1 ([facility]) Calcium 600 MG Calcium 600 MG 04/29/2020 12:00:00 AM EDT 1.0 {tablet_with_meals} active Calcium 600 MG eCW1 ([facility]) Calcium 600 MG Calcium 600 MG 04/29/2020 12:00:00 AM EDT 1.0 {tablet_with_meals} active Calcium 600 MG eCW1 ([facility]) Calcium 600 MG Calcium 600 MG 04/29/2020 12:00:00 AM EDT 1.0 {tablet_with_meals} active Calcium 600 MG eCW1 ([facility]) Calcium 600 MG Calcium 600 MG 04/29/2020 12:00:00 AM EDT 1.0 {tablet_with_meals} active Calcium 600 MG eCW1 ([facility]) Cholecalciferol 400 UNT Oral Tablet Vitamin D-400 10 M CG (400 UNIT) Vitamin D- 400 10 MCG (400 UNIT) 04/29/2020 12:00:00 AM EDT 1.0 {tablet} active Vitamin D-400 10 MCG (400 UNIT) eCW1 ([facility]) Cholecalciferol 400 UNT Oral Tablet Vitamin D-400 10 M CG (400 UNIT) Vitamin D- 400 10 MCG (400 UNIT) 04/29/2020 12:00:00 AM EDT 1.0 {tablet} active Vitamin D-400 10 MCG (400 UNIT) eCW1 ([facility]) Calcium 600 MG Calcium 600 MG 04/29/2020 12:00:00 AM EDT 1.0 {tablet_with_meals} active Calcium 600 MG eCW1 ([facility]) Cholecalciferol 400 UNT Oral Tablet Vitamin D-400 10 M CG (400 UNIT) Vitamin D- 400 10 MCG (400 UNIT) 04/29/2020 12:00:00 AM EDT 1.0 {tablet} active Vitamin D-400 10 MCG (400 UNIT) eCW1 ([facility]) Calcium 600 MG Calcium 600 MG 04/29/2020 12:00:00 AM EDT 1.0 {tablet_with_meals} active Calcium 600 MG eCW1 ([facility]) Cholecalciferol 400 UNT Oral Tablet Vitamin D-400 10 M CG (400 UNIT) Vitamin D- 400 10 MCG (400 UNIT) 04/29/2020 12:00:00 AM EDT 1.0 {tablet} active Vitamin D-400 10 MCG (400 UNIT) eCW1 ([facility]) Cholecalciferol 400 UNT Oral Tablet Vitamin D-400 10 M CG (400 UNIT) Vitamin D- 400 10 MCG (400 UNIT) 04/29/2020 12:00:00 AM EDT 1.0 {tablet} active Vitamin D-400 10 MCG (400 UNIT) eCW1 ([facility]) Calcium 600 MG Calcium 600 MG 04/29/2020 12:00:00 AM EDT 1.0 {tablet_with_meals} active Calcium 600 MG eCW1 ([facility]) Cholecalciferol 400 UNT Oral Tablet Vitamin D-400 10 M CG (400 UNIT) Vitamin D- 400 10 MCG (400 UNIT) 04/29/2020 12:00:00 AM EDT 1.0 {tablet} active Vitamin D-400 10 MCG (400 UNIT) eCW1 ([facility]) Calcium 600 MG Calcium 600 MG 04/29/2020 12:00:00 AM EDT 1.0 {tablet_with_meals} active Calcium 600 MG eCW1 ([facility]) Cholecalciferol 400 UNT Oral Tablet Vitamin D-400 10 M CG (400 UNIT) Vitamin D- 400 10 MCG (400 UNIT) 04/29/2020 12:00:00 AM EDT 1.0 {tablet} active Vitamin D-400 10 MCG (400 UNIT) eCW1 ([facility]) Calcium 600 MG Calcium 600 MG 04/29/2020 12:00:00 AM EDT 1.0 {tablet_with_meals} active Calcium 600 MG eCW1 ([facility]) Cholecalciferol 400 UNT Oral Tablet Vitamin D-400 10 M CG (400 UNIT) Vitamin D- 400 10 MCG (400 UNIT) 04/29/2020 12:00:00 AM EDT 1.0 {tablet} active Vitamin D-400 10 MCG (400 UNIT) eCW1 ([facility]) Cholecalciferol 400 UNT Oral Tablet Vitamin D-400 10 M CG (400 UNIT) Vitamin D- 400 10 MCG (400 UNIT) 04/29/2020 12:00:00 AM EDT 1.0 {tablet} active Vitamin D-400 10 MCG (400 UNIT) eCW1 ([facility]) Calcium 600 MG Calcium 600 MG 04/29/2020 12:00:00 AM EDT 1.0 {tablet_with_meals} active Calcium 600 MG eCW1 ([facility]) Cholecalciferol 400 UNT Oral Tablet Vitamin D-400 10 M CG (400 UNIT) Vitamin D- 400 10 MCG (400 UNIT) 04/29/2020 12:00:00 AM EDT 1.0 {tablet} active Vitamin D-400 10 MCG (400 UNIT) eCW1 ([facility]) Cholecalciferol 400 UNT Oral Tablet Vitamin D-400 10 M CG (400 UNIT) Vitamin D- 400 10 MCG (400 UNIT) 04/29/2020 12:00:00 AM EDT 1.0 {tablet} active Vitamin D-400 10 MCG (400 UNIT) eCW1 ([facility]) Calcium 600 MG Calcium 600 MG 04/29/2020 12:00:00 AM EDT 1.0 {tablet_with_meals} active Calcium 600 MG eCW1 ([facility]) Cholecalciferol 400 UNT Oral Tablet Vitamin D-400 10 M CG (400 UNIT) Vitamin D- 400 10 MCG (400 UNIT) 04/29/2020 12:00:00 AM EDT 1.0 {tablet} active Vitamin D-400 10 MCG (400 UNIT) eCW1 ([facility]) Cholecalciferol 400 UNT Oral Tablet Vitamin D-400 10 M CG (400 UNIT) Vitamin D- 400 10 MCG (400 UNIT) 04/29/2020 12:00:00 AM EDT 1.0 {tablet} active Vitamin D-400 10 MCG (400 UNIT) eCW1 ([facility]) Calcium 600 MG Calcium 600 MG 04/29/2020 12:00:00 AM EDT 1.0 {tablet_with_meals} active Calcium 600 MG eCW1 ([facility]) Cholecalciferol 400 UNT Oral Tablet Vitamin D-400 10 M CG (400 UNIT) Vitamin D- 400 10 MCG (400 UNIT) 04/29/2020 12:00:00 AM EDT 1.0 {tablet} active Vitamin D-400 10 MCG (400 UNIT) eCW1 ([facility]) Calcium 600 MG Calcium 600 MG 04/29/2020 12:00:00 AM EDT 1.0 {tablet_with_meals} active Calcium 600 MG eCW1 ([facility]) Calcium 600 MG Calcium 600 MG 04/29/2020 12:00:00 AM EDT 1.0 {tablet_with_meals} active Calcium 600 MG eCW1 ([facility]) Cholecalciferol 400 UNT Oral Tablet Vitamin D-400 10 M CG (400 UNIT) Vitamin D- 400 10 MCG (400 UNIT) 04/29/2020 12:00:00 AM EDT 1.0 {tablet} active Vitamin D-400 10 MCG (400 UNIT) eCW1 ([facility]) Cholecalciferol 400 UNT Oral Tablet Vitamin D-400 10 M CG (400 UNIT) Vitamin D- 400 10 MCG (400 UNIT) 04/29/2020 12:00:00 AM EDT 1.0 {tablet} active Vitamin D-400 10 MCG (400 UNIT) eCW1 ([facility]) Calcium 600 MG Calcium 600 MG 04/29/2020 12:00:00 AM EDT 1.0 {tablet_with_meals} active Calcium 600 MG eCW1 ([facility]) Cholecalciferol 400 UNT Oral Tablet Vitamin D-400 10 M CG (400 UNIT) Vitamin D- 400 10 MCG (400 UNIT) 04/29/2020 12:00:00 AM EDT 1.0 {tablet} active Vitamin D-400 10 MCG (400 UNIT) eCW1 ([facility]) Cholecalciferol 400 UNT Oral Tablet Vitamin D-400 10 M CG (400 UNIT) Vitamin D- 400 10 MCG (400 UNIT) 04/29/2020 12:00:00 AM EDT 1.0 {tablet} active Vitamin D-400 10 MCG (400 UNIT) eCW1 ([facility]) Cholecalciferol 400 UNT Oral Tablet Vitamin D-400 10 M CG (400 UNIT) Vitamin D- 400 10 MCG (400 UNIT) 04/29/2020 12:00:00 AM EDT 1.0 {tablet} active Vitamin D-400 10 MCG (400 UNIT) eCW1 ([facility]) Calcium 600 MG Calcium 600 MG 04/29/2020 12:00:00 AM EDT 1.0 {tablet_with_meals} active Calcium 600 MG eCW1 ([facility]) Cholecalciferol 400 UNT Oral Tablet Vitamin D-400 10 M CG (400 UNIT) Vitamin D- 400 10 MCG (400 UNIT) 04/29/2020 12:00:00 AM EDT 1.0 {tablet} active Vitamin D-400 10 MCG (400 UNIT) eCW1 ([facility]) Insurance Providers Payer name Policy type / Coverage type Policy ID Covered green party ID Covered green party's relationship to wolf Policy Wolf Plan Information Medicare Natl Gov't Servi Medicare Primary [id number] Self 1 [id number] MEDICARE [id number] SP [id number] M Medicare Natl Gov't Servi Medicare Primary [id number] Self 1 [id number] Medicare Natl Gov't Servi Medicare Primary [id number] Self 1 [id number] Medicare Natl Gov't Servi Medicare Primary [id number] Self MEDICARE [id number] SP [id number] M Medicare Natl Gov't Servi Medicare Primary [id number] Self 1 [id number] Medicare Natl Gov't Servi Medicare Primary [id number] Self 1 [id number] Medicare Natl Gov't Servi Medicare Primary [id number] Self 1 [id number] Medicare Natl Gov't Servi Medicare Primary [id number] Self 1 [id number] Medicare Natl Gov't Servi Medicare Primary [id number] Self 1 [id number] Medicaid Dental O [id number] S [id number] Medicaid Dental P [id number] S [id number] MEDICAID [id number] SP [id number] ANSI-Medicaid [id number] ANSI-Medicare Part B [id number] ANSI-Medicaid [id number] ANSI-Medicare Part B [id number] ANSI-Medicaid [id number] ANSI-Medicaid [id number] ANSI-Medicare Part B [id number] ANSI-Medicaid [id number] ANSI-Medicare Part B [id number] Medicaid Medicaid [id number] Self [id number] Medicare Medicare Primary [id number] Self [id number] ANSI-Medicare Part B [id number] ANSI-Medicaid [id number] ANSI-Medicare Part B [id number] ANSI-Medicaid [id number] ANSI-Medicaid [id number] ANSI-Medicare Part B [id number] ANSI-Medicare Part B [id number] ANSI-Medicaid [id number] ANSI-Medicare Part B [id number] ANSI-Medicaid [id number] ANSI-Medicare Part B [id number] ANSI-Medicaid [id number] ANSI-Medicaid [id number] ANSI-Medicare Part B [id number] ANSI-Medicaid [id number] ANSI-Medicare Part B [id number] ANSI-Medicare Part B [id number] ANSI-Medicaid [id number] ANSI-Medicaid [id number] ANSI-Medicare Part B [id number] ANSI-Medicare Part B [id number] ANSI-Medicaid [id number] ANSI-Medicare Part B [id number] ANSI-Medicaid [id number] ANSI-Medicaid [id number] ANSI-Medicare Part B [id number] ANS-Medicaid [id number] ANSI-Medicare Part B [id number] ANSI-Medicaid [id number] ANSI-Medicare Part B [id number] ANSI-Medicaid [id number] ANSI-Medicare Part B [id number] ANSI-Medicaid [id number] ANSI-Medicare Part B [id number] ANSI-Medicare Part B [id number] ANSI-Medicaid [id number] ANSI-Medicare Part B [id number] ANSI-Medicaid [id number] ANSI-Medicaid [id number] ANSI-Medicare Part B [id number] ANSI-Medicaid [id number] ANSI-Medicare Part B [id number] ANSI-Medicaid [id number] ANSI-Medicare Part B [id number] ANSI-Medicaid [id number] ANSI-Medicare Part B [id number] ANSI-Medicaid [id number] ANSI-Medicare Part B [id number] ANSI-Medicaid [id number] ANSI-Medicare Part B [id number] ANSI-Medicaid [id number] ANSI-Medicare Part B [id number] ANSI-Medicaid [id number] ANSI-Medicare Part B [id number] ANSI-Medicare Part B [id number] ANSI-Medicaid [id number] ANSI-Medicaid [id number] ANSI-Medicare Part B [id number] MEDICARE [id number] ANSI-Medicare Part B [id number] ANSI-Medicaid [id number] ANSI-Medicare Part B [id number] ANSI-Medicaid [id number] ANSI-Medicare Part B [id number] ANSI-Medicaid [id number] ANSI-Medicaid [id number] ANSI-Medicare Part B [id number] ANSI-Medicare Part B [id number] ANSI-Medicaid [id number] ANSI-Medicare Part B [id number] ANSI-Medicaid [id number] Medicaid Medicaid [id number].17702.0 S [facility] [id number] Medicare Medicare Primary [id number] 2.16.840.1.472925.3.227. 99.936.01495.0 [facility] [id number] ANSI-Medicaid [id number] ANSI-Medicare Part B [id number] ANSI-Medicare Part B [id number] ANSI-Medicaid [id number] ANSI-Medicare Part B [id number] ANSI-Medicaid [id number] Medicaid [facility] Part B [id number] 2.16.840.1.626830.3.227.99.1767 .6498.0 Self [id number] Medicaid Medicaid [id number] 2.16.840.1.356446.3.227.99.936.96607.0 S elf [id number] Medicare Medicare Primary [id number] 2.16.840.1.169538.3.227. 99.936.08150.0 Self [id number] ANSI-Medicare Part B [id number] ANSI-Medicaid [id number] ANSI-Medicare Part B [id number] ANSI-Medicaid [id number] ANSI-Medicaid [id number] ANSI-Medicare Part B [id number] ANSI-Medicare Part B [id number] ANSI-Medicaid [id number] ANSI-Medicare Part B [id number] ANSI-Medicaid [id number] ANSI-Medicaid [id number] ANSI-Medicare Part B [id number] ANSI-Medicare Part B [id number] ANSI-Medicaid [id number] ANSI-Medicare Part B [id number] ANSI-Medicaid [id number] ANSI-Medicare Part B [id number] ANSI-Medicaid [id number] ANSI-Medicaid [id number] ANSI-Medicare Part B [id number] Medicaid Medicaid [id number] 08.18.830.1.273801.3.227.99.936.06464.0 S elf [id number] Medicare Medicare Primary [id number] .1.112144.3.227. 99.936.18947.0 Self [id number] MEDICARE C [id number] S [id number] M Medicaid [place] Medigap Part B [id number] .6498.0 Self [id number] Medicaid Medicaid [id number] 2.16.840.1.425749.3.227.99.936.90924.0 S elf [id number] Medicare Medicare Primary [id number] 2.16.840.1.692380.3.227. 99.936.26872.0 Self [id number] Medicaid Medicaid [id number] 2.16.840.1.453197.3.227.99.936.58612.0 S elf [id number] Medicare Medicare Primary [id number] 2.16.840.1.864787.3.227. 99.936.41142.0 Self [id number] Medicaid [place] Med[place] Part [place] [id number] 2.16.840.1.462488.3.227.99.1767 .6498.0 Self [id number] [place] [id number] 2.16.840.1.665286.3.227.99.1767 .6498.0 Self [id number] [place] [id number] 2.16.840.1.277056.3.227.99.1767 .6498.0 Self [id number] [place] [id number] 2.16.840.1.741104.3.227.99.1767 .6498.0 Self [id number] Medicaid Medicaid [id number] 2.16.840.1.770957.3.227.99.936.66625.0 S elf [id number] Medicare Medicare Primary [id number] 2.16.840.1.989024.3.227. 99.936.00307.0 Self [id number] Medicaid Medicaid [id number] 2.16.840.1.183733.3.227.99.936.53955.0 S elf [id number] Medicare Medicare Primary [id number] 2.16.840.1.297909.3.227. 99.936.97320.0 Self [id number] [place] Part [place] [id number] 2.16.840.1.602165.3.227.99.1767 .6498.0 Self [id number] [place] Part [place] [id number] 2.16.840.1.624272.3.227.99.1767 .6498.0 Self [id number] Medicaid Medicaid [id number] 2.16.840.1.721719.3.227.99.936.71842.0 S elf [id number] Medicare Medicare Primary [id number] 2.16.840.1.564571.3.227. 99.936.52326.0 Self [id number] Medicaid Medicaid [id number] 2.16.840.1.103864.3.227.99.936.89238.0 S elf [id number] Medicare Medicare Primary [id number] 2.16.840.1.368134.3.227. 99.936.23719.0 Self [id number] Medicaid Medicaid [id number] 2.16.840.1.757833.3.227.99.936.64929.0 S elf [id number] Medicare Medicare Primary [id number] 2.16.840.1.819180.3.227. 99.936.24182.0 Self [id number] Medicaid Medicaid [id number] 2.16.840.1.202138.3.227.99.936.84796.0 S elf [id number] Medicare Medicare Primary [id number] 2.16.840.1.156751.3.227. 99.936.23035.0 Self [id number] Medicaid [place] Med[place] Part B 2.16.840.1.127924.3.227.99.991.16 7812.0 Self Medicare [facility] Medicare Primary 2.16.840.1.241356.3. 227.99.991.318313.0 Self Medicaid Medicaid [id number] Self Medicare Medicare Primary [id number] Self Medicaid [place] Medicaid [id number] Self MEDICAID UNAVAILABLE UNAVAILA BLE MEDICAID M [id number] S [id number] Medicare P [id number] S [id number] Medicaid S [id number] S [id number] Medicaid MRDD Dental O [id number] S [id number] [place] [id number] SP [id number] MEDICARE [id number] SP [id number] [place] [id number] SP [id number] MEDICAID [id number] SP [id number] MEDICAID [id number] SP [id number] MEDICARE C [id number] S [id number] MEDICAID M [id number] S [id number] MEDICARE [id number] SP [id number] ANSI-Medicare Part B [id number] ANSI-Medicaid [id number] ANSI-Medicare Part B [id number] ANSI-Medicaid [id number] ANSI-Medicare Part B [id number] Problems, Conditions, and Diagnoses Code Display Name Description Problem Type Effective Dates Data Source(s) K83.8 950678557 Pneumobilia Problem 04/07/2021 12:00:00 AM E DT eCW1 ([facility]) N32.89 [id number] Bladder wall thickening Problem 04/07/2021 1 2:00:00 AM EDT eCW1 ([facility]) E88.09 [id number] Hypoalbuminemia Problem 03/26/2021 12:00:00 AM EDT eCW1 ([facility]) Surgeries/Procedures Procedure Description Date Indications Data Source(s) DEBRIDEMENT NAIL ANY METHOD 02/22/2021 12:00:00 AM EDT [facility] ([facility] OFFICE OUTPATIENT VISIT 15 MINUTES 02/22/2021 12:00:00 AM EDT [facility] ([facility] OFFICE OUTPATIENT VISIT 15 MINUTES 01/27/2021 12:00:00 AM EDT MEDENT ([facility]) DEBRIDEMENT NAIL ANY METHOD 03/17/2020 12:00:00 AM EDT [facility] ([facility] Results ID Date Data Source PHOSPHOROUS LEVEL 04/07/2021 12:00:00 AM EDT eCW1 ([facility]) Name Value Range Interpretation Code Description Data Camelia rce(s) Supporting Document(s) 3.7 2.5-4.9 PHOSPHORUS LEVEL eCW1 ([facility]) ID Date Data Source MAGNESIUM LEVEL 04/07/2021 12:00:00 AM EDT eCW1 ([facility]) Name Value Range Interpretation Code Description Data Camelia rce(s) Supporting Document(s) 1.8 1.8-2.4 MAGNESIUM LEVEL eCW1 ([facility]) ID Date Data Source [id number] 04/01/2021 08:02:00 AM EDT [facility] Name Value Range Interpretation Code Description Data Camelia rce(s) Supporting Document(s) SARS-CoV-2 (COVID 19) NEGATIVE - SARS-CoV-2 (COVID19) [facility] This lab was ordered by [facility] a nd reported by [facility]. Procedure Social History Code Duration Value Status Description Data Source(s ) Smoking 04/28/2021 12:00:00 AM EDT Never Smoker completed Never S moker eCW1 ([facility]) Smoking 04/28/2021 12:00:00 AM EDT Never Smoker completed Never S moker eCW1 ([facility]) Smoking 04/07/2021 12:00:00 AM EDT Never Smoker completed Never S moker eCW1 ([facility]) Smoking 04/07/2021 12:00:00 AM EDT Never Smoker completed Never S moker eCW1 ([facility]) Smoking 04/07/2021 12:00:00 AM EDT Never Smoker completed Never S moker eCW1 ([facility]) Smoking 04/07/2021 12:00:00 AM EDT Never Smoker completed Never S moker eCW1 ([facility]) Smoking 04/07/2021 12:00:00 AM EDT Never Smoker completed Never S moker eCW1 ([facility]) Smoking 04/07/2021 12:00:00 AM EDT Never Smoker completed Never S moker eCW1 ([facility]) Smoking 04/07/2021 12:00:00 AM EDT Never Smoker completed Never S moker eCW1 ([facility]) Smoking 09/24/2020 12:00:00 AM EDT Never Smoker completed Never S moker eCW1 ([facility]) Smoking 09/24/2020 12:00:00 AM EDT Never Smoker completed Never S moker eCW1 ([facility]) Smoking 09/24/2020 12:00:00 AM EDT Never Smoker completed Never S moker eCW1 ([facility]) Smoking 09/24/2020 12:00:00 AM EDT Never Smoker completed Never S moker eCW1 ([facility]) Smoking 09/24/2020 12:00:00 AM EDT Never Smoker completed Never S moker eCW1 ([facility]) Smoking 09/24/2020 12:00:00 AM EDT Never Smoker completed Never S moker eCW1 ([facility]) Smoking 09/24/2020 12:00:00 AM EDT Never Smoker completed Never S moker eCW1 ([facility]) Smoking 09/24/2020 12:00:00 AM EDT Never Smoker completed Never S moker eCW1 ([facility]) Smoking 09/24/2020 12:00:00 AM EDT Never Smoker completed Never S moker eCW1 ([facility]) Smoking 09/24/2020 12:00:00 AM EDT Never Smoker completed Never S moker eCW1 ([facility]) Smoking 09/24/2020 12:00:00 AM EDT Never Smoker completed Never S moker eCW1 ([facility]) Smoking 09/24/2020 12:00:00 AM EDT Never Smoker completed Never S moker eCW1 ([facility]) Smoking 09/24/2020 12:00:00 AM EDT Never Smoker completed Never S moker eCW1 ([facility]) Smoking 09/24/2020 12:00:00 AM EDT Never Smoker completed Never S moker eCW1 ([facility]) Smoking 09/24/2020 12:00:00 AM EDT Never Smoker completed Never S moker eCW1 ([facility]) Smoking 09/24/2020 12:00:00 AM EDT Never Smoker completed Never S moker eCW1 ([facility]) Smoking 07/14/2020 12:00:00 AM EST Never Smoker completed Never S moker eCW1 ([facility]) Smoking 07/14/2020 12:00:00 AM EST Never Smoker completed Never S moker eCW1 ([facility]) Smoking 07/14/2020 12:00:00 AM EST Never Smoker completed Never S moker eCW1 ([facility]) Smoking 07/14/2020 12:00:00 AM EST Never Smoker completed Never S moker eCW1 ([facility]) Smoking 07/14/2020 12:00:00 AM EST Never Smoker completed Never S moker eCW1 ([facility]) Smoking 07/14/2020 12:00:00 AM EST Never Smoker completed Never S moker eCW1 ([facility]) Smoking 07/14/2020 12:00:00 AM EST Never Smoker completed Never S moker eCW1 ([facility]) Smoking 07/14/2020 12:00:00 AM EST Never Smoker completed Never S moker eCW1 ([facility]) Vital Signs ID Date Data Source UNK Name Value Range Interpretation Code Description Data Source(s) Body weight 185 [lb_av] 185 [lb_av] eCW1 ([facility]) Body weight 83.92 kg 83.92 kg eCW1 ([facility]) Body height 66 [in_i] 66 [in_i] eCW1 ([facility]) Body mass index (BMI) [Ratio] 29.86 kg/m2 29.86 kg/m2 eCW1 ([facility]) Heart rate 60 /min 60 /min eCW1 ([facility]) Respiratory rate 20 /min 20 /min eCW1 (Counts include 234 beds at the [facility]) Body temperature 95.8 [degF] 95.8 [degF] eCW1 ( [facility]) Systolic blood pressure 122 mm[Hg] 122 mm[Hg] e CW1 ([facility]) Diastolic blood pressure 70 mm[Hg] 70 mm[Hg] eCW1 ([facility]) Body weight 185 [lb_av] 185 [lb_av] eCW1 ([facility]) Body weight 83.92 kg 83.92 kg eCW1 ([facility]) Body height 66 [in_i] 66 [in_i] eCW1 ([facility]) Body mass index (BMI) [Ratio] 29.86 kg/m2 29.86 kg/m2 eCW1 ([facility]) Heart rate 60 /min 60 /min eCW1 ([facility]) Respiratory rate 20 /min 20 /min eCW1 (Counts include 234 beds at the [facility]) Body temperature 96.0 [degF] 96.0 [degF] eCW1 ( [facility]) Systolic blood pressure 128 mm[Hg] 128 mm[Hg] e CW1 ([facility]) Diastolic blood pressure 60 mm[Hg] 60 mm[Hg] eCW1 ([facility]) Systolic blood pressure 142 mm[Hg] 142 mm[Hg] M EDENT ([facility], [facility]) Diastolic blood pressure 72 mm[Hg] 72 mm[Hg] MEDENT ([facility], [facility]) Heart rate 87 /min 87 /min MEDENT ([facility], [facility]) Respiratory rate 16 /min 16 /min MEDENT ( [facility], [facility]) Oxygen saturation in Arterial blood by Pulse oximetry 99 % 99 % MEDENT ([facility], [facility]) Body temperature 98.7 [degF] 98.7 [degF] MEDENT ([facility], [facility]) Body weight 190.00 [lb_av] 190.00 [lb_av] MEDEN T ([facility], [facility]) Body height 65 [in_i] 65 [in_i] MEDENT ([facility]) 5'5" Body mass index (BMI) [Ratio] 31.6 kg/m2 31.6 k g/m2 MEDENT ([facility], [facility]) Body weight [lb_av] eCW1 ([facility]) Body height 66 [in_i] 66 [in_i] eCW1 ([facility]) Body mass index (BMI) [Ratio] 32.44 kg/m2 32.44 kg/m2 eCW1 ([facility]) Heart rate 81 /min 81 /min eCW1 ([facility]) Respiratory rate 20 /min 20 /min eCW1 (Counts include 234 beds at the [facility]) Body temperature 98.0 [degF] 98.0 [degF] eCW1 ( [facility]) Systolic blood pressure 120 mm[Hg] 120 mm[Hg] e CW1 ([facility]) Diastolic blood pressure 74 mm[Hg] 74 mm[Hg] eCW1 ([facility]) Body weight 201 [lb_av] 201 [lb_av] eCW1 ([facility]) Body height 66 [in_i] 66 [in_i] eCW1 ([facility]) Body mass index (BMI) [Ratio] 32.44 kg/m2 32.44 kg/m2 eCW1 ([facility]) Heart rate 98 /min 98 /min eCW1 ([facility]) Respiratory rate 20 /min 20 /min eCW1 (Counts include 234 beds at the [facility]) Systolic blood pressure 118 mm[Hg] 118 mm[Hg] e CW1 ([facility]) Diastolic blood pressure 66 mm[Hg] 66 mm[Hg] eCW1 ([facility]) Patient Treatment Plan of Care Planned Activity Planned Date Details Description Data Source (s) carbamide peroxide 65 MG/ML Otic Solution [Debrox] 04/28/2021 12 :00:00 AM EDT eCW1 ([facility]) carbamide peroxide 65 MG/ML Otic Solution [Debrox] 04/28/2021 12 :00:00 AM EDT eCW1 ([facility]) Many Rectal Tube 04/27/2021 12:00:00 AM EDT eCW1 ([facility]) Probiotic 250 MG 04/18/2021 12:00:00 AM EDT eCW1 ([facility]) cefdinir 300 MG Oral Capsule 04/18/2021 12:00:00 AM EDT eCW1 ([facility]) Amoxicillin 500 MG Oral Capsule 04/18/2021 12:00:00 AM EDT eCW1 ([facility]) Probiotic 250 MG 04/18/2021 12:00:00 AM EDT eCW1 ([facility]) cefdinir 300 MG Oral Capsule 04/18/2021 12:00:00 AM EDT eCW1 ([facility]) Amoxicillin 500 MG Oral Capsule 04/18/2021 12:00:00 AM EDT eCW1 ([facility]) Probiotic 250 MG 04/18/2021 12:00:00 AM EDT eCW1 ([facility]) cefdinir 300 MG Oral Capsule 04/18/2021 12:00:00 AM EDT eCW1 ([facility]) Amoxicillin 500 MG Oral Capsule 04/18/2021 12:00:00 AM EDT eCW1 ([facility]) Levetiracetam 100 MG/ML Oral Solution [Keppra] 04/10/2021 12:00:00 AM EDT eCW1 ([facility]) Levetiracetam 100 MG/ML Oral Solution [Keppra] 04/10/2021 12:00:00 AM EDT eCW1 ([facility]) Levetiracetam 100 MG/ML Oral Solution [Keppra] 04/10/2021 12:00:00 AM EDT eCW1 ([facility]) Levetiracetam 100 MG/ML Oral Solution [Keppra] 04/10/2021 12:00:00 AM EDT eCW1 ([facility]) Bisacodyl 5 MG Delayed Release Oral Tablet [Dulcolax] 03/31/2021 12:00:00 AM EDT eCW1 ([facility]) Bisacodyl 5 MG Delayed Release Oral Tablet [Dulcolax] 03/31/2021 12:00:00 AM EDT eCW1 ([facility]) Bisacodyl 5 MG Delayed Release Oral Tablet [Dulcolax] 03/31/2021 12:00:00 AM EDT eCW1 ([facility]) Bisacodyl 5 MG Delayed Release Oral Tablet [Dulcolax] 03/31/2021 12:00:00 AM EDT eCW1 ([facility]) Bisacodyl 5 MG Delayed Release Oral Tablet [Dulcolax] 03/31/2021 12:00:00 AM EDT eCW1 ([facility]) Boost High Protein - 03/26/2021 12:00:00 AM EDT eCW1 ([facility]) Boost High Protein - 03/26/2021 12:00:00 AM EDT eCW1 ([facility]) Bisacodyl 5 MG Delayed Release Oral Tablet [Dulcolax] 03/26/2021 12:00:00 AM EDT eCW1 ([facility]) Boost High Protein - 03/26/2021 12:00:00 AM EDT eCW1 ([facility]) Boost High Protein - 03/26/2021 12:00:00 AM EDT eCW1 ([facility]) Boost High Protein - 03/26/2021 12:00:00 AM EDT eCW1 ([facility]) Boost High Protein - 03/26/2021 12:00:00 AM EDT eCW1 ([facility]) Docusate Sodium 10 MG/ML Oral Suspension 03/24/2021 12:00:00 AM EDT eCW1 ([facility] [facility]) Docusate Sodium 10 MG/ML Oral Suspension 03/24/2021 12:00:00 AM EDT eCW1 ([facility]) Docusate Sodium 10 MG/ML Oral Suspension 03/24/2021 12:00:00 AM EDT eCW1 ([facility]) Docusate Sodium 10 MG/ML Oral Suspension 03/24/2021 12:00:00 AM EDT eCW1 ([facility]) Docusate Sodium 10 MG/ML Oral Suspension 03/24/2021 12:00:00 AM EDT eCW1 ([facility]) Docusate Sodium 10 MG/ML Oral Suspension 03/24/2021 12:00:00 AM EDT eCW1 ([facility]) Docusate Sodium 10 MG/ML Oral Suspension 03/24/2021 12:00:00 AM EDT eCW1 ([facility]) [employer] - 10/26/2020 12:00:00 AM EDT eCW1 ([facility]) [employer] - 10/26/2020 12:00:00 AM EDT eCW1 ([facility]) [employer] - 10/26/2020 12:00:00 AM EDT eCW1 ([facility]) [employer] - 10/26/2020 12:00:00 AM EDT eCW1 ([facility]) [employer] - 10/26/2020 12:00:00 AM EDT eCW1 ([facility]) [employer] - 10/26/2020 12:00:00 AM EDT eCW1 ([facility]) [employer] - 10/26/2020 12:00:00 AM EDT eCW1 ([facility]) [employer] - 10/26/2020 12:00:00 AM EDT eCW1 ([facility]) [employer] - 10/26/2020 12:00:00 AM EDT eCW1 ([facility]) [employer] - 10/26/2020 12:00:00 AM EDT eCW1 ([facility]) [employer] - 10/26/2020 12:00:00 AM EDT eCW1 ([facility]) [employer] - 10/26/2020 12:00:00 AM EDT eCW1 ([facility]) [employer] - 10/26/2020 12:00:00 AM EDT eCW1 ([facility]) [employer] - 10/26/2020 12:00:00 AM EDT eCW1 ([facility]) [employer] - 10/26/2020 12:00:00 AM EDT eCW1 ([facility]) Docusate Sodium 10 MG/ML Oral Solution 07/17/2020 12:00:00 AM EST eCW1 ([facility]) Docusate Sodium 10 MG/ML Oral Solution 07/17/2020 12:00:00 AM EST eCW1 ([facility]) Docusate Sodium 10 MG/ML Oral Solution 07/17/2020 12:00:00 AM EST eCW1 ([facility]) Docusate Sodium 10 MG/ML Oral Solution 07/17/2020 12:00:00 AM EST eCW1 ([facility]) Docusate Sodium 10 MG/ML Oral Solution 07/17/2020 12:00:00 AM EST eCW1 ([facility]) Docusate Sodium 10 MG/ML Oral Solution 07/17/2020 12:00:00 AM EST eCW1 ([facility]) Docusate Sodium 10 MG/ML Oral Solution 07/17/2020 12:00:00 AM EST eCW1 ([facility]) Docusate Sodium 10 MG/ML Oral Solution 07/17/2020 12:00:00 AM EST eCW1 ([facility]) Cholecalciferol 400 UNT Oral Tablet 04/29/2020 12:00:00 AM EDT eCW1 ([facility]) Calcium 600 MG 04/29/2020 12:00:00 AM EDT eCW1 ([facility]) Calcium 600 MG 04/29/2020 12:00:00 AM EDT eCW1 ([facility]) Cholecalciferol 400 UNT Oral Tablet 04/29/2020 12:00:00 AM EDT eCW1 ([facility]) Calcium 600 MG 04/29/2020 12:00:00 AM EDT eCW1 ([facility]) Cholecalciferol 400 UNT Oral Tablet 04/29/2020 12:00:00 AM EDT eCW1 ([facility]) Calcium 600 MG 04/29/2020 12:00:00 AM EDT eCW1 ([facility]) Cholecalciferol 400 UNT Oral Tablet 04/29/2020 12:00:00 AM EDT eCW1 ([facility]) Calcium 600 MG 04/29/2020 12:00:00 AM EDT eCW1 ([facility]) Cholecalciferol 400 UNT Oral Tablet 04/29/2020 12:00:00 AM EDT eCW1 ([facility]) Cholecalciferol 400 UNT Oral Tablet 04/29/2020 12:00:00 AM EDT eCW1 ([facility]) Calcium 600 MG 04/29/2020 12:00:00 AM EDT eCW1 ([facility]) Calcium 600 MG 04/29/2020 12:00:00 AM EDT eCW1 ([facility]) Cholecalciferol 400 UNT Oral Tablet 04/29/2020 12:00:00 AM EDT eCW1 ([facility]) Calcium 600 MG 04/29/2020 12:00:00 AM EDT eCW1 ([facility]) Cholecalciferol 400 UNT Oral Tablet 04/29/2020 12:00:00 AM EDT eCW1 ([facility]) Calcium 600 MG 04/29/2020 12:00:00 AM EDT eCW1 ([facility]) Cholecalciferol 400 UNT Oral Tablet 04/29/2020 12:00:00 AM EDT eCW1 ([facility]) Calcium 600 MG 04/29/2020 12:00:00 AM EDT eCW1 ([facility]) Cholecalciferol 400 UNT Oral Tablet 04/29/2020 12:00:00 AM EDT eCW1 ([facility]) Calcium 600 MG 04/29/2020 12:00:00 AM EDT eCW1 ([facility]) Cholecalciferol 400 UNT Oral Tablet 04/29/2020 12:00:00 AM EDT eCW1 ([facility]) Calcium 600 MG 04/29/2020 12:00:00 AM EDT eCW1 ([facility]) Cholecalciferol 400 UNT Oral Tablet 04/29/2020 12:00:00 AM EDT eCW1 ([facility])
[2021-05-03 10:35] LABS: BASO # 0.1 10^3/uL (0.0-0.2); BASO % 0.5 % (0.0-1.0); EOS # 0.2 10^3/uL (0.0-0.5); EOS % 1.8 % (0.0-3.0); HEMATOCRIT 41.2 % (42.0-52.0); HEMOGLOBIN 13.5 g/dl (13.5-17.5); LYMPH # 1.1 10^3/uL (1.5-5.0); MEAN CORPUSCULAR HEMOGLOBIN 29.9 pg (27.0-33.0); MEAN CORPUSCULAR HGB CONC 32.8 g/dl (32.0-36.5); MEAN CORPUSCULAR VOLUME 91.2 fl (80.0-96.0); MONO # 1.4 10^3/uL (0.0-0.8); MONO % 12.7 % (2.0-8.0); NEUTROPHILS # 8.3 10^3/uL (1.5-8.5); NEUTROPHILS % 74.6 % (36.0-66.0); PLATELET COUNT, AUTOMATED 204 10^3/uL (150-450); RED BLOOD COUNT 4.52 10^6/uL (4.30-6.10); WHITE BLOOD COUNT 11.1 10^3/uL (4.0-10.0)
--- NOTE | 2021-05-03 10:45 | REP ---
INDICATION: shortness of breath. COMPARISON: Multiple the latest 04/01/2021 at 8:01 a.m. TECHNIQUE: Portable FINDINGS: The technique utilized in obtaining the radiograph has magnified the cardiac silhouette and attenuated the interstitial markings. The cardiomediastinal silhouette is unchanged. Blunting of the left CP angle seen on the prior exam has cleared. The lung arambula are clear. The osseous structures are stable and intact. IMPRESSION: No acute cardiopulmonary disease. Improvement as described above. <Electronically signed by Mendez Flores > 05/03/21 [id number]
[2021-05-03 10:57] LABS: BLOOD UREA NITROGEN 12 MG/DL (7-18); CALCIUM LEVEL 8.8 MG/DL (8.8-10.2); CARBON DIOXIDE LEVEL 31 MEQ/L (21-32); CHLORIDE LEVEL 102 MEQ/L (98-107); GLOMERULAR FILTRATION RATE > 60.0 (>42); GLUCOSE, FASTING 101 MG/DL (70-100); POTASSIUM SERUM 4.3 MEQ/L (3.5-5.1); SODIUM LEVEL 138 MEQ/L (136-145)
--- OUTSIDE RECORDS SUMMARY | 2021-05-03 11:02 | CCD ---
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 Care Theology Professor Name Role Phone ELZA, Fela MARTINS PA [...] R CHARLIE DPM Unavailable Unavailable MAJAK, R CAHRLIE DPM Unavailable Unavailable MAJAK, R CHARLIE DPM [...] is protected by Article 27-F of the [facility] Public Health law. If you continue you may have access to information: Regarding HIV / AIDS; Provided by facilities licensed or operated by the [facility] Office of Mental Health; or Provided by the [facility] Office for People With Developmental Disabilities. If such information is present, then the following [facility] mandated warning applies: This information has been [...] law may result in a fine or skilled nursing sentence or both. A general authorization for the release of medical or other information is NOT sufficient authorization for further disc losure. Family History Family Member Name Family Member Gender Family Member Status Date o f Status Description Data Source(s) Unknown Unknown Problem MEDENT ([facility]) Unknown Female Problem MEDENT ([facility] Encounters Encounter Providers Location Date Indications Data Source(s ) Office Visit, Est Pt., Level [address] FC [address] [place] [address] 04/28/2021 12:00:00 AM EDT eCW1 ([facility]) Unknown [address] [facility] [address] 04/23/2021 12:00:00 AM EDT eCW1 ([facility]) Unknown [address] [facility] [address] 04/20/2021 12:00:00 AM EDT eCW1 ([facility]) Unknown [address] [facility] [address] 04/19/2021 12:00:00 AM EDT eCW1 ([facility]) Unknown [address] [facility] [address] 04/13/2021 12:00:00 AM EDT eCW1 ([facility]) [place] [address] [facility] [address] 04/09/2021 12:00:00 AM EDT eCW1 ([facility]) [place] [address] [facility] [address] 04/07/2021 12:00:00 AM EDT eCW1 ([facility]) [place] [address] [facility] [address] 04/07/2021 12:00:00 AM EDT eCW1 ([facility]) [place] [address] [facility] [address] 04/07/2021 12:00:00 AM EDT eCW1 ([facility]) [place] [address] [facility] [address] 04/02/2021 12:00:00 AM EDT eCW1 ([facility]) [place] [address] [facility] [address] 04/01/2021 12:00:00 AM EDT eCW1 ([facility]) [place] [address] [facility] [address] 04/01/2021 12:00:00 AM EDT eCW1 ([facility]) [place] [address] [facility] [address] 03/31/2021 12:00:00 AM EDT eCW1 ([facility]) [place] [address] [facility] [address] 03/25/2021 12:00:00 AM EDT eCW1 ([facility]) [place] [address] [facility] [address] 03/25/2021 12:00:00 AM EDT eCW1 ([facility]) [place] [address] [facility] [address] 03/24/2021 12:00:00 AM EDT eCW1 ([facility]) [place] [address] [facility] [address] 03/11/2021 12:00:00 AM EDT [facility]CW1 [facility] [place] [address] [facility] [address] 03/09/2021 12:00:00 AM EDT [facility]CW1 [facility] Outpatient Attender: CHARLIE [facility] 02/01 02:45:00 PM EDT MEDENT ([facility] Unknown [address] [facility] [place] [address] 02/17/2021 12:00:00 AM EDT eCW1 ([facility]) Unknown [address] [facility] [place] [address] 02/17/2021 12:00:00 AM EDT eCW1 ([facility]) Unknown [address] [facility] [place] [address] 02/16/2021 12:00:00 AM EDT eCW1 [facility]) Outpatient Attender: LAKSHMI isaac 01/27/2021 04:10:00 PM EDT MEDENT ([facility]) Unknown [address] [facility] [address] 12/07/2020 12:00:00 AM EDT eCW1 ([facility]) Unknown [address] [facility] [place] [address] 11/16/2020 12:00:00 AM EDT [facility]CW1 [facility] Unknown [address] [facility] [place] [address] 10/26/2020 12:00:00 AM EDT eCW1 ([facility]) Outpatient [address] [facility] Y [address] 09/24/2020 12:00:00 AM EDT eCW1 ([facility]) Unknown [address] [facility] [place] [address] 08/28/2020 12:00:00 AM EST eCW1 ([facility]) Unknown [address] [facility] [address] 08/25/2020 12:00:00 AM EST eCW1 ([facility]) Unknown [address] [facility] [address] 08/24/2020 12:00:00 AM EST eCW1 ([facility]) Unknown [address] [facility] [address] 07/23/2020 12:00:00 AM EST eCW1 ([facility]) Unknown [address] [facility] [address] 07/21/2020 12:00:00 AM EST eCW1 ([facility]) Unknown [address] [facility] [address] 07/20/2020 12:00:00 AM EST eCW1 ([facility]) Unknown [address] [facility] [address] 07/16/2020 12:00:00 AM EST eCW1 ([facility]) Unknown [address] [facility] [address] 07/13/2020 12:00:00 AM EST eCW1 ([facility]) Unknown [address] [facility] [address] 07/08/2020 12:00:00 AM EST eCW1 ([facility]) Unknown [address] [facility] [address] 07/06/2020 12:00:00 AM EST eCW1 ([facility]) Outpatient [address] [facility] [address] 06/29/2020 12:00:00 AM EST eCW1 ([facility]) Unknown [address] [facility] [address] 06/17/2020 12:00:00 AM EST eCW1 ([facility]) Unknown [address] [facility] [address] 05/07/2020 12:00:00 AM EST eCW1 ([facility]) Unknown [address] [facility] [address] 05/01/2020 12:00:00 AM EDT eCW1 ([facility]) Unknown [address] [facility] [address] 04/30/2020 12:00:00 AM EDT eCW1 ([facility]) Unknown [address] [facility] [address] 04/28/2020 12:00:00 AM EDT eCW1 ([facility]) Unknown [address] [facility] [address] 04/23/2020 12:00:00 AM EDT eCW1 ([facility]) Unknown [address] [facility] [address] 04/21/2020 12:00:00 AM EDT eCW1 ([facility]) Unknown [address] [facility] [address] 04/21/2020 12:00:00 AM EDT eCW1 ([facility]) Unknown [address] [facility] [address] 04/14/2020 12:00:00 AM EDT eCW1 ([facility]) Unknown [address] [facility] [address] 04/02/2020 12:00:00 AM EDT eCW1 ([facility]) Unknown [address] [facility] [address] 04/02/2020 12:00:00 AM EDT eCW1 ([facility]) Immunizations Vaccine Date Status Description Data Source(s) COVID-19 VACCINE Moderna 08/06/2020 12:00:00 AM EST completed [facility] Vaccine Series Complete: YESThis Data wa s Submitted to [facility] Via [facility]. COVID-19 VACCINE Moderna 07/08/2020 12:00:00 AM EST completed [facility] Vaccine Series Complete: NOThis Data was Submitted to [facility] Via [facility]. Medications Medication Brand Name Start Date Product Form Dose Route Admi nistrative Instructions Pharmacy Instructions Status Indications Reaction Description Data Source(s) carbamide peroxide 65 MG/ML Otic Solution [Debrox] Debrox 6. 5 % Debrox 6.5 % 04/28/2021 12:00:00 AM EDT 5.0 {drops_into_affected_ear} active Debrox 6.5 % eCW1 ([facility]) carbamide peroxide 65 MG/ML Otic Solution [Debrox] Debrox 6. 5 % Debrox 6.5 % 04/28/2021 12:00:00 AM EDT 5.0 {drops_into_affected_ear} active Debrox 6.5 % eCW1 ([facility]) [place] Rectal Tube UNK 04/27/2021 12:00:00 AM EDT active [place] Rectal Tube eCW1 ([facility]) [place] Rectal Tube UNK 04/27/2021 12:00:00 AM EDT active [place] Rectal Tube eCW1 ([facility]) [place] Rectal Tube UNK 04/27/2021 12:00:00 AM EDT active [place] Rectal Tube eCW1 ([facility]) Probiotic 250 MG Probiotic 250 MG 04/18/2021 12:00:00 AM EDT 1.0 {capsule} active Probiotic 250 MG eCW1 ([facility]) Amoxicillin 500 MG Oral Capsule Amoxicillin 500 MG 04/18/2021 12:00 :00 AM EDT 1.0 {capsule} active Amoxicillin 500 MG eCW1 ([facility]) Amoxicillin 500 MG Oral Capsule Amoxicillin 500 MG 04/18/2021 12:00 :00 AM EDT 1.0 {capsule} active Amoxicillin 500 MG eCW1 ([facility]) cefdinir 300 MG Oral Capsule Cefdinir 300 MG Cefdinir 300 MG 04/18/2021 12:00:00 AM EDT suspended Cefdinir 300 MG eCW1 ([facility]) cefdinir 300 MG Oral Capsule Cefdinir 300 MG Cefdinir 300 MG 04/18/2021 12:00:00 AM EDT active Cefdinir 300 MG eCW1 ([facility]) cefdinir 300 MG Oral Capsule Cefdinir 300 MG Cefdinir 300 MG 04/18/2021 12:00:00 AM EDT active Cefdinir 300 MG eCW1 ([facility]) Amoxicillin 500 MG Oral Capsule Amoxicillin 500 MG 04/18/2021 12:00 :00 AM EDT 1.0 {capsule} suspended Amoxicillin 500 MG eCW1 ([facility]) Amoxicillin 500 MG Oral Capsule Amoxicillin 500 MG 04/18/2021 12:00 :00 AM EDT 1.0 {capsule} active Amoxicillin 500 MG eCW1 ([facility]) cefdinir 300 MG Oral Capsule Cefdinir 300 MG Cefdinir 300 MG 04/18/2021 12:00:00 AM EDT active Cefdinir 300 MG eCW1 ([facility]) cefdinir 300 MG Oral Capsule Cefdinir 300 MG Cefdinir 300 MG 04/18/2021 12:00:00 AM EDT suspended Cefdinir 300 MG eCW1 ([facility]) Amoxicillin 500 MG Oral Capsule Amoxicillin 500 MG 04/18/2021 12:00 :00 AM EDT 1.0 {capsule} suspended Amoxicillin 500 MG eCW1 ([facility]) Probiotic 250 MG Probiotic 250 MG 04/18/2021 12:00:00 AM EDT 1.0 {capsule} active Probiotic 250 MG eCW1 ([facility]) Probiotic 250 MG Probiotic 250 MG 04/18/2021 12:00:00 AM EDT 1.0 {capsule} active Probiotic 250 MG eCW1 ([facility]) Probiotic 250 MG Probiotic 250 MG 04/18/2021 12:00:00 AM EDT 1.0 {capsule} active Probiotic 250 MG eCW1 ([facility]) Probiotic 250 MG Probiotic 250 MG 04/18/2021 12:00:00 AM EDT 1.0 {capsule} active Probiotic 250 MG eCW1 ([facility]) Levetiracetam 100 MG/ML Oral Solution [Keppra] Keppra 100 MG/ML Keppra 100 MG/ML 04/10/2021 12:00:00 AM EDT 5.0 {ml} active Keppra 100 MG/ML eCW1 ([facility]) Levetiracetam 100 MG/ML Oral Solution [Keppra] Keppra 100 MG/ML Keppra 100 MG/ML 04/10/2021 12:00:00 AM EDT 5.0 {ml} active Keppra 100 MG/ML eCW1 ([facility]) Levetiracetam 100 MG/ML Oral Solution [Keppra] Keppra 100 MG/ML Keppra 100 MG/ML 04/10/2021 12:00:00 AM EDT 5.0 {ml} active Keppra 100 MG/ML eCW1 ([facility]) Levetiracetam 100 MG/ML Oral Solution [Keppra] Keppra 100 MG/ML Keppra 100 MG/ML 04/10/2021 12:00:00 AM EDT 5.0 {ml} active Keppra 100 MG/ML eCW1 ([facility]) Levetiracetam 100 MG/ML Oral Solution [Keppra] Keppra 100 MG/ML Keppra 100 MG/ML 04/10/2021 12:00:00 AM EDT 5.0 {ml} active Keppra 100 MG/ML eCW1 ([facility]) Levetiracetam 100 MG/ML Oral Solution [Keppra] Keppra 100 MG/ML Keppra 100 MG/ML 04/10/2021 12:00:00 AM EDT 5.0 {ml} active Keppra 100 MG/ML eCW1 ([facility]) Bisacodyl 5 MG Delayed Release Oral Tablet [Dulcolax] Dulcolax 5 MG Dulcolax 5 MG 03/31/2021 12:00:00 AM EDT 2.0 {tablet_as_needed} active Dulcolax 5 MG eCW1 ([facility]) Bisacodyl 5 MG Delayed Release Oral Tablet [Dulcolax] Dulcolax 5 MG Dulcolax 5 MG 03/31/2021 12:00:00 AM EDT 2.0 {tablet_as_needed} active Dulcolax 5 MG eCW1 ([facility]) Bisacodyl 5 MG Delayed Release Oral Tablet [Dulcolax] Dulcolax 5 MG Dulcolax 5 MG 03/31/2021 12:00:00 AM EDT 2.0 {tablet_as_needed} active Dulcolax 5 MG eCW1 ([facility]) Bisacodyl 5 MG Delayed Release Oral Tablet [Dulcolax] Dulcolax 5 MG Dulcolax 5 MG 03/31/2021 12:00:00 AM EDT 2.0 {tablet_as_needed} active Dulcolax 5 MG eCW1 ([facility]) Bisacodyl 5 MG Delayed Release Oral Tablet [Dulcolax] Dulcolax 5 MG Dulcolax 5 MG 03/31/2021 12:00:00 AM EDT 2.0 {tablet_as_needed} active Dulcolax 5 MG eCW1 ([facility]) Bisacodyl 5 MG Delayed Release Oral Tablet [Dulcolax] Dulcolax 5 MG Dulcolax 5 MG 03/31/2021 12:00:00 AM EDT 2.0 {tablet_as_needed} active Dulcolax 5 MG eCW1 ([facility]) Bisacodyl 5 MG Delayed Release Oral Tablet [Dulcolax] Dulcolax 5 MG Dulcolax 5 MG 03/31/2021 12:00:00 AM EDT 2.0 {tablet_as_needed} active Dulcolax 5 MG eCW1 ([facility]) Bisacodyl 5 MG Delayed Release Oral Tablet [Dulcolax] Dulcolax 5 MG Dulcolax 5 MG 03/31/2021 12:00:00 AM EDT 2.0 {tablet_as_needed} active Dulcolax 5 MG eCW1 ([facility]) Bisacodyl 5 MG Delayed Release Oral Tablet [Dulcolax] Dulcolax 5 MG Dulcolax 5 MG 03/31/2021 12:00:00 AM EDT 2.0 {tablet_as_needed} active Dulcolax 5 MG eCW1 ([facility]) Bisacodyl 5 MG Delayed Release Oral Tablet [Dulcolax] Dulcolax 5 MG Dulcolax 5 MG 03/31/2021 12:00:00 AM EDT 2.0 {tablet_as_needed} active Dulcolax 5 MG eCW1 ([facility]) Bisacodyl 5 MG Delayed Release Oral Tablet [Dulcolax] Dulcolax 5 MG Dulcolax 5 MG 03/31/2021 12:00:00 AM EDT 2.0 {tablet_as_needed} active Dulcolax 5 MG eCW1 ([facility]) Bisacodyl 5 MG Delayed Release Oral Tablet [Dulcolax] Dulcolax 5 MG Dulcolax 5 MG 03/31/2021 12:00:00 AM EDT 2.0 {tablet_as_needed} active Dulcolax 5 MG eCW1 ([facility]) Bisacodyl 5 MG Delayed Release Oral Tablet [Dulcolax] Dulcolax 5 MG Dulcolax 5 MG 03/31/2021 12:00:00 AM EDT 2.0 {tablet_as_needed} active Dulcolax 5 MG eCW1 ([facility]) Bisacodyl 5 MG Delayed Release Oral Tablet [Dulcolax] Dulcolax 5 MG Dulcolax 5 MG 03/31/2021 12:00:00 AM EDT 2.0 {tablet_as_needed} active Dulcolax 5 MG eCW1 ([facility]) Boost High Protein - Boost High Protein - 03/26/2021 12:00:00 AM ED T 237.0 {ml} active Boost High Protein - eCW 1 ([facility]) Boost High Protein - Boost High Protein - 03/26/2021 12:00:00 AM ED T 237.0 {ml} active Boost High Protein - eCW 1 ([facility]) Boost High Protein - Boost High Protein - 03/26/2021 12:00:00 AM ED T 237.0 {ml} active Boost High Protein - eCW 1 ([facility]) Boost High Protein - Boost High Protein - 03/26/2021 12:00:00 AM ED T 237.0 {ml} active Boost High Protein - eCW 1 ([facility]) Boost High Protein - Boost High Protein - 03/26/2021 12:00:00 AM ED T 237.0 {ml} active Boost High Protein - eCW 1 ([facility]) Boost High Protein - Boost High Protein - 03/26/2021 12:00:00 AM ED T 237.0 {ml} active Boost High Protein - eCW 1 ([facility]) Boost High Protein - Boost High Protein - 03/26/2021 12:00:00 AM ED T 237.0 {ml} active Boost High Protein - eCW 1 ([facility]) Boost High Protein - Boost High Protein - 03/26/2021 12:00:00 AM ED T 237.0 {ml} active Boost High Protein - eCW 1 ([facility]) Boost High Protein - Boost High Protein - 03/26/2021 12:00:00 AM ED T 237.0 {ml} active Boost High Protein - eCW 1 ([facility]) Boost High Protein - Boost High Protein - 03/26/2021 12:00:00 AM ED T 237.0 {ml} active Boost High Protein - eCW 1 ([facility]) Boost High Protein - Boost High Protein - 03/26/2021 12:00:00 AM ED T 237.0 {ml} active Boost High Protein - eCW 1 ([facility]) Boost High Protein - Boost High Protein - 03/26/2021 12:00:00 AM ED T 237.0 {ml} active Boost High Protein - eCW 1 ([facility]) Boost High Protein - Boost High Protein - 03/26/2021 12:00:00 AM ED T 237.0 {ml} active Boost High Protein - eCW 1 ([facility]) Boost High Protein - Boost High Protein - 03/26/2021 12:00:00 AM ED T 237.0 {ml} active Boost High Protein - eCW 1 ([facility]) Bisacodyl 5 MG Delayed Release Oral Tablet [Dulcolax] Dulcolax 5 MG Dulcolax 5 MG 03/26/2021 12:00:00 AM EDT active Dulcolax 5 MG eCW1 ([facility]) Boost High Protein - Boost High Protein - 03/26/2021 12:00:00 AM ED T 237.0 {ml} active Boost High Protein - eCW 1 ([facility]) Docusate Sodium 10 MG/ML Oral Suspension Docusate Sodi um 50 MG/5ML Docusate Sodium 50 MG/5ML 03/24/2021 12:00:00 AM EDT 10.0 {ml} active Docusate Sodium 50 MG/5ML eCW1 ([facility]) Docusate Sodium 10 MG/ML Oral Suspension Docusate Sodi um 50 MG/5ML Docusate Sodium 50 MG/5ML 03/24/2021 12:00:00 AM EDT 10.0 {ml} active Docusate Sodium 50 MG/5ML eCW1 ([facility]) Docusate Sodium 10 MG/ML Oral Suspension Docusate Sodi um 50 MG/5ML Docusate Sodium 50 MG/5ML 03/24/2021 12:00:00 AM EDT 10.0 {ml} active Docusate Sodium 50 MG/5ML eCW1 ([facility]) Docusate Sodium 10 MG/ML Oral Suspension Docusate Sodi um 50 MG/5ML Docusate Sodium 50 MG/5ML 03/24/2021 12:00:00 AM EDT 10.0 {ml} active Docusate Sodium 50 MG/5ML eCW1 ([facility]) Docusate Sodium 10 MG/ML Oral Suspension Docusate Sodi um 50 MG/5ML Docusate Sodium 50 MG/5ML 03/24/2021 12:00:00 AM EDT 10.0 {ml} active Docusate Sodium 50 MG/5ML eCW1 ([facility]) Docusate Sodium 10 MG/ML Oral Suspension Docusate Sodi um 50 MG/5ML Docusate Sodium 50 MG/5ML 03/24/2021 12:00:00 AM EDT 10.0 {ml} active Docusate Sodium 50 MG/5ML eCW1 ([facility]) Docusate Sodium 10 MG/ML Oral Suspension Docusate Sodi um 50 MG/5ML Docusate Sodium 50 MG/5ML 03/24/2021 12:00:00 AM EDT 10.0 {ml} active Docusate Sodium 50 MG/5ML eCW1 ([facility]) Docusate Sodium 10 MG/ML Oral Suspension Docusate Sodi um 50 MG/5ML Docusate Sodium 50 MG/5ML 03/24/2021 12:00:00 AM EDT 10.0 {ml} active Docusate Sodium 50 MG/5ML eCW1 ([facility]) Docusate Sodium 10 MG/ML Oral Suspension Docusate Sodi um 50 MG/5ML Docusate Sodium 50 MG/5ML 03/24/2021 12:00:00 AM EDT 10.0 {ml} active Docusate Sodium 50 MG/5ML eCW1 ([facility]) Docusate Sodium 10 MG/ML Oral Suspension Docusate Sodi um 50 MG/5ML Docusate Sodium 50 MG/5ML 03/24/2021 12:00:00 AM EDT 10.0 {ml} active Docusate Sodium 50 MG/5ML eCW1 ([facility]) Docusate Sodium 10 MG/ML Oral Suspension Docusate Sodi um 50 MG/5ML Docusate Sodium 50 MG/5ML 03/24/2021 12:00:00 AM EDT 10.0 {ml} active Docusate Sodium 50 MG/5ML eCW1 ([facility]) Docusate Sodium 10 MG/ML Oral Suspension Docusate Sodi um 50 MG/5ML Docusate Sodium 50 MG/5ML 03/24/2021 12:00:00 AM EDT 10.0 {ml} active Docusate Sodium 50 MG/5ML eCW1 ([facility]) Docusate Sodium 10 MG/ML Oral Suspension Docusate Sodi um 50 MG/5ML Docusate Sodium 50 MG/5ML 03/24/2021 12:00:00 AM EDT 10.0 {ml} active Docusate Sodium 50 MG/5ML eCW1 ([facility]) Docusate Sodium 10 MG/ML Oral Suspension Docusate Sodi um 50 MG/5ML Docusate Sodium 50 MG/5ML 03/24/2021 12:00:00 AM EDT 10.0 {ml} active Docusate Sodium 50 MG/5ML eCW1 ([facility]) Docusate Sodium 10 MG/ML Oral Suspension Docusate Sodi um 50 MG/5ML Docusate Sodium 50 MG/5ML 03/24/2021 12:00:00 AM EDT 10.0 {ml} active Docusate Sodium 50 MG/5ML eCW1 ([facility]) Docusate Sodium 10 MG/ML Oral Suspension Docusate Sodi um 50 MG/5ML Docusate Sodium 50 MG/5ML 03/24/2021 12:00:00 AM EDT 10.0 {ml} active Docusate Sodium 50 MG/5ML eCW1 ([facility]) Mupirocin 0.02 MG/MG Topical Ointment Mupirocin 01/27/2021 12:00:00 AM EDT active MEDENT ([facility]) Bard Deluxe [employer]ric Leg Straps - [employer]uxe [employer] Leg Strap s - 10/26/2020 12:00:00 AM EDT active Bard Del uxe [employer] Leg Straps - eCW1 ([facility]) Bard Deluxe [employer]ric Leg Straps - Bard [employer]uxe [employer] Leg Strap s - 10/26/2020 12:00:00 AM EDT active Bard Del u[employer] Leg Straps - eCW1 ([facility]) Bard Deluxe [employer]ric Leg Straps - Bard [employer]uxe [employer] Leg Strap s - 10/26/2020 12:00:00 AM EDT active Bard Del u[employer]ric Leg Straps - eCW1 ([facility]) Bard Deluxe [employer]ric Leg Straps - Bard Deluxe [employer]ric Leg Strap s - 10/26/2020 12:00:00 AM EDT active Bard Del u[employer] Leg Straps - eCW1 ([facility]) Bard Deluxe [employer]ric Leg Straps - Bard Deluxe [employer] Leg Strap s - 10/26/2020 12:00:00 AM EDT active Bard Del u[employer]ric Leg Straps - eCW1 ([facility]) Bard Deluxe [employer]ric Leg Straps - Bard Deluxe [employer]ric Leg Strap s - 10/26/2020 12:00:00 AM EDT active Bard Del u[employer]ric Leg Straps - eCW1 ([facility]) Bard Deluxe [employer]ric Leg Straps - Bard Deluxe [employer]ric Leg Strap s - 10/26/2020 12:00:00 AM EDT active Bard Del u[employer]ric Leg Straps - eCW1 ([facility]) Bard Deluxe [employer]ric Leg Straps - Bard Deluxe [employer]ric Leg Strap s - 10/26/2020 12:00:00 AM EDT active Bard Del u[employer] Leg Straps - eCW1 ([facility]) Bard Deluxe Fabric Leg Straps - Bard Deluxe [employer]ric Leg Strap s - 10/26/2020 12:00:00 AM EDT active Bard Del u[employer] Leg Straps - eCW1 ([facility]) Bard Deluxe Fabric Leg Straps - Bard Deluxe [employer]ric Leg Strap s - 10/26/2020 12:00:00 AM EDT active Bard Del uxe [employer]ric Leg Straps - eCW1 ([facility]) Bard Deluxe Fabric Leg Straps - Bard Deluxe [employer]ric Leg Strap s - 10/26/2020 12:00:00 AM EDT active Bard Del uxe [employer]ric Leg Straps - eCW1 ([facility]) Bard Deluxe Fabric Leg Straps - Bard Deluxe [employer]ric Leg Strap s - 10/26/2020 12:00:00 AM EDT active Bard Del uxe [employer]ric Leg Straps - eCW1 ([facility]) Bard Deluxe Fabric Leg Straps - Bard Deluxe [employer]ric Leg Strap s - 10/26/2020 12:00:00 AM EDT active Bard Del uxe [employer]ric Leg Straps - eCW1 ([facility]) [employer] - [employer] s - 10/26/2020 12:00:00 AM EDT active [employer] - eCW1 ([facility]) [employer] - [employer] s - 10/26/2020 12:00:00 AM EDT active [employer] - eCW1 ([facility]) [employer] - [employer] s - 10/26/2020 12:00:00 AM EDT active [employer] - eCW1 ([facility]) [employer] - [employer] s - 10/26/2020 12:00:00 AM EDT active [employer] - eCW1 ([facility]) [employer] - [employer] s - 10/26/2020 12:00:00 AM EDT active [employer] - eCW1 ([facility]) [employer] - [employer] s - 10/26/2020 12:00:00 AM EDT active [employer] - eCW1 ([facility]) [employer] - [employer] s - 10/26/2020 12:00:00 AM EDT active [employer] - eCW1 ([facility]) [employer] - [employer] s - 10/26/2020 12:00:00 AM EDT active [employer] - eCW1 ([facility]) [employer] - [employer] s - 10/26/2020 12:00:00 AM EDT active [employer] - eCW1 ([facility]) [employer] - [employer] s - 10/26/2020 12:00:00 AM EDT active [employer] - eCW1 ([facility]) [employer] - [employer] s - 10/26/2020 12:00:00 AM EDT active [employer] - eCW1 ([facility]) Docusate Sodium 10 MG/ML Oral Solution Docusate Sodium 150 MG/15ML Docusate Sodium 150 MG/15ML 07/17/2020 12:00:00 AM EST 5.0 {ml_as_needed} active Docusate Sodium 150 MG/15ML eCW1 ([facility]) Docusate Sodium 10 MG/ML Oral Solution Docusate Sodium 150 MG/15ML Docusate Sodium 150 MG/15ML 07/17/2020 12:00:00 AM EST 5.0 {ml_as_needed} active Docusate Sodium 150 MG/15ML eCW1 ([facility]) Docusate Sodium 10 MG/ML Oral Solution Docusate Sodium 150 MG/15ML Docusate Sodium 150 MG/15ML 07/17/2020 12:00:00 AM EST 5.0 {ml_as_needed} active Docusate Sodium 150 MG/15ML eCW1 ([facility]) Docusate Sodium 10 MG/ML Oral Solution Docusate Sodium 150 MG/15ML Docusate Sodium 150 MG/15ML 07/17/2020 12:00:00 AM EST 5.0 {ml_as_needed} active Docusate Sodium 150 MG/15ML eCW1 ([facility]) Docusate Sodium 10 MG/ML Oral Solution Docusate Sodium 150 MG/15ML Docusate Sodium 150 MG/15ML 07/17/2020 12:00:00 AM EST 5.0 {ml_as_needed} active Docusate Sodium 150 MG/15ML eCW1 ([facility]) Docusate Sodium 10 MG/ML Oral Solution Docusate Sodium 150 MG/15ML Docusate Sodium 150 MG/15ML 07/17/2020 12:00:00 AM EST 5.0 {ml_as_needed} active Docusate Sodium 150 MG/15ML eCW1 ([facility]) Docusate Sodium 10 MG/ML Oral Solution Docusate Sodium 150 MG/15ML Docusate Sodium 150 MG/15ML 07/17/2020 12:00:00 AM EST 5.0 {ml_as_needed} active Docusate Sodium 150 MG/15ML eCW1 ([facility]) Docusate Sodium 10 MG/ML Oral Solution Docusate Sodium 150 MG/15ML Docusate Sodium 150 MG/15ML 07/17/2020 12:00:00 AM EST 5.0 {ml_as_needed} active Docusate Sodium 150 MG/15ML eCW1 ([facility]) Calcium 600 MG Calcium 600 MG 04/29/2020 12:00:00 AM EDT 1.0 {tablet_with_meals} active Calcium 600 MG eCW1 ([facility]) Calcium 600 MG Calcium 600 MG 04/29/2020 12:00:00 AM EDT 1.0 {tablet_with_meals} active Calcium 600 MG eCW1 ([facility]) Calcium 600 MG Calcium 600 MG 04/29/2020 12:00:00 AM EDT 1.0 {tablet_with_meals} active Calcium 600 MG eCW1 ([facility]) Cholecalciferol 400 UNT Oral Tablet Vitamin D-400 10 M CG (400 UNIT) Vitamin D- 400 10 MCG (400 UNIT) 04/29/2020 12:00:00 AM EDT 1.0 {tablet} active Vitamin D-400 10 MCG (400 UNIT) eCW1 ([facility]) Cholecalciferol 400 UNT Oral Tablet Vitamin D-400 10 M CG (400 UNIT) Vitamin D- 400 10 MCG (400 UNIT) 04/29/2020 12:00:00 AM EDT 1.0 {tablet} active Vitamin D-400 10 MCG (400 UNIT) eCW1 ([facility]) Cholecalciferol 400 UNT Oral Tablet Vitamin D-400 10 M CG (400 UNIT) Vitamin D- 400 10 MCG (400 UNIT) 04/29/2020 12:00:00 AM EDT 1.0 {tablet} active Vitamin D-400 10 MCG (400 UNIT) eCW1 ([facility]) Cholecalciferol 400 UNT Oral Tablet Vitamin D-400 10 M CG (400 UNIT) Vitamin D- 400 10 MCG (400 UNIT) 04/29/2020 12:00:00 AM EDT 1.0 {tablet} active Vitamin D-400 10 MCG (400 UNIT) eCW1 ([facility]) Calcium 600 MG Calcium 600 MG 04/29/2020 12:00:00 AM EDT 1.0 {tablet_with_meals} active Calcium 600 MG eCW1 ([facility]) Calcium 600 MG Calcium 600 MG 04/29/2020 12:00:00 AM EDT 1.0 {tablet_with_meals} active Calcium 600 MG eCW1 ([facility]) Calcium 600 MG Calcium 600 MG 04/29/2020 12:00:00 AM EDT 1.0 {tablet_with_meals} active Calcium 600 MG eCW1 ([facility]) Cholecalciferol 400 UNT Oral Tablet Vitamin D-400 10 M CG (400 UNIT) Vitamin D- 400 10 MCG (400 UNIT) 04/29/2020 12:00:00 AM EDT 1.0 {tablet} active Vitamin D-400 10 MCG (400 UNIT) eCW1 ([facility]) Cholecalciferol 400 UNT Oral Tablet Vitamin D-400 10 M CG (400 UNIT) Vitamin D- 400 10 MCG (400 UNIT) 04/29/2020 12:00:00 AM EDT 1.0 {tablet} active Vitamin D-400 10 MCG (400 UNIT) eCW1 ([facility]) Calcium 600 MG Calcium 600 MG 04/29/2020 12:00:00 AM EDT 1.0 {tablet_with_meals} active Calcium 600 MG eCW1 ([facility]) Calcium 600 MG Calcium 600 MG 04/29/2020 12:00:00 AM EDT 1.0 {tablet_with_meals} active Calcium 600 MG eCW1 ([facility]) Cholecalciferol 400 UNT Oral Tablet Vitamin D-400 10 M CG (400 UNIT) Vitamin D- 400 10 MCG (400 UNIT) 04/29/2020 12:00:00 AM EDT 1.0 {tablet} active Vitamin D-400 10 MCG (400 UNIT) eCW1 ([facility]) Calcium 600 MG Calcium 600 MG 04/29/2020 12:00:00 AM EDT 1.0 {tablet_with_meals} active Calcium 600 MG eCW1 ([facility]) Cholecalciferol 400 UNT Oral Tablet Vitamin D-400 10 M CG (400 UNIT) Vitamin D- 400 10 MCG (400 UNIT) 04/29/2020 12:00:00 AM EDT 1.0 {tablet} active Vitamin D-400 10 MCG (400 UNIT) eCW1 ([facility]) Calcium 600 MG Calcium 600 MG 04/29/2020 12:00:00 AM EDT 1.0 {tablet_with_meals} active Calcium 600 MG eCW1 ([facility]) Calcium 600 MG Calcium 600 MG 04/29/2020 12:00:00 AM EDT 1.0 {tablet_with_meals} active Calcium 600 MG eCW1 ([facility]) Calcium 600 MG Calcium 600 MG 04/29/2020 12:00:00 AM EDT 1.0 {tablet_with_meals} active Calcium 600 MG eCW1 ([facility]) Calcium 600 MG Calcium 600 MG 04/29/2020 12:00:00 AM EDT 1.0 {tablet_with_meals} active Calcium 600 MG eCW1 ([facility]) Cholecalciferol 400 UNT Oral Tablet Vitamin D-400 10 M CG (400 UNIT) Vitamin D- 400 10 MCG (400 UNIT) 04/29/2020 12:00:00 AM EDT 1.0 {tablet} active Vitamin D-400 10 MCG (400 UNIT) eCW1 ([facility]) Calcium 600 MG Calcium 600 MG 04/29/2020 12:00:00 AM EDT 1.0 {tablet_with_meals} active Calcium 600 MG eCW1 ([facility]) Calcium 600 MG Calcium 600 MG 04/29/2020 12:00:00 AM EDT 1.0 {tablet_with_meals} active Calcium 600 MG eCW1 ([facility]) Calcium 600 MG Calcium 600 MG 04/29/2020 12:00:00 AM EDT 1.0 {tablet_with_meals} active Calcium 600 MG eCW1 ([facility]) Cholecalciferol 400 UNT Oral Tablet Vitamin D-400 10 M CG (400 UNIT) Vitamin D- 400 10 MCG (400 UNIT) 04/29/2020 12:00:00 AM EDT 1.0 {tablet} active Vitamin D-400 10 MCG (400 UNIT) eCW1 ([facility]) Calcium 600 MG Calcium 600 MG 04/29/2020 12:00:00 AM EDT 1.0 {tablet_with_meals} active Calcium 600 MG eCW1 ([facility]) Cholecalciferol 400 UNT Oral Tablet Vitamin D-400 10 M CG (400 UNIT) Vitamin D- 400 10 MCG (400 UNIT) 04/29/2020 12:00:00 AM EDT 1.0 {tablet} active Vitamin D-400 10 MCG (400 UNIT) eCW1 ([facility]) Cholecalciferol 400 UNT Oral Tablet Vitamin D-400 10 M CG (400 UNIT) Vitamin D- 400 10 MCG (400 UNIT) 04/29/2020 12:00:00 AM EDT 1.0 {tablet} active Vitamin D-400 10 MCG (400 UNIT) eCW1 ([facility]) Cholecalciferol 400 UNT Oral Tablet Vitamin D-400 10 M CG (400 UNIT) Vitamin D- 400 10 MCG (400 UNIT) 04/29/2020 12:00:00 AM EDT 1.0 {tablet} active Vitamin D-400 10 MCG (400 UNIT) eCW1 ([facility]) Cholecalciferol 400 UNT Oral Tablet Vitamin D-400 10 M CG (400 UNIT) Vitamin D- 400 10 MCG (400 UNIT) 04/29/2020 12:00:00 AM EDT 1.0 {tablet} active Vitamin D-400 10 MCG (400 UNIT) eCW1 ([facility]) Calcium 600 MG Calcium 600 MG 04/29/2020 12:00:00 AM EDT 1.0 {tablet_with_meals} active Calcium 600 MG eCW1 ([facility]) Cholecalciferol 400 UNT Oral Tablet Vitamin D-400 10 M CG (400 UNIT) Vitamin D- 400 10 MCG (400 UNIT) 04/29/2020 12:00:00 AM EDT 1.0 {tablet} active Vitamin D-400 10 MCG (400 UNIT) eCW1 ([facility]) Cholecalciferol 400 UNT Oral Tablet Vitamin D-400 10 M CG (400 UNIT) Vitamin D- 400 10 MCG (400 UNIT) 04/29/2020 12:00:00 AM EDT 1.0 {tablet} active Vitamin D-400 10 MCG (400 UNIT) eCW1 ([facility]) Calcium 600 MG Calcium 600 MG 04/29/2020 12:00:00 AM EDT 1.0 {tablet_with_meals} active Calcium 600 MG eCW1 ([facility]) Calcium 600 MG Calcium 600 MG 04/29/2020 12:00:00 AM EDT 1.0 {tablet_with_meals} active Calcium 600 MG eCW1 ([facility]) Cholecalciferol 400 UNT Oral Tablet Vitamin D-400 10 M CG (400 UNIT) Vitamin D- 400 10 MCG (400 UNIT) 04/29/2020 12:00:00 AM EDT 1.0 {tablet} active Vitamin D-400 10 MCG (400 UNIT) eCW1 ([facility]) Cholecalciferol 400 UNT Oral Tablet Vitamin D-400 10 M CG (400 UNIT) Vitamin D- 400 10 MCG (400 UNIT) 04/29/2020 12:00:00 AM EDT 1.0 {tablet} active Vitamin D-400 10 MCG (400 UNIT) eCW1 ([facility]) Calcium 600 MG Calcium 600 MG 04/29/2020 12:00:00 AM EDT 1.0 {tablet_with_meals} active Calcium 600 MG eCW1 ([facility]) Calcium 600 MG Calcium 600 MG 04/29/2020 12:00:00 AM EDT 1.0 {tablet_with_meals} active Calcium 600 MG eCW1 ([facility]) Cholecalciferol 400 UNT Oral Tablet Vitamin D-400 10 M CG (400 UNIT) Vitamin D- 400 10 MCG (400 UNIT) 04/29/2020 12:00:00 AM EDT 1.0 {tablet} active Vitamin D-400 10 MCG (400 UNIT) eCW1 ([facility]) Cholecalciferol 400 UNT Oral Tablet Vitamin D-400 10 M CG (400 UNIT) Vitamin D- 400 10 MCG (400 UNIT) 04/29/2020 12:00:00 AM EDT 1.0 {tablet} active Vitamin D-400 10 MCG (400 UNIT) eCW1 ([facility]) Calcium 600 MG Calcium 600 MG 04/29/2020 12:00:00 AM EDT 1.0 {tablet_with_meals} active Calcium 600 MG eCW1 ([facility]) Cholecalciferol 400 UNT Oral Tablet Vitamin D-400 10 M CG (400 UNIT) Vitamin D- 400 10 MCG (400 UNIT) 04/29/2020 12:00:00 AM EDT 1.0 {tablet} active Vitamin D-400 10 MCG (400 UNIT) eCW1 ([facility]) Calcium 600 MG Calcium 600 MG 04/29/2020 12:00:00 AM EDT 1.0 {tablet_with_meals} active Calcium 600 MG eCW1 ([facility]) Calcium 600 MG Calcium 600 MG 04/29/2020 12:00:00 AM EDT 1.0 {tablet_with_meals} active Calcium 600 MG eCW1 ([facility]) Calcium 600 MG Calcium 600 MG 04/29/2020 12:00:00 AM EDT 1.0 {tablet_with_meals} active Calcium 600 MG eCW1 ([facility]) Cholecalciferol 400 UNT Oral Tablet Vitamin D-400 10 M CG (400 UNIT) Vitamin D- 400 10 MCG (400 UNIT) 04/29/2020 12:00:00 AM EDT 1.0 {tablet} active Vitamin D-400 10 MCG (400 UNIT) eCW1 ([facility]) Calcium 600 MG Calcium 600 MG 04/29/2020 12:00:00 AM EDT 1.0 {tablet_with_meals} active Calcium 600 MG eCW1 ([facility]) Calcium 600 MG Calcium 600 MG 04/29/2020 12:00:00 AM EDT 1.0 {tablet_with_meals} active Calcium 600 MG eCW1 ([facility]) Calcium 600 MG Calcium 600 MG 04/29/2020 12:00:00 AM EDT 1.0 {tablet_with_meals} active Calcium 600 MG eCW1 ([facility]) Calcium 600 MG Calcium 600 MG 04/29/2020 12:00:00 AM EDT 1.0 {tablet_with_meals} active Calcium 600 MG eCW1 ([facility]) Cholecalciferol 400 UNT Oral Tablet Vitamin D-400 10 M CG (400 UNIT) Vitamin D- 400 10 MCG (400 UNIT) 04/29/2020 12:00:00 AM EDT 1.0 {tablet} active Vitamin D-400 10 MCG (400 UNIT) eCW1 ([facility]) Cholecalciferol 400 UNT Oral Tablet Vitamin D-400 10 M CG (400 UNIT) Vitamin D- 400 10 MCG (400 UNIT) 04/29/2020 12:00:00 AM EDT 1.0 {tablet} active Vitamin D-400 10 MCG (400 UNIT) eCW1 ([facility]) Calcium 600 MG Calcium 600 MG 04/29/2020 12:00:00 AM EDT 1.0 {tablet_with_meals} active Calcium 600 MG eCW1 ([facility]) Cholecalciferol 400 UNT Oral Tablet Vitamin D-400 10 M CG (400 UNIT) Vitamin D- 400 10 MCG (400 UNIT) 04/29/2020 12:00:00 AM EDT 1.0 {tablet} active Vitamin D-400 10 MCG (400 UNIT) eCW1 ([facility]) Calcium 600 MG Calcium 600 MG 04/29/2020 12:00:00 AM EDT 1.0 {tablet_with_meals} active Calcium 600 MG eCW1 ([facility]) Cholecalciferol 400 UNT Oral Tablet Vitamin D-400 10 M CG (400 UNIT) Vitamin D- 400 10 MCG (400 UNIT) 04/29/2020 12:00:00 AM EDT 1.0 {tablet} active Vitamin D-400 10 MCG (400 UNIT) eCW1 ([facility]) Cholecalciferol 400 UNT Oral Tablet Vitamin D-400 10 M CG (400 UNIT) Vitamin D- 400 10 MCG (400 UNIT) 04/29/2020 12:00:00 AM EDT 1.0 {tablet} active Vitamin D-400 10 MCG (400 UNIT) eCW1 ([facility]) Calcium 600 MG Calcium 600 MG 04/29/2020 12:00:00 AM EDT 1.0 {tablet_with_meals} active Calcium 600 MG eCW1 ([facility]) Cholecalciferol 400 UNT Oral Tablet Vitamin D-400 10 M CG (400 UNIT) Vitamin D- 400 10 MCG (400 UNIT) 04/29/2020 12:00:00 AM EDT 1.0 {tablet} active Vitamin D-400 10 MCG (400 UNIT) eCW1 ([facility]) Calcium 600 MG Calcium 600 MG 04/29/2020 12:00:00 AM EDT 1.0 {tablet_with_meals} active Calcium 600 MG eCW1 ([facility]) Cholecalciferol 400 UNT Oral Tablet Vitamin D-400 10 M CG (400 UNIT) Vitamin D- 400 10 MCG (400 UNIT) 04/29/2020 12:00:00 AM EDT 1.0 {tablet} active Vitamin D-400 10 MCG (400 UNIT) eCW1 ([facility]) Calcium 600 MG Calcium 600 MG 04/29/2020 12:00:00 AM EDT 1.0 {tablet_with_meals} active Calcium 600 MG eCW1 ([facility]) Cholecalciferol 400 UNT Oral Tablet Vitamin D-400 10 M CG (400 UNIT) Vitamin D- 400 10 MCG (400 UNIT) 04/29/2020 12:00:00 AM EDT 1.0 {tablet} active Vitamin D-400 10 MCG (400 UNIT) eCW1 ([facility]) Cholecalciferol 400 UNT Oral Tablet Vitamin D-400 10 M CG (400 UNIT) Vitamin D- 400 10 MCG (400 UNIT) 04/29/2020 12:00:00 AM EDT 1.0 {tablet} active Vitamin D-400 10 MCG (400 UNIT) eCW1 ([facility]) Calcium 600 MG Calcium 600 MG 04/29/2020 12:00:00 AM EDT 1.0 {tablet_with_meals} active Calcium 600 MG eCW1 ([facility]) Cholecalciferol 400 UNT Oral Tablet Vitamin D-400 10 M CG (400 UNIT) Vitamin D- 400 10 MCG (400 UNIT) 04/29/2020 12:00:00 AM EDT 1.0 {tablet} active Vitamin D-400 10 MCG (400 UNIT) eCW1 ([facility]) Cholecalciferol 400 UNT Oral Tablet Vitamin D-400 10 M CG (400 UNIT) Vitamin D- 400 10 MCG (400 UNIT) 04/29/2020 12:00:00 AM EDT 1.0 {tablet} active Vitamin D-400 10 MCG (400 UNIT) eCW1 ([facility]) Calcium 600 MG Calcium 600 MG 04/29/2020 12:00:00 AM EDT 1.0 {tablet_with_meals} active Calcium 600 MG eCW1 ([facility]) Cholecalciferol 400 UNT Oral Tablet Vitamin D-400 10 M CG (400 UNIT) Vitamin D- 400 10 MCG (400 UNIT) 04/29/2020 12:00:00 AM EDT 1.0 {tablet} active Vitamin D-400 10 MCG (400 UNIT) eCW1 ([facility]) Cholecalciferol 400 UNT Oral Tablet Vitamin D-400 10 M CG (400 UNIT) Vitamin D- 400 10 MCG (400 UNIT) 04/29/2020 12:00:00 AM EDT 1.0 {tablet} active Vitamin D-400 10 MCG (400 UNIT) eCW1 ([facility]) Calcium 600 MG Calcium 600 MG 04/29/2020 12:00:00 AM EDT 1.0 {tablet_with_meals} active Calcium 600 MG eCW1 ([facility]) Cholecalciferol 400 UNT Oral Tablet Vitamin D-400 10 M CG (400 UNIT) Vitamin D- 400 10 MCG (400 UNIT) 04/29/2020 12:00:00 AM EDT 1.0 {tablet} active Vitamin D-400 10 MCG (400 UNIT) eCW1 ([facility]) Calcium 600 MG Calcium 600 MG 04/29/2020 12:00:00 AM EDT 1.0 {tablet_with_meals} active Calcium 600 MG eCW1 ([facility]) Calcium 600 MG Calcium 600 MG 04/29/2020 12:00:00 AM EDT 1.0 {tablet_with_meals} active Calcium 600 MG eCW1 ([facility]) Cholecalciferol 400 UNT Oral Tablet Vitamin D-400 10 M CG (400 UNIT) Vitamin D- 400 10 MCG (400 UNIT) 04/29/2020 12:00:00 AM EDT 1.0 {tablet} active Vitamin D-400 10 MCG (400 UNIT) eCW1 ([facility]) Cholecalciferol 400 UNT Oral Tablet Vitamin D-400 10 M CG (400 UNIT) Vitamin D- 400 10 MCG (400 UNIT) 04/29/2020 12:00:00 AM EDT 1.0 {tablet} active Vitamin D-400 10 MCG (400 UNIT) eCW1 ([facility]) Calcium 600 MG Calcium 600 MG 04/29/2020 12:00:00 AM EDT 1.0 {tablet_with_meals} active Calcium 600 MG eCW1 ([facility]) Cholecalciferol 400 UNT Oral Tablet Vitamin D-400 10 M CG (400 UNIT) Vitamin D- 400 10 MCG (400 UNIT) 04/29/2020 12:00:00 AM EDT 1.0 {tablet} active Vitamin D-400 10 MCG (400 UNIT) eCW1 ([facility]) Cholecalciferol 400 UNT Oral Tablet Vitamin D-400 10 M CG (400 UNIT) Vitamin D- 400 10 MCG (400 UNIT) 04/29/2020 12:00:00 AM EDT 1.0 {tablet} active Vitamin D-400 10 MCG (400 UNIT) eCW1 ([facility]) Cholecalciferol 400 UNT Oral Tablet Vitamin D-400 10 M CG (400 UNIT) Vitamin D- 400 10 MCG (400 UNIT) 04/29/2020 12:00:00 AM EDT 1.0 {tablet} active Vitamin D-400 10 MCG (400 UNIT) eCW1 ([facility]) Calcium 600 MG Calcium 600 MG 04/29/2020 12:00:00 AM EDT 1.0 {tablet_with_meals} active Calcium 600 MG eCW1 ([facility]) Cholecalciferol 400 UNT Oral Tablet Vitamin D-400 10 M CG (400 UNIT) Vitamin D- 400 10 MCG (400 UNIT) 04/29/2020 12:00:00 AM EDT 1.0 {tablet} active Vitamin D-400 10 MCG (400 UNIT) eCW1 ([facility]) Insurance Providers Payer name Policy type / Coverage type Policy ID Covered constitution party ID Covered constitution party's relationship to wolf Policy Wolf Plan Information Medicare Natl Gov't Servi Medicare Primary [id number] Self 1 [id number] MEDICARE [id number] SP [id number] M Medicare Natl Gov't Servi Medicare Primary [id number] Self 1 [id number] Medicare Natl Gov't Servi Medicare Primary [id number] Self 1 [id number] Medicare Natl Gov't Servi Medicare Primary [id number] Self MEDICARE [id number] SP [id number] M Medicare Natl Gov't Servi Medicare Primary [id number] Self 1 [id number] Medicare Natl Gov't Servi Medicare Primary [id number] Self 1 [id number] Medicare Natl Gov't Servi Medicare Primary [id number] Self 1 [id number] Medicare Natl Gov't Servi Medicare Primary [id number] Self 1 [id number] Medicare Natl Gov't Servi Medicare Primary [id number] Self 1 [id number] Medicaid Dental O [id number] S [id number] Medicaid Dental P [id number] S [id number] MEDICAID [id number] SP [id number] ANSI-Medicaid [id number] ANSI-Medicare Part B [id number] ANSI-Medicaid [id number] ANSI-Medicare Part B [id number] ANSI-Medicaid [id number] ANSI-Medicaid [id number] ANSI-Medicare Part B [id number] ANSI-Medicaid [id number] ANSI-Medicare Part B [id number] Medicaid Medicaid [id number] Self [id number] Medicare Medicare Primary [id number] Self [id number] ANSI-Medicare Part B [id number] ANSI-Medicaid [id number] ANSI-Medicare Part B [id number] ANSI-Medicaid [id number] ANSI-Medicaid [id number] ANSI-Medicare Part B [id number] ANSI-Medicare Part B [id number] ANSI-Medicaid [id number] ANSI-Medicare Part B [id number] ANSI-Medicaid [id number] ANSI-Medicare Part B [id number] ANSI-Medicaid [id number] ANSI-Medicaid [id number] ANSI-Medicare Part B [id number] ANSI-Medicaid [id number] ANSI-Medicare Part B [id number] ANSI-Medicare Part B [id number] ANSI-Medicaid [id number] ANSI-Medicaid [id number] ANSI-Medicare Part B [id number] ANSI-Medicare Part B [id number] ANSI-Medicaid [id number] ANSI-Medicare Part B [id number] ANSI-Medicaid [id number] ANSI-Medicaid [id number] ANSI-Medicare Part B [id number] ANS-Medicaid [id number] ANSI-Medicare Part B [id number] ANSI-Medicaid [id number] ANSI-Medicare Part B [id number] ANSI-Medicaid [id number] ANSI-Medicare Part B [id number] ANSI-Medicaid [id number] ANSI-Medicare Part B [id number] ANSI-Medicare Part B [id number] ANSI-Medicaid [id number] ANSI-Medicare Part B [id number] ANSI-Medicaid [id number] ANSI-Medicaid [id number] ANSI-Medicare Part B [id number] ANSI-Medicaid [id number] ANSI-Medicare Part B [id number] ANSI-Medicaid [id number] ANSI-Medicare Part B [id number] ANSI-Medicaid [id number] ANSI-Medicare Part B [id number] ANSI-Medicaid [id number] ANSI-Medicare Part B [id number] ANSI-Medicaid [id number] ANSI-Medicare Part B [id number] ANSI-Medicaid [id number] ANSI-Medicare Part B [id number] ANSI-Medicaid [id number] ANSI-Medicare Part B [id number] ANSI-Medicare Part B [id number] ANSI-Medicaid [id number] ANSI-Medicaid [id number] ANSI-Medicare Part B [id number] MEDICARE [id number] ANSI-Medicare Part B [id number] ANSI-Medicaid [id number] ANSI-Medicare Part B [id number] ANSI-Medicaid [id number] ANSI-Medicare Part B [id number] ANSI-Medicaid [id number] ANSI-Medicaid [id number] ANSI-Medicare Part B [id number] ANSI-Medicare Part B [id number] ANSI-Medicaid [id number] ANSI-Medicare Part B [id number] ANSI-Medicaid [id number] Medicaid Medicaid [id number] 2.0.1.735597.3.227.99.936.25039.0 S [facility] [id number] Medicare Medicare Primary [id number] 2.16.840.1.704987.3.227. 99.936.15399.0 [facility] [id number] ANSI-Medicaid [id number] ANSI-Medicare Part B [id number] ANSI-Medicare Part B [id number] ANSI-Medicaid [id number] ANSI-Medicare Part B [id number] ANSI-Medicaid [id number] Medicaid [facility] Part B [id number] 2.16.840.1.718183.3.227.99.1767 .6498.0 Self [id number] Medicaid Medicaid [id number] 2.16.840.1.793544.3.227.99.936.24060.0 S elf [id number] Medicare Medicare Primary [id number] 2.16.840.1.042557.3.227. 99.936.72991.0 Self [id number] ANSI-Medicare Part B [id number] ANSI-Medicaid [id number] ANSI-Medicare Part B [id number] ANSI-Medicaid [id number] ANSI-Medicaid [id number] ANSI-Medicare Part B [id number] ANSI-Medicare Part B [id number] ANSI-Medicaid [id number] ANSI-Medicare Part B [id number] ANSI-Medicaid [id number] ANSI-Medicaid [id number] ANSI-Medicare Part B [id number] ANSI-Medicare Part B [id number] ANSI-Medicaid [id number] ANSI-Medicare Part B [id number] ANSI-Medicaid [id number] ANSI-Medicare Part B [id number] ANSI-Medicaid [id number] ANSI-Medicaid [id number] ANSI-Medicare Part B [id number] Medicaid Medicaid [id number] 08.18.830.1.016293.3.227.99.936.34112.0 S elf [id number] Medicare Medicare Primary [id number] .[id number]. 99.936.62329.0 Self [id number] MEDICARE C [id number] S [id number] M Medicaid [place] Med[place] Part B [id number] .6498.0 Self [id number] Medicaid Medicaid [id number] 2.16.840.1.026719.3.227.99.936.82656.0 S elf [id number] Medicare Medicare Primary [id number] 2.16.840.1.047313.3.227. 99.936.49459.0 Self [id number] Medicaid Medicaid [id number] 2.16.840.1.976099.3.227.99.936.89286.0 S elf [id number] Medicare Medicare Primary [id number] 2.16.840.1.458997.3.227. 99.936.79942.0 Self [id number] Medicaid [place] Med[place] Part B [id number] 2.16.840.1.410921.3.227.99.1767 .6498.0 Self [id number] [place] [id number] 2.16.840.1.461776.3.227.99.1767 .6498.0 Self [id number] [place] [id number] 2.16.840.1.788125.3.227.99.1767 .6498.0 Self [id number] [place] [id number] 2.16.840.1.562101.3.227.99.1767 .6498.0 Self [id number] Medicaid Medicaid [id number] 2.16.840.1.777981.3.227.99.936.27232.0 S elf [id number] Medicare Medicare Primary [id number] 2.16.840.1.875947.3.227. 99.936.08858.0 Self [id number] Medicaid Medicaid [id number] 2.16.840.1.434792.3.227.99.936.90620.0 S elf [id number] Medicare Medicare Primary [id number] 2.16.840.1.611380.3.227. 99.936.61679.0 Self [id number] [place] Part [place] [id number] 2.16.840.1.865698.3.227.99.1767 .6498.0 Self [id number] [place] [id number] 2.16.840.1.079089.3.227.99.1767 .6498.0 Self [id number] Medicaid Medicaid [id number] 2.16.840.1.005230.3.227.99.936.07133.0 S elf [id number] Medicare Medicare Primary [id number] 2.16.840.1.484228.3.227. 99.936.35133.0 Self [id number] Medicaid Medicaid [id number] 2.16.840.1.457513.3.227.99.936.07063.0 S elf [id number] Medicare Medicare Primary [id number] 2.16.840.1.682258.3.227. 99.936.01137.0 Self [id number] Medicaid Medicaid [id number] 2.16.840.1.602711.3.227.99.936.78972.0 S elf [id number] Medicare Medicare Primary [id number] 2.16.840.1.204396.3.227. 99.936.80321.0 Self [id number] Medicaid Medicaid [id number] 2.16.840.1.833357.3.227.99.936.68546.0 S elf [id number] Medicare Medicare Primary [id number] 2.16.840.1.158193.3.227. 99.936.70607.0 Self [id number] [place] Med[place] Part B 2.16.840.1.087428.3.227.99.991.16 7812.0 Self Medicare [facility] Medicare Primary 2.16.840.1.380568.3. 227.99.991.429012.0 Self Medicaid Medicaid [id number] Self Medicare Medicare Primary [id number] Self Medicaid [place] Medicaid [id number] Self MEDICAID UNAVAILABLE UNAVAILA BLE MEDICAID M [id number] S [id number] Medicare P [id number] S [id number] Medicaid S [id number] S [id number] Medicaid MRDD Dental O [id number] S [id number] [place] [id number] SP [id number] MEDICARE [id number] SP [id number] [place]ED[place] [id number] SP [id number] MEDICAID [id number] SP [id number] MEDICAID [id number] SP [id number] MEDICARE C [id number] S [id number] MEDICAID M [id number] S [id number] MEDICARE [id number] SP [id number] ANSI-Medicare Part B [id number] ANSI-Medicaid [id number] ANSI-Medicare Part B [id number] ANSI-Medicaid [id number] ANSI-Medicare Part B [id number] Problems, Conditions, and Diagnoses Code Display Name Description Problem Type Effective Dates Data Source(s) K83.8 505993283 Pneumobilia Problem 04/07/2021 12:00:00 AM E DT eCW1 ([facility]) N32.89 [id number] Bladder wall thickening Problem 04/07/2021 1 2:00:00 AM EDT eCW1 ([facility]) E88.09 [id number] Hypoalbuminemia Problem 03/26/2021 12:00:00 AM EDT eCW1 ([facility]) Surgeries/Procedures Procedure Description Date Indications Data Source(s) DEBRIDEMENT NAIL ANY METHOD 02/22/2021 12:00:00 AM EDT MEDENT ([facility] OFFICE OUTPATIENT VISIT 15 MINUTES 02/22/2021 12:00:00 AM EDT MEDENT ([facility] OFFICE OUTPATIENT VISIT 15 MINUTES 01/27/2021 12:00:00 AM EDT MEDENT ([facility]) DEBRIDEMENT NAIL ANY METHOD 03/17/2020 12:00:00 AM EDT [facility] ([facility] Results ID Date Data Source PHOSPHOROUS LEVEL 04/07/2021 12:00:00 AM EDT eCW1 ([facility]) Name Value Range Interpretation Code Description Data Camelia rce(s) Supporting Document(s) 3.7 2.5-4.9 PHOSPHORUS LEVEL eCW1 ([facility]) ID Date Data Source MAGNESIUM LEVEL 04/07/2021 12:00:00 AM EDT eCW1 ([facility]) Name Value Range Interpretation Code Description Data Camelia rce(s) Supporting Document(s) 1.8 1.8-2.4 MAGNESIUM LEVEL eCW1 ([facility]) ID Date Data Source [id number] 04/01/2021 08:02:00 AM EDT [facility] Name Value Range Interpretation Code Description Data Camelia rce(s) Supporting Document(s) SARS-CoV-2 (COVID 19) NEGATIVE - SARS-CoV-2 (COVID19) [facility] This lab was ordered by [facility] a nd reported by [facility]. Procedure Social History Code Duration Value Status Description Data Source(s ) Smoking 04/28/2021 12:00:00 AM EDT Never Smoker completed Never S moker eCW1 ([facility]) Smoking 04/28/2021 12:00:00 AM EDT Never Smoker completed Never S moker eCW1 ([facility]) Smoking 04/07/2021 12:00:00 AM EDT Never Smoker completed Never S moker eCW1 ([facility]) Smoking 04/07/2021 12:00:00 AM EDT Never Smoker completed Never S moker eCW1 ([facility]) Smoking 04/07/2021 12:00:00 AM EDT Never Smoker completed Never S moker eCW1 ([facility]) Smoking 04/07/2021 12:00:00 AM EDT Never Smoker completed Never S moker eCW1 ([facility]) Smoking 04/07/2021 12:00:00 AM EDT Never Smoker completed Never S moker eCW1 ([facility]) Smoking 04/07/2021 12:00:00 AM EDT Never Smoker completed Never S moker eCW1 ([facility]) Smoking 04/07/2021 12:00:00 AM EDT Never Smoker completed Never S moker eCW1 ([facility]) Smoking 09/24/2020 12:00:00 AM EDT Never Smoker completed Never S moker eCW1 ([facility]) Smoking 09/24/2020 12:00:00 AM EDT Never Smoker completed Never S moker eCW1 ([facility]) Smoking 09/24/2020 12:00:00 AM EDT Never Smoker completed Never S moker eCW1 ([facility]) Smoking 09/24/2020 12:00:00 AM EDT Never Smoker completed Never S moker eCW1 ([facility]) Smoking 09/24/2020 12:00:00 AM EDT Never Smoker completed Never S moker eCW1 ([facility]) Smoking 09/24/2020 12:00:00 AM EDT Never Smoker completed Never S moker eCW1 ([facility]) Smoking 09/24/2020 12:00:00 AM EDT Never Smoker completed Never S moker eCW1 ([facility]) Smoking 09/24/2020 12:00:00 AM EDT Never Smoker completed Never S moker eCW1 ([facility]) Smoking 09/24/2020 12:00:00 AM EDT Never Smoker completed Never S moker eCW1 ([facility]) Smoking 09/24/2020 12:00:00 AM EDT Never Smoker completed Never S moker eCW1 ([facility]) Smoking 09/24/2020 12:00:00 AM EDT Never Smoker completed Never S moker eCW1 ([facility]) Smoking 09/24/2020 12:00:00 AM EDT Never Smoker completed Never S moker eCW1 ([facility]) Smoking 09/24/2020 12:00:00 AM EDT Never Smoker completed Never S moker eCW1 ([facility]) Smoking 09/24/2020 12:00:00 AM EDT Never Smoker completed Never S moker eCW1 ([facility]) Smoking 09/24/2020 12:00:00 AM EDT Never Smoker completed Never S moker eCW1 ([facility]) Smoking 09/24/2020 12:00:00 AM EDT Never Smoker completed Never S moker eCW1 ([facility]) Smoking 07/14/2020 12:00:00 AM EST Never Smoker completed Never S moker eCW1 ([facility]) Smoking 07/14/2020 12:00:00 AM EST Never Smoker completed Never S moker eCW1 ([facility]) Smoking 07/14/2020 12:00:00 AM EST Never Smoker completed Never S moker eCW1 ([facility]) Smoking 07/14/2020 12:00:00 AM EST Never Smoker completed Never S moker eCW1 ([facility]) Smoking 07/14/2020 12:00:00 AM EST Never Smoker completed Never S moker eCW1 ([facility]) Smoking 07/14/2020 12:00:00 AM EST Never Smoker completed Never S moker eCW1 ([facility]) Smoking 07/14/2020 12:00:00 AM EST Never Smoker completed Never S moker eCW1 ([facility]) Smoking 07/14/2020 12:00:00 AM EST Never Smoker completed Never S moker eCW1 ([facility]) Vital Signs ID Date Data Source UNK Name Value Range Interpretation Code Description Data Source(s) Body weight 185 [lb_av] 185 [lb_av] eCW1 ([facility]) Body weight 83.92 kg 83.92 kg eCW1 ([facility]) Body height 66 [in_i] 66 [in_i] eCW1 ([facility]) Body mass index (BMI) [Ratio] 29.86 kg/m2 29.86 kg/m2 eCW1 ([facility]) Heart rate 60 /min 60 /min eCW1 (formerly [facility]) Respiratory rate 20 /min 20 /min eCW1 (Former[facility]) Body temperature 95.8 [degF] 95.8 [degF] eCW1 ( [facility]) Systolic blood pressure 122 mm[Hg] 122 mm[Hg] e CW1 ([facility]) Diastolic blood pressure 70 mm[Hg] 70 mm[Hg] eCW1 ([facility]) Body weight 185 [lb_av] 185 [lb_av] eCW1 ([facility]) Body weight 83.92 kg 83.92 kg eCW1 ([facility]) Body height 66 [in_i] 66 [in_i] eCW1 ([facility]) Body mass index (BMI) [Ratio] 29.86 kg/m2 29.86 kg/m2 eCW1 ([facility]) Heart rate 60 /min 60 /min eCW1 (formerly [facility]) Respiratory rate 20 /min 20 /min eCW1 (Formerly [facility]) Body temperature 96.0 [degF] 96.0 [degF] eCW1 ( [facility]) Systolic blood pressure 128 mm[Hg] 128 mm[Hg] e CW1 ([facility]) Diastolic blood pressure 60 mm[Hg] 60 mm[Hg] eCW1 ([facility]) Systolic blood pressure 142 mm[Hg] 142 mm[Hg] M EDENT ([facility], [facility]) Diastolic blood pressure 72 mm[Hg] 72 mm[Hg] MEDENT ([facility], [facility]) Heart rate 87 /min 87 /min MEDENT ([facility], [facility]) Respiratory rate 16 /min 16 /min MEDENT ( [facility], [facility]) Oxygen saturation in Arterial blood by Pulse oximetry 99 % 99 % MEDENT ([facility], [facility]) Body temperature 98.7 [degF] 98.7 [degF] MEDENT ([facility], [facility]) Body weight 190.00 [lb_av] 190.00 [lb_av] MEDEN T ([facility], [facility]) Body height 65 [in_i] 65 [in_i] MEDENT ([facility]) 5'5" Body mass index (BMI) [Ratio] 31.6 kg/m2 31.6 k g/m2 MEDENT ([facility], [facility]) Body weight [lb_av] eCW1 ([facility]) Body height 66 [in_i] 66 [in_i] eCW1 ([facility]) Body mass index (BMI) [Ratio] 32.44 kg/m2 32.44 kg/m2 eCW1 ([facility]) Heart rate 81 /min 81 /min eCW1 (formerly [facility]) Respiratory rate 20 /min 20 /min eCW1 (Formerly [facility]) Body temperature 98.0 [degF] 98.0 [degF] eCW1 ( [facility]) Systolic blood pressure 120 mm[Hg] 120 mm[Hg] e CW1 ([facility]) Diastolic blood pressure 74 mm[Hg] 74 mm[Hg] eCW1 ([facility]) Body weight 201 [lb_av] 201 [lb_av] eCW1 ([facility]) Body height 66 [in_i] 66 [in_i] eCW1 ([facility]) Body mass index (BMI) [Ratio] 32.44 kg/m2 32.44 kg/m2 eCW1 ([facility]) Heart rate 98 /min 98 /min eCW1 (formerly [facility]) Respiratory rate 20 /min 20 /min eCW1 ([facility]) Systolic blood pressure 118 mm[Hg] 118 mm[Hg] e CW1 ([facility]) Diastolic blood pressure 66 mm[Hg] 66 mm[Hg] eCW1 ([facility]) Patient Treatment Plan of Care Planned Activity Planned Date Details Description Data Source (s) carbamide peroxide 65 MG/ML Otic Solution [Debrox] 04/28/2021 12 :00:00 AM EDT eCW1 ([facility]) carbamide peroxide 65 MG/ML Otic Solution [Debrox] 04/28/2021 12 :00:00 AM EDT eCW1 ([facility]) [place] Rectal Tube 04/27/2021 12:00:00 AM EDT eCW1 ([facility]) Probiotic 250 MG 04/18/2021 12:00:00 AM EDT eCW1 ([facility]) cefdinir 300 MG Oral Capsule 04/18/2021 12:00:00 AM EDT eCW1 ([facility]) Amoxicillin 500 MG Oral Capsule 04/18/2021 12:00:00 AM EDT eCW1 ([facility]) Probiotic 250 MG 04/18/2021 12:00:00 AM EDT eCW1 ([facility]) cefdinir 300 MG Oral Capsule 04/18/2021 12:00:00 AM EDT eCW1 ([facility]) Amoxicillin 500 MG Oral Capsule 04/18/2021 12:00:00 AM EDT eCW1 ([facility]) Probiotic 250 MG 04/18/2021 12:00:00 AM EDT eCW1 ([facility]) cefdinir 300 MG Oral Capsule 04/18/2021 12:00:00 AM EDT eCW1 ([facility]) Amoxicillin 500 MG Oral Capsule 04/18/2021 12:00:00 AM EDT eCW1 ([facility]) Levetiracetam 100 MG/ML Oral Solution [Keppra] 04/10/2021 12:00:00 AM EDT eCW1 ([facility]) Levetiracetam 100 MG/ML Oral Solution [Keppra] 04/10/2021 12:00:00 AM EDT eCW1 ([facility]) Levetiracetam 100 MG/ML Oral Solution [Keppra] 04/10/2021 12:00:00 AM EDT eCW1 ([facility]) Levetiracetam 100 MG/ML Oral Solution [Keppra] 04/10/2021 12:00:00 AM EDT eCW1 ([facility]) Bisacodyl 5 MG Delayed Release Oral Tablet [Dulcolax] 03/31/2021 12:00:00 AM EDT eCW1 ([facility]) Bisacodyl 5 MG Delayed Release Oral Tablet [Dulcolax] 03/31/2021 12:00:00 AM EDT eCW1 ([facility]) Bisacodyl 5 MG Delayed Release Oral Tablet [Dulcolax] 03/31/2021 12:00:00 AM EDT eCW1 ([facility]) Bisacodyl 5 MG Delayed Release Oral Tablet [Dulcolax] 03/31/2021 12:00:00 AM EDT eCW1 ([facility]) Bisacodyl 5 MG Delayed Release Oral Tablet [Dulcolax] 03/31/2021 12:00:00 AM EDT eCW1 ([facility]) Boost High Protein - 03/26/2021 12:00:00 AM EDT eCW1 ([facility]) Boost High Protein - 03/26/2021 12:00:00 AM EDT eCW1 ([facility]) Bisacodyl 5 MG Delayed Release Oral Tablet [Dulcolax] 03/26/2021 12:00:00 AM EDT eCW1 ([facility]) Boost High Protein - 03/26/2021 12:00:00 AM EDT eCW1 ([facility]) Boost High Protein - 03/26/2021 12:00:00 AM EDT eCW1 ([facility]) Boost High Protein - 03/26/2021 12:00:00 AM EDT eCW1 ([facility]) Boost High Protein - 03/26/2021 12:00:00 AM EDT eCW1 ([facility]) Docusate Sodium 10 MG/ML Oral Suspension 03/24/2021 12:00:00 AM EDT eCW1 ([facility]) Docusate Sodium 10 MG/ML Oral Suspension 03/24/2021 12:00:00 AM EDT eCW1 ([facility]) Docusate Sodium 10 MG/ML Oral Suspension 03/24/2021 12:00:00 AM EDT eCW1 ([facility]) Docusate Sodium 10 MG/ML Oral Suspension 03/24/2021 12:00:00 AM EDT eCW1 ([facility]) Docusate Sodium 10 MG/ML Oral Suspension 03/24/2021 12:00:00 AM EDT eCW1 ([facility]) Docusate Sodium 10 MG/ML Oral Suspension 03/24/2021 12:00:00 AM EDT eCW1 ([facility]) Docusate Sodium 10 MG/ML Oral Suspension 03/24/2021 12:00:00 AM EDT eCW1 ([facility]) [employer] Leg Straps - 10/26/2020 12:00:00 AM EDT eCW1 ([facility]) [employer] Leg Straps - 10/26/2020 12:00:00 AM EDT eCW1 ([facility]) [employer] - 10/26/2020 12:00:00 AM EDT eCW1 ([facility]) [employer] - 10/26/2020 12:00:00 AM EDT eCW1 ([facility]) [employer] - 10/26/2020 12:00:00 AM EDT eCW1 ([facility]) [employer] - 10/26/2020 12:00:00 AM EDT eCW1 ([facility]) [employer] - 10/26/2020 12:00:00 AM EDT eCW1 ([facility]) [employer] - 10/26/2020 12:00:00 AM EDT eCW1 ([facility]) [employer] - 10/26/2020 12:00:00 AM EDT eCW1 ([facility]) [employer] - 10/26/2020 12:00:00 AM EDT eCW1 ([facility]) [employer] - 10/26/2020 12:00:00 AM EDT eCW1 ([facility]) [employer] - 10/26/2020 12:00:00 AM EDT eCW1 ([facility]) [employer] - 10/26/2020 12:00:00 AM EDT eCW1 ([facility]) [employer] - 10/26/2020 12:00:00 AM EDT eCW1 ([facility]) [employer] - 10/26/2020 12:00:00 AM EDT eCW1 ([facility]) Docusate Sodium 10 MG/ML Oral Solution 07/17/2020 12:00:00 AM EST eCW1 ([facility]) Docusate Sodium 10 MG/ML Oral Solution 07/17/2020 12:00:00 AM EST eCW1 ([facility]) Docusate Sodium 10 MG/ML Oral Solution 07/17/2020 12:00:00 AM EST eCW1 ([facility]) Docusate Sodium 10 MG/ML Oral Solution 07/17/2020 12:00:00 AM EST eCW1 ([facility]) Docusate Sodium 10 MG/ML Oral Solution 07/17/2020 12:00:00 AM EST eCW1 ([facility]) Docusate Sodium 10 MG/ML Oral Solution 07/17/2020 12:00:00 AM EST eCW1 ([facility]) Docusate Sodium 10 MG/ML Oral Solution 07/17/2020 12:00:00 AM EST eCW1 ([facility]) Docusate Sodium 10 MG/ML Oral Solution 07/17/2020 12:00:00 AM EST eCW1 ([facility]) Cholecalciferol 400 UNT Oral Tablet 04/29/2020 12:00:00 AM EDT eCW1 ([facility]) Calcium 600 MG 04/29/2020 12:00:00 AM EDT eCW1 ([facility]) Calcium 600 MG 04/29/2020 12:00:00 AM EDT eCW1 ([facility]) Cholecalciferol 400 UNT Oral Tablet 04/29/2020 12:00:00 AM EDT eCW1 ([facility]) Calcium 600 MG 04/29/2020 12:00:00 AM EDT eCW1 ([facility]) Cholecalciferol 400 UNT Oral Tablet 04/29/2020 12:00:00 AM EDT eCW1 ([facility]) Calcium 600 MG 04/29/2020 12:00:00 AM EDT eCW1 ([facility]) Cholecalciferol 400 UNT Oral Tablet 04/29/2020 12:00:00 AM EDT eCW1 ([facility]) Calcium 600 MG 04/29/2020 12:00:00 AM EDT eCW1 ([facility]) Cholecalciferol 400 UNT Oral Tablet 04/29/2020 12:00:00 AM EDT eCW1 ([facility]) Cholecalciferol 400 UNT Oral Tablet 04/29/2020 12:00:00 AM EDT eCW1 ([facility]) Calcium 600 MG 04/29/2020 12:00:00 AM EDT eCW1 ([facility]) Calcium 600 MG 04/29/2020 12:00:00 AM EDT eCW1 ([facility]) Cholecalciferol 400 UNT Oral Tablet 04/29/2020 12:00:00 AM EDT eCW1 ([facility]) Calcium 600 MG 04/29/2020 12:00:00 AM EDT eCW1 ([facility]) Cholecalciferol 400 UNT Oral Tablet 04/29/2020 12:00:00 AM EDT eCW1 ([facility]) Calcium 600 MG 04/29/2020 12:00:00 AM EDT eCW1 ([facility]) Cholecalciferol 400 UNT Oral Tablet 04/29/2020 12:00:00 AM EDT eCW1 ([facility]) Calcium 600 MG 04/29/2020 12:00:00 AM EDT eCW1 ([facility]) Cholecalciferol 400 UNT Oral Tablet 04/29/2020 12:00:00 AM EDT eCW1 ([facility]) Calcium 600 MG 04/29/2020 12:00:00 AM EDT eCW1 ([facility]) Cholecalciferol 400 UNT Oral Tablet 04/29/2020 12:00:00 AM EDT eCW1 ([facility]) Calcium 600 MG 04/29/2020 12:00:00 AM EDT eCW1 ([facility]) Cholecalciferol 400 UNT Oral Tablet 04/29/2020 12:00:00 AM EDT eCW1 ([facility])
[2021-05-03 14:40] VITALS: BP 121/65
== END 2021-05-03 15:45 | disposition home or self-care (01) ==
LOC: M ED 09:29
DX: R09.89 Other specified symptoms and signs involving the circulatory and respiratory systems (principal); I10 Essential (primary) hypertension; Z87.01 Personal history of pneumonia (recurrent); F41.9 Anxiety disorder, unspecified; I73.01 Raynaud's syndrome with gangrene; K44.9 Diaphragmatic hernia without obstruction or gangrene; N40.0 Benign prostatic hyperplasia without lower urinary tract symptoms; F70 Mild intellectual disabilities; Z79.82 Long term (current) use of aspirin; Z79.899 Other long term (current) drug therapy; Z88.5 Allergy status to narcotic agent

== ENCOUNTER 2021-07-08 11:03 | Inpatient (IN) | payer MEDICARE, MEDICAID ==
[~2021-07-08] VITALS: Ht 160 cm; Wt 77.3 kg
[~2021-07-08 11:03] MED LIST changes: -LISI10TA15 PO; +LISI10TA24 PO
[2021-07-08 13:25] LABS: BASO % 0.2 % (0.0-1.0); EOS # 0.1 10^3/uL (0.0-0.5); EOS % 1.5 % (0.0-3.0); HEMATOCRIT 42.5 % (42.0-52.0); HEMOGLOBIN 13.8 g/dl (13.5-17.5); LYMPH # 1.2 10^3/uL (1.5-5.0); LYMPH % 12.8 % (24.0-44.0); MEAN CORPUSCULAR HEMOGLOBIN 29.7 pg (27.0-33.0); MEAN CORPUSCULAR HGB CONC 32.5 g/dl (32.0-36.5); MEAN CORPUSCULAR VOLUME 91.6 fl (80.0-96.0); MONO # 1.2 10^3/uL (0.0-0.8); MONO % 13.4 % (2.0-8.0); NEUTROPHILS # 6.6 10^3/uL (1.5-8.5); NEUTROPHILS % 71.8 % (36.0-66.0); PLATELET COUNT, AUTOMATED 190 10^3/uL (150-450); RED BLOOD COUNT 4.64 10^6/uL (4.30-6.10); WHITE BLOOD COUNT 9.2 10^3/uL (4.0-10.0)
[2021-07-08 13:51] LABS: ALT/SGPT 17 U/L (12-78); BLOOD UREA NITROGEN 15 MG/DL (7-18); CALCIUM LEVEL 8.8 MG/DL (8.8-10.2); CARBON DIOXIDE LEVEL 31 MEQ/L (21-32); CHLORIDE LEVEL 102 MEQ/L (98-107); CREATININE FOR GFR 0.66 MG/DL (0.70-1.30); GLOMERULAR FILTRATION RATE > 60.0 (>42); GLUCOSE, FASTING 101 MG/DL (70-100); POTASSIUM SERUM 4.8 MEQ/L (3.5-5.1); SODIUM LEVEL 136 MEQ/L (136-145)
[2021-07-08 13:52] LABS: ALBUMIN 2.7 GM/DL (3.2-5.2); BILIRUBIN,DIRECT 0.2 MG/DL (0.0-0.2); BILIRUBIN,TOTAL 0.4 MG/DL (0.2-1.0); TOTAL PROTEIN 6.5 GM/DL (6.4-8.2)
[2021-07-08] MEDS ORDERED: cefTRIAXone SOD 1 GM in D5W MINI-BAG PLUS 50 ML IV ONE (14:45)
[2021-07-08] MEDS ORDERED: AZITHROMYCIN INJ 500 MG, VIAL MATE ADAPTER 1 EACH in NS 250 ML IV ONE (14:45)
[2021-07-08] MEDS ORDERED: DIVA125C6 PO ×2 (15:39)
[2021-07-08] MEDS ORDERED: HOME MED LIST COMPLETE! XX SCH (15:45)
[2021-07-08] MEDS ORDERED: ASPIRIN 81MG ENTERIC TABLET PO SCH (21:00)
[2021-07-08] MEDS: DOCUSATE SOD LIQ 100MG/10ML UDC PO SCH (21:00)
[2021-07-08] MEDS: PANTOPRAZOLE 40MG TAB (PROTONIX) PO SCH (22:10)
[2021-07-08] MEDS: DOXYCYCLINE HYCLATE 100 MG in D5W MINI-BAG PLUS 100 ML IV SCH (22:11)
[2021-07-09] MEDS: oxyBUTYnin 5 MG TAB PO SCH ×3 (01:00→21:53)
[2021-07-09] MEDS: DIVALPROEX SPRINKLE 125 MG CAP PO SCH ×3 (01:00→21:55)
[2021-07-09] MEDS: IPRATROPIUM 0.5MG/ALBUTEROL 2.5MG INH SOL UD 3ML (DUONEB) NEB PRN ×2 (02:43→10:46)
[2021-07-09 09:19] LABS: C REACTIVE PROTEIN QUANTITATIV 8.35 MG/DL (0.00-0.30)
[2021-07-09] MEDS: DOXYCYCLINE HYCLATE 100 MG in D5W MINI-BAG PLUS 100 ML IV SCH ×2 (10:46→21:54)
[2021-07-09] MEDS: PANTOPRAZOLE 40MG TAB (PROTONIX) PO SCH (10:47)
[2021-07-09] MEDS: DOCUSATE SOD LIQ 100MG/10ML UDC PO SCH ×2 (12:28→21:53)
[2021-07-09] MEDS ORDERED: MILKSUS7 PO (14:17)
[2021-07-09] MEDS ORDERED: BISA5TAB15 PO (14:18)
[2021-07-09] MEDS ORDERED: EUCE1CRE2 TOP (14:18)
[2021-07-09] MEDS ORDERED: cefTRIAXone SOD 1 GM in D5W MINI-BAG PLUS 50 ML IV SCH (15:00)
[2021-07-09 20:35] VITALS: BP 127/82
[2021-07-09] MEDS ORDERED: ASPIRIN 81 MG CHEW TABLET PO SCH (21:00)
[2021-07-09 21:53] VITALS: BP 127/82
[2021-07-09] MEDS: HEPARIN SOD (PORCINE) 5000UNITS/ML 1ML VIAL/SYRINGE SQ SCH (21:53)
[2021-07-09] MEDS: PANTOPRAZOLE 40MG VIAL (C9113 PER 1) IV SCH (22:43)
[2021-07-10 05:40] VITALS: BP 133/86
[2021-07-10] MEDS ORDERED: MIRALAX *UNIT DOSE* 17GM PACKET PO SCH (09:00)
[2021-07-10] MEDS ORDERED: CEFDINIR 300 MG CAP (OMNICEF) PO SCH (09:00)
[2021-07-10 09:54] LABS: HEMATOCRIT 42.5 % (42.0-52.0); HEMOGLOBIN 13.6 g/dl (13.5-17.5); MEAN CORPUSCULAR HEMOGLOBIN 29.5 pg (27.0-33.0); MEAN CORPUSCULAR VOLUME 92.2 fl (80.0-96.0); PLATELET COUNT, AUTOMATED 187 10^3/uL (150-450); RED BLOOD COUNT 4.61 10^6/uL (4.30-6.10); WHITE BLOOD COUNT 6.5 10^3/uL (4.0-10.0)
[2021-07-10] MEDS: DOCUSATE SOD LIQ 100MG/10ML UDC PO SCH (10:01)
[2021-07-10] MEDS: oxyBUTYnin 5 MG TAB PO SCH (10:01)
[2021-07-10] MEDS: HEPARIN SOD (PORCINE) 5000UNITS/ML 1ML VIAL/SYRINGE SQ SCH (10:01)
[2021-07-10] MEDS: PANTOPRAZOLE 40MG VIAL (C9113 PER 1) IV SCH (10:01)
[2021-07-10] MEDS: DIVALPROEX SPRINKLE 125 MG CAP PO SCH (10:02)
[2021-07-10] MEDS: DOXYCYCLINE HYCLATE 100 MG in D5W MINI-BAG PLUS 100 ML IV SCH (10:02)
[2021-07-10] MEDS ORDERED: CEFD300CAP PO (10:38)
[2021-07-10] MEDS ORDERED: DOXY100C3 PO (10:38)
[2021-07-10 10:48] LABS: ALBUMIN 2.6 GM/DL (3.2-5.2); ALT/SGPT 20 U/L (12-78); BILIRUBIN,TOTAL 0.5 MG/DL (0.2-1.0); BLOOD UREA NITROGEN 16 MG/DL (7-18); CALCIUM LEVEL 8.5 MG/DL (8.8-10.2); CARBON DIOXIDE LEVEL 29 MEQ/L (21-32); CHLORIDE LEVEL 106 MEQ/L (98-107); CREATININE FOR GFR 0.69 MG/DL (0.70-1.30); GLOMERULAR FILTRATION RATE > 60.0 (>42); GLUCOSE, FASTING 104 MG/DL (70-100); POTASSIUM SERUM 4.5 MEQ/L (3.5-5.1); SODIUM LEVEL 141 MEQ/L (136-145); TOTAL PROTEIN 6.6 GM/DL (6.4-8.2)
[2021-07-10] MEDS ORDERED: BISACODYL 5 MG TAB PO PRN (13:25)
[2021-07-10] MEDS ORDERED: MOM 30ML SUSPENSION UDC PO PRN (13:25)
[2021-07-10] MEDS ORDERED: DOXYCYCLINE HYCLATE 100MG TABLET PO SCH (21:00)
== END 2021-07-10 15:55 | disposition home or self-care (01) | DRG 195 ==
LOC: M ED 11:03 → EDBD 11:03 → M ED INP 14:45 → ENRESERV 07-09 13:37 → M MS5PR 07-09 16:00 → M ED 07-09 16:08
PROVIDERS: ADMIT Internal Medicine; ATTEND Internal Medicine
DX: J18.9 Pneumonia, unspecified organism (principal); G80.9 Cerebral palsy, unspecified; F79 Unspecified intellectual disabilities; H54.8 Legal blindness, as defined in USA; Z79.82 Long term (current) use of aspirin; Z79.899 Other long term (current) drug therapy; K21.9 Gastro-esophageal reflux disease without esophagitis; I10 Essential (primary) hypertension; Q82.8 Other specified congenital malformations of skin

== ENCOUNTER → 2021-07-20 | Outpatient (CLI) | payer MEDICARE, MEDICAID ==
[~2021-07-20] MED LIST changes: +BISA5TAB15 PO; +DIVA125C6 PO; +DOXY100C3 PO; +EUCE1CRE2 TOP; +MILKSUS7 PO
[2021-07-20 12:44] LABS: BASO % 0.4 % (0.0-1.0); EOS # 0.3 10^3/uL (0.0-0.5); EOS % 3.3 % (0.0-3.0); HEMOGLOBIN 13.3 g/dl (13.5-17.5); LYMPH # 1.4 10^3/uL (1.5-5.0); LYMPH % 17.7 % (24.0-44.0); MEAN CORPUSCULAR HEMOGLOBIN 30.1 pg (27.0-33.0); MEAN CORPUSCULAR HGB CONC 32.4 g/dl (32.0-36.5); MEAN CORPUSCULAR VOLUME 92.8 fl (80.0-96.0); MONO % 12.3 % (2.0-8.0); NEUTROPHILS # 5.2 10^3/uL (1.5-8.5); NEUTROPHILS % 65.9 % (36.0-66.0); PLATELET COUNT, AUTOMATED 217 10^3/uL (150-450); RED BLOOD COUNT 4.42 10^6/uL (4.30-6.10); WHITE BLOOD COUNT 7.9 10^3/uL (4.0-10.0)
[2021-07-20 13:56] LABS: ALBUMIN 2.8 GM/DL (3.2-5.2); ALT/SGPT 19 U/L (12-78); BILIRUBIN,TOTAL 0.3 MG/DL (0.2-1.0); BLOOD UREA NITROGEN 12 MG/DL (7-18); CALCIUM LEVEL 9.1 MG/DL (8.8-10.2); CARBON DIOXIDE LEVEL 26 MEQ/L (21-32); CHLORIDE LEVEL 104 MEQ/L (98-107); FERRITIN 158 NG/ML (26-388); GLOMERULAR FILTRATION RATE > 60.0 (>42); GLUCOSE, FASTING 83 MG/DL (70-100); POTASSIUM SERUM 4.7 MEQ/L (3.5-5.1); SODIUM LEVEL 138 MEQ/L (136-145); TOTAL PROTEIN 6.3 GM/DL (6.4-8.2)
== END ==
LOC: M WUC 09:04
PROVIDERS: ATTEND Family Medicine
DX: K59.01 Slow transit constipation (principal); Z93.59 Other cystostomy status; E88.09 Other disorders of plasma-protein metabolism, not elsewhere classified; J18.9 Pneumonia, unspecified organism; D50.9 Iron deficiency anemia, unspecified

== ENCOUNTER → 2021-07-30 | Outpatient (CLI) | payer MEDICARE, MEDICAID ==
[~2021-07-30] MED LIST changes: +PHEN100C PO; +SIME1CHW5 PO; +[UNRECOGNIZED DRUG - CODE] PO
[2021-07-30 14:24] LABS: BASO % 0.5 % (0.0-1.0); EOS # 0.1 10^3/uL (0.0-0.5); EOS % 2.1 % (0.0-3.0); HEMATOCRIT 43.5 % (42.0-52.0); HEMOGLOBIN 14.1 g/dl (13.5-17.5); LYMPH # 1.3 10^3/uL (1.5-5.0); LYMPH % 20.6 % (24.0-44.0); MEAN CORPUSCULAR HGB CONC 32.4 g/dl (32.0-36.5); MEAN CORPUSCULAR VOLUME 92.6 fl (80.0-96.0); MONO % 15.3 % (2.0-8.0); NEUTROPHILS # 3.8 10^3/uL (1.5-8.5); NEUTROPHILS % 61.3 % (36.0-66.0); PLATELET COUNT, AUTOMATED 246 10^3/uL (150-450); WHITE BLOOD COUNT 6.2 10^3/uL (4.0-10.0)
[2021-07-30 14:46] LABS: ERYTHROCYTE SEDIMENTATION RATE 36 mm/hr (0-20)
== END ==
LOC: M RAD 13:05
PROVIDERS: ATTEND Physician Assistant
DX: M79.89 Other specified soft tissue disorders (principal)

== ENCOUNTER 2021-08-08 12:00 | Inpatient (IN) | payer MEDICARE, MEDICAID ==
[~2021-08-08] VITALS: Ht 167.6 cm; Wt 93.2 kg
[~2021-08-08 12:00] MED LIST changes: -PHEN100C PO; -SIME1CHW5 PO; -[UNRECOGNIZED DRUG - CODE] PO
[2021-08-08 12:52] LABS: BASO % 0.4 % (0.0-1.0); EOS # 0.2 10^3/uL (0.0-0.5); EOS % 2.4 % (0.0-3.0); HEMATOCRIT 42.3 % (42.0-52.0); HEMOGLOBIN 13.2 g/dl (13.5-17.5); LYMPH # 1.1 10^3/uL (1.5-5.0); LYMPH % 11.8 % (24.0-44.0); MEAN CORPUSCULAR HEMOGLOBIN 29.7 pg (27.0-33.0); MEAN CORPUSCULAR HGB CONC 31.2 g/dl (32.0-36.5); MEAN CORPUSCULAR VOLUME 95.3 fl (80.0-96.0); MONO # 1.1 10^3/uL (0.0-0.8); MONO % 11.3 % (2.0-8.0); NEUTROPHILS # 6.9 10^3/uL (1.5-8.5); NEUTROPHILS % 73.7 % (36.0-66.0); PLATELET COUNT, AUTOMATED 188 10^3/uL (150-450); RED BLOOD COUNT 4.44 10^6/uL (4.30-6.10); WHITE BLOOD COUNT 9.4 10^3/uL (4.0-10.0)
[2021-08-08 13:56] LABS: ALBUMIN 2.6 GM/DL (3.2-5.2); ALT/SGPT 17 U/L (12-78); BILIRUBIN,DIRECT < 0.1 MG/DL (0.0-0.2); BILIRUBIN,TOTAL 0.2 MG/DL (0.2-1.0); BLOOD UREA NITROGEN 19 MG/DL (7-18); CALCIUM LEVEL 8.6 MG/DL (8.8-10.2); CARBON DIOXIDE LEVEL 29 MEQ/L (21-32); CHLORIDE LEVEL 108 MEQ/L (98-107); CREATININE FOR GFR 0.73 MG/DL (0.70-1.30); GLOMERULAR FILTRATION RATE > 60.0 (>42); GLUCOSE, FASTING 130 MG/DL (70-100); LIPASE 37 U/L (73-393); POTASSIUM SERUM 5.1 MEQ/L (3.5-5.1); SODIUM LEVEL 144 MEQ/L (136-145); TOTAL PROTEIN 6.5 GM/DL (6.4-8.2)
[2021-08-08] MEDS ORDERED: cefTRIAXone SOD 1 GM in D5W MINI-BAG PLUS 50 ML IV ONE (14:05)
[2021-08-08] MEDS ORDERED: ISOVUE-370 76% 100ML VIAL As Ordered ONE (14:10)
[2021-08-08] MEDS ORDERED: FLEET ENEMA PR ONE (15:30)
[2021-08-08] MEDS ORDERED: PHEN100C PO (15:40)
[2021-08-08] MEDS ORDERED: COLCHICINE 0.6 MG TABLET PO ONE (17:00)
[2021-08-08] MEDS ORDERED: CALCTAB62 PO (18:15)
[2021-08-08] MEDS ORDERED: SIME1CHW5 PO (18:15)
[2021-08-08] MEDS ORDERED: [UNRECOGNIZED DRUG - CODE] PO (18:15)
[2021-08-08] MEDS ORDERED: HOME MED LIST COMPLETE! XX SCH (18:20)
[2021-08-08] MEDS: FLEET OIL RETENTION ENEMA PR SCH (18:40)
[2021-08-08] MEDS: SENOKOT S TAB PO SCH (21:13)
[2021-08-08] MEDS: CLOTRIMAZOLE 1% TOPICAL CREAM 30GM TOP SCH (21:13)
[2021-08-08] MEDS: PANTOPRAZOLE 40MG TAB (PROTONIX) PO SCH (21:13)
[2021-08-08] MEDS: MIRALAX *UNIT DOSE* 17GM PACKET PO SCH (21:13)
[2021-08-08] MEDS: COLCHICINE 0.6 MG TABLET PO SCH (21:14)
[2021-08-08] MEDS: oxyBUTYnin 5 MG TAB PO SCH (21:14)
[2021-08-08] MEDS: PHENYTOIN ER 100 MG CAP PO SCH (21:14)
[2021-08-08 22:00] VITALS: BP 141/98
[2021-08-09 06:00] VITALS: BP 147/87
[2021-08-09 07:24] LABS: HEMATOCRIT 41.2 % (42.0-52.0); HEMOGLOBIN 13.3 g/dl (13.5-17.5); MEAN CORPUSCULAR HEMOGLOBIN 30.2 pg (27.0-33.0); MEAN CORPUSCULAR HGB CONC 32.3 g/dl (32.0-36.5); MEAN CORPUSCULAR VOLUME 93.6 fl (80.0-96.0); PLATELET COUNT, AUTOMATED 177 10^3/uL (150-450); WHITE BLOOD COUNT 8.7 10^3/uL (4.0-10.0)
[2021-08-09 07:42] LABS: BLOOD UREA NITROGEN 19 MG/DL (7-18); CALCIUM LEVEL 8.7 MG/DL (8.8-10.2); CARBON DIOXIDE LEVEL 29 MEQ/L (21-32); CHLORIDE LEVEL 109 MEQ/L (98-107); CREATININE FOR GFR 0.72 MG/DL (0.70-1.30); GLOMERULAR FILTRATION RATE > 60.0 (>42); GLUCOSE, FASTING 90 MG/DL (70-100); POTASSIUM SERUM 4.1 MEQ/L (3.5-5.1); SODIUM LEVEL 141 MEQ/L (136-145)
[2021-08-09] MEDS: MIRALAX *UNIT DOSE* 17GM PACKET PO SCH ×3 (09:00→21:00)
[2021-08-09] MEDS: PANTOPRAZOLE 40MG TAB (PROTONIX) PO SCH ×2 (09:51→22:22)
[2021-08-09] MEDS: cefTRIAXone SOD 1 GM in D5W MINI-BAG PLUS 50 ML IV SCH (09:51)
[2021-08-09] MEDS: oxyBUTYnin 5 MG TAB PO SCH ×2 (09:52→22:22)
[2021-08-09] MEDS: SENOKOT S TAB PO SCH ×2 (09:52→22:22)
[2021-08-09] MEDS: PHENYTOIN ER 100 MG CAP PO SCH ×2 (09:52→22:21)
[2021-08-09] MEDS: COLCHICINE 0.6 MG TABLET PO SCH ×2 (09:52→22:21)
[2021-08-09] MEDS: FLEET OIL RETENTION ENEMA PR SCH ×2 (09:53→22:22)
[2021-08-09] MEDS: CLOTRIMAZOLE 1% TOPICAL CREAM 30GM TOP SCH ×2 (09:54→22:23)
[2021-08-09 14:00] VITALS: BP 142/83
[2021-08-09 19:44] VITALS: BP 132/80
[2021-08-10 05:11] VITALS: BP 115/76
[2021-08-10 05:51] LABS: HEMATOCRIT 42.4 % (42.0-52.0); HEMOGLOBIN 13.2 g/dl (13.5-17.5); MEAN CORPUSCULAR HEMOGLOBIN 29.5 pg (27.0-33.0); MEAN CORPUSCULAR HGB CONC 31.1 g/dl (32.0-36.5); MEAN CORPUSCULAR VOLUME 94.9 fl (80.0-96.0); PLATELET COUNT, AUTOMATED 180 10^3/uL (150-450); RED BLOOD COUNT 4.47 10^6/uL (4.30-6.10); WHITE BLOOD COUNT 7.4 10^3/uL (4.0-10.0)
[2021-08-10 06:06] LABS: BLOOD UREA NITROGEN 20 MG/DL (7-18); CALCIUM LEVEL 8.5 MG/DL (8.8-10.2); CARBON DIOXIDE LEVEL 28 MEQ/L (21-32); CHLORIDE LEVEL 112 MEQ/L (98-107); CREATININE FOR GFR 0.85 MG/DL (0.70-1.30); GLOMERULAR FILTRATION RATE > 60.0 (>42); GLUCOSE, FASTING 86 MG/DL (70-100); POTASSIUM SERUM 4.1 MEQ/L (3.5-5.1); SODIUM LEVEL 147 MEQ/L (136-145)
[2021-08-10] MEDS: FLEET OIL RETENTION ENEMA PR SCH ×2 (09:40→22:05)
[2021-08-10] MEDS: cefTRIAXone SOD 1 GM in D5W MINI-BAG PLUS 50 ML IV SCH (09:41)
[2021-08-10] MEDS: SENOKOT S TAB PO SCH ×2 (10:29→23:01)
[2021-08-10] MEDS: MOM 30ML SUSPENSION UDC PO SCH (10:29)
[2021-08-10] MEDS: oxyBUTYnin 5 MG TAB PO SCH ×2 (10:29→23:01)
[2021-08-10] MEDS: OMEPRAZOLE SUSPENSION 20MG 10ML ORAL SYRINGE PO SCH ×2 (10:30→23:01)
[2021-08-10] MEDS: PHENYTOIN 125MG/5ML SUSP ORAL SYRINGE *DRAW UP EXACT DOSE PO SCH ×2 (10:30→23:00)
[2021-08-10] MEDS: CLOTRIMAZOLE 1% TOPICAL CREAM 30GM TOP SCH ×2 (10:31→22:06)
[2021-08-10 11:13] VITALS: BP 148/78
[2021-08-10 14:00] VITALS: BP 104/71
[2021-08-10 20:00] VITALS: BP 105/90
[2021-08-11 06:00] VITALS: BP 132/62
[2021-08-11 06:53] LABS: HEMATOCRIT 41.7 % (42.0-52.0); HEMOGLOBIN 13.1 g/dl (13.5-17.5); MEAN CORPUSCULAR HEMOGLOBIN 29.8 pg (27.0-33.0); MEAN CORPUSCULAR HGB CONC 31.4 g/dl (32.0-36.5); MEAN CORPUSCULAR VOLUME 94.8 fl (80.0-96.0); PLATELET COUNT, AUTOMATED 179 10^3/uL (150-450)
[2021-08-11 07:20] LABS: BLOOD UREA NITROGEN 20 MG/DL (7-18); CALCIUM LEVEL 8.5 MG/DL (8.8-10.2); CARBON DIOXIDE LEVEL 28 MEQ/L (21-32); CHLORIDE LEVEL 114 MEQ/L (98-107); CREATININE FOR GFR 0.78 MG/DL (0.70-1.30); GLOMERULAR FILTRATION RATE > 60.0 (>42); GLUCOSE, FASTING 90 MG/DL (70-100); POTASSIUM SERUM 3.5 MEQ/L (3.5-5.1); SODIUM LEVEL 148 MEQ/L (136-145)
[2021-08-11] MEDS: D5W/0.45% SODIUM CHLORIDE 1,000 ML IV SCH ×2 (09:16→21:43)
[2021-08-11] MEDS: oxyBUTYnin 5 MG TAB PO SCH ×2 (09:17→21:43)
[2021-08-11] MEDS: PHENYTOIN 125MG/5ML SUSP ORAL SYRINGE *DRAW UP EXACT DOSE PO SCH ×2 (09:17→21:43)
[2021-08-11] MEDS: OMEPRAZOLE SUSPENSION 20MG 10ML ORAL SYRINGE PO SCH ×2 (09:17→21:43)
[2021-08-11] MEDS: MOM 30ML SUSPENSION UDC PO SCH (09:17)
[2021-08-11] MEDS: cefTRIAXone SOD 1 GM in D5W MINI-BAG PLUS 50 ML IV SCH (09:17)
[2021-08-11] MEDS: FLEET OIL RETENTION ENEMA PR SCH ×2 (09:17→21:00)
[2021-08-11] MEDS: SENOKOT S TAB PO SCH ×2 (09:17→21:43)
[2021-08-11] MEDS: CLOTRIMAZOLE 1% TOPICAL CREAM 30GM TOP SCH ×2 (09:18→21:44)
[2021-08-11 14:00] VITALS: BP 159/111
[2021-08-11 22:00] VITALS: BP 133/67
[2021-08-12 02:53] LABS: ABG BASE EXCESS -4.5 (-2.0-2.0); ABG HCO3 21.3 MEQ/L (22.0-26.0); ABG O2 SATURATION 95.6 % (95.0-99.0); ABG PARTIAL PRESSURE CO2 41.7 mmHg (35.0-45.0); ABG PARTIAL PRESSURE O2 83.2 mmHg (75.0-100.0); ABG STANDARD HCO3 20.8 MEQ/L (22.0-26.0); ABG TOTAL CO2 22.6 MEQ/L (23.0-31.0); ABG pH (ARTERIAL) 7.326 UNITS (7.350-7.450)
[2021-08-12 03:10] VITALS: BP 140/60
[2021-08-12] MEDS ORDERED: ISOVUE-370 76% 100ML VIAL As Ordered ONE (03:12)
[2021-08-12 03:52] VITALS: BP 120/70; O2SAT 93
[2021-08-12 04:00] VITALS: O2SAT 92
[2021-08-12 04:40] LABS: BASO % 0.3 % (0.0-1.0); EOS % 0.3 % (0.0-3.0); HEMATOCRIT 47.7 % (42.0-52.0); HEMATOCRIT 47.8 % (42.0-52.0); HEMOGLOBIN 14.3 g/dl (13.5-17.5); HEMOGLOBIN 14.4 g/dl (13.5-17.5); LYMPH # 0.8 10^3/uL (1.5-5.0); LYMPH % 6.9 % (24.0-44.0); MEAN CORPUSCULAR HEMOGLOBIN 29.5 pg (27.0-33.0); MEAN CORPUSCULAR HEMOGLOBIN 29.6 pg (27.0-33.0); MEAN CORPUSCULAR HGB CONC 29.9 g/dl (32.0-36.5); MEAN CORPUSCULAR HGB CONC 30.2 g/dl (32.0-36.5); MEAN CORPUSCULAR VOLUME 98.1 fl (80.0-96.0); MEAN CORPUSCULAR VOLUME 98.8 fl (80.0-96.0); MONO # 1.2 10^3/uL (0.0-0.8); MONO % 10.2 % (2.0-8.0); NEUTROPHILS # 9.7 10^3/uL (1.5-8.5); PLATELET COUNT, AUTOMATED 260 10^3/uL (150-450); PLATELET COUNT, AUTOMATED 265 10^3/uL (150-450); RED BLOOD COUNT 4.84 10^6/uL (4.30-6.10); RED BLOOD COUNT 4.86 10^6/uL (4.30-6.10); WHITE BLOOD COUNT 11.8 10^3/uL (4.0-10.0)
[2021-08-12] MEDS ORDERED: ACETAMINOPHEN 650 MG SUPP PR PRN (04:45)
[2021-08-12] MEDS: D5W/0.45% SODIUM CHLORIDE 1,000 ML IV SCH (04:48)
[2021-08-12] MEDS: PIPERACILLIN/TAZOBACTAM SOD 3.375 GM in D5W MINI-BAG PLUS 50 ML IV SCH ×2 (04:52→09:11)
[2021-08-12 04:53] LABS: INR 1.25; PROTHROMBIN TIME 16.1 SECONDS (12.7-14.5)
[2021-08-12 04:54] LABS: PARTIAL THROMBOPLASTIN TIME 31.6 SECONDS (25.9-37.0)
[2021-08-12 05:00] VITALS: O2SAT 93
[2021-08-12 05:03] LABS: ABG BASE EXCESS -7.3 (-2.0-2.0); ABG HCO3 21.3 MEQ/L (22.0-26.0); ABG O2 SATURATION 95.6 % (95.0-99.0); ABG PARTIAL PRESSURE CO2 54.9 mmHg (35.0-45.0); ABG PARTIAL PRESSURE O2 91.3 mmHg (75.0-100.0); ABG STANDARD HCO3 18.6 MEQ/L (22.0-26.0); ABG pH (ARTERIAL) 7.206 UNITS (7.350-7.450)
[2021-08-12 06:00] VITALS: O2SAT 90
[2021-08-12] MEDS ORDERED: PANTOPRAZOLE 40MG VIAL (C9113 PER 1) IV SCH (06:00)
[2021-08-12 06:07] LABS: ALBUMIN 2.3 GM/DL (3.2-5.2); BILIRUBIN,TOTAL 0.3 MG/DL (0.2-1.0); CREATININE FOR GFR 2.02 MG/DL (0.70-1.30); GLOMERULAR FILTRATION RATE 34.4 (>42); TOTAL PROTEIN 5.9 GM/DL (6.4-8.2)
[2021-08-12 06:08] LABS: POTASSIUM SERUM 4.8 MEQ/L (3.5-5.1)
[2021-08-12] MEDS ORDERED: FLEET ENEMA PR ONE (07:00)
[2021-08-12 08:00] VITALS: BP 130/70
[2021-08-12] MEDS ORDERED: PREPARATION H SUPP (HEMORRHOID) PR SCH (09:00)
[2021-08-12] MEDS: oxyBUTYnin 5 MG TAB PO SCH (09:12)
[2021-08-12] MEDS: SENOKOT S TAB PO SCH (09:12)
[2021-08-12] MEDS: MOM 30ML SUSPENSION UDC PO SCH ×2 (10:20→11:02)
[2021-08-12] MEDS: CLOTRIMAZOLE 1% TOPICAL CREAM 30GM TOP SCH (10:21)
[2021-08-12] MEDS: PHENYTOIN 125MG/5ML SUSP ORAL SYRINGE *DRAW UP EXACT DOSE PO SCH ×2 (10:21→11:02)
[2021-08-12] MEDS: FLEET OIL RETENTION ENEMA PR SCH ×2 (10:21→11:02)
[2021-08-12] MEDS: OMEPRAZOLE SUSPENSION 20MG 10ML ORAL SYRINGE PO SCH ×2 (10:22→11:02)
[2021-08-12 10:38] LABS: HEMATOCRIT 49.5 % (42.0-52.0); HEMOGLOBIN 14.6 g/dl (13.5-17.5)
[2021-08-12] MEDS ORDERED: MORPHINE 2 MG/ML 1ML VIAL (J2270) IV PRN (11:00)
[2021-08-12] MEDS ORDERED: SCOPOLAMINE 1MG TRANSDERMAL PATCH TOP PRN (11:00)
[2021-08-12] MEDS ORDERED: ONDANSETRON 4MG/2ML VIAL IV PRN (11:00)
[2021-08-12] MEDS ORDERED: LORazepam 2 MG/ML VIAL IV PRN (11:00)
[2021-08-12 17:32] LABS: MAGNESIUM LEVEL 2.7 MG/DL (1.7-2.2)
== END 2021-08-12 12:34 | disposition expired | DRG 391 ==
LOC: EDBD 12:00 → M ED 12:00 → M ED INP 16:06 → M MS5PR 18:25 → M PCU 08-12 03:50
PROVIDERS: ADMIT Family Medicine; ATTEND Internal Medicine
DX: K59.81 Ogilvie syndrome (principal); G80.0 Spastic quadriplegic cerebral palsy; J69.0 Pneumonitis due to inhalation of food and vomit; J96.01 Acute respiratory failure with hypoxia; N39.0 Urinary tract infection, site not specified; K92.0 Hematemesis; E87.2 Acidosis; T83.518A Infection and inflammatory reaction due to other urinary catheter, initial encounter; N17.9 Acute kidney failure, unspecified; N13.30 Unspecified hydronephrosis; Z66 Do not resuscitate; H35.30 Unspecified macular degeneration; I10 Essential (primary) hypertension; G62.9 Polyneuropathy, unspecified; I73.00 Raynaud's syndrome without gangrene; L30.9 Dermatitis, unspecified; M81.0 Age-related osteoporosis without current pathological fracture; G40.909 Epilepsy, unspecified, not intractable, without status epilepticus; Z79.82 Long term (current) use of aspirin; Z79.899 Other long term (current) drug therapy; Z20.822 Contact with and (suspected) exposure to COVID-19; B96.20 Unspecified Escherichia coli [E. coli] as the cause of diseases classified elsewhere; K59.00 Constipation, unspecified; Z88.5 Allergy status to narcotic agent; K63.89 Other specified diseases of intestine